=== PATIENT | male | born 1960 | race Caucasian/White ===

== ENCOUNTER 2021-02-18 12:40 | Observation (INO) | payer MEDICARE, SELFPAY ==
[2021-02-18 12:43] VITALS: BP 150/108; PULSE 126; RESP 20; TEMP 36.8; O2SAT 96; BMI 40.7
[2021-02-18 12:48] VITALS: PULSE 90
--- NOTE | 2021-02-18 12:51 | ECG_ITS ---
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 Measurements Intervals [place] Rate: 107 P: 26 CA: 148 QRS: -30 QRSD: 86 T: 29 QT: 328 QTc: 439 Interpretive Statements SINUS TACHYCARDIA BORDERLINE LEFT AXIS DEVIATION [QRS AXIS < -20] No previous ECG available for comparison Electronically Signed On 02-19-2021 21:56:33 DRIVER MESSENGER by Arsenio Ware M.D. [email or web address] [email or web address] [email or web address] system west campus3DVista/store/[id number] f
--- NOTE | 2021-02-18 12:51 | XRR_ITS ---
PROCEDURE INFORMATION: Exam: XR Chest Exam date and time: 02/18/2021 12:51 PM Age: 60 years old Clinical indication: Dyspnea TECHNIQUE: Imaging protocol: XR of the chest. Views: 1 view. COMPARISON: No relevant prior studies available. FINDINGS: Lungs: No pulmonary consolidation. Pleural spaces: No pleural effusion.. No pneumothorax. Heart/Mediastinum: The cardiac silhouette appears prominent; this is likely exaggerated by AP technique. No gross evidence of pneumomediastinum. Bones/joints: No gross fracture. XR/XR chest 1V portable [id number] IMPRESSION: No acute cardiopulmonary abnormality identified. Radiation Dose CTDIVOL = (mGy): DLP = (mGy-cm)
[2021-02-18 13:06] LABS: Basophils # 0.1 10^3/uL (0.0-0.1); Basophils % 0.9 %; Eosinophils # 0.1 10^3/uL (0.0-0.8); Eosinophils % 1.2 %; Hematocrit 47.8 % (42.0-52.0); Hemoglobin 16.4 g/dL (11.7-16.6); Lymphocytes # 1.5 10^3/uL (0.8-4.8); Lymphocytes % 22.6 %; Mean Corpuscular HGB Conc 34.3 g/dL (30.0-36.0); Mean Corpuscular Hemoglobin 31.7 pg (28.0-34.0); Mean Corpuscular Volume 92.5 fl (80-94); Monocytes # 0.8 10^3/uL (0.2-0.9); Monocytes % 11.5 %; Neutrophils # 4.15 10^3/uL (1.8-7.7); Neutrophils % 63.5 %; Nucleated Red Blood Cells % 0 %; Platelet Count 217 10^3/cmm (130-400); Red Blood Count 5.17 10^6/uL (4.1-5.3); Red Cell Distribution Width 12.5 % (12.1-15.1); White Blood Count 6.5 10^3/uL (4.0-10.0)
[2021-02-18 13:13] VITALS: BP 132/94; PULSE 108; RESP 24; TEMP 36.7; O2SAT 95
--- NOTE | 2021-02-18 13:13 | ED_ITS ---
HPI - General Adult General: Chief complaint: Weakness Stated complaint: WEAKNESS; TACHYCARDIA Time Seen by Provider: 02/18/21 12:45 History of Present Illness: HPI narrative: Patient is a 60-year-old male with history of hypertension, diabetes, recent right knee replacement in October who presents emergency room for persistence of tachycardia since the surgery. Patient tells me that he has never had fast heart rate, however after the surgery, has had shortness of breath and fast heart rate. Patient tells me that in November, went to the emergency room for an evaluation at that point time had a CT study that was negative for pulmonary embolism. Patient was told to follow- up with a lock stitch channeler, however has not been able to schedule appointment until now. This morning, patient reports palpitation, lightheadedness, and shortness of breath. Patient denies any lower extremity swelling or associated chest pain, fever/chills, nausea/vomiting, dehydration, diarrhea, melena/hematochezia, or other complaints at this time. He has no exertional chest pain, pleuritic chest pain, hemoptysis, or prolonged immoblization. Patient denies any sympathomimetic use, is not a heavy alcohol user and denies any history of alcohol withdrawal. Patient denies any thyroid issues or family history of thyroid issues. Onset: chronic x 3 months, acutely this AM Duration:ongoing Location:home Severity:moderate Review of Systems Narrative: Constitutional: No fever, no chills. HEENT: No vision changes CV: No chest pain, +palpitations PULM: no cough, +dyspnea. GI: No abdominal pain, no N/V/D. : No dysuria MSKEL: No muscle pain SKIN: No new rashes, no lesions. NEURO: No headache, no focal weakness. +1 episode of light-headedness HEME: No visible bruises PSYCH: Normal mood PFSH ED PFSH: Medical History Diabetes Shortness of breath Tachycardia Surgical History History of total knee arthroplasty Family History (Updated 02/18/21 @ 17:10 by Ray Hopper MD) Mother Cancer colon cancer Other Diabetes Social History Smoking and tobacco status: never smoked Physical Exam Narrative: EXAM NARRATIVE: Head: Atraumatic Eyes: PERRL, conjunctiva without injection ENT: Mucous membrane moist NECK: Supple, ROM intact LUNGS: LCTAB, no crackles/rhonchi CV: Sinus tachycardia ABDOMEN: Soft, nontender in all quadrants EXTREMITY: Normal ROM SKIN: No rash or erythema NEURO: Awake and alert, no focal motor deficits PSYCH: Normal mood and affect Course Vital Signs: Vital signs: Vital Signs Temperature 97.8 F 02/19/21 13:00 Pulse Rate 93 02/19/21 13:48 Respiratory Rate 18 02/19/21 13:00 Blood Pressure 114/79 02/19/21 13:48 Pulse Oximetry 96 02/19/21 13:00 MDM - General Adult MDM Narrative: Medical decision making narrative: 60-year-old male with history of diabetes, hypertension, recent right knee surgery in October presented to the emergency room with persistence of potation and new onset of shortness of breath and fast heart rate since this morning. Exam, patient is notably tachycardic to the 127 mildly tachypneic to 20. Rest of vitals within normal limit. No signs of lower extremity swelling. EKG showing regular sinus rhythm at HT of [107]. Normal axis. No ST elevations/depressions to suggest coronary occlusion. Normal MD, QRS, QT intervals. Poor R wave progression. Work-up: CBC, BMP, troponin x2, BMP, chest x-ray, EKG x2, Covid, influenza, TSH/T4, dimer Intervention: IVF, observation, ASA Cardiac today include troponin x2 within normal limit. D-dimer is within normal limit. TSH/T4 wnl. X-ray did not show any signs of focal finding. She has no longer tachycardic after 1 L fluid. At the present time, he still has shortness of breath. Given risk factors of HTN, HLN and possible cardiac dyspnea, I have offered patient decision for admission versus going home today. Patient likes to be admitted at this time. S/p aspirin in the ED Disposition: Admission for further workup Lab Data: Labs: Lab Results 02/18/21 02/18/21 02/18/21 12:50 12:50 12:50 WBC 6.5 10^3/uL 10^3/ uL (4.0-10.0) RBC 5.17 10^6/uL 10^6 /uL (4.1-5.3) Hgb 16.4 g/dL g/dL (11.7-16.6) Hct 47.8 % % (42.0-52.0) MCV 92.5 fl fl (80-94) MCH 31.7 pg pg (28.0-34.0) MCHC 34.3 g/dL g/dL (30.0-36.0) RDW 12.5 % % (12.1-15.1) Plt Count 217 10^3/cmm 10^3 /cmm (130-400) MPV 12.0 fL H fL (7.4-10.4) Neut % (Auto) 63.5 % % Lymph % (Auto) 22.6 % % [place] % (Auto) 11.5 % % Eos % (Auto) 1.2 % % Baso % (Auto) 0.9 % % Neut # (Auto) 4.15 10^3/uL 10^3 /uL (1.8-7.7) Lymph # (Auto) 1.5 10^3/uL 10^3/ uL (0.8-4.8) [place] # (Auto) 0.8 10^3/uL 10^3/ uL (0.2-0.9) Eos # (Auto) 0.1 10^3/uL 10^3/ uL (0.0-0.8) Baso # (Auto) 0.1 10^3/uL 10^3/ uL (0.0-0.1) Nucleated RBC % (a uto) 0 % % Nucleated RBCs # 0.0 /100WBC /100W BC D-Dimer Sodium 138 mmol/L mmol/L (136-145) Potassium 4.4 mmol/L mmol/L (3.5-5.1) Chloride 100 mmol/L mmol/L (98-107) Carbon Dioxide 25 mmol/L mmol/L (22-29) Anion Gap 17.4 (5-19) BUN 13 mg/dL mg/dL (8-23) Creatinine 0.7 mg/dL mg/dL (0.7-1.2) GFR Calculation 114.6 mL/min mL/m in (90-130) Glucose 159 mg/dL H mg/dL (65-115) Calculated Osmolal ity 289 mOsm/kg mOsm/ kg (285-295) Calcium 9.9 mg/dL mg/dL (8.5-10.5) Troponin T Baselin e 10 ng/L ng/L (0-15) Troponin T 120 Min [place] Troponin T NT-Pro-B Natriuret Pep 6 pg/mL pg/mL (0-125) Procalcitonin TSH Free T4 Influenza Type A A g Influenza Type B A g SARS-CoV-2 RNA (RT -PCR) SARS-CoV-2 Ag (Rap id) 02/18/21 02/18/21 02/18/21 12:50 12:50 12:50 WBC RBC Hgb Hct MCV MCH MCHC RDW Plt Count MPV Neut % (Auto) Lymph % (Auto) [place] % (Auto) Eos % (Auto) Baso % (Auto) Neut # (Auto) Lymph # (Auto) [place] # (Auto) Eos # (Auto) Baso # (Auto) Nucleated RBC % (a uto) Nucleated RBCs # D-Dimer 0.45 ug/mIFEU ug/ mIFEU (0-0.59) Sodium Potassium Chloride Carbon Dioxide Anion Gap BUN Creatinine GFR Calculation Glucose Calculated Osmolal ity Calcium Troponin T Baselin e Troponin T 120 Min [place] Troponin T NT-Pro-B Natriuret Pep Procalcitonin 0.05 ng/mL ng/mL (0-0.5) TSH 1.75 uIU/mL uIU/m L (0.27-4.20) Free T4 1.04 ng/dL ng/dL (0.82-1.77) Influenza Type A A g Influenza Type B A g SARS-CoV-2 RNA (RT -PCR) SARS-CoV-2 Ag (Rap id) 02/18/21 02/18/21 02/18/21 12:55 12:55 13:02 WBC RBC Hgb Hct MCV MCH MCHC RDW Plt Count MPV Neut % (Auto) Lymph % (Auto) [place] % (Auto) Eos % (Auto) Baso % (Auto) Neut # (Auto) Lymph # (Auto) [place] # (Auto) Eos # (Auto) Baso # (Auto) Nucleated RBC % (a uto) Nucleated RBCs # D-Dimer Sodium Potassium Chloride Carbon Dioxide Anion Gap BUN Creatinine GFR Calculation Glucose Calculated Osmolal ity Calcium Troponin T Baselin e Troponin T 120 Min [place] Troponin T NT-Pro-B Natriuret Pep Procalcitonin TSH Free T4 Influenza Type A A g Negative (Negative) Influenza Type B A g Negative (Negative) SARS-CoV-2 RNA (RT -PCR) Not detected (NOT DETECTED) SARS-CoV-2 Ag (Rap id) Negative (Negative) 02/18/21 15:30 WBC RBC Hgb Hct MCV MCH MCHC RDW Plt Count MPV Neut % (Auto) Lymph % (Auto) [place] % (Auto) Eos % (Auto) Baso % (Auto) Neut # (Auto) Lymph # (Auto) [place] # (Auto) Eos # (Auto) Baso # (Auto) Nucleated RBC % (a uto) Nucleated RBCs # D-Dimer Sodium Potassium Chloride Carbon Dioxide Anion Gap BUN Creatinine GFR Calculation Glucose Calculated Osmolal ity Calcium Troponin T Baselin e Troponin T 120 Min [place] 10.45 ng/L ng/L (0-15) [place] Troponin T 0.45 ABS# ABS# (0-10) NT-Pro-B Natriuret Pep Procalcitonin TSH Free T4 Influenza Type A A g Influenza Type B A g SARS-CoV-2 RNA (RT -PCR) SARS-CoV-2 Ag (Rap id) Discharge Plan Discharge Patient Disposition: Home Clinical Impression: Dyspnea, Sinus tachycardia Condition: Stable Discharge Orders: Discharge Order (Routine); Ordered 02/19/21 Ordered By: Ray Hopper Discharge Diet: Cardiac Discharge Activity: Resume usual activity Coding Level of Care Code ED Production Editor for Mo Souza
--- NOTE | 2021-02-18 13:17 | PC.NURSE ---
Addendum entered by Elida Durham RN 02/18/21 13:21: EMS gave pt 324mg baby Aspirin en ropute, pts blood glucose 198. Original Note: Pt arrived via EMS from home where he lives with his . Pt c/o intermittent SOB and general weakness since this past October. Pt states he had a knee replaced in October and has been working with HHC and PT, while working with both staff noted pts HR increase. Pt A/O, vs taken, pt placed on monitor. Pt denies chest pain, nausea, vomiting or diarrhea.
[2021-02-18 13:18] LABS: D Dimer 0.45 ug/mIFEU (0-0.59)
[2021-02-18 13:30] LABS: Influenza A by IFA Negative (Negative); Influenza B by IFA Negative (Negative); SARS Covid-2 Antigen Negative (Negative)
[2021-02-18 13:31] LABS: Troponin(5th) Baseline 10 ng/L (0-15)
[2021-02-18] MEDS: acetaminophen 500 mg Tablet 1000 MG PO (13:39)
[2021-02-18 13:40] LABS: Anion Gap 17.4 (5-19); Blood Urea Nitrogen 13 mg/dL (8-23); Calcium 9.9 mg/dL (8.5-10.5); Carbon Dioxide 25 mmol/L (22-29); Chloride 100 mmol/L (98-107); Glomerular Filtration Rate 114.6 mL/min (90-130); Glucose 159 mg/dL (65-115); NT Pro B Type Natriuretic Pept 6 pg/mL (0-125); Osmolality Calculated 289 mOsm/kg (285-295); Potassium 4.4 mmol/L (3.5-5.1); Sodium 138 mmol/L (136-145)
[2021-02-18] MEDS: sodium chloride 0.9% 1,000 ML 999 ML IV (13:40)
[2021-02-18 13:44] LABS: Free T4 Free Thyroxine 1.04 ng/dL (0.82-1.77); Thyroid Stimulating Hormone 1.75 uIU/mL (0.27-4.20)
--- NOTE | 2021-02-18 14:51 | ECG_ITS ---
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 Measurements Intervals [place] Rate: 96 P: 22 NM: 146 QRS: -11 QRSD: 81 T: 16 QT: 344 QTc: 436 Interpretive Statements SINUS RHYTHM Compared to ECG 02/18/2021 12:48:36 Sinus tachycardia no longer present Electronically Signed On 02-19-2021 21:59:56 RACING SECRETARY AND HANDICAPPER by Arsenio Ware M.D. [email or web address] [email or web address] health allen hospitalCurse/store/OM/[id number]
--- NOTE | 2021-02-18 15:36 | PM.HP ---
Providers/Chief Complaint Chief Complaint: WEAKNESS; TACHYCARDIA History of Present Illness Mikala Wright is a 60 year old male who has history of knee replacement in October at [facility] presented today with chief complaint of palpitation and shortness of breath. Patient is stating that since his surgery he has been experiencing palpitations which he would experience for most of his day, he has not experienced any falls, nausea, vomiting or chest pain. He does not carry any cardiac history. He does not drink caffeine or soda on daily basis. He does not drink alcohol. No syncopal events in the past. Since his surgery he has been noticing that heart rate consistently stays above 100 with exertion. Heart rate slightly improves at rest especially in the evening. He presented to the hospital for worsening of his shortness of breath and palpitation. Today he was working in his garage, stacking shelves when he started getting diaphoretic, he felt extremely lethargic and fatigued when he checked his heart rate was 167. Diagnostics in the ER revealed sinus tachycardia, D-dimer unremarkable, chest x-ray unremarkable EKG showing sinus rhythm. Patient is stating that in November he went to [facility] where CTA chest was done which was unremarkable. He was put on metoprolol by PCP for his tachycardia. He only carries history of diabetes and hypertension. Of note, patient is stating that he was diagnosed with rheumatic fever when he was 5 years old. His father of pulmonary complications, mother had colon cancer. Review of Systems Const: Denies: fever(s) Eyes: Denies: change in vision ENMT: Denies: throat pain Card: Reports: palpitations Resp: Reports: dyspnea GI: Denies: abdominal pain : Denies: flank pain Musc: Denies: neck pain Skin/Breast: Denies: rash Neuro: Denies: headache(s) Psych: Denies: anxiety Endo: Denies: polyuria Jhonathan/Lymph: Denies: easy bruising All/Imm: Denies: urticaria Medications/Allergies Home Medications Medication Instructions Recorded Confirmed Last Taken Type buspirone 10 mg tablet 10 mg PO BID 02/18/21 02/18/21 Unknown History celecoxib 200 mg capsule 200 mg PO BID 02/18/21 02/18/21 Unknown History clindamycin HCl 300 mg PO TID 02/18/21 02/18/21 02/18/21 History glipizide 10 mg tablet 10 mg PO BID 02/18/21 02/18/21 Unknown History lisinopril 10 mg tablet 10 mg PO DAILY 02/18/21 02/18/21 Unknown History metformin 500 mg tablet 500 mg PO BID 02/18/21 02/18/21 Unknown History metoprolol tartrate 25 mg tablet 25 mg PO BID 02/18/21 02/18/21 Unknown History pregabalin 75 mg capsule 75 mg PO BID 02/18/21 02/18/21 Unknown History Allergies Allergy/AdvReac Type Severity Reaction Status Date / Time No Known Allergies Allergy Verified 02/18/21 11:06 PFSH Acute PFSH: Medical History Diabetes Shortness of breath Tachycardia Surgical History History of total knee arthroplasty Family History (Updated 02/18/21 @ 17:10 by Ray Hopper MD) Mother Cancer colon cancer Other Diabetes Social History Smoking and tobacco status: never smoked Vitals/I&O/Wt Last Vital Signs Temp 98.1 F 02/18/21 13:13 Pulse 108 H 02/18/21 13:13 Resp 24 H 02/18/21 13:13 BP 132/94 02/18/21 13:13 Pulse Ox 95 02/18/21 13:13 Weight last 48 hrs Weight 111.13 kg Physical Exam Narrative: EXAM NARRATIVE: Is sitting comfortably in his bed Saturating well on room air Responding well to fluids heart rate improved to 90s sinus rhythm S1, S2 no murmur appreciated Abdomen soft distended with obesity Nonfocal neuro exam EOMI, PERRLA Appropriate mood and affect No sign of cellulitis Appears stated age Data : 02/18/21 12:50 02/18/21 12:50 A&P Assessment and plan (1) Dyspnea: Status: Acute (2) Sinus tachycardia: Status: Acute (3) Diabetes: Status: Acute Qualifiers: Diabetes mellitus type: type 2 Diabetes mellitus fdc insulin use: without termite control technician use Diabetes mellitus complication status: without complication Qualified Code(s): E11.9 - Type 2 diabetes mellitus without complications Additional A&P Information Symptomatic tachycardia EKG showing sinus tachycardia Patient is stating that tachycardia last roughly 8 to 10 hours gets worse with exertion, never experienced any chest pain he mostly gets fatigue lethargy and diaphoretic episodes with palpitations, he is denying diarrhea he has not noticed episodic hypotension or headaches, carcinoid less likely, Patient is stating that his heart rate was 167 at home In the ER he responded very well to fluid resuscitation, heart rate improved to 80s Hemodynamically stable No active chest pain Troponin without significant delta TSH normal Potassium normal D-dimer unremarkable Saturating well on room air We will request echo and monitoring overnight for telemetry, patient does get symptoms on exertion, might benefit from ischemic work-up Cardiac diet Full code DVT prophylaxis Lovenox Check magnesium level in the morning Attestations Medical Necessity Statement*: Will be discharged with event monitor most likely within 48 hours Time Spent in Patient Care: Greater than 35 minutes Coding Level of Care Code Acute Senior Hardware Engineer for g Fwd Diagnoses Dyspnea R06.00 Sinus tachycardia R00.0 Diabetes E11.9 Diabetes mellitus type: type 2 Diabetes mellitus termite control technician insulin use: without fdc use Diabetes mellitus complication status: without complication
[2021-02-18 15:55] LABS: Troponin 5 2HR 10.45 ng/L (0-15); Troponin 5 2HR Delta 0.45 ABS# (0-10)
--- NOTE | 2021-02-18 16:03 | PC.NURSE ---
Report called to floor, given to JOHNNY Mendoza
[2021-02-18] MEDS: aspirin 325 mg Tablet PO (16:08)
[2021-02-18 16:12] LABS: Procalcitonin 0.05 ng/mL (0-0.5)
[2021-02-18 16:42] VITALS: BMI 41.9
[2021-02-18 16:43] VITALS: BP 118/75; PULSE 78; RESP 16; TEMP 36.6; O2SAT 94
[2021-02-18 17:11] LABS: Glucose Point of Care 136 mg/dL (70-110)
[2021-02-18] MEDS: sodium chloride 0.9% 1,000 ML 75 ML IV (17:41)
[2021-02-18] MEDS: enoxaparin 40 mg/0.4 mL Syringe SUBCUT (17:41)
[2021-02-18 17:55] LABS: Amphetamines Screen Urine Negative (Negative); Barbiturates Screen Urine Negative (Negative); Benzodiazepines Screen Urine Negative (Negative); Cocaine Screen Urine Negative (Negative); Opiate Screen Urine Negative (Negative); PCP Screen Urine Negative (Negative); THC Screen Urine Negative (Negative)
[2021-02-18 20:00] VITALS: BP 118/75; PULSE 85; RESP 17; TEMP 36.8; O2SAT 91
[2021-02-18] MEDS: metoprolol tartrate 25 mg Tablet PO (20:15)
[2021-02-18 20:20] LABS: Troponin 5 6HR 9.27 ng/L (0-15)
[2021-02-18 20:30] LABS: Troponin 5 6HR Delta -0.73 ng/L (0-12)
[2021-02-18 20:40] LABS: Glucose Point of Care 161 mg/dL (70-110)
[2021-02-18 22:00] VITALS: PULSE 74
[2021-02-19] VITALS: BP 103/67; PULSE 73; RESP 15; TEMP 36.7; O2SAT 91
[2021-02-19 04:00] VITALS: BP 106/73; PULSE 67; RESP 16; TEMP 36.7; O2SAT 93
[2021-02-19] MEDS: sodium chloride 0.9% 1,000 ML 75 ML IV (05:12)
[2021-02-19 05:26] LABS: Basophils % 0.9 %; Eosinophils # 0.1 10^3/uL (0.0-0.8); Eosinophils % 2.3 %; Hematocrit 44.1 % (42.0-52.0); Hemoglobin 14.6 g/dL (11.7-16.6); Lymphocytes # 1.6 10^3/uL (0.8-4.8); Lymphocytes % 34.9 %; Mean Corpuscular HGB Conc 33.1 g/dL (30.0-36.0); Mean Corpuscular Hemoglobin 31.6 pg (28.0-34.0); Mean Corpuscular Volume 95.5 fl (80-94); Mean Platelet Volume 11.2 fL (7.4-10.4); Monocytes # 0.6 10^3/uL (0.2-0.9); Monocytes % 11.9 %; Neutrophils # 2.33 10^3/uL (1.8-7.7); Neutrophils % 49.6 %; Nucleated Red Blood Cells % 0 %; Platelet Count 156 10^3/cmm (130-400); Red Blood Count 4.62 10^6/uL (4.1-5.3); Red Cell Distribution Width 12.5 % (12.1-15.1); White Blood Count 4.7 10^3/uL (4.0-10.0)
[2021-02-19 05:47] LABS: Alanine Aminotransferase 44 U/L (0-41); Alkaline Phosphatase 42 IU/L (40-130); Anion Gap 13.4 (5-19); Aspartate Amino Transferase 35 U/L (0-40); Blood Urea Nitrogen 12 mg/dL (8-23); Calcium 8.9 mg/dL (8.5-10.5); Carbon Dioxide 26 mmol/L (22-29); Chloride 104 mmol/L (98-107); Creatinine Clr Calc Pharmacy 151.0912; Globulin 2.4 g/dL (1.3-4.6); Glucose 151 mg/dL (65-115); Magnesium 1.8 mg/dL (1.7-2.3); Osmolality Calculated 291 mOsm/kg (285-295); Potassium 4.4 mmol/L (3.5-5.1); Sodium 139 mmol/L (136-145); Total Bilirubin 0.7 mg/dL (0.15-1.2); Total Protein 6.4 g/dL (6.6-8.7)
[2021-02-19 06:36] LABS: Glucose Point of Care 144 mg/dL (70-110)
--- NOTE | 2021-02-19 07:33 | USCV_ITS ---
Mikala Wright Age: 60 Gender: M : 1960 Exam Date: 02/19/2021 09:42 Ordering Phys: Ray Hopper MD Technologist: Jordana Mauro [place] [facility] [place]: Palpitations BP: 106 / 73 HR: 74 Rhythm: Sinus Technical Quality: Fair MEASUREMENTS (Male / Female) Normal Values 2D ECHO LV Diastolic Diameter PLAX 4.7 cm 4.2 - 5.9 / 3.9 - 5.3 cm LV Systolic Diameter PLAX 2.9 cm LV Chamber Size 3.8 cm IVS Diastolic Thickness 1.0 cm 0.6 - 1.0 / 0.6 - 0.9 cm IVS Systolic Thickness 1.9 cm LVPW Diastolic Thickness 1.0 cm 0.6 - 1.0 / 0.6 - 0.9 cm LVPW Systolic Thickness 1.3 cm RV Chamber Size 1.8 cm LVOT Diameter 2.0 cm LV Ejection Fraction 2D Teich 69.0 % LV Ejection Fraction MOD 2C 56.8 % LV Ejection Fraction 2C AL 58.3 % LA Diameter 3.4 cm LA Width 2.8 cm LA Height 4.7 cm RA Width 1.8 cm RA Height 4.6 cm Aorta at Sinotubular Diameter 2.7 cm M-MODE LV Diastolic Diameter MM 4.7 cm 4.2 - 5.9 / 3.9 - 5.3 cm LV Systolic Diameter MM 3.2 cm LV Ejection Fraction MM Teich 60.3 % IVS Diastolic Thickness MM 1.4 cm 0.6 - 1.0 / 0.6 - 0.9 cm IVS Systolic Thickness MM 1.7 cm LVPW Diastolic Thickness MM 1.3 cm 0.6 - 1.0 / 0.6 - 0.9 cm LVPW Systolic Thickness MM 1.6 cm RV Diastolic Diameter MM 1.7 cm Aortic Annulus Diameter 3.6 cm LA Ao Ratio MM 1.1 MV E Point Septal Separation 0.6 cm DOPPLER AV Peak Velocity 137.0 cm/s LVOT Peak Velocity 103.0 cm/s AV Area Cont Eq vti 2.5 cm squared AV Area Cont Eq pk 2.2 cm squared MV Area PHT 4.8 cm squared Mitral E to A Ratio 0.9 MV E' Velocity 49.0 cm/s Mitral E to MV E' Ratio 9.3 Mitral E to LV E' Lateral Ratio 7.3 Mitral E to LV E' Septal Ratio 13.2 TV Peak E Velocity 44.0 cm/s PV Peak Velocity 60.0 cm/s RV Acceleration Time 0.1 s RV Ejection Time 0.3 s RV AcT/ET 0.3 FINDINGS Left Ventricle Normal left ventricular size,. LV systolic function is normal with EF of 55-60%. No regional wall motion abnormalities. Grade 1 diastolic dysfunction Right Ventricle The right ventricle is normal in size and function. Right Atrium The right atrium is normal in size. Left Atrium The left atrium is normal in size. Mitral Valve Mild mitral annular calcification is seen without significant stenosis or prolapse. There is trace mitral regurgitation. Aortic Valve Aortic valve is thickened without significant stenosis. There is no aortic regurgitation. Tricuspid Valve Structurally normal tricuspid valve without significant stenosis or regurgitation. Insufficient TR jet to calculate RVSP Pulmonic Valve Structurally normal pulmonic valve without significant stenosis. There is no pulmonic regurgitation. Pericardium Normal pericardium without effusion. Aorta Normal ascending aorta dimension. CONCLUSIONS LV systolic function is normal with EF of 55-60% Grade 1 diastolic dysfunction Trace mitral regurgitation Mitral annular calcification is seen. Aortic valve is thickened without significant stenosis. No comparison studies are available. Arsenio Ware MD (Electronically Signed) Final Date: 19 February 2021 11:52 S
[2021-02-19 07:54] VITALS: BP 117/73; PULSE 65; RESP 18; TEMP 36.7; O2SAT 91
[2021-02-19] MEDS: metoprolol tartrate 25 mg Tablet PO (08:08)
[2021-02-19] MEDS: lisinopril 10 mg Tablet PO (08:09)
[2021-02-19] MEDS: insulin lispro 100 unit/1 mL SUBCUT ×2 (08:09→11:33)
--- NOTE | 2021-02-19 09:30 | PM.DCS ---
Discharge Providers Date of Admission: 02/18/21 16:41 Date of Discharge: February 19, 2021 Attending Provider at Admission: Ray Hopper MD Attending Provider at Discharge: Ray Hopper MD Primary Care Provider: Ana Mercedes MD Diagnoses at Discharge Discharge Diagnosis (1) Dyspnea: Status: Acute (2) Sinus tachycardia: Status: Acute (3) Diabetes: Status: Acute Qualifiers: Diabetes mellitus complication status: without complication Diabetes mellitus human resources generalist insulin use: without human resources generalist use Diabetes mellitus type: type 2 Qualified Code(s): E11.9 - Type 2 diabetes mellitus without complications Reason for Visit Reason for Visit: WEAKNESS; TACHYCARDIA Hospital Course Hospital Course 60-year-old male without significant past medical history presented to the hospital with chief complaint of symptomatic palpitations. Patient is stating that since his knee surgery he was experiencing palpitations at home. In November he was seen in [facility] where CTA chest ruled out PE, he is not endorsing any chest pain, fever, shortness of breath, excessive caffeine intake, drug abuse, alcohol intake, he does not smoke. His palpitations would last 6 to 8 hours a day and gets worse with exertion, rest would improve his heart rate, he never experienced any chest pain or syncopal event. He was seen by his PCP who started him on metoprolol, he does not carry significant past medical history other than hypertension and diabetes. In the ER he was diagnosed with sinus tachycardia, D-dimer unremarkable, magnesium potassium normal. TSH normal. EKG showed sinus tachycardia. He was observed overnight on telemetry, he remained in sinus rhythm, heart rate improved on 02/19 he was staying between 60 to 70s. He will be discharged with event monitor, cardiology follow-up. Dr. Ware was notified. Physical Exam Narrative: EXAM NARRATIVE: Saturating well on room air Responding well to fluids heart rate improved to 60s sinus rhythm S1, S2 no murmur appreciated Abdomen soft distended with obesity Nonfocal neuro exam EOMI, PERRLA Appropriate mood and affect No sign of cellulitis Appears stated age Discharge Data Data Completed and Pending: Completed Studies During Hospitalization Category Date Time Status XR chest 1V deny ble [id number] Urgent Exams 02/18/21 12:51 Completed Pending at discharge Category Date Time Status [facility] SARS-CoV-2 RNA Routine Lab 02/18/21 13:02 Received CV. echo complete * [id number] Routine Ultrasound 02/19/21 07:33 Ordered Labs from last 24 hours 02/19/21 02/19/21 02/19/21 06:29 05:00 05:00 WBC 4.7 RBC 4.62 Hgb 14.6 Hct 44.1 MCV 95.5 H MCH 31.6 MCHC 33.1 RDW 12.5 Plt Count 156 MPV 11.2 H Neut % (Auto) 49.6 Lymph % (Auto) 34.9 [place] % (Auto) 11.9 Eos % (Auto) 2.3 Baso % (Auto) 0.9 Neut # (Auto) 2.33 Lymph # (Auto) 1.6 [place] # (Auto) 0.6 Eos # (Auto) 0.1 Baso # (Auto) 0.0 Nucleated RBC % (a uto) 0 Nucleated RBCs # 0.0 D-Dimer Sodium 139 Potassium 4.4 Chloride 104 Carbon Dioxide 26 Anion Gap 13.4 BUN 12 Creatinine 0.6 L GFR Calculation 137.0 H Glucose 151 H POC Glucose 144 H Calculated Osmolal ity 291 Calcium 8.9 Magnesium 1.8 Total Bilirubin 0.7 AST 35 ALT 44 H Alkaline Phosphata se 42 Troponin T Baselin e Troponin T 120 Min [place] Troponin T Troponin T Hi Sens 6Hr Troponin T Hi Sens 6Hr [place] NT-Pro-B Natriuret Pep Total Protein 6.4 L Albumin 4.0 Globulin 2.4 Procalcitonin TSH Free T4 Urine Opiates Scre en Ur Barbiturates Sc reen Ur Phencyclidine S crn Ur Amphetamines Sc reen U Benzodiazepines Scrn Urine Cocaine Scre en U Marijuana (THC) Screen Influenza Type A A g Influenza Type B A g SARS-CoV-2 RNA (RT -PCR) SARS-CoV-2 Ag (Rap id) 02/18/21 02/18/21 02/18/21 20:24 19:51 17:25 WBC RBC Hgb Hct MCV MCH MCHC RDW Plt Count MPV Neut % (Auto) Lymph % (Auto) [place] % (Auto) Eos % (Auto) Baso % (Auto) Neut # (Auto) Lymph # (Auto) [place] # (Auto) Eos # (Auto) Baso # (Auto) Nucleated RBC % (a uto) Nucleated RBCs # D-Dimer Sodium Potassium Chloride Carbon Dioxide Anion Gap BUN Creatinine GFR Calculation Glucose POC Glucose 161 H Calculated Osmolal ity Calcium Magnesium Total Bilirubin AST ALT Alkaline Phosphata se Troponin T Baselin e Troponin T 120 Min [place] Troponin T Troponin T Hi Sens 6Hr 9.27 Troponin T Hi Sens 6Hr Delta -0.73 L NT-Pro-B Natriuret Pep Total Protein Albumin Globulin Procalcitonin TSH Free T4 Urine Opiates Scre en Negative Ur Barbiturates Sc reen Negative Ur Phencyclidine S crn Negative Ur Amphetamines Sc reen Negative U Benzodiazepines Scrn Negative Urine Cocaine Scre en Negative U Marijuana (THC) Screen Negative Influenza Type A A g Influenza Type B A g SARS-CoV-2 RNA (RT -PCR) SARS-CoV-2 Ag (Rap id) 02/18/21 02/18/21 02/18/21 16:49 15:30 13:02 WBC RBC Hgb Hct MCV MCH MCHC RDW Plt Count MPV Neut % (Auto) Lymph % (Auto) [place] % (Auto) Eos % (Auto) Baso % (Auto) Neut # (Auto) Lymph # (Auto) [place] # (Auto) Eos # (Auto) Baso # (Auto) Nucleated RBC % (a uto) Nucleated RBCs # D-Dimer Sodium Potassium Chloride Carbon Dioxide Anion Gap BUN Creatinine GFR Calculation Glucose POC Glucose 136 H Calculated Osmolal ity Calcium Magnesium Total Bilirubin AST ALT Alkaline Phosphata se Troponin T Baselin e Troponin T 120 Min [place] 10.45 Delta Troponin T 0.45 Troponin T Hi Sens 6Hr Troponin T Hi Sens 6Hr [place] NT-Pro-B Natriuret Pep Total Protein Albumin Globulin Procalcitonin TSH Free T4 Urine Opiates Scre en Ur Barbiturates Sc reen Ur Phencyclidine S crn Ur Amphetamines Sc reen U Benzodiazepines Scrn Urine Cocaine Scre en U Marijuana (THC) Screen Influenza Type A A g Influenza Type B A g SARS-CoV-2 RNA (RT -PCR) Pending SARS-CoV-2 Ag (Rap id) 02/18/21 02/18/21 02/18/21 12:55 12:55 12:50 WBC RBC Hgb Hct MCV MCH MCHC RDW Plt Count MPV Neut % (Auto) Lymph % (Auto) [place] % (Auto) Eos % (Auto) Baso % (Auto) Neut # (Auto) Lymph # (Auto) [place] # (Auto) Eos # (Auto) Baso # (Auto) Nucleated RBC % (a uto) Nucleated RBCs # D-Dimer Sodium Potassium Chloride Carbon Dioxide Anion Gap BUN Creatinine GFR Calculation Glucose POC Glucose Calculated Osmolal ity Calcium Magnesium Total Bilirubin AST ALT Alkaline Phosphata se Troponin T Baselin e Troponin T 120 Min [place] Troponin T Troponin T Hi Sens 6Hr Troponin T Hi Sens 6Hr [place] NT-Pro-B Natriuret Pep Total Protein Albumin Globulin Procalcitonin 0.05 TSH Free T4 Urine Opiates Scre en Ur Barbiturates Sc reen Ur Phencyclidine S crn Ur Amphetamines Sc reen U Benzodiazepines Scrn Urine Cocaine Scre en U Marijuana (THC) Screen Influenza Type A A g Negative Influenza Type B A g Negative SARS-CoV-2 RNA (RT -PCR) SARS-CoV-2 Ag (Rap id) Negative 02/18/21 02/18/21 02/18/21 12:50 12:50 12:50 WBC RBC Hgb Hct MCV MCH MCHC RDW Plt Count MPV Neut % (Auto) Lymph % (Auto) [place] % (Auto) Eos % (Auto) Baso % (Auto) Neut # (Auto) Lymph # (Auto) [place] # (Auto) Eos # (Auto) Baso # (Auto) Nucleated RBC % (a uto) Nucleated RBCs # D-Dimer 0.45 Sodium Potassium Chloride Carbon Dioxide Anion Gap BUN Creatinine GFR Calculation Glucose POC Glucose Calculated Osmolal ity Calcium Magnesium Total Bilirubin AST ALT Alkaline Phosphata se Troponin T Baselin e 10 Troponin T 120 Min [place] Troponin T Troponin T Hi Sens 6Hr Troponin T Hi Sens 6Hr [place] NT-Pro-B Natriuret Pep Total Protein Albumin Globulin Procalcitonin TSH 1.75 Free T4 1.04 Urine Opiates Scre en Ur Barbiturates Sc reen Ur Phencyclidine S crn Ur Amphetamines Sc reen U Benzodiazepines Scrn Urine Cocaine Scre en U Marijuana (THC) Screen Influenza Type A A g Influenza Type B A g SARS-CoV-2 RNA (RT -PCR) SARS-CoV-2 Ag (Rap id) 02/18/21 02/18/21 12:50 12:50 WBC 6.5 RBC 5.17 Hgb 16.4 Hct 47.8 MCV 92.5 MCH 31.7 MCHC 34.3 RDW 12.5 Plt Count 217 MPV 12.0 H Neut % (Auto) 63.5 Lymph % (Auto) 22.6 [place] % (Auto) 11.5 Eos % (Auto) 1.2 Baso % (Auto) 0.9 Neut # (Auto) 4.15 Lymph # (Auto) 1.5 [place] # (Auto) 0.8 Eos # (Auto) 0.1 Baso # (Auto) 0.1 Nucleated RBC % (a uto) 0 Nucleated RBCs # 0.0 D-Dimer Sodium 138 Potassium 4.4 Chloride 100 Carbon Dioxide 25 Anion Gap 17.4 BUN 13 Creatinine 0.7 GFR Calculation 114.6 Glucose 159 H POC Glucose Calculated Osmolal ity 289 Calcium 9.9 Magnesium Total Bilirubin AST ALT Alkaline Phosphata se Troponin T Baselin e Troponin T 120 Min [place] Troponin T Troponin T Hi Sens 6Hr Troponin T Hi Sens 6Hr [place] NT-Pro-B Natriuret Pep 6 Total Protein Albumin Globulin Procalcitonin TSH Free T4 Urine Opiates Scre en Ur Barbiturates Sc reen Ur Phencyclidine S crn Ur Amphetamines Sc reen U Benzodiazepines Scrn Urine Cocaine Scre en U Marijuana (THC) Screen Influenza Type A A g Influenza Type B A g SARS-CoV-2 RNA (RT -PCR) SARS-CoV-2 Ag (Rap id) Vitals: Last Vital Signs Temp 98.0 F 02/19/21 07:54 Pulse 65 02/19/21 07:54 Resp 18 02/19/21 07:54 BP 117/73 02/19/21 07:54 Pulse Ox 91 02/19/21 07:54 Discharge Plan Discharge Patient Disposition: Home Condition: Stable Prescriptions: No Action glipizide 10 mg tablet 10 mg PO BID RF: 0 metformin 500 mg tablet 500 mg PO BID RF: 0 celecoxib 200 mg capsule 200 mg PO BID RF: 0 metoprolol tartrate 25 mg tablet 25 mg PO BID RF: 0 buspirone 10 mg tablet 10 mg PO BID RF: 0 lisinopril 10 mg tablet 10 mg PO DAILY RF: 0 pregabalin 75 mg capsule 75 mg PO BID RF: 0 clindamycin HCl 300 mg capsule 300 mg PO TID RF: 0 Discharge Orders: Discharge Order (Routine); Ordered 02/19/21 Ordered By: Ray Hopper Other Ambulatory Orders: [place] cardiac event monitor (Routine) Timeframe: 21 Days Facility: [facility] - Location: Cardiac Diagnostic Laboratory Ordered By: Ray Hopper Referrals: Arsenio Ware M.D [Physician] - 1-3 days (PLEASE CALL DR VARELA SATURDAY MORNING TO MAKE FOLLOW-UP APPOINTMENT.) Discharge Diet: Cardiac Discharge Activity: Resume usual activity Patient Instructions: Tachycardia (ED), Opioid Safety Activity Restrictions/Additional Instructions: Our case investigator will have you follow-up with Cardiology in the next few days. You would be expected to have a phone call with our case investigator who will put you on the schedule. Come back to the emergency room if your chest pain worsens, have any fever or chills, worsening shortness of breath, worsening exertional lightheadedness, or any new or concerning complaints. Discharge Attestations Time Spent in Discharge Care*: less than 30 min Quality Metrics Clinical Quality Measures During this hospital stay, did patient experience: None Coding Level of Care Code Acute g FW DC note Diagnoses Dyspnea R06.00 Sinus tachycardia R00.0 Diabetes E11.9 Diabetes mellitus complication status: without complication Diabetes mellitus human resources generalist insulin use: without human resources generalist use Diabetes mellitus type: type 2
[2021-02-19 11:03] LABS: Glucose Point of Care 183 mg/dL (70-110)
[2021-02-19 13:00] VITALS: BP 156/99; PULSE 78; RESP 18; TEMP 36.6; O2SAT 96
--- NOTE | 2021-02-19 13:09 | PC.NURSE ---
Vitals were taken after pt pull the emergency cord in bathroom where the nurse and I found the pt laying on the floor and stated he fell. He claimed that everything went black for a second then he was on the ground.
[2021-02-19 13:48] VITALS: BP 114/79; BP 120/82; BP 129/74; PULSE 80; PULSE 87; PULSE 93
[2021-02-19 16:57] LABS: Quest SARS-CoV-2 RNA NOT DETECTED (NOT DETECTED)
--- NOTE | 2021-02-20 11:52 | DCPLANNER ---
Addendum entered by Zohreh López 05/06/21 11:26: Patient had a follow up appointment scheduled with [facility] - patient did attend appointment. Original Note: sports team manager had message to schedule a follow up appointment for patient with [facility]. sports team manager called [facility], spoke with Ana, gave clinic patients information. A follow up appointment was scheduled for Saturday, March 07, 2021 at 1:[address] Acosta. sports team manager called and gave patient the appointment information.
== END 2021-02-19 14:44 | disposition home or self-care (01) ==
LOC: ER 15:48 → MEDSURG 15:56
PROVIDERS: Admitting Provider Internal Medicine; Emergency Provider Emergency Medicine; PCP Family Medicine; Visit Provider Internal Medicine
DX: R06.00 Dyspnea, unspecified (principal); R00.0 Tachycardia, unspecified; E11.9 Type 2 diabetes mellitus without complications; I10 Essential (primary) hypertension; Z96.651 Presence of right artificial knee joint; Z79.84 Long term (current) use of oral hypoglycemic drugs
CPT/HCPCS: 36415; 36416; 71045; 80048; 80053; 80306; 82962; 83735; 83880; 84145; 84439; 84443; 84484; 85025; 85378; 87426; 87635; 87804; 93005; 93306; 96360; 96361; 96372; 99285; 99291; G0378; J1650; J1815; J7030

== ENCOUNTER 2021-03-09 23:31 | Emergency (ER) | payer MEDICARE, SELFPAY ==
[2021-03-09 23:30] VITALS: BP 159/114; PULSE 82; RESP 18; TEMP 36.2; O2SAT 94; BMI 39.9
--- NOTE | 2021-03-09 23:35 | CTR_ITS ---
PROCEDURE INFORMATION: Exam: CT Head Without Contrast Exam date and time: 03/09/2021 11:35 PM Age: 60 years old Clinical indication: Pain; Headache; Patient HX: LINARES with dizziness. ; Additional info: Dizzy TECHNIQUE: Imaging protocol: Computed tomography of the head without contrast. Radiation optimization: All CT scans at this facility use at least one of these dose optimization techniques: automated exposure control; mA and/or kV adjustment per patient size (includes targeted exams where dose is matched to clinical indication); or iterative reconstruction. COMPARISON: No relevant prior studies available. RADIATION DOSE METRICS: Total DLP (mGy-cm): 893.16 FINDINGS: Brain: Normal. No hemorrhage. Unremarkable white matter. No mass effect. Cerebral ventricles: No ventriculomegaly. Paranasal sinuses: Visualized sinuses are unremarkable. No fluid levels. Mastoid air cells: Visualized mastoid air cells are well aerated. Bones/joints: Unremarkable. No acute fracture. Soft tissues: Unremarkable. CT/CT head wo con* [id number] IMPRESSION: No acute intracranial abnormality. Radiation Dose CTDIVOL = (mGy): DLP = 893.16 (mGy-cm)
--- NOTE | 2021-03-09 23:35 | XRR_ITS ---
PROCEDURE INFORMATION: Exam: XR Chest Exam date and time: 03/09/2021 11:35 PM Age: 60 years old Clinical indication: Shortness of breath; Patient HX: C/O dizziness and SOB. Wearing cardiac cath technologist on chest. ; Additional info: Dizzy TECHNIQUE: Imaging protocol: XR of the chest. Views: 1 view. COMPARISON: CR (CHEST, ) 02/18/2021 1:34 PM FINDINGS: Lungs: Unremarkable. No consolidation. Pleural spaces: Unremarkable. No pleural effusion. No pneumothorax. Heart/Mediastinum: Cardiomegaly. Bones/joints: Unremarkable. XR/XR chest 1V portable [id number] IMPRESSION: Cardiomegaly, negative for infiltrate Radiation Dose CTDIVOL = (mGy): DLP = (mGy-cm)
--- NOTE | 2021-03-09 23:35 | ECG_ITS ---
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
[2021-03-09 23:38] VITALS: O2SAT 93
[2021-03-09 23:40] VITALS: O2SAT 92
[2021-03-09] MEDS: meclizine 25 mg tablet 50 MG PO (23:40)
[2021-03-09] MEDS: sodium chloride 0.9% 1,000 ML 999 ML IV (23:40)
[2021-03-09 23:42] LABS: Basophils # 0.1 10^3/uL (0.0-0.1); Eosinophils # 0.2 10^3/uL (0.0-0.8); Eosinophils % 2.2 %; Hematocrit 48.7 % (42.0-52.0); Hemoglobin 16.2 g/dL (11.7-16.6); Lymphocytes # 2.4 10^3/uL (0.8-4.8); Mean Corpuscular HGB Conc 33.3 g/dL (30.0-36.0); Mean Corpuscular Hemoglobin 31.5 pg (28.0-34.0); Mean Corpuscular Volume 94.7 fl (80-94); Mean Platelet Volume 11.7 fL (7.4-10.4); Monocytes # 0.8 10^3/uL (0.2-0.9); Monocytes % 10.7 %; Neutrophils # 3.85 10^3/uL (1.8-7.7); Neutrophils % 52.8 %; Nucleated Red Blood Cells % 0 %; Platelet Count 185 10^3/cmm (130-400); Red Blood Count 5.14 10^6/uL (4.1-5.3); Red Cell Distribution Width 12.2 % (12.1-15.1); White Blood Count 7.3 10^3/uL (4.0-10.0)
[2021-03-09 23:45] VITALS: O2SAT 93
[2021-03-09 23:50] VITALS: O2SAT 92
[2021-03-09 23:55] VITALS: O2SAT 92
--- NOTE | 2021-03-09 23:58 | ED_ITS ---
HPI - Dizziness General: Chief Complaint: Dizziness Stated Complaint: sob/ dizziness Time Seen by Provider: 03/09/21 23:31 Source: patient and EMS Mode of arrival: EMS Limitations: no limitations History of Present Illness: HPI Narrative: 60-year-old male states that he has been having dizziness since 4 PM. He states that he gets dizzy with any sudden movements and he feels like the room is spinning. He states is improved with rest or sitting still he denies any difficulty walking denies any focal weakness denies any slurred speech denies any headache. Associated symptoms: Denies chest pain, chills, nausea or vomiting Review of Systems Const: Denies: fever(s), chills, body aches or change in appetite Eyes: Denies: blurry vision or eye discomfort ENMT: Denies: throat pain or dental pain Card: Denies: chest pain Resp: Denies: dyspnea GI: Denies: abdominal pain, nausea, vomiting or diarrhea : Denies: dysuria Musc: Denies: neck pain or back pain Skin/Breast: Denies: rash Neuro: Reports: dizziness Psych: Denies: depression Jhonathan/Lymph: Denies: easy bruising All/Imm: Denies: urticaria PFSH ED PFSH: Medical History Diabetes Shortness of breath Tachycardia Surgical History History of total knee arthroplasty Family History Mother Cancer colon cancer Other Diabetes Social History Smoking and tobacco status: former smoker Alcohol intake: never Physical Exam Const: COMMON NORMALS: no acute distress, patient oriented x3 and healthy appearing HENMT: COMMON NORMALS: normocephalic and atraumatic HEAD & SCALP: normocephalic and atraumatic Eye: COMMON NORMALS: Equal, round and reactive pupils present and EOMs intact bilaterally PUPIL: Yes Equal, round and reactive pupils present Neck/C-Spine: COMMON NORMALS: full ROM and supple Chest: COMMONS NORMALS: normal inspection of the chest and normal palpation of entire chest wall Resp: COMMON NORMALS: normal respiratory effort, No retractions, No use of accessory muscles and clear to auscultation bilaterally AUSCULTATION: clear to auscultation bilaterally Cardio: COMMON NORMALS: regular rate, regular rhythm and No murmurs present (Cardio) RATE: regular rate RHYTHM: regular rhythm GI: COMMON NORMALS: Normal to inspection, nondistended, normoactive bowel sounds present, Soft to palpation, non-tender and no masses PALPATION: Yes Soft to palpation Extremity: COMMON NORMALS: normal to inspection and full ROM Neuro: COMMON NORMALS: patient oriented x3, moves all extremities and no focal motor deficits Psych: COMMON NORMALS: mental status grossly normal, Normal thought process present and cooperative THOUGHT PROCESS: Normal thought process present Skin: COMMON NORMALS: no rashes or lesions noted and no wounds GENERAL SKIN EXAM: no rashes or lesions noted Course Vital Signs: Vital signs: Vital Signs Temperature 97.1 F L 03/09/21 23:30 Pulse Rate 80 03/10/21 00:55 Respiratory Rate 18 03/10/21 00:55 Blood Pressure 154/95 03/10/21 00:55 Pulse Oximetry 94 03/10/21 01:05 MDM - Dizziness MDM Narrative: Medical decision making narrative: Patient presents here with vertigo is likely peripheral in nature his symptoms are resolved with Antivert CT head was normal he has no signs of a stroke will prescribe him Antivert for home he is to follow-up with PCP in 3 to 4 days return if worsening she understands agrees to plan. Lab Data: Labs: Lab Results 03/09/21 03/09/21 03/09/21 22:45 22:45 22:45 WBC 7.3 10^3/uL 10^3/ uL (4.0-10.0) RBC 5.14 10^6/uL 10^6 /uL (4.1-5.3) Hgb 16.2 g/dL g/dL (11.7-16.6) Hct 48.7 % % (42.0-52.0) MCV 94.7 fl H fl (80-94) MCH 31.5 pg pg (28.0-34.0) MCHC 33.3 g/dL g/dL (30.0-36.0) RDW 12.2 % % (12.1-15.1) Plt Count 185 10^3/cmm 10^3 /cmm (130-400) MPV 11.7 fL H fL (7.4-10.4) Neut % (Auto) 52.8 % % Lymph % (Auto) 33.0 % % [place] % (Auto) 10.7 % % Eos % (Auto) 2.2 % % Baso % (Auto) 1.0 % % Neut # (Auto) 3.85 10^3/uL 10^3 /uL (1.8-7.7) Lymph # (Auto) 2.4 10^3/uL 10^3/ uL (0.8-4.8) [place] # (Auto) 0.8 10^3/uL 10^3/ uL (0.2-0.9) Eos # (Auto) 0.2 10^3/uL 10^3/ uL (0.0-0.8) Baso # (Auto) 0.1 10^3/uL 10^3/ uL (0.0-0.1) Nucleated RBC % (a uto) 0 % % Nucleated RBCs # 0.0 /100WBC /100W BC PT INR Sodium 139 mmol/L mmol/L (136-145) Potassium 4.2 mmol/L mmol/L (3.5-5.1) Chloride 100 mmol/L mmol/L (98-107) Carbon Dioxide 24 mmol/L mmol/L (22-29) Anion Gap 19.2 H (5-19) BUN 14 mg/dL mg/dL (8-23) Creatinine 0.7 mg/dL mg/dL (0.7-1.2) GFR Calculation 114.6 mL/min mL/m in (90-130) Glucose 186 mg/dL H mg/dL (65-115) Calculated Osmolal ity 293 mOsm/kg mOsm/ kg (285-295) Calcium 9.5 mg/dL mg/dL (8.5-10.5) Total Bilirubin 0.3 mg/dL mg/dL (0.15-1.2) AST 30 U/L U/L (0-40) ALT 45 U/L H U/L (0-41) Alkaline Phosphata se 55 IU/L IU/L (40-130) Troponin T Baselin e 6 ng/L ng/L (0-15) Troponin T 120 Min [place] Delta Troponin T NT-Pro-B Natriuret Pep 26 pg/mL pg/mL (0-125) Total Protein 6.8 g/dL g/dL (6.6-8.7) Albumin 4.8 g/dL g/dL (3.5-5.2) Globulin 2.0 g/dL g/dL (1.3-4.6) 03/10/21 03/10/21 00:33 01:08 WBC RBC Hgb Hct MCV MCH MCHC RDW Plt Count MPV Neut % (Auto) Lymph % (Auto) [place] % (Auto) Eos % (Auto) Baso % (Auto) Neut # (Auto) Lymph # (Auto) [place] # (Auto) Eos # (Auto) Baso # (Auto) Nucleated RBC % (a uto) Nucleated RBCs # PT 14.00 SECONDS SEC ONDS (12.1-14.9) INR 1.05 (0.8-1.2) Sodium Potassium Chloride Carbon Dioxide Anion Gap BUN Creatinine GFR Calculation Glucose Calculated Osmolal ity Calcium Total Bilirubin AST ALT Alkaline Phosphata se Troponin T Baselin e Troponin T 120 Min [place] 6.00 ng/L ng/L (0-15) Delta Troponin T 0 ABS# ABS# (0-10) NT-Pro-B Natriuret Pep Total Protein Albumin Globulin Imaging Data^: CXR: Attestation: I personally reviewed and interpreted this imaging study as follows: My impression: No acute normality CT Head: Radiologist's impression: [address] [address] [address] Scan Report Signed Patient: Mikala Wright Unit #: [id number] : 1960 Age/Sex: 60 / M ADM Date: 03/09/21 Loc: ER Room/Bed: Attending Dr: Ordering Provider/Ordering MD: Dayana Durand MD Date of Service: 03/09/21 Procedure(s): CT head wo con* [id number] Accession Number(s): [id number] Report Number: [id number] PROCEDURE INFORMATION: Exam: CT Head Without Contrast Exam date and time: 03/09/2021 11:35 PM Age: 60 years old Clinical indication: Pain; Headache; Patient HX: LINARES with dizziness. ; Additional info: Dizzy TECHNIQUE: Imaging protocol: Computed tomography of the head without contrast. Radiation optimization: All CT scans at this facility use at least one of these dose optimization techniques: automated exposure control; mA and/or kV adjustment per patient size (includes targeted exams where dose is matched to clinical indication); or iterative reconstruction. COMPARISON: No relevant prior studies available. RADIATION DOSE METRICS: Total DLP (mGy-cm): 893.16 FINDINGS: Brain: Normal. No hemorrhage. Unremarkable white matter. No mass effect. Cerebral ventricles: No ventriculomegaly. Paranasal sinuses: Visualized sinuses are unremarkable. No fluid levels. Mastoid air cells: Visualized mastoid air cells are well aerated. Bones/joints: Unremarkable. No acute fracture. Soft tissues: Unremarkable. CT/CT head wo con* [id number] IMPRESSION: No acute intracranial abnormality. Radiation Dose CTDIVOL = (mGy): DLP = 893.16 (mGy-cm) Dictated By: Pedro Wilson MD Signed By: Pedro Wilson MD Signed Date/Time: 03/10/21 0041 DD/ [id number] EKG Data^: EKG 1: Attestation: I personally reviewed and interpreted this EKG as follows: EKG interpretation date: 03/09/21 EKG interpretation time: 23:35 Interpretation: nsr hr [address] or t wave abnormalities qrs 88 qtc 393 EKG 2: Attestation: I personally reviewed and interpreted this EKG as follows: EKG interpretation date: 03/10/21 EKG interpretation time: 01:36 Interpretation: nsr hr [address] or t wave abnormalities qrs 92 qtc 420 Discharge Plan Discharge Patient Disposition: Home Clinical Impression: Vertigo Condition: Stable Prescriptions: New meclizine 50 mg tablet 50 mg PO BID PRN (Reason: dizziness) Qty: 20 RF: 0 No Action metformin 1,000 mg tablet 1,000 mg PO BID 90 Days Qty: 180 RF: 0 pregabalin 75 mg capsule 75 mg PO BID 30 Days Qty: 60 RF: 2 lisinopril 10 mg tablet 10 mg PO DAILY 90 Days Qty: 90 RF: 0 diclofenac sodium 1 % gel 4 g topical .at bedtime Qty: 100 RF: 0 glipizide 10 mg tablet 10 mg PO BID RF: 0 Hold Instructions: Home Medication placed on hold at Doctor's office metoprolol tartrate 50 mg tablet 50 mg PO BID Qty: 180 RF: 3 Discharge Orders: Discharge ED (Routine); Ordered 03/10/21 Ordered By: Dayana Durand Referrals: Ana Mercedes MD [Primary Care Provider] - 1-3 days Discharge Diet: Advance as tolerated Discharge Activity: Resume usual activity Patient Instructions: Vertigo (ED), Benign Paroxysmal Positional Vertigo (ED) Coding Level of Care Code ED Benefits Analyst for Chg Fwd Exam Comprehensive NIH stroke score NIHSS Level Of Consciousness - 1a: 0 Level Of Consciousness Questions - 1b: Both Correct Level Of Consciousness Commands - 1c: Both Correct Best Gaze - 2: Normal Visual [place] - 3: No Visual Loss Facial Palsy - 4: Normal Motor Arm Right - 5: No Drift Motor Arm Left - 5: No Drift Motor Leg Right - 6: No Drift Motor Leg Left - 6: No Drift Limb Ataxia - 7: Absent Sensory - 8: Normal Best Language - 9: No Aphasia Dysarthia - 10: Normal Extinction And Inattention - 11: 0 Score Total Score: 0
[2021-03-10] VITALS (13 sets, daily range): BP systolic 154; BP diastolic 95; PULSE 80; RESP 18; O2SAT 92–96
[2021-03-10 00:12] LABS: Troponin(5th) Baseline 6 ng/L (0-15)
[2021-03-10 00:19] LABS: Alanine Aminotransferase 45 U/L (0-41); Albumin Level 4.8 g/dL (3.5-5.2); Alkaline Phosphatase 55 IU/L (40-130); Aspartate Amino Transferase 30 U/L (0-40); Blood Urea Nitrogen 14 mg/dL (8-23); Calcium 9.5 mg/dL (8.5-10.5); Carbon Dioxide 24 mmol/L (22-29); Chloride 100 mmol/L (98-107); Glomerular Filtration Rate 114.6 mL/min (90-130); Glucose 186 mg/dL (65-115); NT Pro B Type Natriuretic Pept 26 pg/mL (0-125); Osmolality Calculated 293 mOsm/kg (285-295); Sodium 139 mmol/L (136-145); Total Bilirubin 0.3 mg/dL (0.15-1.2); Total Protein 6.8 g/dL (6.6-8.7)
[2021-03-10 00:21] LABS: Anion Gap 19.2 (5-19); Potassium 4.2 mmol/L (3.5-5.1)
[2021-03-10 00:58] LABS: INR 1.05 (0.8-1.2)
--- NOTE | 2021-03-10 01:35 | ECG_ITS ---
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
[2021-03-10 01:36] LABS: Troponin 5 2HR Delta 0 ABS# (0-10)
== END 2021-03-10 02:07 | disposition home or self-care (01) ==
PROVIDERS: Emergency Provider Emergency Medicine; PCP Family Medicine
DX: R42 Dizziness and giddiness (principal); E11.9 Type 2 diabetes mellitus without complications; Z79.84 Long term (current) use of oral hypoglycemic drugs; Z87.891 Personal history of nicotine dependence
CPT/HCPCS: 70450; 71045; 80053; 83880; 84484; 85025; 85610; 93005; 96360; 99284; J7030; J8597

== ENCOUNTER → 2021-03-16 18:10 | Outpatient (BNVA) | payer MEDICARE, SELFPAY | PROVIDERS: PCP Family Medicine; Visit Provider Emergency Medicine | DX: R39.198 Other difficulties with micturition (principal); R81 Glycosuria; R63.5 Abnormal weight gain | CPT/HCPCS: 80048; 81000; 83880; G0103 ==

== ENCOUNTER → 2021-03-21 08:25 | Outpatient (BNVA) | payer MEDICARE, SELFPAY | PROVIDERS: PCP Family Medicine; Visit Provider Family Medicine | DX: E11.9 Type 2 diabetes mellitus without complications (principal); I10 Essential (primary) hypertension | CPT/HCPCS: 80053; 80061; 83036 ==

== ENCOUNTER 2021-05-10 12:44 | Outpatient (CLI) | payer MEDICARE, SELFPAY ==
--- NOTE | 2021-05-10 15:00 | USCV_ITS ---
Mikala Wright Age: 61 Gender: M : 1960 Exam Date: 05/10/2021 13:25 Ordering Phys: Arsenio Ware M.D ([email or web address]) Technologist: Skyler Ibrahim Exam Location: [facility] [place] Indication: EVAL FOR DVT HISTORY: EVAL FOR DVT PROCEDURES: Venous duplex imaging was performed in bilateral lower extremities. The following venous structures were evaluated: common femoral vein, profunda vein, proximal portion of the greater saphenous vein, superficial femoral vein, and the popliteal vein. In addition, the posterior tibial and peroneal trunk were evaluated. Serial compression, augmentation maneuvers, and spectral Doppler flow evaluation were performed. FINDINGS: No evidence of DVT seen in any vessel visualized at this time. CONCLUSIONS No evidence of right lower extremity DVT. No evidence of left lower extremity DVT. Davion Avery MD (Electronically Signed) Final Date: 10 May 2021 17:17 S
== END 2021-05-10 12:45 | disposition home or self-care (01) ==
LOC: RAD 12:48
PROVIDERS: PCP Family Medicine; Visit Provider Internal Medicine
DX: I82.409 Acute embolism and thrombosis of unspecified deep veins of unspecified lower extremity (principal)
CPT/HCPCS: 93970

== ENCOUNTER → 2021-05-16 09:09 | Outpatient (BNVA) | payer MEDICARE, SELFPAY | PROVIDERS: PCP Family Medicine; Visit Provider Nurse Practitioner Family | DX: R00.0 Tachycardia, unspecified (principal) | CPT/HCPCS: 85025 ==

== ENCOUNTER 2021-06-13 07:10 | Outpatient (CLI) | payer MEDICARE, SELFPAY ==
[2021-06-13 07:17] VITALS: BMI 42.0
--- NOTE | 2021-06-13 07:23 | ECG_ITS ---
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 Interpretive Statements NAME OF STUDY: LEXISCAN SESTAMIBI STRESS TEST INDICATION: Shortness of Breath PROCEDURE: At the baseline, the blood pressure was 135/91 mmHg, oxygen saturation 98% with a heart rate of 70 beats per minute. The electrocardiogram showed normal sinus rhythm, normal axis. Nonspecific ST depression. The Lexiscan was infused over a period of 20 seconds. A total of 0.4 milligrams of Lexiscan was infused. The stress phase was continued for a total of 5 minutes. Heart rate at the end of the stress phase was 101 bpm, oxygen saturation 97% with a blood pressure of 141/102 mmHg. The EKG at the peak infusion revealed sinus tachycardia with no significant ST-T wave changes. The study was terminated due to protocol completion. Patient developed intraprocedural shortness of breath that resolved by discharge. Sestamibi was injected 20 seconds after the Lexiscan infusion. Blood pressure at the end of the recovery phase was 128/91 mmHg, oxygen saturation 96% with a heart rate of 93 beats per minute. CONCLUSION: 1. No significant EKG changes with the LexiScan infusion. 2. No LexiScan induced chest pain or cardiac arrhythmia. 3. Normal blood pressure and heart rate response. 4. Sestamibi/sestamibi perfusion scan pending; see separate report. RESULTS TO ALLISON QUIROZ CORE DRILL OPERATOR HELPER Electronically Signed On 06-13-2021 15:55:12 [employer]BORNE ELECTRON[employer] ANALYST by Yessy Galarza M.D. [id number]
--- NOTE | 2021-06-13 07:23 | NMCV_ITS ---
NM anila perf SPECT r/s* [id number] Mikala Wright Age: 61 Gender: M : 1960 Exam Date: 06/13/2021 08:36 Ordering Phys: Allyson Doll Technologist: SHIVANI Vizcarra Exam Location: [facility] Indications: SHORTNESS OF BREATH STRESS TEST Please see separate stress test report in [facility] for full findings IMAGE PROTOCOL Rest/Stress 1 Lexiscan Day Radiopharmaceutical Dose (mCi) Administration Site Administered by Rest: Tc-99m 11.0 IV SHIVANI Dumont Sestamibi Stress:Tc-99m 32.8 IV SHIVANI Dumont Sestamibi Rest: 13-Jun-2021 60 Discovery 630 Stress: 13-Jun-2021 30 Discovery 630 0.4mg Lexiscan. Images obtained in supine and prone position. SPECT RESULTS Technical Quality: Excellent Raw Data Analysis: Normal Image Corrections: No attenuation or motion correction applied Summed Stress Score: 0 Summed Rest Score: 0 Summed Difference Score: 0 PERFUSION FINDINGS Small size perfusion abnormality of mild severity of apical lateral wall on rest images with improved tracer uptake on stress images. This is suggestive of attenuation artifact. FUNCTIONAL RESULTS (calculated via Gated SPECT) Stress Image LV EF (%): 70 Stress EDV (mL):105 TID: 1 Stress ESV (mL):32 FUNCTIONAL FINDINGS: The left ventricle is normal in size. Transient Ischemia Dilatation of 1. There is normal left ventricular systolic function. The left ventricular ejection fraction is normal with a value of 70%. There is normal left ventricular wall thickening. Normal end-diastolic and end-systolic volumes. IMPRESSIONS 1. Myocardial perfusion imaging is normal. 2. Overall left ventricular systolic function is normal without regional wall motion abnormalities. 3. The left ventricular ejection fraction is normal with a value of 70%. 4. No significant EKG changes with Lexiscan infusion. 5. No prior similar studies to compare. Yessy Galarza MD (Electronically Signed) Final Date: 13 June 2021 16:02 S
[2021-06-13] MEDS: regadenoson 0.4 Mg/5 ml Syringe IVP (09:25)
[2021-06-13 09:47] VITALS: BP 138/92; PULSE 72
== END 2021-06-13 07:11 | disposition home or self-care (01) ==
LOC: CDL 07:11
PROVIDERS: PCP Family Medicine; Visit Provider Nurse Practitioner Family
DX: R06.02 Shortness of breath (principal)
CPT/HCPCS: 78452; 93017; A9500; J2785

== ENCOUNTER → 2021-06-20 09:03 | Outpatient (BNVA) | payer MEDICARE, SELFPAY | PROVIDERS: PCP Family Medicine; Visit Provider Family Medicine | DX: I10 Essential (primary) hypertension (principal); E11.9 Type 2 diabetes mellitus without complications | CPT/HCPCS: 80053; 83036 ==

== ENCOUNTER → 2021-06-21 12:44 | Outpatient (BNVA) | payer MEDICARE, SELFPAY | PROVIDERS: PCP Family Medicine; Visit Provider Internal Medicine | DX: I50.32 Chronic diastolic (congestive) heart failure (principal); R00.0 Tachycardia, unspecified; Z72.0 Tobacco use | CPT/HCPCS: 99214 ==

== ENCOUNTER 2021-07-15 11:58 | Observation (INO) | payer MEDICARE, SELFPAY ==
[2021-07-15] VITALS (9 sets, daily range): BP systolic 124–141; BP diastolic 79–87; PULSE 65–90; RESP 12–20; TEMP 36.4–36.6; O2SAT 94–100; BMI 39.1
--- NOTE | 2021-07-15 12:01 | CTR_ITS ---
PROCEDURE INFORMATION: Exam: CT Head Without Contrast Exam date and time: 07/15/2021 12:43 PM Age: 61 years old Clinical indication: Pain; Other: Facial droop; Headache; Additional info: Stroke symptoms, 07/14 1630, LINARES, speech, facial droop TECHNIQUE: Imaging protocol: Computed tomography of the head without contrast. Radiation optimization: All CT scans at this facility use at least one of these dose optimization techniques: automated exposure control; mA and/or kV adjustment per patient size (includes targeted exams where dose is matched to clinical indication); or iterative reconstruction. COMPARISON: CT head wo con* [id number] 03/10/2021 12:27 AM RADIATION DOSE METRICS: Total DLP (mGy-cm): 810.12 FINDINGS: Brain: There is mild diffuse cerebral atrophy present, consistent with this patient's age.No evidence for large acute ischemic infarction. Please note acute ischemia can be occult by head CT. No evidence for acute intracranial hemorrhage.Benign globus pallidus calcifications are present. Cerebral ventricles: No ventriculomegaly. Paranasal sinuses: Visualized sinuses are unremarkable. No fluid levels. Mastoid air cells: Visualized mastoid air cells are well aerated. Vasculature: Calcified plaque is present within the carotid siphons. Bones/joints: Unremarkable. No acute fracture. Soft tissues: Unremarkable. CT/CT head wo con* [id number] IMPRESSION: There are senescent changes of the brain as described above. No evidence for large acute ischemic infarction or acute intracranial injury.
--- NOTE | 2021-07-15 12:01 | W.ED.NEUROSD ---
HPI - Neuro Symptoms/Deficit General: Chief Complaint: Headache Stated Complaint: HEADACHE Time Seen by Provider: 07/15/21 12:00 History of Present Illness: Mr. Wright is a 61-year-old gentleman with hypertension, diabetes, tachycardia, diastolic heart failure who presents to the emergency department due to strokelike symptoms. Starting yesterday afternoon he noted increased blood pressure and elevated heart rate. He has had similar episodes in the past of somewhat unclear etiology however this persisted throughout the evening. At about 4:30 AM he noticed a headache which is generalized and moderate. He did not notice any associated neurologic symptoms. He denies frequent headaches. He went about his normal day and his had not noticed symptoms however he presented to clinic and was evaluated there with concern for dysarthric speech and mild facial droop at which point he was referred to the emergency department for stroke evaluation. Patient otherwise denies history of similar. No other specific changes in health, exacerbating, or alleviating factors identified. Last Observed Normal: 04:30 History of same: No Severity: moderate Quality: other On Anticoagulants: No Review of Systems General: Reports: 10 or more systems reviewed and unremarkable except in HPI and below PFSH ED PFSH: Medical History Diabetes Diabetic neuropathy Diastolic CHF, chronic Hypertension Shortness of breath Stroke-like symptom Tachycardia Surgical History History of total knee arthroplasty Family History Mother Cancer colon cancer Other Diabetes Social History Smoking and tobacco status: current every day smoker (SMOKELESS TOBACCO) smokeless tobacco Smokeless tobacco user: chewing tobacco Smokeless tobacco details: 2-3 times weekly Alcohol intake: never Physical Exam Const: COMMON NORMALS: patient oriented x3 and alert GENERAL APPEARANCE: cooperative and well developed HENMT: COMMON NORMALS: normocephalic and atraumatic HEAD & SCALP: normocephalic and atraumatic THROAT: posterior oropharynx normal Eye: COMMON NORMALS: conjunctivae normal CONJUNCTIVA: Yes conjunctivae normal SCLERA: sclerae normal Neck/C-Spine: COMMON NORMALS: supple GENERAL: Yes trachea midline Resp: COMMON NORMALS: normal respiratory effort EFFORT & INSPECTION: Yes able to speak in complete sentences Cardio: COMMON NORMALS: regular rate and regular rhythm RATE: regular rate RHYTHM: regular rhythm GI: COMMON NORMALS: Soft to palpation PALPATION: Yes Soft to palpation and No Tenderness to palpation present (GI) PERCUSSION: normal to percussion Extremity: GENERAL: Yes normal exam except as noted and No edema Neuro: COMMON NORMALS: patient oriented x3, moves all extremities, no focal motor deficits, no sensory deficits noted and gait normal; negative for CN's II-XII intact bilaterally (Subtle forehead sparing right lower facial droop) SENSORIUM/ORIENTATION: Yes alert and No Orientation impaired Psych: COMMON NORMALS: mental status grossly normal and Normal thought process present THOUGHT PROCESS: Normal thought process present Course ED course: - Patient was seen and evaluated by me at bedside - Patient placed on cardiac monitors, IV access obtained - Initial evaluation notable for exam as above. Patient outside TPA window. - Labs personally interpreted by me. EKGs from 1249 and 1505 personally interpreted by me. Sinus rhythm with nonspecific ST segment abnormalities. No STEMI. - Headache treatment ordered - Labs notable for no acute hematologic or metabolic abnormality to explain patient's symptoms. Urinalysis without evidence of infection. - Imaging notable for no acute hemorrhage or mass on head CT - Upon serial reexamination after treatment the patient was similar - Based on patient history, evaluation, and testing as interpreted the most likely cause of the patient's condition is stroke - The results of ED evaluation were discussed with the patient including plan for admission due to requirement for level of care not available if discharged to prevent significant worsening/deterioration. - Hospitalist service contacted and agreed to admit the patient - Patient was admitted without further deterioration or significant events. Note: Click bubbles or prepopulated toro in note writing are used for assistance with data collection and billing and are inherently more limited than narrative and other text portions of this note. Please use narrative for additional clinical history and defer to narrative/free test for any case of contradictory information. If information appears in only free text or click bubble it should be considered present or absent as reported. Please contact note newspaper writer for clarifications of clinical information or contradictory information. MDM is a brief summary, contradictory or erroneous seeming information should be clarified and full note should be reviewed. Vital Signs: Vital signs: Vital Signs Temperature 98.3 F 07/16/21 07:23 Pulse Rate 67 04/03/22 12:24 Respiratory Rate 18 07/16/21 12:24 Blood Pressure 124/73 07/16/21 12:24 Pulse Oximetry 94 07/16/21 12:24 MDM - Neuro Symptoms/Deficit Medical Decision Making 61-year-old gentleman with complex past medical history presenting with dysarthric speech and facial droop. Mild symptoms overall and patient outside TPA window. Admitted for further management and evaluation. Medical Records I reviewed the patient's medical records. Lab Data I reviewed the patient's lab results. : 07/15/21 12:07 07/16/21 06:[address] 07/15/21 12:01 IMPRESSION: There are senescent changes of the brain as described above. No evidence for large acute ischemic infarction or acute intracranial injury. Head/Neck CTA 07/15/21 18:18 IMPRESSION: No large vessel stenosis or occlusion. IMPRESSION: No stenosis or occlusion. REFERENCES: NASCET CRITERIA. The degree of internal carotid artery stenosis is based on NASCET criteria. Normal is no stenosis. Mild is less than 50% stenosis. Moderate is 50-69% stenosis. Severe is 70% to 99% stenosis. Total occlusion is no detectable patent lumen. Laboratory Results WBC 5.9 10^3/uL (4.0-10.0) 07/15/21 12:07 RBC 4.90 10^6/uL (4.1-5.3) 07/15/21 12:07 Hgb 15.9 g/dL (11.7-16.6) 07/15/21 12:07 Hct 46.2 % (42.0-52.0) 07/15/21 12:07 MCV 94.3 fl (80-94) H 07/15/21 12:07 MCH 32.4 pg (28.0-34.0) 07/15/21 12:07 MCHC 34.4 g/dL (30.0-36.0) 07/15/21 12:07 RDW 11.8 % (12.1-15.1) L 07/15/21 12:07 Plt Count 164 10^3/cmm (130-400) 07/15/21 12:07 MPV 11.5 fL (7.4-10.4) H 07/15/21 12:07 Neut % (Auto) 61.4 % 07/15/21 12:07 Lymph % (Auto) 24.6 % 07/15/21 12:07 Andrew % (Auto) 8.1 % 07/15/21 12:07 Eos % (Auto) 4.6 % 07/15/21 12:07 Baso % (Auto) 1.0 % 07/15/21 12:07 Neut # (Auto) 3.64 10^3/uL (1.8-7.7) 07/15/21 12:07 Lymph # (Auto) 1.5 10^3/uL (0.8-4.8) 07/15/21 12:07 Andrew # (Auto) 0.5 10^3/uL (0.2-0.9) 07/15/21 12:07 Eos # (Auto) 0.3 10^3/uL (0.0-0.8) 07/15/21 12:07 Baso # (Auto) 0.1 10^3/uL (0.0-0.1) 07/15/21 12:07 Nucleated RBC % (auto) 0 % 07/15/21 12:07 Nucleated RBCs # 0.0 /100WBC 07/15/21 12:07 Sodium 138 mmol/L (136-145) 07/15/21 12:07 Potassium 3.8 mmol/L (3.5-5.1) 07/15/21 12:07 Chloride 103 mmol/L (98-107) 07/15/21 12:07 Carbon Dioxide 21 mmol/L (22-29) L 07/15/21 12:07 Anion Gap 17.8 (5-19) 07/15/21 12:07 BUN 9 mg/dL (8-23) 07/15/21 12:07 Creatinine 0.7 mg/dL (0.7-1.2) 07/15/21 12:07 GFR Calculation 114.3 mL/min (90-130) 07/15/21 12:07 Glucose 305 mg/dL (65-115) H 07/15/21 12:07 POC Glucose 261 mg/dL (70-110) H 07/15/21 12:22 Estimat Average Glucose 235 07/15/21 12:07 Hemoglobin A1c 9.8 % (4.0-6.0) H 07/15/21 12:07 Calculated Osmolality 296 mOsm/kg (285-295) H 07/15/21 12:07 Calcium 8.9 mg/dL (8.5-10.5) 07/15/21 12:07 Total Bilirubin 0.6 mg/dL (0.15-1.2) 07/15/21 12:07 AST 40 U/L (0-40) 07/15/21 12:07 ALT 42 U/L (0-41) H 07/15/21 12:07 Alkaline Phosphatase 57 IU/L (40-130) 07/15/21 12:07 Troponin T Baseline 8 ng/L (0-15) 07/15/21 12:07 Troponin T 120 Minute 8.82 ng/L (0-15) 07/15/21 13:37 Delta Troponin T 0.82 ABS# (0-10) 07/15/21 13:37 Total Protein 6.3 g/dL (6.6-8.7) L 07/15/21 12:07 Albumin 4.4 g/dL (3.5-5.2) 07/15/21 12:07 Globulin 1.9 g/dL (1.3-4.6) 07/15/21 12:07 Triglycerides 307 mg/dL (0-150) H 07/15/21 13:37 Cholesterol 186 mg/dL (0-200) 07/15/21 13:37 LDL Cholesterol, Calc 84 mg/dL (50-129) 07/15/21 13:37 HDL Cholesterol 41 mg/dL (60-100) L 07/15/21 13:37 LDL/HDL Ratio 2.05 RATIO (0.00-3.22) 07/15/21 13:37 Cholesterol/HDL Ratio 4.54 mg/dL (1.0-5.00) 07/15/21 13:37 TSH 1.06 uIU/mL (0.27-4.20) 07/15/21 13:37 Urine Color Yellow (Yellow) 07/15/21 12:27 Urine Appearance Clear (CLEAR) 07/15/21 12:27 Urine pH 5 (5-7) 07/15/21 12:27 Ur Specific [place] 1.015 (1.005-1.030) 07/15/21 12:27 Urine Protein Neg (Negative) 07/15/21 12:27 Urine Glucose (UA) 4+ (Normal) H 07/15/21 12:27 Urine Ketones 1+ (Negative) H 07/15/21 12:27 Urine Blood Neg (Negative) 07/15/21 12:27 Urine Nitrate Negative (Negative) 07/15/21 12:27 Urine Bilirubin Neg (Negative) 07/15/21 12:27 Urine Urobilinogen Norm mg/dL (Negative) 07/15/21 12:27 Ur Leukocyte Esterase Negative (Negative) 07/15/21 12:27 Serum Ketones Negative (Negative) 07/15/21 12:07 Discharge Plan Discharge Patient Disposition: Placed in Observation Admit Provider: Ray Hopper Clinical Impression: Stroke-like symptom Discharge Diet: Diabetic Discharge Activity: Increase activity as tolerated Coding Level of Care Code ED Emergency Services Dispatcher for Mo Souza
[2021-07-15 12:20] LABS: Basophils # 0.1 10^3/uL (0.0-0.1); Eosinophils # 0.3 10^3/uL (0.0-0.8); Eosinophils % 4.6 %; Hematocrit 46.2 % (42.0-52.0); Hemoglobin 15.9 g/dL (11.7-16.6); Lymphocytes # 1.5 10^3/uL (0.8-4.8); Lymphocytes % 24.6 %; Mean Corpuscular HGB Conc 34.4 g/dL (30.0-36.0); Mean Corpuscular Hemoglobin 32.4 pg (28.0-34.0); Mean Corpuscular Volume 94.3 fl (80-94); Mean Platelet Volume 11.5 fL (7.4-10.4); Monocytes # 0.5 10^3/uL (0.2-0.9); Monocytes % 8.1 %; Neutrophils # 3.64 10^3/uL (1.8-7.7); Neutrophils % 61.4 %; Nucleated Red Blood Cells % 0 %; Platelet Count 164 10^3/cmm (130-400); Red Cell Distribution Width 11.8 % (12.1-15.1); White Blood Count 5.9 10^3/uL (4.0-10.0)
--- NOTE | 2021-07-15 12:21 | ECG_ITS ---
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 Measurements Intervals [place] Rate: 74 P: 26 AR: 140 QRS: -19 QRSD: 89 T: 30 QT: 366 QTc: 408 Interpretive Statements SINUS RHYTHM POSSIBLE RIGHT VENTRICULAR CONDUCTION DELAY [RSR (QR) IN V1/V2] Compared to ECG 03/10/2021 01:36:17 No significant changes Electronically Signed On 07-16-2021 9:35:11 CDT by Jaron Tobin M.D. [id number]
[2021-07-15 12:24] LABS: Glucose Point of Care 261 mg/dL (70-110)
[2021-07-15 12:44] LABS: Add Urine Microscopic? NO; Charge for UA Resulting for Rev
[2021-07-15 12:57] LABS: Urine Appearance Clear (CLEAR); Urine Color Yellow (Yellow); pH Urine 5 (5-7)
[2021-07-15 12:57] LABS: Alanine Aminotransferase 42 U/L (0-41); Albumin Level 4.4 g/dL (3.5-5.2); Alkaline Phosphatase 57 IU/L (40-130); Anion Gap 17.8 (5-19); Aspartate Amino Transferase 40 U/L (0-40); Blood Urea Nitrogen 9 mg/dL (8-23); Calcium 8.9 mg/dL (8.5-10.5); Carbon Dioxide 21 mmol/L (22-29); Chloride 103 mmol/L (98-107); Globulin 1.9 g/dL (1.3-4.6); Glomerular Filtration Rate 114.3 mL/min (90-130); Glucose 305 mg/dL (65-115); Osmolality Calculated 296 mOsm/kg (285-295); Potassium 3.8 mmol/L (3.5-5.1); Sodium 138 mmol/L (136-145); Total Bilirubin 0.6 mg/dL (0.15-1.2); Total Protein 6.3 g/dL (6.6-8.7)
[2021-07-15 12:58] LABS: Bilirubin Urine Neg (Negative); Blood Urine Neg (Negative); Glucose Urine UA 4+ (Normal); Ketones Urine 1+ (Negative); Leukocyte Esterase Urine Negative (Negative); Nitrate Urine Negative (Negative); Protein Urine Neg (Negative); Specific Gravity, Urine 1.015 (1.005-1.030); Urobilinogen Urine Norm (Negative)
[2021-07-15 13:10] LABS: Troponin(5th) Baseline 8 ng/L (0-15)
[2021-07-15] MEDS: sodium chloride 0.9% 1,000 ML 999 ML IV (13:24)
[2021-07-15] MEDS: acetaminophen 500 mg Tablet 1000 MG PO (13:49)
[2021-07-15] MEDS: ketorolac 30 mg/mL INJ 15 MG IVP (13:50)
[2021-07-15 13:58] LABS: Ketone (Acetest) Serum Negative (Negative)
--- NOTE | 2021-07-15 14:21 | ECG_ITS ---
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 Measurements Intervals [place] Rate: 66 P: 22 OK: 138 QRS: -22 QRSD: 89 T: 20 QT: 406 QTc: 428 Interpretive Statements SINUS RHYTHM BORDERLINE LEFT AXIS DEVIATION [QRS AXIS < -20] Compared to ECG 07/15/2021 12:49:16 No significant changes Electronically Signed On 07-16-2021 9:39:11 CDT by Jaron Tobin M.D. [id number]
[2021-07-15 14:22] LABS: Troponin 5 2HR 8.82 ng/L (0-15)
[2021-07-15 16:53] LABS: Troponin 5 2HR Delta 0.82 ABS# (0-10)
--- NOTE | 2021-07-15 18:18 | CTR_ITS ---
PROCEDURE INFORMATION: Exam: CT Angiography Head With Contrast, Arteriography Exam date and time: 07/16/2021 12:24 AM Age: 61 years old Clinical indication: Speech disturbance; Slurred speech TECHNIQUE: Imaging protocol: Computed tomography angiography of the head with contrast. Exam focused on the arteries. 3D rendering (Not supervised by radiologist): MIP and/or 3D reconstructed images were created by the technologist. Radiation optimization: All CT scans at this facility use at least one of these dose optimization techniques: automated exposure control; mA and/or kV adjustment per patient size (includes targeted exams where dose is matched to clinical indication); or iterative reconstruction. Contrast material: OMNI 350; Contrast volume: 95 ml; Contrast route: INTRAVENOUS (IV); COMPARISON: 1. CT head wo con* [id number] 07/15/2021 12:[address] head wo con* [id number] 03/10/2021 12:27 AM RADIATION DOSE METRICS: Total DLP (mGy-cm): 2250.07 FINDINGS: ANTERIOR CIRCULATION: Right internal carotid artery: Unremarkable. Intracranial segment is patent with no significant stenosis. No aneurysm. Right middle cerebral artery: Unremarkable. No occlusion or significant stenosis. No aneurysm. Right anterior cerebral artery: Unremarkable. No occlusion or significant stenosis. No aneurysm. Left internal carotid artery: Unremarkable. Intracranial segment is patent with no significant stenosis. No aneurysm. Left middle cerebral artery: Unremarkable. No occlusion or significant stenosis. No aneurysm. Left anterior cerebral artery: Unremarkable. No occlusion or significant stenosis. No aneurysm. POSTERIOR CIRCULATION: Right vertebral artery: Unremarkable. No occlusion or significant stenosis. No aneurysm. Left vertebral artery: Unremarkable. No occlusion or significant stenosis. No aneurysm. Basilar artery: Unremarkable. No occlusion or significant stenosis. No aneurysm. Right posterior cerebral artery: Unremarkable. No occlusion or significant stenosis. No aneurysm. Left posterior cerebral artery: Unremarkable. No occlusion or significant stenosis. No aneurysm. Brain: No definite mass, mass effect, or midline shift. Cerebral ventricles: No ventriculomegaly. Bones/joints: Unremarkable. No acute fracture. Soft tissues: Unremarkable. PROCEDURE INFORMATION: Exam: CT Angiography Neck With Contrast Exam date and time: 07/16/2021 12:24 AM Age: 61 years old Clinical indication: Speech disturbance; Slurred speech TECHNIQUE: Imaging protocol: Computed tomography angiography of the neck with contrast. 3D rendering (Not supervised by radiologist): MIP and/or 3D reconstructed images were created by the technologist. Radiation optimization: All CT scans at this facility use at least one of these dose optimization techniques: automated exposure control; mA and/or kV adjustment per patient size (includes targeted exams where dose is matched to clinical indication); or iterative reconstruction. Contrast material: OMNI 350; Contrast volume: 95 ml; Contrast route: INTRAVENOUS (IV); COMPARISON: 1. CT head wo con* [id number] 07/15/2021 12:[address] head wo con* [id number] 03/10/2021 12:27 AM RADIATION DOSE METRICS: Total DLP (mGy-cm): 2250.07 FINDINGS: Right common carotid artery: No stenosis. No dissection or occlusion. Right internal carotid artery: No stenosis of the extracranial segment. No dissection or occlusion. Right external carotid artery: No occlusion or stenosis of the origin. Left common carotid artery: No stenosis. No dissection or occlusion. Left internal carotid artery: No stenosis of the extracranial segment. No dissection or occlusion. Left external carotid artery: No occlusion or stenosis of the origin. Right vertebral artery: No stenosis. No dissection or occlusion. Left vertebral artery: No stenosis. No dissection or occlusion. Soft tissues: Normal. No significant soft tissue swelling. Bones/joints: No acute fracture. CT/CT angio headneck* [id number] IMPRESSION: No large vessel stenosis or occlusion. IMPRESSION: No stenosis or occlusion. REFERENCES: NASCET CRITERIA. The degree of internal carotid artery stenosis is based on NASCET criteria. Normal is no stenosis. Mild is less than 50% stenosis. Moderate is 50-69% stenosis. Severe is 70% to 99% stenosis. Total occlusion is no detectable patent lumen.
--- NOTE | 2021-07-15 18:18 | USCV_ITS ---
Transthoracic Echo Mikala Wright Age: 61 Gender: M : 1960 Exam Date: 07/15/2021 20:18 Ordering Phys: Ray Hopper MD Technologist: Rolan Ibrahim Exam Location: [facility] – [place] Indication: CVA BP: 124 / 80 HR: 74 Rhythm: Sinus Technical Quality: Suboptimal MEASUREMENTS (Male / Female) Normal Values 2D ECHO LV Diastolic Diameter PLAX 4.2 cm 4.2 - 5.9 / 3.9 - 5.3 cm LV Systolic Diameter PLAX 2.5 cm IVS Diastolic Thickness 1.5 cm 0.6 - 1.0 / 0.6 - 0.9 cm IVS Systolic Thickness 1.3 cm LVPW Diastolic Thickness 2.1 cm 0.6 - 1.0 / 0.6 - 0.9 cm LVPW Systolic Thickness 3.3 cm LVOT Diameter 2.0 cm LV Ejection Fraction 2D Teich 75.2 % LV Ejection Fraction MOD 2C 61.4 % LV Ejection Fraction 2C AL 63.7 % LA Diameter 3.1 cm LA Width 4.3 cm LA Height 4.5 cm Aorta at Sinotubular Diameter 2.5 cm M-MODE Aortic Annulus Diameter 3.4 cm LA Ao Ratio MM 0.9 MV E Point Septal Separation 1.6 cm DOPPLER AV Peak Velocity 136.0 cm/s LVOT Peak Velocity 86.0 cm/s AV Area Cont Eq vti 2.1 cm squared AV Area Cont Eq pk 2.1 cm squared MV Area PHT 2.8 cm squared Mitral E to A Ratio 0.8 MV E' Velocity 32.5 cm/s Mitral E to MV E' Ratio 5.6 Mitral E to LV E' Lateral Ratio 5.3 Mitral E to LV E' Septal Ratio 5.9 Right Atrial Pressure 13.0 mmHg PV Peak Velocity 105.0 cm/s RV Acceleration Time 0.1 s RV Ejection Time 0.2 s RV AcT/ET 0.4 FINDINGS Left Ventricle The left ventricle is not well seen. It is probably normal in size and function. Estimated ejection fraction 60%. Grade 1 diastolic dysfunction. Right Ventricle Normal right ventricular size and systolic function. Right Atrium The right atrium is poorly seen. Is probably mildly enlarged. There is also increased right atrial pressure 13 mmHg. Left Atrium Mildly increased left atrial size. Mitral Valve Mitral valve not well visualized. No mitral valve regurgitation. No mitral valve stenosis. Aortic Valve Aortic valve not well visualized. No aortic valve stenosis. No aortic valve regurgitation. Tricuspid Valve Structurally normal tricuspid valve. Trace tricuspid valve regurgitation. Pulmonic Valve Pulmonic valve not well visualized. Pericardium Normal pericardium without effusion. Aorta Normal ascending aorta dimension. CONCLUSIONS The left ventricle is not well seen. It is probably normal in size and function. Estimated ejection fraction 60%. Grade 1 diastolic dysfunction. The right atrium is poorly seen. Is probably mildly enlarged. There is also increased right atrial pressure [address] Jaron Tobin MD (Electronically Signed) Final Date: 16 July 2021 09:32 S
--- NOTE | 2021-07-15 18:18 | PM.HP ---
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 Patient is stating that normally he can tell when his blood pressure is high, yesterday after shopping start experiencing facial flushing and his diastolic pressure was high he is not sure about the numbers. He did not experience any numbness, weakness or slurring of speech however his headache(throbbing, mostly in crown of his head) which started around 4 AM was not getting better, he decided to go to PCP clinic where he was diagnosed with right-sided facial droop and slurring of speech. He was sent to the ER for further evaluation. In the ER NIH score was 0, CT head unremarkable other than chronic vascular changes. CBC BMP unremarkable blood pressure 141/79 mmHg Is requiring 2 L of oxygen which is at baseline At the time of my evaluation and nature Is sometimes stutters otherwise no active slurring of speech nonfocal neuro exam NIH 0 Very pleasant during my evaluation Is denying chest pain, shortness of breath, abdominal pain, recent diarrhea or fever. He stating that because of diastolic heart failure and underlying COPD he cannot walk much without getting short of breath. Will request echo, CTA head and neck, hemoglobin A1c and lipid profile, Review of Systems Const: Denies: fever(s) or chills Eyes: Denies: change in vision ENMT: Denies: throat pain Card: Denies: chest pain Resp: Denies: dyspnea GI: Denies: abdominal pain : Denies: flank pain Musc: Denies: neck pain Skin/Breast: Denies: rash Neuro: Reports: headache(s) Psych: Denies: anxiety Endo: Denies: polyuria Jhonathan/Lymph: Denies: easy bruising All/Imm: Denies: urticaria Medications/Allergies Home Medications Medication Instructions Recorded Confirmed Last Taken Type diclofenac sodium 1 % topical gel 4 g TOPICAL .at bedtime #100 g 03/07/21 07/15/21 Unknown Rx miscellaneous medical supply #1 ea 04/11/21 07/15/21 Unknown Rx metoprolol succinate 100 mg 100 mg PO DAILY #30 tab 05/16/21 07/15/21 07/15/21 Rx tablet,extended release 24 hr glipizide 10 mg tablet 10 mg PO BID 90 Days #180 tab 06/20/21 07/15/21 07/15/21 Rx lisinopril 10 mg tablet 10 mg PO DAILY 90 Days #90 tab 06/20/21 07/15/21 07/15/21 Rx metformin 1,000 mg tablet 1,000 mg PO BID 90 Days #180 tab 06/20/21 07/15/21 07/15/21 Rx pregabalin 75 mg capsule 75 mg PO BID 30 Days #60 cap 06/20/21 07/15/21 07/15/21 Rx dapagliflozin 5 mg tablet (Farxiga) 5 mg PO QAM 30 Days #30 tab 07/11/21 07/15/21 07/15/21 Rx Allergies Allergy/AdvReac Type Severity Reaction Status Date / Time No Known Allergies Allergy Verified 07/15/21 11:59 PFSH Acute PFSH: Medical History Diabetes Shortness of breath Stroke-like symptom Tachycardia Surgical History History of total knee arthroplasty Family History Mother Cancer colon cancer Other Diabetes Social History Smoking and tobacco status: current every day smoker (SMOKELESS TOBACCO) smokeless tobacco Smokeless tobacco user: chewing tobacco Smokeless tobacco details: 2-3 times weekly Alcohol intake: never Vitals/I&O/Wt Last Vital Signs Temp 98 F 07/15/21 16:30 Pulse 65 07/15/21 16:30 Resp 15 07/15/21 16:30 BP 141/79 07/15/21 16:30 Pulse Ox 94 07/15/21 16:30 07/15/21 07/15/21 07/15/21 06:59 14:59 22:59 Intake Total 1000 / 1000 Balance 1000 / 1000 Weight last 48 hrs Weight 106.594 kg Physical Exam Narrative: Very pleasant male NIH 0 Nonfocal neuro exam No carotid bruits S1, S2 Nonfocal neuro exam Saturating well on 2 L nasal cannula Abdomen soft Distribution No signs of edema Appears euvolemic Obesity No slurring of speech or facial droop Mild stuttering during conversation otherwise no significant dysarthria Data : 07/15/21 12:07 07/15/21 12:07 A&P Assessment and plan (1) TIA (transient ischemic attack): Status: Acute (2) Diastolic CHF, chronic: Status: Acute (3) Hypertension: Status: Acute Qualifiers: Hypertension type: primary hypertension Qualified Code(s): I10 - Essential (primary) hypertension (4) Diabetic neuropathy: Status: Acute Qualifiers: Diabetes mellitus type: type 2 Diabetes mellitus complication detail: diabetic polyneuropathy Qualified Code(s): E11.42 - Type 2 diabetes mellitus with diabetic polyneuropathy (5) Diabetes: Status: Acute Qualifiers: Diabetes mellitus type: type 2 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 mellitus 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 Qualified Code(s): E11.9 - Type 2 diabetes mellitus without complications Plan TIA ABCD 2 Patient is not hypertensive at the time of my evaluation Note continue his lisinopril NIH 0 We will do CTA head and neck Echo because he is endorsing shortness of breath on exertion He has history of sinus tachycardia, 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 director 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 in [place] Continue metoprolol I would let him have cardiac consistent carb diet Start sliding scale Check TSH as he is endorsing diastolic hypertension Check lipid profile, hemoglobin A1c, Risk factor modification Start aspirin and Plavix along atorvastatin Full code DVT prophylaxis Lovenox Attestations Medical Necessity Statement*: For stroke work-up and TIA he will need CTA head and neck and echo for shortness of breath on exertion, anticipating discharge in less than 48 hours Time Spent in Patient Care: 40mins Coding Level of Care Code Acute 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
--- NOTE | 2021-07-15 18:21 | ECG_ITS ---
[facility] Test Date: 2021-07-15 Pat Name: Mikala Wright Department: Room: 253 Gender: Male Program Scheduler: : 1960 Requested By: Willie Rolon Order Number: [id number] Yisel MD: Jaron Tobin M.D. Measurements Intervals [place] Rate: 73 P: 35 WI: 141 QRS: -21 QRSD: 89 T: 37 QT: 388 QTc: 430 Interpretive Statements SINUS RHYTHM WITH SINUS ARRHYTHMIA BORDERLINE LEFT AXIS DEVIATION [QRS AXIS < -20] Compared to ECG 07/15/2021 15:05:08 No significant changes Electronically Signed On 07-16-2021 9:40:50 CDT by Jaron Tobin M.D. [email or web address]/store/[id number]
[2021-07-15 18:40] LABS: Estmated Average Glucose 235; Hemoglobin A1C 9.8 % (4.0-6.0)
[2021-07-15] MEDS: enoxaparin 40 mg/0.4 mL Syringe SUBCUT (19:41)
[2021-07-15 19:46] LABS: Chol HDL Ratio 4.54 mg/dL (1.0-5.00); Cholesterol 186 mg/dL (0-200); HDL Cholesterol 41 mg/dL (60-100); LDL Cholesterol Calculated 84 mg/dL (50-129); LDL HDL Ratio 2.05 RATIO (0.00-3.22); Triglycerides 307 mg/dL (0-150)
[2021-07-15 19:56] LABS: Thyroid Stimulating Hormone 1.06 uIU/mL (0.27-4.20)
[2021-07-15] MEDS: atorvastatin 40 mg Tablet PO (20:21)
[2021-07-15 20:23] LABS: Glucose Point of Care 327 mg/dL (70-110)
[2021-07-15 20:29] LABS: Troponin 5 6HR 7.61 ng/L (0-15)
[2021-07-15] MEDS: insulin lispro 100 unit/1 mL SUBCUT (21:01)
[2021-07-16] VITALS: BP 111/76; PULSE 73; RESP 17; TEMP 36.4; O2SAT 97
[2021-07-16] MEDS: iohexol 350 mg/mL 100 mL Btl IV (00:28)
[2021-07-16 04:00] VITALS: BP 121/72; PULSE 84; RESP 17; TEMP 36.8; O2SAT 96
[2021-07-16 06:28] LABS: Glucose Point of Care 263 mg/dL (70-110)
[2021-07-16 07:08] LABS: Anion Gap 15.3 (5-19); Blood Urea Nitrogen 12 mg/dL (8-23); Calcium 9.1 mg/dL (8.5-10.5); Carbon Dioxide 23 mmol/L (22-29); Chloride 104 mmol/L (98-107); Glomerular Filtration Rate 114.3 mL/min (90-130); Glucose 264 mg/dL (65-115); Magnesium 1.9 mg/dL (1.7-2.3); Osmolality Calculated 295 mOsm/kg (285-295); Potassium 4.3 mmol/L (3.5-5.1); Sodium 138 mmol/L (136-145)
[2021-07-16 07:23] VITALS: BP 128/83; PULSE 64; RESP 18; TEMP 36.8; O2SAT 93
[2021-07-16 08:06] VITALS: PULSE 64; RESP 18; O2SAT 95
[2021-07-16] MEDS: insulin lispro 100 unit/1 mL SUBCUT (09:16)
[2021-07-16] MEDS: metoprolol succinate ER (24 HR) 100 mg Tablet PO (09:17)
[2021-07-16] MEDS: aspirin 81 mg EC Tablet PO (09:17)
[2021-07-16] MEDS: clopidogrel 75 mg Tablet PO (09:17)
[2021-07-16] MEDS: lisinopril 10 mg Tablet PO (09:17)
[2021-07-16 10:46] LABS: Glucose Point of Care 297 mg/dL (70-110)
--- NOTE | 2021-07-16 11:43 | PM.DCS ---
Discharge Providers Date of Admission: 07/15/21 16:27 Date of Discharge: July 16, 2021 Attending Provider at Admission: Ray Hopper MD Attending Provider at Discharge: Ray Hopper MD Primary Care Provider: Ana Mercedes MD Diagnoses at Discharge Discharge Diagnosis (1) TIA (transient ischemic attack): Status: Acute (2) Diastolic CHF, chronic: Status: Acute (3) Hypertension: Status: Acute Qualifiers: Hypertension type: primary hypertension Qualified Code(s): I10 - Essential (primary) hypertension (4) Diabetic neuropathy: Status: Acute Qualifiers: Diabetes mellitus complication detail: diabetic polyneuropathy Diabetes mellitus type: type 2 Qualified Code(s): E11.42 - Type 2 diabetes mellitus with diabetic polyneuropathy (5) Diabetes: Status: Acute Qualifiers: Diabetes mellitus complication status: without complication Diabetes mellitus fpc insulin use: without middle or intermediate school principal use Diabetes mellitus type: type 2 Qualified Code(s): E11.9 - Type 2 diabetes mellitus without complications Reason for Visit Reason for Visit: HEADACHE Hospital Course Hospital Course This is my admitting note Mikala Wright is a 61 year old male who has history of diabetes, dyslipidemia, 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 Patient is stating that normally he can tell when his blood pressure is high, yesterday after shopping start experiencing facial flushing and his diastolic pressure was high he is not sure about the numbers.? He did not experience any? numbness, weakness or slurring of speech however his headache(throbbing, mostly in crown of his head) which started around 4 AM was not getting better, he decided to go to PCP clinic where he was diagnosed with right-sided facial droop and slurring of speech.? He was sent to the ER for further evaluation.? In the ER NIH score was 0, CT head unremarkable other than chronic vascular changes. CBC BMP unremarkable blood pressure 141/79 mmHg Is requiring 2 L of oxygen which is at baseline At the time of my evaluation and nature Is sometimes stutters otherwise no active slurring of speech nonfocal neuro exam NIH 0 Very pleasant during my evaluation Is denying chest pain, shortness of breath, abdominal pain, recent diarrhea or fever.? He stating that because of diastolic heart failure and underlying COPD he cannot walk much without getting short of breath.? Will request echo, CTA head and neck, hemoglobin A1c and lipid profile Hospital course Patient was admitted for management evaluation of slurred speech. Patient symptoms improved during hospitalization. He was diagnosed with TIA. I started him on dual antiplatelet therapy. Lipid profile reviewed, hemoglobin A1c above 9, I started him on 10 units of Lantus and counseled him regarding checking fasting blood glucose to keep target glucose level below 130 mg/dL in the morning and check at least for 3 days before escalating Lantus by 2 units. He can follow-up with shopfitter but he is interested in following up with his primary care physician first. CTA head and neck unremarkable. EKG showed sinus rhythm. TSH normal. Troponin unremarkable. Hemoglobin A1c 9.8. I have discontinued his glipizide, he can continue Farxiga and Metformin with his Lantus. Physical Exam Narrative: NIH 0 Awake and alert Nonfocal neuro exam Abdomen soft S1, S2 Saturating well on room air Very pleasant and cooperative No slurring of speech EOMI, PERRLA Discharge Data Studies Completed and Pending Completed Studies During Hospitalization Category Date Time Status CT head wo con* [id number] Urgent Cat Scan 07/15/21 12:01 Completed CTA head neck [CT angio headneck* [id number]] Routine Cat Scan 07/15/21 18:18 Completed Pending at discharge Category Date Time Status MR head wo con* [id number] Routine MRI 07/15/21 18:22 Ordered CV. echo complete* [id number] Routine Ultrasound 07/15/21 18:18 Taken Radiology Impressions Head CT 07/15/21 12:01 IMPRESSION: There are senescent changes of the brain as described above. No evidence for large acute ischemic infarction or acute intracranial injury. Head/Neck CTA 07/15/21 18:18 IMPRESSION: No large vessel stenosis or occlusion. IMPRESSION: No stenosis or occlusion. REFERENCES: NASCET CRITERIA. The degree of internal carotid artery stenosis is based on NASCET criteria. Normal is no stenosis. Mild is less than 50% stenosis. Moderate is 50-69% stenosis. Severe is 70% to 99% stenosis. Total occlusion is no detectable patent lumen. Laboratory Results WBC 5.9 10^3/uL (4.0-10.0) 07/15/21 12:07 RBC 4.90 10^6/uL (4.1-5.3) 07/15/21 12:07 Hgb 15.9 g/dL (11.7-16.6) 07/15/21 12:07 Hct 46.2 % (42.0-52.0) 07/15/21 12:07 MCV 94.3 fl (80-94) H 07/15/21 12:07 MCH 32.4 pg (28.0-34.0) 07/15/21 12:07 MCHC 34.4 g/dL (30.0-36.0) 07/15/21 12:07 RDW 11.8 % (12.1-15.1) L 07/15/21 12:07 Plt Count 164 10^3/cmm (130-400) 07/15/21 12:07 MPV 11.5 fL (7.4-10.4) H 07/15/21 12:07 Neut % (Auto) 61.4 % 07/15/21 12:07 Lymph % (Auto) 24.6 % 07/15/21 12:07 Weld % (Auto) 8.1 % 07/15/21 12:07 Eos % (Auto) 4.6 % 07/15/21 12:07 Baso % (Auto) 1.0 % 07/15/21 12:07 Neut # (Auto) 3.64 10^3/uL (1.8-7.7) 07/15/21 12:07 Lymph # (Auto) 1.5 10^3/uL (0.8-4.8) 07/15/21 12:07 Weld # (Auto) 0.5 10^3/uL (0.2-0.9) 07/15/21 12:07 Eos # (Auto) 0.3 10^3/uL (0.0-0.8) 07/15/21 12:07 Baso # (Auto) 0.1 10^3/uL (0.0-0.1) 07/15/21 12:07 Nucleated RBC % (auto) 0 % 07/15/21 12:07 Nucleated RBCs # 0.0 /100WBC 07/15/21 12:07 Sodium 138 mmol/L (136-145) 07/16/21 06:10 Potassium 4.3 mmol/L (3.5-5.1) 07/16/21 06:10 Chloride 104 mmol/L (98-107) 07/16/21 06:10 Carbon Dioxide 23 mmol/L (22-29) 07/16/21 06:10 Anion Gap 15.3 (5-19) 07/16/21 06:10 BUN 12 mg/dL (8-23) 07/16/21 06:10 Creatinine 0.7 mg/dL (0.7-1.2) 07/16/21 06:10 GFR Calculation 114.3 mL/min (90-130) 07/16/21 06:10 Glucose 264 mg/dL (65-115) H 07/16/21 06:10 POC Glucose 297 mg/dL (70-110) H 07/16/21 10:36 Estimat Average Glucose 235 07/15/21 12:07 Hemoglobin A1c 9.8 % (4.0-6.0) H 07/15/21 12:07 Calculated Osmolality 295 mOsm/kg (285-295) 07/16/21 06:10 Calcium 9.1 mg/dL (8.5-10.5) 07/16/21 06:10 Magnesium 1.9 mg/dL (1.7-2.3) 07/16/21 06:10 Total Bilirubin 0.6 mg/dL (0.15-1.2) 07/15/21 12:07 AST 40 U/L (0-40) 07/15/21 12:07 ALT 42 U/L (0-41) H 07/15/21 12:07 Alkaline Phosphatase 57 IU/L (40-130) 07/15/21 12:07 Troponin T Baseline 8 ng/L (0-15) 07/15/21 12:07 Troponin T 120 Minute 8.82 ng/L (0-15) 07/15/21 13:37 Delta Troponin T 0.82 ABS# (0-10) 07/15/21 13:37 Troponin T Hi Sens 6Hr 7.61 ng/L (0-15) 07/15/21 19:40 Troponin T Hi Sens 6Hr Delta Not Reportable 07/15/21 19:40 Total Protein 6.3 g/dL (6.6-8.7) L 07/15/21 12:07 Albumin 4.4 g/dL (3.5-5.2) 07/15/21 12:07 Globulin 1.9 g/dL (1.3-4.6) 07/15/21 12:07 Triglycerides 307 mg/dL (0-150) H 07/15/21 13:37 Cholesterol 186 mg/dL (0-200) 07/15/21 13:37 LDL Cholesterol, Calc 84 mg/dL (50-129) 07/15/21 13:37 HDL Cholesterol 41 mg/dL (60-100) L 07/15/21 13:37 LDL/HDL Ratio 2.05 RATIO (0.00-3.22) 07/15/21 13:37 Cholesterol/HDL Ratio 4.54 mg/dL (1.0-5.00) 07/15/21 13:37 TSH 1.06 uIU/mL (0.27-4.20) 07/15/21 13:37 Urine Color Yellow (Yellow) 07/15/21 12:27 Urine Appearance Clear (CLEAR) 07/15/21 12:27 Urine pH 5 (5-7) 07/15/21 12:27 Ur Specific [place] 1.015 (1.005-1.030) 07/15/21 12:27 Urine Protein Neg (Negative) 07/15/21 12:27 Urine Glucose (UA) 4+ (Normal) H 07/15/21 12:27 Urine Ketones 1+ (Negative) H 07/15/21 12:27 Urine Blood Neg (Negative) 07/15/21 12:27 Urine Nitrate Negative (Negative) 07/15/21 12:27 Urine Bilirubin Neg (Negative) 07/15/21 12:27 Urine Urobilinogen Norm mg/dL (Negative) 07/15/21 12:27 Ur Leukocyte Esterase Negative (Negative) 07/15/21 12:27 Serum Ketones Negative (Negative) 07/15/21 12:07 Vitals Last Vital Signs Temp 98.3 F 07/16/21 07:23 Pulse 64 07/16/21 08:06 Resp 18 07/16/21 08:06 BP 128/83 07/16/21 07:23 Pulse Ox 95 07/16/21 08:06 Discharge Plan Discharge Patient Disposition: Home Condition: Stable Prescriptions: New atorvastatin 40 mg Tablet 40 mg PO BEDTIME Qty: 60 4RF clopidogrel 75 mg Tablet 75 mg PO DAILY Qty: 20 0RF aspirin 81 mg Tablet,Delayed Release (Dr/Ec) 81 mg PO DAILY Qty: 30 10RF Lantus Solostar U-100 Insulin 100 unit/mL (3 mL) insulin pen 10 unit SUBCUT BEDTIME Qty: 15 3RF (DME) Accu-Chek Guide test strips Strip See Rx Instructions .Route Qty: 100 2RF Rx Instructions: As directed (DME) Accu-Chek Fastclix Lancet Drum Misc See Rx Instructions .Route Qty: 200 3RF Rx Instructions: As directed Continued metoprolol succinate 100 mg tablet extended release 24 hr 100 mg PO DAILY Qty: 30 3RF diclofenac sodium 1 % gel 4 g topical .at bedtime Qty: 100 0RF Rx Instructions: to feet lisinopril 10 mg tablet 10 mg PO DAILY 90 Days Qty: 90 0RF metformin 1,000 mg tablet 1,000 mg PO BID 90 Days Qty: 180 1RF pregabalin 75 mg capsule 75 mg PO BID 30 Days Qty: 60 2RF (DME) miscellaneous medical supply [facility] See Rx Instructions .Route Qty: 1 0RF Rx Instructions: 2L portable O2 As directed Farxiga 5 mg tablet 5 mg PO QAM 30 Days Qty: 30 2RF Discontinued glipizide 10 mg tablet 10 mg PO BID 90 Days Qty: 180 1RF Hold Instructions: Home Medication placed on hold at Doctor's office Discharge Orders: Discharge Order (Routine); Ordered 07/16/21 Ordered By: Ray Hopper Referrals: Rafita Roy MD [Physician] - 1 month (Please call [facility] Endocr[facility]ology on Saturday and set up an appointment to be seen by Dr. Roy within one month.) Ana Mercedes MD [Primary Care Provider] - 1-3 days ([facility] [place] [facility] to be seen by Dr. Mercedes this week.) Discharge Diet: Diabetic Discharge Activity: Increase activity as tolerated Patient Instructions: Aspirin (By mouth), Atorvastatin (By mouth), Clopidogrel (By mouth), Insulin Glargine (By injection), Transient Ischemic Attack (GEN), Opioid Safety, Stroke Stoplight Discharge Attestations Time Spent in Discharge Care*: less than 30 min Quality Metrics Clinical Quality Measures [ No reported AMI, CVA or VTE this stay] Coding Level of Care Code Acute Chg FW DC note Diagnoses TIA (transient ischemic attack) G45.9 Diastolic CHF, chronic I50.32 Hypertension I10 Hypertension type: primary hypertension Diabetic neuropathy E11.42 Diabetes mellitus complication detail: diabetic polyneuropathy Diabetes mellitus type: type 2 Diabetes E11.9 Diabetes mellitus complication status: without complication Diabetes mellitus middle or intermediate school principal insulin use: without middle or intermediate school principal use Diabetes mellitus type: type 2
[2021-07-16 11:50] VITALS: BP 124/73; PULSE 67; RESP 18; O2SAT 94
--- NOTE | 2021-07-16 12:03 | PC.NURSE ---
Discussed discharge medications and follow up appointments. All questions answered for family. Verbalized understanding.
[2021-07-16 12:24] VITALS: BP 124/73; PULSE 67; RESP 18; O2SAT 94
== END 2021-07-16 10:10 | disposition home or self-care (01) ==
LOC: ER 15:41 → MEDSURG 18:33
PROVIDERS: Admitting Provider Internal Medicine; Emergency Provider Emergency Medicine; PCP Family Medicine; Visit Provider Internal Medicine
DX: G45.9 Transient cerebral ischemic attack, unspecified (principal); R29.700 NIHSS score 0; I11.0 Hypertensive heart disease with heart failure; I50.32 Chronic diastolic (congestive) heart failure; E11.42 Type 2 diabetes mellitus with diabetic polyneuropathy; E78.5 Hyperlipidemia, unspecified; Z79.84 Long term (current) use of oral hypoglycemic drugs; F17.220 Nicotine dependence, chewing tobacco, uncomplicated
CPT/HCPCS: 36415; 36416; 70450; 70496; 70498; 80048; 80053; 80061; 81003; 82009; 82962; 83036; 83735; 84443; 84484; 85025; 93005; 93306; 96361; 96372; 96374; 96375; 99285; G0378; J1650; J1815; J1885; J7030; Q9967

== ENCOUNTER → 2021-10-23 09:10 | Outpatient (BNVA) | payer MEDICARE, SELFPAY | PROVIDERS: PCP Family Medicine; Visit Provider Family Medicine | DX: M79.671 Pain in right foot (principal); E78.1 Pure hyperglyceridemia; E11.42 Type 2 diabetes mellitus with diabetic polyneuropathy; R00.0 Tachycardia, unspecified; I10 Essential (primary) hypertension; I63.89 Other cerebral infarction; F51.02 Adjustment insomnia; I63.9 Cerebral infarction, unspecified; M79.672 Pain in left foot; E11.9 Type 2 diabetes mellitus without complications | CPT/HCPCS: 80053; 83036 ==

== ENCOUNTER 2021-12-18 09:24 | Emergency (ER) | payer MEDICARE, SELFPAY ==
--- NOTE | 2021-12-18 09:32 | ECG_ITS ---
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 Measurements Intervals [place] Rate: 98 P: 33 FL: 149 QRS: -10 QRSD: 86 T: 49 QT: 340 QTc: 434 Interpretive Statements SINUS RHYTHM POSSIBLE RIGHT VENTRICULAR CONDUCTION DELAY [RSR (QR) IN V1/V2] Compared to ECG 07/15/2021 17:24:29 Sinus arrhythmia no longer present Electronically Signed On 12-18-2021 19:00:18 CDT by Yessy Galarza M.D. [id number]
[2021-12-18 09:34] VITALS: BP 138/91; PULSE 101; RESP 21; TEMP 36.6; O2SAT 94; BMI 34.7
[2021-12-18 09:37] VITALS: BP 131/97; PULSE 100; RESP 17; O2SAT 97
--- NOTE | 2021-12-18 09:44 | XRR_ITS ---
PROCEDURE INFORMATION: Exam: XR Chest Exam date and time: 12/18/2021 9:52 AM Age: 61 years old Clinical indication: Pain; Right-sided; Additional info: Chest pain TECHNIQUE: Imaging protocol: Radiologic exam of the chest. Views: 1 view. COMPARISON: CR XR chest 1V portable [id number] 02/18/2021 1:34 PM FINDINGS: Lungs: The lung parenchyma is clear. Pleural spaces: No pneumothorax. No pleural effusion. Heart/Mediastinum: The cardiomediastinal silhouette is within normal limits. Bones/joints: Unremarkable. XR/XR chest 1V portable [id number] IMPRESSION: No acute cardiopulmonary abnormality.
--- NOTE | 2021-12-18 09:49 | PC.NURSE ---
pt reports began having chest pain this morning around 0800, began while putting down luz elena. Pain was to left chest, was diaphoretic and vomited. reports dizziness. reports this morning chest pain was worth with exertion. denies OTC medications prior to arriva. Pt denies current chest pain, dyspnea, or nausea. 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 Reports he has an artery that is pumping too much blood to his heart. pt alert and oriented, skin pink/warm/dry. speech clear. speaking in complete sentences without difficulty. lung sounds clear bilat.
[2021-12-18 10:00] VITALS: BP 122/83; PULSE 88; RESP 18; O2SAT 93
[2021-12-18 10:00] LABS: Basophils # 0.1 10^3/uL (0.0-0.1); Basophils % 0.8 %; Eosinophils # 0.2 10^3/uL (0.0-0.8); Hematocrit 46.6 % (42.0-52.0); Hemoglobin 15.8 g/dL (11.7-16.6); Lymphocytes # 1.4 10^3/uL (0.8-4.8); Lymphocytes % 18.1 %; Mean Corpuscular HGB Conc 33.9 g/dL (30.0-36.0); Mean Corpuscular Hemoglobin 32.2 pg (28.0-34.0); Mean Corpuscular Volume 94.9 fl (80-94); Mean Platelet Volume 11.2 fL (7.4-10.4); Monocytes # 0.7 10^3/uL (0.2-0.9); Monocytes % 9.2 %; Neutrophils # 5.22 10^3/uL (1.8-7.7); Neutrophils % 69.6 %; Nucleated Red Blood Cells % 0 %; Platelet Count 171 10^3/cmm (130-400); Red Blood Count 4.91 10^6/uL (4.1-5.3); Red Cell Distribution Width 12.1 % (12.1-15.1); White Blood Count 7.5 10^3/uL (4.0-10.0)
[2021-12-18] MEDS: aspirin 81 mg Chew Tablet 324 MG PO (10:00)
--- NOTE | 2021-12-18 10:07 | PC.PHAR ---
Addendum entered by Maritza Omalley 12/18/21 10:14: pt states he is using ozempic 0.25mg q7d ext med history shows last filled 0.5mg q7d on 12/04/21 28d/s Original Note: pt states he takes care of his own medications-pt states his plavix 75mg,buspar 10mg,lisinopril 10mg,metoprolol er 100mg-farxiga 10mg,hctz 12.5mg were all dced states not taken for a few months-
[2021-12-18 10:19] LABS: Troponin(5th) Baseline 12 ng/L (0-15)
[2021-12-18 10:20] LABS: Alanine Aminotransferase 50 U/L (0-41); Albumin Level 4.6 g/dL (3.5-5.2); Alkaline Phosphatase 53 U/L (40-130); Anion Gap 18.1 (5-19); Aspartate Amino Transferase 41 U/L (0-40); Blood Urea Nitrogen 11 mg/dL (8-23); Calcium 9.4 mg/dL (8.5-10.5); Carbon Dioxide 22 mmol/L (22-29); Chloride 107 mmol/L (98-107); Globulin 2.1 g/dL (1.3-4.6); Glomerular Filtration Rate 114.3 mL/min (90-130); Glucose 132 mg/dL (65-115); Osmolality Calculated 297 mOsm/kg (285-295); Potassium 4.1 mmol/L (3.5-5.1); Sodium 143 mmol/L (136-145); Total Bilirubin 0.7 mg/dL (0.15-1.2); Total Protein 6.7 g/dL (6.6-8.7)
--- NOTE | 2021-12-18 10:22 | W.ED.CHESTPA ---
HPI - Chest Pain General: Chief Complaint: Chest Pain Stated Complaint: high hr, N/V Time Seen by Provider: 12/18/21 09:44 Source: patient Mode of arrival: ambulatory History of Present Illness: 61-year-old male presents to the room with chest pain that began 15 minutes prior. Patient was at rest began having chest discomfort that resolved prior to arrival. Patient has a history of diabetes mellitus. He states when he had a discomfort rating to his neck and his arm is completely resolved now he was diaphoretic and short of breath with it as well. Resolved spontaneously he did not take anything for it. He denies any cough recently. No orthopnea. MD complaint: chest pain Onset (ago): minute(s) Timing of current episode: episodic Prior episodes: No Onset: during rest Pain location: left chest Pain radiation: left arm and neck Severity: mild Quality: sharp Relieving factors: nothing Exacerbating factors: nothing Associated symptoms: Reports diaphoresis and dyspnea; Deny abdominal pain, fever(s), leg edema, nausea, palpitations, sense of impending doom, syncope or vomiting Treatment prior to arrival: none Review of Systems Const: Reports: diaphoresis; Denies: fever(s) or chills ENMT: Denies: throat pain, ear or mastoid pain, nasal discharge or nasal congestion Card: Denies: chest pain, palpitations or syncope Resp: Reports: dyspnea; Denies: productive cough or non-productive cough GI: Denies: abdominal pain, nausea or vomiting : Denies: flank pain, difficulty urinating, dysuria, urinary frequency or urinary urgency Skin/Breast: Denies: rash or pruritus PFSH ED PFSH: Medical History Diabetes Diabetic neuropathy Diastolic CHF, chronic Hypertension Shortness of breath Stroke-like symptom Tachycardia Surgical History History of total knee arthroplasty Family History Mother Cancer colon cancer Other Diabetes Social History Smoking and tobacco status: never smoked Alcohol intake: never Physical Exam Const: COMMON NORMALS: no acute distress GENERAL APPEARANCE: cooperative and comfortable ORIENTATION/CONSCIOUSNESS: Yes awake, Yes oriented to person, Yes oriented to place and Yes oriented to time HENMT: COMMON NORMALS: normocephalic, atraumatic and hearing grossly normal bilaterally HEAD & SCALP: normocephalic and atraumatic Lymph: LYMPHATIC: no lymphadenopathy noted and no lymphedema noted Resp: COMMON NORMALS: normal respiratory effort, No retractions, No use of accessory muscles and clear to auscultation bilaterally AUSCULTATION: clear to auscultation bilaterally Cardio: COMMON NORMALS: regular rate, regular rhythm and No murmurs present (Cardio) RATE: regular rate RHYTHM: regular rhythm GI: COMMON NORMALS: Soft to palpation and No hepatosplenomegaly present AUSCULTATION: Yes normoactive bowel sounds PALPATION: Yes Soft to palpation, No Tenderness to palpation present (GI), No Guarding due to palpation present (GI) and Yes No hepatosplenomegaly present Extremity: COMMON NORMALS: normal to inspection, capillary refill normal, no clubbing, cyanosis or edema, no calf tenderness and no pedal edema Neuro: SENSORIUM/ORIENTATION: Yes oriented to person, Yes oriented to place and Yes oriented to time Skin: COMMON NORMALS: no rashes or lesions noted GENERAL SKIN EXAM: no rashes or lesions noted Course Vital Signs: Vital signs: Vital Signs Temperature 97.9 F 12/18/21 09:34 Pulse Rate 96 12/18/21 14:26 Respiratory Rate 16 12/18/21 14:26 Blood Pressure 130/89 12/18/21 14:26 Pulse Oximetry 95 12/18/21 14:26 Oxygen Delivery Me thod 12/18/21 09:34 Oxygen Flow Rate 2 12/18/21 09:34 MDM - Chest Pain Medical Decision Making Labs imaging EKG reviewed on the chart no acute changes. Patient had a Lexiscan sestamibi stress test earlier this year that was resulted as normal. He does not wish to stay. Since he has had a stress test so recently I do not know that doing another stress test particularly be helpful. Asked patient to begin taking aspirin 81 mg daily return if he has any recurrent chest pain. We will go ahead and discharge him home for now and asked him to follow-up with cardiology who he has seen in the past. He should call the clinic and set up a follow-up. If he has any further symptoms at all should return to the emergency room. Medical Records I reviewed the patient's medical records. Lab Data I reviewed the patient's lab results. : 12/18/21 09:52 12/18/21 09:52 Radiology Impressions Chest X-Ray 12/18/21 09:44 IMPRESSION: No acute cardiopulmonary abnormality. Laboratory Results WBC 7.5 10^3/uL (4.0-10.0) 12/18/21 09:52 RBC 4.91 10^6/uL (4.1-5.3) 12/18/21 09:52 Hgb 15.8 g/dL (11.7-16.6) 12/18/21 09:52 Hct 46.6 % (42.0-52.0) 12/18/21 09:52 MCV 94.9 fl (80-94) H 12/18/21 09:52 MCH 32.2 pg (28.0-34.0) 12/18/21 09:52 MCHC 33.9 g/dL (30.0-36.0) 12/18/21 09:52 RDW 12.1 % (12.1-15.1) 12/18/21 09:52 Plt Count 171 10^3/cmm (130-400) 12/18/21 09:52 MPV 11.2 fL (7.4-10.4) H 12/18/21 09:52 Neut % (Auto) 69.6 % 12/18/21 09:52 Lymph % (Auto) 18.1 % 12/18/21 09:52 [place] % (Auto) 9.2 % 12/18/21 09:52 Eos % (Auto) 2.0 % 12/18/21 09:52 Baso % (Auto) 0.8 % 12/18/21 09:52 Neut # (Auto) 5.22 10^3/uL (1.8-7.7) 12/18/21 09:52 Lymph # (Auto) 1.4 10^3/uL (0.8-4.8) 12/18/21 09:52 [place] # (Auto) 0.7 10^3/uL (0.2-0.9) 12/18/21 09:52 Eos # (Auto) 0.2 10^3/uL (0.0-0.8) 12/18/21 09:52 Baso # (Auto) 0.1 10^3/uL (0.0-0.1) 12/18/21 09:52 Nucleated RBC % (auto) 0 % 12/18/21 09:52 Nucleated RBCs # 0.0 /100WBC 12/18/21 09:52 Sodium 143 mmol/L (136-145) 12/18/21 09:52 Potassium 4.1 mmol/L (3.5-5.1) 12/18/21 09:52 Chloride 107 mmol/L (98-107) 12/18/21 09:52 Carbon Dioxide 22 mmol/L (22-29) 12/18/21 09:52 Anion Gap 18.1 (5-19) 12/18/21 09:52 BUN 11 mg/dL (8-23) 12/18/21 09:52 Creatinine 0.7 mg/dL (0.7-1.2) 12/18/21 09:52 GFR Calculation 114.3 mL/min (90-130) 12/18/21 09:52 Glucose 132 mg/dL (65-115) H 12/18/21 09:52 Calculated Osmolality 297 mOsm/kg (285-295) H 12/18/21 09:52 Calcium 9.4 mg/dL (8.5-10.5) 12/18/21 09:52 Total Bilirubin 0.7 mg/dL (0.15-1.2) 12/18/21 09:52 AST 41 U/L (0-40) H 12/18/21 09:52 ALT 50 U/L (0-41) H 12/18/21 09:52 Alkaline Phosphatase 53 U/L (40-130) 12/18/21 09:52 Troponin T Baseline 12 ng/L (0-15) 12/18/21 09:52 Troponin T 120 Minute 6.00 ng/L (0-15) 12/18/21 11:51 Delta Troponin T -6.00 ABS# (0-10) L 12/18/21 11:51 Total Protein 6.7 g/dL (6.6-8.7) 12/18/21 09:52 Albumin 4.6 g/dL (3.5-5.2) 12/18/21 09:52 Globulin 2.1 g/dL (1.3-4.6) 12/18/21 09:52 Discharge Plan Discharge Patient Disposition: Home Clinical Impression: Atypical chest pain Condition: Stable Prescriptions: No Action (DME) miscellaneous medical supply Misc See Rx Instructions .Route Qty: 1 0RF Rx Instructions: 2L portable O2 As directed (DME) Comfort EZ Pen [place] 33 gauge x 1/4 needle See Rx Instructions .ROUTE .MEDSUPPLY Qty: 100 2RF Rx Instructions: As directed, for use with ozempic inj pen metformin 1,000 mg tablet 1,000 mg PO BID 90 Days Qty: 180 1RF atorvastatin 40 mg tablet 40 mg PO BEDTIME 90 Days Qty: 90 3RF nystatin 100,000 unit/gram cream 1 applic topical BID Qty: 15 1RF pregabalin 75 mg capsule 75 mg PO BID 30 Days Qty: 60 2RF Hold Instructions: Home Medication placed on hold at Doctor's office tizanidine 2 mg tablet 2 mg PO TID PRN (Reason: muscle spasticity) Qty: 60 0RF varenicline 1 mg tablet 1 mg PO BID Qty: 56 2RF Ozempic 0.25 mg or 0.5 mg(2 mg/1.5 mL) pen injector 0.25 mg SUBCUT Q7D Qty: 1.5 2RF Rx Instructions: on fri diltiazem HCl 180 mg capsule,extended release 24hr 180 mg PO DAILY@12 aspirin 81 mg tablet,delayed release (DR/EC) 81 mg PO DAILY@12 hydroxyzine HCl 25 mg tablet 25 mg PO BEDTIME PRN (Reason: insomnia) diclofenac sodium 1 % gel 4 g topical BEDTIME PRN (Reason: Pain) Rx Instructions: to feet or neck (DME) Accu-Chek Guide test strips Strip See Rx Instructions .Route Qty: 100 2RF Rx Instructions: As directed (DME) lancets [Accu-Chek Fastclix Lancet Drum] Misc See Rx Instructions .Route Qty: 200 3RF Rx Instructions: As directed Discharge Orders: Discharge ED (Routine); Ordered 12/18/21 Ordered By: Olivier Friedman Referrals: Ana Mercedes MD [Primary Care Provider] - Discharge Diet: Usual diet Discharge Activity: Limit activity as instructed Patient Instructions: Opioid Safety Activity Restrictions/Additional Instructions: Avoid strenuous activity. Call the cardiology office and schedule follow-up visit within the next week. If having worsening of chest pain return. Coding Level of Care Code ED Air Valve Mechanic for Mo Souaz
--- NOTE | 2021-12-18 10:31 | PC.NURSE ---
pt resting in bed, visitors at bedside. denies needs at this time.
[2021-12-18 10:37] VITALS: BP 107/79; PULSE 95; RESP 19; O2SAT 92
--- NOTE | 2021-12-18 11:32 | ECG_ITS ---
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 Measurements Intervals [place] Rate: 80 P: 25 RI: 153 QRS: -21 QRSD: 93 T: 33 QT: 348 QTc: 403 Interpretive Statements SINUS RHYTHM BORDERLINE LEFT AXIS DEVIATION [QRS AXIS < -20] S1-S2-S3 PATTERN, CONSISTENT WITH PULMONARY DISEASE, RVH, OR NORMAL VARIANT POSSIBLE RIGHT VENTRICULAR CONDUCTION DELAY [RSR (QR) IN V1/V2] Compared to ECG 07/15/2021 17:24:29 Right ventricular hypertrophy now present Sinus arrhythmia no longer present Electronically Signed On 12-18-2021 19:05:49 CDT by Yessy Galarza M.D. [id number]
[2021-12-18 14:26] VITALS: BP 130/89; PULSE 96; RESP 16; O2SAT 95
== END 2021-12-18 14:28 | disposition home or self-care (01) ==
PROVIDERS: Emergency Provider Family Medicine; PCP Family Medicine
DX: R07.89 Other chest pain (principal); Z79.84 Long term (current) use of oral hypoglycemic drugs; Z79.82 Long term (current) use of aspirin; E11.9 Type 2 diabetes mellitus without complications; I11.0 Hypertensive heart disease with heart failure; I50.32 Chronic diastolic (congestive) heart failure
CPT/HCPCS: 36415; 71045; 80053; 84484; 85025; 93005; 99285

== ENCOUNTER 2021-12-26 20:00 | Outpatient (CLI) | payer MEDICARE, SELFPAY | END 2021-12-26 20:01 | disposition home or self-care (01) | LOC: SLEEP 12-27 07:43 | PROVIDERS: PCP Family Medicine; Visit Provider Family Medicine | DX: G47.33 Obstructive sleep apnea (adult) (pediatric) | CPT/HCPCS: 95810 ==

== ENCOUNTER 2022-01-18 18:02 | Emergency (ER) | payer MEDICARE, SELFPAY ==
[2022-01-18 18:07] VITALS: BMI 37.1
--- NOTE | 2022-01-18 18:08 | ECG_ITS ---
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 Measurements Intervals [place] Rate: 86 P: 20 MA: 138 QRS: -28 QRSD: 86 T: 21 QT: 355 QTc: 427 Interpretive Statements SINUS RHYTHM BORDERLINE LEFT AXIS DEVIATION [QRS AXIS < -20] POSSIBLE RIGHT VENTRICULAR CONDUCTION DELAY [RSR (QR) IN V1/V2] Compared to ECG 12/18/2021 11:32:28 Right ventricular hypertrophy no longer present Electronically Signed On 01-19-2022 7:15:46 CDT by Yessy Galarza M.D. [email or web address]/[id number]
--- NOTE | 2022-01-18 18:08 | W.ED.GENADLT ---
HPI - General Adult General: Chief complaint: Chest Pain Stated complaint: cp Time Seen by Provider: 01/18/22 18:06 History of Present Illness: Patient is a 61-year-old male with a history of hyperlipidemia, diabetes who presents the emergency room with complaints of left-sided neck pain, arm pain and chest pain since yesterday. Patient has been that he began developing a sharp stabbing pain in the left neck and left arm that then radiated towards the anterior chest. Patient reports that each time these episode happened last for seconds at a time. Patient denies any associated dyspnea, exertional dyspnea, pleuritic chest pain, diaphoresis, nausea or vomiting.patient reports the chest pain is occasionally pressure-like. Of note, patient was recently seen on 12/18/2021 for concerns of chest pain. Patient has no fever/chills, cough, runny nose sore throat, history of VTE's, or history of aneurysm. Onset: yesterday afternoon Duration:intermittent ongoing Location:home Severity:moderate Associated symptoms: Reports chest pain; Deny dyspnea, nausea, rash, palpitations or vomiting Review of Systems Const: Denies: fever(s) or chills Eyes: Denies: change in vision ENMT: Denies: mouth pain Card: Reports: chest pain; Denies: palpitations Resp: Denies: dyspnea or non-productive cough GI: Denies: abdominal pain, nausea, vomiting or diarrhea : Denies: dysuria Musc: Reports: neck pain (+L neck pain) and extremity pain (+L arm pain) Skin/Breast: Denies: rash or new lesions Neuro: Denies: weakness in extremities Psych: Reports: other (Normal mood) Jhonathan/Lymph: Denies: easy bruising PFSH ED PFSH: Medical History Diabetes Diabetic neuropathy Diastolic CHF, chronic Hypertension Shortness of breath Stroke-like symptom Tachycardia Surgical History History of total knee arthroplasty Family History Mother Cancer colon cancer Other Diabetes Social History Smoking and tobacco status: never smoked Alcohol intake: never Physical Exam Const: COMMON NORMALS: alert HENMT: COMMON NORMALS: atraumatic HEAD & SCALP: atraumatic MOUTH: moist mucous membranes not abnormal Eye: COMMON NORMALS: EOMs intact bilaterally and conjunctivae normal CONJUNCTIVA: Yes conjunctivae normal Neck/C-Spine: COMMON NORMALS: full ROM and supple Resp: COMMON NORMALS: normal respiratory effort and clear to auscultation bilaterally AUSCULTATION: clear to auscultation bilaterally Cardio: COMMON NORMALS: regular rate RATE: regular rate OTHER: 2+ radial pulses b/l GI: COMMON NORMALS: Soft to palpation and non-tender PALPATION: Yes Soft to palpation OTHER: No focal TTP. NO guarding rebound, guarding, rigidity. No CVA tenderness to percussion. Neg Cobb/Neg McBurney's point tenderness, no suprabupic tenderness to palpation. Extremity: COMMON NORMALS: full ROM Neuro: SENSORIUM/ORIENTATION: Yes alert MOTOR EXAM: No Abnormal motor strength present and Other motor observations present (no focal motor deficits) Psych: COMMON NORMALS: speech normal SPEECH: Yes normal speech MOOD & AFFECT: Yes euthymic mood Course Vital Signs: Vital signs: Vital Signs Temperature 97.7 F 01/18/22 18:20 Pulse Rate 105 H 01/18/22 18:20 Respiratory Rate 18 01/18/22 18:20 Blood Pressure 112/75 01/18/22 18:47 Pulse Oximetry 94 01/18/22 18:20 Oxygen Delivery Me thod 01/18/22 18:20 MDM - General Adult Medical Decision Making 61-year-old male with history of hypertension, hyperlipidemia who presents emergency room with complaints of new onset of left neck pain arm pain and chest pain for the last 2 days. On exam, patient is hemodynamically stable. 2+ radial pulses bilaterally. There is no focal findings on physical exam. X-ray chest appears to be clear. Troponin x2 with delta less than 5. EKG does not appear to show any signs of ischemia. Patient has no complaints of chest pain in the ER. Given the fact the patient has a heart score 4, I have offered mission for further work-up. However, at 9:05 pm patient prefers to be discharged. I ahve discussed given patient's risk factors that he would better off admitted to the hospital. Upon hearing this, patient tells me that he has had 2 prior stress test at this time would like to follow with Dr. Smith. I explained the risks of leaving the hospital today including lethal arrhythmia, PA, and even . Patient verbalizes understanding of these discussed risk and elect for the alternative of following up outpatient stress test and to be seen by Dr. Smith in clinic. Patient verbalizes understanding to return for any worsening symptoms including chest pain, dyspnea, fatigue, arm pain/jaw pain/back pain or any new or concerning issues. No suspicion for aortic dissection given no widened mediastinum, 2+ upper extremity pulses, or tearing pain. No suspicion for PE given no pleuritic chest pain, recent immobilization or surgery hemoptysis, or other VTE risk factors. EKG is non-ischemic. XR normal. I have given patient follow up with our golf club manager to be seen by our outpatient by Dr. Smith at request of patient outpatient. Patient aware of a call from our golf club manager to schedule for appointment(s) and verbalizes understanding of the importance of following up. Patient will be scheduled for an outpatient stress test as well. Disposition: Discharge. Patient counseled regarding diagnostic impression, treatment plan. Patient given ED strict return precautions to return for continuation, worsening, or development of new symptoms. Instructed to f/u w/ PCP and Cardiology regarding symptoms today. Patient verbalized understanding. Lab Data : 01/18/22 18:01/18/22 18: Radiology Impressions Chest X-Ray 01/18/22 18:07 IMPRESSION: No acute findings. Laboratory Results WBC 7.9 10^3/uL (4.0-10.0) 01/18/22 18: RBC 4.67 10^6/uL (4.1-5.3) 01/18/22 18: Hgb 15.1 g/dL (11.7-16.6) 01/18/22 18: Hct 44.6 % (42.0-52.0) 01/18/22 18: MCV 95.5 fl (80-94) H 01/18/22 18: MCH 32.3 pg (28.0-34.0) 01/18/22 18: MCHC 33.9 g/dL (30.0-36.0) 01/18/22 18: RDW 12.5 % (12.1-15.1) 01/18/22 18: Plt Count 179 10^3/cmm (130-400) 01/18/22 18: MPV 11.6 fL (7.4-10.4) H 01/18/22 18: Neut % (Auto) 58.0 % 01/18/22 18: Lymph % (Auto) 25.8 % 01/18/22 18: [place] % (Auto) 7.7 % 01/18/22 18: Eos % (Auto) 7.1 % 01/18/22 18: Baso % (Auto) 1.0 % 01/18/22 18: Neut # (Auto) 4.60 10^3/uL (1.8-7.7) 01/18/22: Lymph # (Auto) 2.0 10^3/uL (0.8-4.8) 01/18/22 18: [place] # (Auto) 0.6 10^3/uL (0.2-0.9) 01/18/22 18: Eos # (Auto) 0.6 10^3/uL (0.0-0.8) 01/18/22 18: Baso # (Auto) 0.1 10^3/uL (0.0-0.1) 01/18/22: Nucleated RBC % (auto) 0 % 01/18/22: Nucleated RBCs # 0.0 /100WBC 01/18/22 18: D-Dimer 0.32 ug/mIFEU (0-0.59) 01/18/22 18: Sodium 138 mmol/L (136-145) 01/18/22 18: Potassium 4.0 mmol/L (3.5-5.1) 01/18/22 18: Chloride 101 mmol/L (98-107) 01/18/22 18: Carbon Dioxide 25 mmol/L (22-29) 01/18/22 18: Anion Gap 16.0 (5-19) 01/18/22 18: BUN 14 mg/dL (8-23) 01/18/22 18: Creatinine 0.7 mg/dL (0.7-1.2) 01/18/22 18: GFR Calculation 114.3 mL/min (90-130) 01/18/22 18:22 Glucose 223 mg/dL (65-115) H 01/18/22 18:22 Calculated Osmolality 293 mOsm/kg (285-295) 01/18/22 18:22 Calcium 9.2 mg/dL (8.5-10.5) 01/18/22 18:22 Troponin T Baseline 6 ng/L (0-15) 01/18/22 18:22 Troponin T 120 Minute 6.00 ng/L (0-15) 01/18/22 20:22 Delta Troponin T 0 ABS# (0-10) 01/18/22 20:22 Imaging Data Other Imaging: Radiologist's impression: [employer] [address] XRay Report Signed Patient: Mikala Wright Unit #: [id number] : 1960 Age/Sex: 61 / M ADM Date: 01/18/22 Loc: ER Room/Bed: Attending Dr: Ordering Provider/Ordering MD: Ant Bryson MD Date of Service: 01/18/22 Procedure(s): XR chest 1V portable [id number] Accession Number(s): [id number] Report Number: [id number] PROCEDURE INFORMATION: Exam: XR Chest Exam date and time: 01/18/2022 6:18 PM Age: 61 years old Clinical indication: Chest pressure and chest wall pain; Additional info: Chest pain TECHNIQUE: Imaging protocol: Radiologic exam of the chest. Views: 1 view. COMPARISON: CR (CHEST, ) 12/18/2021 9:52 AM FINDINGS: Lungs: Unremarkable. No consolidation. Pleural spaces: Unremarkable. No pleural effusion. No pneumothorax. Heart/Mediastinum: Unremarkable. No cardiomegaly. Bones/joints: Unremarkable. XR/XR chest 1V portable [id number] IMPRESSION: No acute findings. ? Dictated By: Pedro Wilson MD Signed By: Pedro Wilson MD Signed Date/Time: 01/18/221837 DD/ 17 Discharge Plan Discharge Patient Disposition: Home Clinical Impression: Chest pain Condition: Stable Prescriptions: No Action (DME) miscellaneous medical supply Misc See Rx Instructions .Route Qty: 1 0RF Rx Instructions: 2L portable O2 As directed (DME) Comfort EZ Pen [place] 33 gauge x 1/4 needle See Rx Instructions .ROUTE .MEDSUPPLY Qty: 100 2RF Rx Instructions: As directed, for use with ozempic inj pen metformin 1,000 mg tablet 1,000 mg PO BID 90 Days Qty: 180 1RF atorvastatin 40 mg tablet 40 mg PO BEDTIME 90 Days Qty: 90 3RF nystatin 100,000 unit/gram cream 1 applic topical BID Qty: 15 1RF pregabalin 75 mg capsule 75 mg PO BID 30 Days Qty: 60 2RF Hold Instructions: Home Medication placed on hold at Doctor's office tizanidine 2 mg tablet 2 mg PO TID PRN (Reason: muscle spasticity) Qty: 60 0RF varenicline 1 mg tablet 1 mg PO BID Qty: 56 2RF Ozempic 0.25 mg or 0.5 mg(2 mg/1.5 mL) pen injector 0.25 mg SUBCUT Q7D Qty: 1.5 2RF Rx Instructions: on sat diltiazem HCl 180 mg capsule,extended release 24hr 180 mg PO DAILY@12 aspirin 81 mg tablet,delayed release (DR/EC) 81 mg PO DAILY@12 hydroxyzine HCl 25 mg tablet 25 mg PO BEDTIME PRN (Reason: insomnia) diclofenac sodium 1 % gel 4 g topical BEDTIME PRN (Reason: Pain) Rx Instructions: to feet or neck (DME) Accu-Chek Guide test strips Strip See Rx Instructions .Route Qty: 100 2RF Rx Instructions: As directed (DME) lancets [Accu-Chek Fastclix Lancet Drum] Misc See Rx Instructions .Route Qty: 200 3RF Rx Instructions: As directed Discharge Orders: Discharge ED (Routine); Ordered 01/18/22 Ordered By: Ant Bryson Referrals: Ana Mercedes MD [Primary Care Provider] - Discharge Diet: Advance as tolerated Discharge Activity: Increase activity as tolerated Patient Instructions: Chest Pain (ED) Activity Restrictions/Additional Instructions: Our golf club manager will have you follow-up with Cardiology in the next few days for evaluation of chest pain. You would be expected to have a phone call with our golf club manager who will put you on the schedule. You can expect a call from us in the next 2-3 days. If you don't hear from us, call us back in the emergency room at [phone]. Come back to the emergency room if your chest pain worsens, have any fever or chills, worsening shortness of breath, worsening exertional lightheadedness, or any new or concerning complaints. Coding Level of Care Code ED Sql Data Analyst for Mo Souza Exam Comprehensive
[2022-01-18 18:20] VITALS: BP 117/78; PULSE 105; RESP 18; TEMP 36.5; O2SAT 94
[2022-01-18 18:47] VITALS: BP 112/75
[2022-01-18 18:56] LABS: Basophils # 0.1 10^3/uL (0.0-0.1); Eosinophils # 0.6 10^3/uL (0.0-0.8); Eosinophils % 7.1 %; Hematocrit 44.6 % (42.0-52.0); Hemoglobin 15.1 g/dL (11.7-16.6); Lymphocytes % 25.8 %; Mean Corpuscular HGB Conc 33.9 g/dL (30.0-36.0); Mean Corpuscular Hemoglobin 32.3 pg (28.0-34.0); Mean Corpuscular Volume 95.5 fl (80-94); Mean Platelet Volume 11.6 fL (7.4-10.4); Monocytes # 0.6 10^3/uL (0.2-0.9); Monocytes % 7.7 %; Nucleated Red Blood Cells % 0 %; Platelet Count 179 10^3/cmm (130-400); Red Blood Count 4.67 10^6/uL (4.1-5.3); Red Cell Distribution Width 12.5 % (12.1-15.1); White Blood Count 7.9 10^3/uL (4.0-10.0)
--- NOTE | 2022-01-18 19:07 | PC.NURSE ---
pt reports he received ASA at clinic @ approx 0817.
[2022-01-18 19:10] LABS: D Dimer 0.32 ug/mIFEU (0-0.59)
[2022-01-18 19:15] LABS: Troponin(5th) Baseline 6 ng/L (0-15)
[2022-01-18 19:17] LABS: Blood Urea Nitrogen 14 mg/dL (8-23); Calcium 9.2 mg/dL (8.5-10.5); Carbon Dioxide 25 mmol/L (22-29); Chloride 101 mmol/L (98-107); Creatinine Clr Calc Pharmacy 123.8256; Glomerular Filtration Rate 114.3 mL/min (90-130); Glucose 223 mg/dL (65-115); Osmolality Calculated 293 mOsm/kg (285-295); Sodium 138 mmol/L (136-145)
--- NOTE | 2022-01-18 20:31 | ECG_ITS ---
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 Measurements Intervals [place] Rate: 73 P: 28 [place]: 140 QRS: -19 QRSD: 88 T: 35 QT: 376 QTc: 416 Interpretive Statements SINUS RHYTHM POSSIBLE RIGHT VENTRICULAR CONDUCTION DELAY [RSR (QR) IN V1/V2] Compared to ECG 01/18/2022 18:42:32 No significant changes Electronically Signed On 01-19-2022 7:26:14 CDT by Yessy Galarza M.D. [id number]
[2022-01-18 21:04] LABS: Troponin 5 2HR Delta 0 ABS# (0-10)
[2022-01-18 22:23] VITALS: BP 141/95; PULSE 88; RESP 19; O2SAT 97
--- NOTE | 2022-01-19 10:15 | DCPLANNER ---
Addendum entered by Zohreh López 07/03/22 09:01: Patient had a stress test scheduled - patient did attend Original Note: retail operations manager had message to schedule an outpatient stress test for patient. retail operations manager faxed signed order to centralized scheduling, who will call patient with appointment information. retail operations manager also sent patients information to patients primary care physician, Dr. Ana Mercedes, to notify provider that ER physician ordered the test out of the ER.
--- NOTE | 2022-01-19 10:19 | DCPLANNER ---
Addendum entered by Zohreh López 02/01/22 14:11: Patient had an appointment scheduled with heart care - patient did attend appointment. Addendum entered by Zohreh López 01/19/22 14:52: Patient has a follow up appointment scheduled for Saturday, January 22, 2022 at 1:45 with CALI Doll at [facility]. Clinic will call patient with appointment information. Original Note: manager business management had message to schedule a follow up appointment for patient with cardiology. manager business management sent patients information to the front office staff at [facility]. Patients information will be printed and reviewed. Clinic will call patient with appointment information.
== END 2022-01-18 22:25 | disposition home or self-care (01) ==
PROVIDERS: Emergency Provider Emergency Medicine; PCP Family Medicine
DX: R07.9 Chest pain, unspecified (principal); I10 Essential (primary) hypertension; E78.5 Hyperlipidemia, unspecified; E11.40 Type 2 diabetes mellitus with diabetic neuropathy, unspecified; Z79.82 Long term (current) use of aspirin
CPT/HCPCS: 36415; 71045; 80048; 84484; 85025; 85378; 93005; 99285

== ENCOUNTER → 2022-01-22 13:11 | Outpatient (BNVA) | payer MEDICARE, SELFPAY | PROVIDERS: PCP Family Medicine; Visit Provider Nurse Practitioner Family | DX: R00.0 Tachycardia, unspecified (principal) | CPT/HCPCS: 99213; 99214 ==

== ENCOUNTER → 2022-01-23 08:41 | Outpatient (BNVA) | payer MEDICARE, SELFPAY | PROVIDERS: PCP Family Medicine; Visit Provider Family Medicine | DX: M54.2 Cervicalgia (principal); M62.838 Other muscle spasm; E11.9 Type 2 diabetes mellitus without complications; G47.33 Obstructive sleep apnea (adult) (pediatric) | CPT/HCPCS: 72040; 83036 ==

== ENCOUNTER → 2022-02-05 10:11 | Outpatient (BNVA) | payer MEDICARE, SELFPAY | PROVIDERS: PCP Family Medicine; Visit Provider Nurse Practitioner Family | DX: I20.0 Unstable angina (principal); R00.0 Tachycardia, unspecified; I11.0 Hypertensive heart disease with heart failure; I50.30 Unspecified diastolic (congestive) heart failure; F17.210 Nicotine dependence, cigarettes, uncomplicated | CPT/HCPCS: 99213 ==

== ENCOUNTER → 2022-02-06 14:23 | Outpatient (BNVA) | payer MEDICARE, SELFPAY | PROVIDERS: PCP Family Medicine; Visit Provider Internal Medicine Cardiovascular Disease | DX: R00.0 Tachycardia, unspecified (principal); G47.33 Obstructive sleep apnea (adult) (pediatric); R06.02 Shortness of breath; E11.9 Type 2 diabetes mellitus without complications; Z79.84 Long term (current) use of oral hypoglycemic drugs; I11.0 Hypertensive heart disease with heart failure; I50.32 Chronic diastolic (congestive) heart failure; F17.220 Nicotine dependence, chewing tobacco, uncomplicated; R07.89 Other chest pain | CPT/HCPCS: 93242; 99215 ==

== ENCOUNTER 2022-03-27 13:06 | Outpatient (CLI) | payer MEDICARE, SELFPAY ==
--- NOTE | 2022-03-27 14:30 | MR_ITS ---
WS: [id number] MRI CERVICAL SPINE NONCONTRAST HISTORY: Neck pain for 12 years. COMPARISON: Radiographs 01/23/2022 Technique: Multiplanar, multisequence noncontrast imaging of the cervical spine. Straightening of the normal cervical lordosis. No acute fracture or marrow edema. Signal within the cord is normal. There is mild disc space narrowing. Craniocervical junction, C1 and C2 relationship, odontoid process and soft tissues are normal. C2-C3: Normal. C3-C4: Small bilateral foraminal osteophytes and mild foraminal stenosis. C4-C5: Mild annular disc bulging and bilateral facet joint arthritis. Only mild foraminal stenosis. C5-C6: Diffuse osteophytic ridging and annular disc bulging. Bilateral facet joint arthritis is mild. Mild central and bilateral foraminal stenosis. C6-C7: Diffuse osteophytic ridging and annular disc bulging. Small LEFT paracentral disc osteophyte. Moderate central and bilateral foraminal stenosis. Slightly greater stenosis RIGHT foramen. Mild face t joint arthritis. C7-T1: Normal. Paraspinal soft tissue are normal. MR/MR cervical spin wo con* [id number] IMPRESSION: 1. Mild cervical spondylosis. No high-grade stenosis. 2. Moderate central and bilateral foraminal stenosis at C6-7 due to combinatio n of factors as above with a small LEFT paracentral disc osteophyte complex. 3. Mild central and bilateral foraminal stenosis at C5-6. 4. Mild foraminal stenosis at C3-4 and C4-5.
== END 2022-03-27 13:07 | disposition home or self-care (01) ==
LOC: RAD 13:09
PROVIDERS: PCP Family Medicine; Visit Provider Family Medicine
DX: M54.12 Radiculopathy, cervical region (principal); M47.892 Other spondylosis, cervical region; M48.02 Spinal stenosis, cervical region
CPT/HCPCS: 72141

== ENCOUNTER → 2022-04-18 09:35 | Outpatient (BNVA) | payer MEDICARE, SELFPAY | PROVIDERS: PCP Family Medicine; Visit Provider Family Medicine | DX: E11.9 Type 2 diabetes mellitus without complications (principal); E11.40 Type 2 diabetes mellitus with diabetic neuropathy, unspecified; M54.12 Radiculopathy, cervical region; L98.9 Disorder of the skin and subcutaneous tissue, unspecified; M54.2 Cervicalgia; E11.42 Type 2 diabetes mellitus with diabetic polyneuropathy; Z68.36 Body mass index [BMI] 36.0-36.9, adult | CPT/HCPCS: 80048; 83036 ==

== ENCOUNTER → 2022-05-05 14:23 | Outpatient (BNVA) | payer MEDICARE, SELFPAY | PROVIDERS: PCP Family Medicine; Visit Provider Emergency Medicine | DX: M79.674 Pain in right toe(s) (principal) | CPT/HCPCS: 73630 ==

== ENCOUNTER → 2022-06-04 09:07 | Outpatient (BNVA) | payer MEDICARE, SELFPAY | PROVIDERS: PCP Family Medicine; Referring Provider Family Medicine; Visit Provider Anesthesiology Pain Medicine | DX: M54.12 Radiculopathy, cervical region (principal); M47.816 Spondylosis without myelopathy or radiculopathy, lumbar region | CPT/HCPCS: 99204 ==

== ENCOUNTER 2022-06-08 08:31 | Outpatient (CLI) | payer MEDICARE, SELFPAY ==
[2022-06-08 08:37] VITALS: BMI 35.5
--- NOTE | 2022-06-08 08:45 | ECG_ITS ---
[facility] Test Date: 2022-06-08 Pat Name: Mikala Wright Department: Room: Gender: Male Senior Writer: : 1960 Requested By: Ant Bryson Order Number: [id number] Yisel MD: Ale Smith M.D. Interpretive Statements NAME OF STUDY: LEXISCAN SESTAMIBI STRESS TEST INDICATION: Chest Pain, PROCEDURE: At the baseline, the EKG revealed normal sinus rhythm with a poor R wave progression and some nonspecific T wave changes. The baseline heart rate was 75 bpm with a blood pressue of 133/92 mm of Hg Lexiscan was infused over a period of 20 seconds. A total of 0.4 milligrams of Lexiscan was infused. The stress phase was continued for a total of 5 minutes. Heart rate at the end of the stress phase was 88 bpm with a blood pressure 128/89 mm of Hg. The EKG at the peak infusion revealed no significant changes. Sestamibi was injected 20 seconds after the Lexiscan infusion. Heart rate at the end of the recovery phase was 92 bpm with a blood pressure of 130/84 mm of Hg. CONCLUSION: 1. No significant EKG changes with the LexiScan infusion 2. No LexiScan induced chest pain or cardiac arrhythmia 3. Normal blood pressure and heart rate response 4. Sestamibi/sestamibi perfusion scan pending; see separate report. Electronically Signed On 06-16-2022 15:41:56 MULTICULTURAL INTERNSHIP by Ale Smith M.D. [email or web address] [email or web address] Cressey/store/[id number]
--- NOTE | 2022-06-08 08:46 | NMCV_ITS ---
NM anila perf SPECT r/s* [id number] Mikala Wright Age: 62 Gender: M : 1960 Exam Date: 06/08/2022 10:08 Ordering Phys: Ant Bryson MD Technologist: SHIVANI Vizcarra Exam Location: [facility] Indications: CHEST PAIN STRESS TEST Please [facility] for [facility] IMAGE PROTOCOL Rest/Stress 1 Lexiscan Day Radiopharmaceutical Dose (mCi) Administration Site Administered by Rest: Tc-99m 10.7 IV Jose Carlos Fox, LOGGING SHOVEL OPERATOR Sestamibi Stress:Tc-99m 32.1 IV Jose Carlos Fox, LOGGING SHOVEL OPERATOR Sestamibi Rest: 08-Jun-2022 60 Discovery 630 Stress: 08-Jun-2022 30 Discovery 630 0.4mg Lexiscan. Images obtained in supine and prone position. SPECT RESULTS Technical Quality: Excellent Raw Data Analysis: Normal Image Corrections: No attenuation or motion correction applied Summed Stress Score: 0 Summed Rest Score: 2 Summed Difference Score: 0 PERFUSION FINDINGS SPECT images demonstrate homogeneous tracer distribution throughout the myocardium. FUNCTIONAL RESULTS (calculated via Gated SPECT) Stress Image LV EF (%): 58 Stress EDV (mL):107 TID: 1.09 Stress ESV (mL):45 FUNCTIONAL FINDINGS: There is normal left ventricular systolic function. IMPRESSIONS 1. Normal myocardial perfusion imaging with no evidence of ischemia 2. LV systolic function is normal Arsenio Ware MD (Electronically Signed) Final Date: 08 June 2022 14:14 S
[2022-06-08] MEDS: regadenoson 0.4 Mg/5 ml Syringe IVP (11:11)
[2022-06-08 11:22] VITALS: BP 130/84; PULSE 87
== END 2022-06-08 08:32 | disposition home or self-care (01) ==
PROVIDERS: Family Provider Family Medicine; PCP Internal Medicine Cardiovascular Disease; Visit Provider Emergency Medicine
DX: R07.9 Chest pain, unspecified (principal)
CPT/HCPCS: 36415; 78452; 93017; 96374; A9500; J2785

== ENCOUNTER → 2022-06-11 09:10 | Outpatient (BNVA) | payer MEDICARE, SELFPAY | PROVIDERS: Family Provider Family Medicine; PCP Internal Medicine Cardiovascular Disease; Visit Provider Internal Medicine Cardiovascular Disease | DX: R06.02 Shortness of breath (principal); G47.33 Obstructive sleep apnea (adult) (pediatric); I10 Essential (primary) hypertension; E11.9 Type 2 diabetes mellitus without complications; Z79.84 Long term (current) use of oral hypoglycemic drugs; R00.0 Tachycardia, unspecified; E78.1 Pure hyperglyceridemia; Z86.73 Personal history of transient ischemic attack (TIA), and cerebral infarction without residual deficits; Z79.82 Long term (current) use of aspirin; F17.220 Nicotine dependence, chewing tobacco, uncomplicated | CPT/HCPCS: 99214 ==

== ENCOUNTER 2022-06-13 10:01 | Emergency (ER) | payer MEDICARE, SELFPAY ==
[2022-06-13 10:08] VITALS: BP 142/91; PULSE 96; TEMP 36.6; O2SAT 95; BMI 35.5
--- NOTE | 2022-06-13 10:48 | XRR_ITS ---
PROCEDURE INFORMATION: Exam: XR Chest Exam date and time: 06/13/2022 10:58 PM Age: 62 years old Clinical indication: Pain; Angina pectoris; Additional info: Cp TECHNIQUE: Imaging protocol: Radiologic exam of the chest. Views: 1 view. COMPARISON: CR XR chest 1V portable [id number] 01/18/2022 6:18 PM FINDINGS: Lungs: The lung parenchyma is clear. Pleural spaces: No pneumothorax. No pleural effusion. Heart/Mediastinum: The cardiomediastinal silhouette is within normal limits. Bones/joints: Unremarkable. XR/XR chest 1V portable [id number] IMPRESSION: No acute cardiopulmonary abnormality.
--- NOTE | 2022-06-13 10:50 | ECG_ITS ---
[facility] Test Date: 2022-06-13 Pat Name: Mikala Wright Department: Room: Gender: Male Boarding Machine Operator: : 1960 Requested By: Alejandro Preciado Order Number: [id number] Yisel MD: Ale Smith M.D. Measurements Intervals [place] Rate: 88 P: 36 [place]: 144 QRS: -24 QRSD: 85 T: 31 QT: 325 QTc: 394 Interpretive Statements SINUS RHYTHM BORDERLINE LEFT AXIS DEVIATION [QRS AXIS < -20] LOW QRS VOLTAGE IN PRECORDIAL LEADS [QRS DEFLECTION < 1.0 mV IN CHEST LEADS] PATTERN CONSISTENT WITH PULMONARY DISEASE POSSIBLE RIGHT VENTRICULAR CONDUCTION DELAY [RSR (QR) IN V1/V2] Compared to ECG 01/18/2022 20:31:28 Low QRS voltage now present Electronically Signed On 06-13-2022 14:25:44 AUTOMOBILE CONTRACT CLERK by Ale Smith M.D. [email or web address].FarmBotAdvanced Materials Technology [facility].[employer]/store/OM/[id number]
--- NOTE | 2022-06-13 10:51 | W.ED.GENADLT ---
HPI - General Adult General: Chief complaint: General Medical Stated complaint: Daren sent for BP issues Time Seen by Provider: 06/13/22 10:04 Source: patient and family Mode of arrival: ambulatory Limitations: no limitations History of Present Illness: This gentleman was referred to the emergency department from his primary care office. He had a history of what sounds like palpitations or elevation in blood pressure in the past. Last night he states that his blood pressure was in the 160 170/110 range and he felt flushed. He did not have any concomitant chest pain or shortness of breath but felt hot and diaphoretic with his elevation in blood pressure. He is also had a history of sounds like rapid heart rate in the past and was sent to electrophysiology recently who evaluated him and at that time determined that no intervention other medications was indicated. Patient is seeing cardiology here locally recently and had a stress test last Saturday and was told that that stress test was unremarkable. Patient denies any recent illness, significant caffeine use, nicotine use, drug use, energy drinks etc. No history of thyroid dysfunction. Is not been recently ill. Again he reiterates that at no time during these episodes does he have chest pain or shortness of breath. Associated symptoms: Reports palpitations; Deny chest pain, headache(s), nausea, rash, syncope or vomiting Review of Systems Const: Denies: fever(s) or chills Eyes: Denies: change in vision ENMT: Denies: throat pain, odynophagia or nasal discharge Card: Reports: palpitations; Denies: chest pain, lightheadedness, syncope or pre-syncope Resp: Denies: productive cough, non-productive cough, wheezing or stridor GI: Denies: abdominal pain, nausea or vomiting : Denies: flank pain, difficulty urinating or dysuria Musc: Denies: neck pain, back pain, extremity pain or extremity swelling Skin/Breast: Denies: rash Neuro: Denies: headache(s), numbness in extremities or weakness in extremities Psych: Denies: anxiety Endo: Denies: polyuria, polydipsia, flushing or hot flashes [facility] ED PFSH: Medical History Diabetes Diabetic neuropathy Diastolic CHF, chronic Hypertension Shortness of breath Stroke-like symptom Tachycardia Surgical History History of total knee arthroplasty Family History Mother Cancer colon cancer Father Cancer Lung disease Sister Diabetes Stroke Denies family history of CAD (coronary artery disease) Clotting disorder Dementia Chronic kidney disease (CKD) Suicide Anesthesia complication Bleeding disorder Social History Smoking and tobacco status: current every day smoker (chew tabacco 1 can every other day ) smokeless tobacco Smokeless tobacco user: chewing tobacco Smokeless tobacco details: 2-3 times weekly Alcohol intake: never Physical Exam Narrative: EXAM NARRATIVE: He is alert no acute distress makes good eye contact speech is goal-directed. Appears to be comfortable. Const: COMMON NORMALS: no acute distress, patient oriented x3, healthy appearing and alert NUTRITIONAL APPEARANCE: overweight ORIENTATION/CONSCIOUSNESS: Yes awake HENMT: COMMON NORMALS: normocephalic, Normal nasal mucous membranes and turbinates present, moist oral mucous membranes and oropharynx normal HEAD & SCALP: normocephalic FACE & SINUS: normal facial exam NOSE: Normal nasal mucous membranes and turbinates present Eye: COMMON NORMALS: Equal, round and reactive pupils present, EOMs intact bilaterally and conjunctivae normal CONJUNCTIVA: Yes conjunctivae normal PUPIL: Yes Equal, round and reactive pupils present Neck/C-Spine: COMMON NORMALS: full ROM, supple, Thyroid normal and No carotid bruits THYROID: Thyroid normal Chest: COMMONS NORMALS: normal inspection of the chest Resp: COMMON NORMALS: normal respiratory effort, No retractions, No use of accessory muscles and clear to auscultation bilaterally AUSCULTATION: clear to auscultation bilaterally Cardio: COMMON NORMALS: regular rate, regular rhythm, No murmurs present (Cardio) and Peripheral pulses 2+ throughout RATE: regular rate RHYTHM: regular rhythm PERIPHERAL PULSES: Peripheral pulses 2+ throughout GI: COMMON NORMALS: Normal to inspection, nondistended, normoactive bowel sounds present, Soft to palpation and non-tender PALPATION: Yes Soft to palpation : COMMON NORMALS: Yes no CVA tenderness BLADDER/KIDNEY EXAM: Yes no CVA tenderness Back/Pelvis: COMMON NORMALS: no CVA tenderness, thoracic and lumbar spine normal to inspection and no thoracic nor lumbar tenderness Extremity: COMMON NORMALS: normal to inspection, full ROM, capillary refill normal, no calf tenderness and no pedal edema Neuro: COMMON NORMALS: patient oriented x3, moves all extremities, no focal motor deficits and no sensory deficits noted SENSORIUM/ORIENTATION: Yes alert CRANIAL NERVES: Yes CN normal except as noted SPEECH: speech normal Psych: COMMON NORMALS: mental status grossly normal Skin: COMMON NORMALS: no rashes or lesions noted, no wounds and turgor normal GENERAL SKIN EXAM: no rashes or lesions noted and turgor normal Course Vital Signs: Vital signs: Vital Signs Temperature 97.8 F 06/13/22 10:08 Pulse Rate 78 06/13/22 13:30 Respiratory Rate 22 H 06/13/22 13:30 Blood Pressure 128/86 06/13/22 13:30 Pulse Oximetry 95 06/13/22 13:30 Oxygen Delivery Me thod 06/13/22 10:08 [facility] - General Adult Medical Decision Making This patient made his way to the emergency department because he had concerns about blood pressure elevations last evening as well as symptoms of feeling flushed with those elevations. No concomitant chest pain or other concerning symptoms were associated with his presentation today. He had a reassuring physical examination and to include blood pressure measurements while in the emergency department. Screening laboratories were obtained to include biomarkers to evaluate for possible ACS etc. etc. Those as well as EKGs were reassuring. Exception being as elevation in his blood glucose but this was not felt to be emergent and could be monitored at home. He did not display any arrhythmia, tachycardia etc. while in the emergency department. No evidence of thyroid dysfunction etc. noted at this time. No evidence of an ongoing emergency medical condition. He has blood pressure can be monitored at home and he was advised to do so and follow-up with Dr. Smith for any additional adjustments or medication changes that need to occur. We also discussed return precautions for the emergency department as well as how to monitor his blood pressure in the home environment. Medical Records I reviewed the patient's medical records. Dr. Trejo record was reviewed which included his evaluation of the patient and medication changes. The patient's had a history of obstructive sleep apnea as well as inappropriate sinus tachycardia and hypertension and has had recent medication changes. Lab Data I reviewed the patient's lab results. 06/13/22 11:34 06/13/22 11:34 Radiology Impressions Chest X-Ray 06/13/22 10:48 IMPRESSION: No acute cardiopulmonary abnormality. Laboratory Results WBC 7.8 10^3/uL (4.0-10.0) 06/13/22 11:34 RBC 5.28 10^6/uL (4.1-5.3) 06/13/22 11:34 Hgb 16.7 g/dL (11.7-16.6) H 06/13/22 11:34 Hct 49.9 % (42.0-52.0) 06/13/22 11:34 MCV 94.5 fl (80-94) H 06/13/22 11:34 MCH 31.6 pg (28.0-34.0) 06/13/22 11:34 MCHC 33.5 g/dL (30.0-36.0) 06/13/22 11:34 RDW 12.3 % (12.1-15.1) 06/13/22 11:34 Plt Count 170 10^3/cmm (130-400) 06/13/22 11:34 MPV 11.3 fL (7.4-10.4) H 06/13/22 11:34 Neut % (Auto) 63.5 % 06/13/22 11:34 Lymph % (Auto) 24.0 % 06/13/22 11:34 Antelope % (Auto) 9.0 % 06/13/22 11:34 Eos % (Auto) 2.3 % 06/13/22 11:34 Baso % (Auto) 0.9 % 06/13/22 11:34 Neut # (Auto) 4.92 10^3/uL (1.8-7.7) 06/13/22 11:34 Lymph # (Auto) 1.9 10^3/uL (0.8-4.8) 06/13/22 11:34 Antelope # (Auto) 0.7 10^3/uL (0.2-0.9) 06/13/22 11:34 Eos # (Auto) 0.2 10^3/uL (0.0-0.8) 06/13/22 11:34 Baso # (Auto) 0.1 10^3/uL (0.0-0.1) 06/13/22 11:34 Nucleated RBC % (auto) 0 % 06/13/22 11:34 Nucleated RBCs # 0.0 /100WBC 06/13/22 11:34 Sodium 140 mmol/L (136-145) 06/13/22 11:34 Potassium 4.4 mmol/L (3.5-5.1) 06/13/22 11:34 Chloride 101 mmol/L (98-107) 06/13/22 11:34 Carbon Dioxide 26 mmol/L (22-29) 06/13/22 11:34 Anion Gap 17.4 (5-19) 06/13/22 11:34 BUN 12 mg/dL (8-23) 06/13/22 11:34 Creatinine 0.6 mg/dL (0.7-1.2) L 06/13/22 11:34 GFR Calculation 136.1 mL/min (90-130) H 06/13/22 11:34 Glucose 199 mg/dL (65-115) H 06/13/22 11:34 Calculated Osmolality 295 mOsm/kg (285-295) 06/13/22 11:34 Calcium 9.8 mg/dL (8.5-10.5) 06/13/22 11:34 Total Bilirubin 0.5 mg/dL (0.15-1.2) 06/13/22 11:34 AST 38 U/L (0-40) 06/13/22 11:34 ALT 41 U/L (0-41) 06/13/22 11:34 Alkaline Phosphatase 75 U/L (40-130) 06/13/22 11:34 Troponin T Baseline 6 ng/L (0-15) 06/13/22 11:34 Total Protein 7.3 g/dL (6.6-8.7) 06/13/22 11:34 Albumin 4.7 g/dL (3.5-5.2) 06/13/22 11:34 Globulin 2.6 g/dL (1.3-4.6) 06/13/22 11:34 TSH 1.08 uIU/mL (0.27-4.20) 06/13/22 11:34 Discharge Plan Discharge Patient Disposition: Home Clinical Impression: MATEO (obstructive sleep apnea) Hypertension Qualifiers: Hypertension type: unspecified Qualified Code(s): I10 - Essential (primary) hypertension Condition: Stable Prescriptions: No Action (DME) Comfort EZ Pen [place] 33 gauge x 1/4 needle See Rx Instructions .ROUTE .MEDSUPPLY Qty: 100 2RF Rx Instructions: As directed, for use with ozempic inj pen metformin 1,000 mg tablet 1,000 mg PO BID 90 Days Qty: 180 1RF (DME) blood-glucose meter [Blood Glucose Monitoring] Kit See Rx Instructions .ROUTE .MEDSUPPLY Qty: 1 0RF Rx Instructions: Brand/type per insurance coverage (DME) Blood Glucose Test Strip See Rx Instructions .ROUTE .MEDSUPPLY Qty: 50 11RF Rx Instructions: Brand/type to go with meter per insurance coverage (DME) lancets Misc See Rx Instructions .ROUTE .MEDSUPPLY Qty: 100 11RF Rx Instructions: For use with glucose meter, brand/type per insurance alcohol swabs Pads, Medicated 1 pad topical TID PRN (Reason: as needed to check blood sugar) 30 Days Qty: 100 11RF miscellaneous medical supply Misc See Rx Instructions miscellaneous .COMPLEX Qty: 1 0RF Rx Instructions: Auto-titrating CPAP as directed; pregabalin 75 mg capsule 75 mg PO BID 30 Days Qty: 60 2RF Hold Instructions: Home Medication placed on hold at Doctor's office diclofenac sodium 50 mg tablet,delayed release (DR/EC) 50 mg PO Q12H PRN (Reason: pain) 30 Days Qty: 60 2RF Rx Instructions: WITH FOOD, do not take other NSAIDS (IBU, Aleve, naproxen) Ozempic 0.25 mg or 0.5 mg(2 mg/1.5 mL) pen injector 0.5 mg SUBCUT Q7D Rx Instructions: on fri loperamide [Imodium A-D] 2 mg tablet 2 mg PO Q4H PRN (Reason: loose stool) Qty: 60 0RF Rx Instructions: do not exceed 16 mg per 24 hrs nitroglycerin 0.4 mg tablet, sublingual 0.4 mg sublingual Q5M PRN (Reason: chest pain) Qty: 20 1RF Rx Instructions: do not exceed [address] under tongue aspirin 81 mg tablet,delayed release (DR/EC) 81 mg PO DAILY@12 (DME) Accu-Chek Guide test strips Strip See Rx Instructions .Route Qty: 100 2RF Rx Instructions: As directed (DME) lancets [Accu-Chek Fastclix Lancet Drum] Misc See Rx Instructions .Route Qty: 200 3RF Rx Instructions: As directed metoprolol tartrate 50 mg tablet 50 mg PO BID losartan 25 mg tablet 25 mg PO QAM Discharge Orders: Discharge ED (Routine); Ordered 06/13/22 Ordered By: Alejandro Preciado Referrals: Ana Mercedes MD [Primary Care Provider] - Discharge Diet: Low Salt Discharge Activity: Resume usual activity Patient Instructions: Opioid Safety, Pain Management Activity Restrictions/Additional Instructions: As we discussed while you are in the emergency department your blood pressure and other findings were reassuring today. We do recommend continuing your prescribed medications, following a low-salt diet, returning to this or the nearest emergency department for any changing new or concerning symptoms. Otherwise you should follow-up with your testing consultant as directed. Coding Level of Care Code ED Migration Agent for Mo Souza
--- NOTE | 2022-06-13 11:21 | PC.PHAR ---
pt states he takes care of his own medications-pt states he cant verify all his meds states he cant remember all the names-ext med history shows metoprolol tartrate 50mg bid last filled 03/06/23 90d/s from [facility]-pt states he doesnt take any meds from mail order- wrote rx on 05/23/22 for succinate er 50mg daily [facility] pharmacy states they never got that script- wrote rx on 05/23/22 for pantoprazole 40mg daily [facility] pharmacy states never got rx-pt states he doesnt think he takes atorvastatin 40mg hs any more ext med history shows last filled 10/23/21 90d/s-notes are made in the pharmacy comments
[2022-06-13 11:42] LABS: Basophils # 0.1 10^3/uL (0.0-0.1); Basophils % 0.9 %; Eosinophils # 0.2 10^3/uL (0.0-0.8); Eosinophils % 2.3 %; Hematocrit 49.9 % (42.0-52.0); Hemoglobin 16.7 g/dL (11.7-16.6); Lymphocytes # 1.9 10^3/uL (0.8-4.8); Mean Corpuscular HGB Conc 33.5 g/dL (30.0-36.0); Mean Corpuscular Hemoglobin 31.6 pg (28.0-34.0); Mean Corpuscular Volume 94.5 fl (80-94); Mean Platelet Volume 11.3 fL (7.4-10.4); Monocytes # 0.7 10^3/uL (0.2-0.9); Neutrophils # 4.92 10^3/uL (1.8-7.7); Neutrophils % 63.5 %; Nucleated Red Blood Cells % 0 %; Platelet Count 170 10^3/cmm (130-400); Red Blood Count 5.28 10^6/uL (4.1-5.3); Red Cell Distribution Width 12.3 % (12.1-15.1); White Blood Count 7.8 10^3/uL (4.0-10.0)
[2022-06-13 11:52] VITALS: BP 142/80; PULSE 83; RESP 16; O2SAT 97
[2022-06-13 12:00] VITALS: BP 125/90; PULSE 83; RESP 20; O2SAT 94
[2022-06-13 12:15] LABS: Troponin(5th) Baseline 6 ng/L (0-15)
[2022-06-13 12:25] LABS: Alanine Aminotransferase 41 U/L (0-41); Albumin Level 4.7 g/dL (3.5-5.2); Alkaline Phosphatase 75 U/L (40-130); Anion Gap 17.4 (5-19); Aspartate Amino Transferase 38 U/L (0-40); Blood Urea Nitrogen 12 mg/dL (8-23); Calcium 9.8 mg/dL (8.5-10.5); Carbon Dioxide 26 mmol/L (22-29); Chloride 101 mmol/L (98-107); Creatinine Clr Calc Pharmacy 139.3771; Globulin 2.6 g/dL (1.3-4.6); Glomerular Filtration Rate 136.1 mL/min (90-130); Glucose 199 mg/dL (65-115); Osmolality Calculated 295 mOsm/kg (285-295); Potassium 4.4 mmol/L (3.5-5.1); Sodium 140 mmol/L (136-145); Thyroid Stimulating Hormone 1.08 uIU/mL (0.27-4.20); Total Bilirubin 0.5 mg/dL (0.15-1.2); Total Protein 7.3 g/dL (6.6-8.7)
--- NOTE | 2022-06-13 12:58 | ECG_ITS ---
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 Measurements Intervals [place] Rate: 80 P: 42 TN: 144 QRS: -18 QRSD: 85 T: 57 QT: 385 QTc: 445 Interpretive Statements SINUS RHYTHM POSSIBLE RIGHT VENTRICULAR CONDUCTION DELAY [RSR (QR) IN V1/V2] Compared to ECG 06/13/2022 11:16:30 No significant changes Electronically Signed On 06-13-2022 16:22:02 DRUM ATTENDANT by Ale Smith M.D. [email or web address].[email or web address]/store/OM/[id number]
[2022-06-13 13:30] VITALS: BP 128/86; PULSE 78; RESP 22; O2SAT 95
[2022-06-13 13:56] VITALS: BP 128/86; PULSE 81; RESP 18; O2SAT 96
== END 2022-06-13 13:57 | disposition home or self-care (01) ==
PROVIDERS: Emergency Provider Emergency Medicine; PCP Family Medicine
DX: I11.0 Hypertensive heart disease with heart failure (principal); I50.32 Chronic diastolic (congestive) heart failure; G47.33 Obstructive sleep apnea (adult) (pediatric); Z79.82 Long term (current) use of aspirin; Z79.84 Long term (current) use of oral hypoglycemic drugs; F17.220 Nicotine dependence, chewing tobacco, uncomplicated; E11.9 Type 2 diabetes mellitus without complications
CPT/HCPCS: 71045; 80053; 84443; 84484; 85025; 93005; 99285

== ENCOUNTER 2022-06-27 17:30 | Emergency (ER) | payer MEDICARE, SELFPAY ==
[2022-06-27 17:41] VITALS: BP 136/91; PULSE 107; RESP 18; TEMP 36.4; O2SAT 95; BMI 35.5
--- NOTE | 2022-06-27 18:14 | XRR_ITS ---
PROCEDURE INFORMATION: Exam: XR Chest Exam date and time: 06/27/2022 6:34 PM Age: 62 years old Clinical indication: Pain; Chest pressure; Additional info: Chest pain TECHNIQUE: Imaging protocol: Radiologic exam of the chest. Views: 1 view. COMPARISON: CR XR chest 1V portable [id number] 06/13/2022 10:58 PM FINDINGS: Lungs: Left lower lobe atelectasis. Pleural spaces: Unremarkable. No pleural effusion. No pneumothorax. Heart/Mediastinum: Unremarkable. No cardiomegaly. Bones/joints: Unremarkable. XR/XR chest 1V portable [id number] IMPRESSION: Left lower lobe atelectasis.
[2022-06-27 18:21] VITALS: BP 138/97; PULSE 102; RESP 18; O2SAT 97
--- NOTE | 2022-06-27 18:23 | ECG_ITS ---
[facility] Test Date: 2022-06-27 Pat Name: Mikala Wright Department: Room: Gender: Male Skein Winding Operator: : 1960 Requested By: Igor Verde Order Number: [id number] Reading MD: BECKI MYERS Measurements Intervals [place] Rate: 100 P: 46 MO: 135 QRS: 5 QRSD: 86 T: 64 QT: 341 QTc: 440 Interpretive Statements SINUS TACHYCARDIA POSSIBLE RIGHT VENTRICULAR CONDUCTION DELAY [RSR (QR) IN V1/V2] ABNORMAL RHYTHM ECG Compared to ECG 06/13/2022 12:58:19 Sinus rhythm no longer present Electronically Signed On 06-27-2022 20:30:06 CDT by BECKI MYERS [email or web address] [facility].[employer]/store/OM/[id number]
--- NOTE | 2022-06-27 18:33 | W.ED.CHESTPA ---
HPI - Chest Pain General: Chief Complaint: Chest Pain Stated Complaint: states high BP, sweats Time Seen by Provider: 06/27/22 18:14 History of Present Illness: Patient presents to the ER with complaints of headache and high blood pressure. Patient states his blood pressure was about 170/100 and the top of his head felt like he was going to explode. Patient states this was a couple hours ago and may lasted for an hour and by the time he arrived at the ER his blood pressures went back down to normal and his headache is gone away and he has no complaints currently. Patient states this is happened several times over the last [address] 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 MD complaint: other (High blood pressure and headache) Onset (ago): hour(s) Timing of current episode: constant and now resolved Prior episodes: Yes Onset: during rest Severity: mild Quality: aching Relieving factors: other Exacerbating factors: nothing Associated symptoms: Deny abdominal pain, dyspnea, fever(s), nausea, palpitations or vomiting Treatment prior to arrival: none Review of Systems General: Reports: 10 or more systems reviewed and unremarkable except in HPI and below Const: Denies: fever(s) or chills Eyes: Denies: change in vision ENMT: Denies: throat pain Card: Denies: chest pain or palpitations Resp: Denies: dyspnea, productive cough or non-productive cough GI: Denies: abdominal pain, nausea or vomiting : Denies: flank pain Musc: Denies: neck pain, back pain or extremity pain Skin/Breast: Denies: rash or pruritus Neuro: Reports: headache(s); Denies: numbness in extremities or weakness in extremities Psych: Denies: anxiety or depression Endo: Denies: polyuria Jhonathan/Lymph: Denies: easy bruising or easy bleeding All/Imm: Denies: urticaria or throat swelling PFSH ED PFSH: Medical History Diabetes Diabetic neuropathy Diastolic CHF, chronic Hypertension Shortness of breath Stroke-like symptom Tachycardia Surgical History History of total knee arthroplasty Family History Mother Cancer colon cancer Father Cancer Lung disease Sister Diabetes Stroke Denies family history of CAD (coronary artery disease) Clotting disorder Dementia Chronic kidney disease (CKD) Suicide Anesthesia complication Bleeding disorder Social History Smoking and tobacco status: current every day smoker (chew tabacco 1 can every other day ) smokeless tobacco Smokeless tobacco user: chewing tobacco Smokeless tobacco details: 2-3 times weekly Alcohol intake: never Physical Exam Const: COMMON NORMALS: no acute distress, average body habitus, patient oriented x3, no limitations, healthy appearing, alert and well nourished HENMT: COMMON NORMALS: normocephalic, atraumatic, hearing grossly normal bilaterally and moist oral mucous membranes HEAD & SCALP: normocephalic and atraumatic Neck/C-Spine: COMMON NORMALS: full ROM, no lymphadenopathy, supple, no JVD and Thyroid normal THYROID: Thyroid normal Chest: COMMONS NORMALS: normal inspection of the chest and normal palpation of entire chest wall Resp: COMMON NORMALS: normal respiratory effort, No retractions, No use of accessory muscles and clear to auscultation bilaterally AUSCULTATION: clear to auscultation bilaterally Cardio: COMMON NORMALS: no JVD, regular rate, regular rhythm, S1 normal heart sound present, S2 normal heart sound present and No gallops present (Cardio) RATE: regular rate RHYTHM: regular rhythm HEART SOUNDS: S1 normal heart sound present and S2 normal heart sound present GI: COMMON NORMALS: Normal to inspection, nondistended, normoactive bowel sounds present, Soft to palpation, non-tender, No hepatosplenomegaly present and no masses PALPATION: Yes Soft to palpation and Yes No hepatosplenomegaly present Neuro: COMMON NORMALS: patient oriented x3, CN's II-XII intact bilaterally, moves all extremities, no focal motor deficits and no sensory deficits noted SENSORIUM/ORIENTATION: Yes alert Psych: COMMON NORMALS: mental status grossly normal, Normal thought process present, cooperative, normal affect and speech normal SPEECH: Yes normal speech THOUGHT PROCESS: Normal thought process present Course Vital Signs: Vital signs: Vital Signs Temperature 97.5 F L 06/27/22 17:41 Pulse Rate 93 06/27/22 19:19 Respiratory Rate 23 H 06/27/22 19:19 Blood Pressure 129/79 06/27/22 19:19 Pulse Oximetry 96 06/27/22 19:19 Oxygen Delivery Me thod 06/27/22 18:21 MDM - Chest Pain Medical Decision Making Patient presents to with complaints of high blood pressure and headache. Patient states he has just multiple times in the past and has been worked up worked with negative results. Patient is even seen a machine applicator cementer and has a had a negative stress test recently. Patient's symptoms have resolved by time he reached the emergency room. Patient had no more symptoms during his emergency room stay. Serial lab work EKGs and chest x-ray were benign. Patient was informed of these results. Patient may need further adjustment of his blood pressure medicine. Patient should follow-up with his primary care provider and/or machine applicator cementer for further evaluation and management of this. Patient is understanding and agreeable to these recommendations. Differential Diagnosis Unlikely acute massive pulmonary embolism, acute respiratory failure, acute myocardial infarction, cardiac arrest or sudden cardiac Lab Data 06/27/22 18:32 06/27/22 18:32 Radiology Impressions Chest X-Ray 06/27/22 18:14 IMPRESSION: Left lower lobe atelectasis. Laboratory Results WBC 7.9 10^3/uL (4.0-10.0) 06/27/22 18: RBC 4.94 10^6/uL (4.1-5.3) 06/27/22 18:32 Hgb 16.0 g/dL (11.7-16.6) 06/27/22 18:32 Hct 46.3 % (42.0-52.0) 06/27/22 18: MCV 93.7 fl (80-94) 06/27/22 18: MCH 32.4 pg (28.0-34.0) 06/27/22 18: MCHC 34.6 g/dL (30.0-36.0) 06/27/22 18: RDW 12.1 % (12.1-15.1) 06/27/22 18: Plt Count 195 10^3/cmm (130-400) 06/27/22 18:32 MPV 10.8 fL (7.4-10.4) H 06/27/22 18:32 Neut % (Auto) 54.7 % 06/27/22 18:32 Lymph % (Auto) 29.1 % 06/27/22 18:32 [place] % (Auto) 8.3 % 06/27/22 18:32 Eos % (Auto) 6.2 % 06/27/22 18:32 Baso % (Auto) 1.4 % 06/27/22 18:32 Neut # (Auto) 4.33 10^3/uL (1.8-7.7) 06/27/22 18:32 Lymph # (Auto) 2.3 10^3/uL (0.8-4.8) 06/27/22 18:32 [place] # (Auto) 0.7 10^3/uL (0.2-0.9) 06/27/22 18:32 Eos # (Auto) 0.5 10^3/uL (0.0-0.8) 06/27/22 18:32 Baso # (Auto) 0.1 10^3/uL (0.0-0.1) 06/27/22 18:32 Nucleated RBC % (auto) 0 % 06/27/22 18:32 Nucleated RBCs # 0.0 /100WBC 06/27/22 18:32 Sodium 139 mmol/L (136-145) 06/27/22 18:32 Potassium 4.1 mmol/L (3.5-5.1) 06/27/22 18:32 Chloride 101 mmol/L (98-107) 06/27/22 18:32 Carbon Dioxide 24 mmol/L (22-29) 06/27/22 18:32 Anion Gap 18.1 (5-19) 06/27/22 18:32 BUN 10 mg/dL (8-23) 06/27/22 18:32 Creatinine 0.8 mg/dL (0.7-1.2) 06/27/22 18:32 GFR Calculation 97.6 mL/min (90-130) 06/27/22 18:32 Glucose 209 mg/dL (65-115) H 06/27/22 18:32 Calculated Osmolality 293 mOsm/kg (285-295) 06/27/22 18:32 Calcium 9.4 mg/dL (8.5-10.5) 06/27/22 18:32 Total Bilirubin 0.4 mg/dL (0.15-1.2) 06/27/22 18:32 AST 32 U/L (0-40) 06/27/22 18:32 ALT 39 U/L (0-41) 06/27/22 18:32 Alkaline Phosphatase 69 U/L (40-130) 06/27/22 18:32 Troponin T Baseline 6 ng/L (0-15) 06/27/22 18:32 Troponin T 120 Minute 6.00 ng/L (0-15) 06/27/22 20:02 Delta Troponin T 0 ABS# (0-10) 06/27/22 20:02 Total Protein 7.0 g/dL (6.6-8.7) 06/27/22 18:32 Albumin 4.5 g/dL (3.5-5.2) 06/27/22 18:32 Globulin 2.5 g/dL (1.3-4.6) 06/27/22 18:32 EKG Data EKG 1: I personally reviewed and interpreted this EKG as follows: EKG interpretation date: 06/27/22 EKG interpretation time: 18:23 Prior EKG tracings: not available for review Interpretation: EKG showed sinus tachycardia with a ventricular rate of 100 bpm, DC interval of 135, QRS duration 86, QTc of 398, possible right ventricular conduction delay RSR in V1/V2, no ST-T wave changes EKG 2: I personally reviewed and interpreted this EKG as follows: EKG interpretation date: 06/27/22 EKG interpretation time: 20:21 Prior EKG tracings: available for review Interpretation: EKG shows a normal sinus rhythm with a ventricular rate of 85 bpm, DC interval 156, QRS duration 82, QTc of 402, borderline left axis deviation possible right ventricular conduction delay, no ST-T wave changes Discharge Plan Discharge Patient Disposition: Home Clinical Impression: Hypertension, Headache Condition: Stable Prescriptions: No Action (DME) Comfort EZ Pen [place] 33 gauge x 1/4 needle See Rx Instructions .ROUTE .MEDSUPPLY Qty: 100 2RF Rx Instructions: As directed, for use with ozempic inj pen metformin 1,000 mg tablet 1,000 mg PO BID 90 Days Qty: 180 1RF (DME) blood-glucose meter [Blood Glucose Monitoring] Kit See Rx Instructions .ROUTE .MEDSUPPLY Qty: 1 0RF Rx Instructions: Brand/type per insurance coverage (DME) Blood Glucose Test Strip See Rx Instructions .ROUTE .MEDSUPPLY Qty: 50 11RF Rx Instructions: Brand/type to go with meter per insurance coverage (DME) lancets Misc See Rx Instructions .ROUTE .MEDSUPPLY Qty: 100 11RF Rx Instructions: For use with glucose meter, brand/type per insurance alcohol swabs Pads, Medicated 1 pad topical TID PRN (Reason: as needed to check blood sugar) 30 Days Qty: 100 11RF hydralazine 10 mg tablet 10 mg PO DAILY PRN (Reason: hypertension) 30 Days Qty: 30 1RF Rx Instructions: BP >160/>100 losartan 25 mg tablet 25 mg PO DAILY 30 Days Qty: 30 0RF miscellaneous medical supply Misc See Rx Instructions miscellaneous .COMPLEX Qty: 1 0RF Rx Instructions: Auto-titrating CPAP as directed; pregabalin 75 mg capsule 75 mg PO BID 30 Days Qty: 60 2RF Hold Instructions: Home Medication placed on hold at Doctor's office diclofenac sodium 50 mg tablet,delayed release (DR/EC) 50 mg PO Q12H PRN (Reason: pain) 30 Days Qty: 60 2RF Rx Instructions: WITH FOOD, do not take other NSAIDS (IBU, Aleve, naproxen) Ozempic 0.25 mg or 0.5 mg(2 mg/1.5 mL) pen injector 0.5 mg SUBCUT Q7D Rx Instructions: on sat loperamide [Imodium A-D] 2 mg tablet 2 mg PO Q4H PRN (Reason: loose stool) Qty: 60 0RF Rx Instructions: do not exceed 16 mg per 24 hrs nitroglycerin 0.4 mg tablet, sublingual 0.4 mg sublingual Q5M PRN (Reason: chest pain) Qty: 20 1RF Rx Instructions: do not exceed [address] under tongue aspirin 81 mg tablet,delayed release (DR/EC) 81 mg PO DAILY@12 (DME) Accu-Chek Guide test strips Strip See Rx Instructions .Route Qty: 100 2RF Rx Instructions: As directed (DME) lancets [Accu-Chek Fastclix Lancet Drum] Mis See Rx Instructions .Route Qty: 200 3RF Rx Instructions: As directed metoprolol tartrate 50 mg tablet 50 mg PO BID Discharge Orders: Discharge ED (Routine); Ordered 06/27/22 Ordered By: Igor Verde Referrals: Ana Mercedes MD [Primary Care Provider] - 1 week Patient Instructions: Hypertension (ED), Headache Coding Level of Care Code ED 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
[2022-06-27 18:45] LABS: Basophils # 0.1 10^3/uL (0.0-0.1); Basophils % 1.4 %; Eosinophils # 0.5 10^3/uL (0.0-0.8); Eosinophils % 6.2 %; Hematocrit 46.3 % (42.0-52.0); Lymphocytes # 2.3 10^3/uL (0.8-4.8); Lymphocytes % 29.1 %; Mean Corpuscular HGB Conc 34.6 g/dL (30.0-36.0); Mean Corpuscular Hemoglobin 32.4 pg (28.0-34.0); Mean Corpuscular Volume 93.7 fl (80-94); Mean Platelet Volume 10.8 fL (7.4-10.4); Monocytes # 0.7 10^3/uL (0.2-0.9); Monocytes % 8.3 %; Neutrophils # 4.33 10^3/uL (1.8-7.7); Neutrophils % 54.7 %; Nucleated Red Blood Cells % 0 %; Platelet Count 195 10^3/cmm (130-400); Red Blood Count 4.94 10^6/uL (4.1-5.3); Red Cell Distribution Width 12.1 % (12.1-15.1); White Blood Count 7.9 10^3/uL (4.0-10.0)
[2022-06-27 19:03] LABS: Troponin(5th) Baseline 6 ng/L (0-15)
[2022-06-27 19:04] LABS: Alanine Aminotransferase 39 U/L (0-41); Albumin Level 4.5 g/dL (3.5-5.2); Alkaline Phosphatase 69 U/L (40-130); Anion Gap 18.1 (5-19); Aspartate Amino Transferase 32 U/L (0-40); Blood Urea Nitrogen 10 mg/dL (8-23); Calcium 9.4 mg/dL (8.5-10.5); Carbon Dioxide 24 mmol/L (22-29); Chloride 101 mmol/L (98-107); Creatinine Clr Calc Pharmacy 104.5328; Globulin 2.5 g/dL (1.3-4.6); Glomerular Filtration Rate 97.6 mL/min (90-130); Glucose 209 mg/dL (65-115); Osmolality Calculated 293 mOsm/kg (285-295); Potassium 4.1 mmol/L (3.5-5.1); Sodium 139 mmol/L (136-145); Total Bilirubin 0.4 mg/dL (0.15-1.2)
[2022-06-27 19:19] VITALS: BP 129/79; PULSE 93; RESP 23; O2SAT 96
--- NOTE | 2022-06-27 20:14 | ECG_ITS ---
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
[2022-06-27 20:30] LABS: Troponin 5 2HR Delta 0 ABS# (0-10)
[2022-06-27 20:47] VITALS: BP 121/79; PULSE 103; RESP 18; O2SAT 95
== END 2022-06-27 20:49 | disposition home or self-care (01) ==
PROVIDERS: Emergency Provider Emergency Medicine; PCP Family Medicine
DX: R51.9 Headache, unspecified (principal); Z79.84 Long term (current) use of oral hypoglycemic drugs; Z79.82 Long term (current) use of aspirin; E11.9 Type 2 diabetes mellitus without complications; I11.0 Hypertensive heart disease with heart failure; I50.32 Chronic diastolic (congestive) heart failure; F17.210 Nicotine dependence, cigarettes, uncomplicated
CPT/HCPCS: 36415; 71045; 80053; 84484; 85025; 93005; 99285

== ENCOUNTER → 2022-07-03 08:54 | Outpatient (BNVA) | payer MEDICARE, SELFPAY | PROVIDERS: PCP Family Medicine; Visit Provider Nurse Practitioner Family | DX: I20.0 Unstable angina (principal); I11.0 Hypertensive heart disease with heart failure; I50.32 Chronic diastolic (congestive) heart failure; Z79.82 Long term (current) use of aspirin; F17.220 Nicotine dependence, chewing tobacco, uncomplicated | CPT/HCPCS: 99214 ==

== ENCOUNTER → 2022-07-16 08:55 | Outpatient (BNVA) | payer MEDICARE, SELFPAY | PROVIDERS: PCP Family Medicine; Visit Provider Family Medicine | DX: I10 Essential (primary) hypertension (principal); E11.40 Type 2 diabetes mellitus with diabetic neuropathy, unspecified; E78.1 Pure hyperglyceridemia; E11.9 Type 2 diabetes mellitus without complications; J40 Bronchitis, not specified as acute or chronic; E11.42 Type 2 diabetes mellitus with diabetic polyneuropathy; F32.0 Major depressive disorder, single episode, mild | CPT/HCPCS: 80048; 80061; 83036 ==

== ENCOUNTER 2022-07-30 07:12 | Outpatient (CLI) | payer MEDICARE, SELFPAY ==
[2022-07-27 08:48] VITALS: BMI 37.5
[2022-07-30] VITALS (14 sets, daily range): BP systolic 97–130; BP diastolic 68–90; PULSE 63–89; RESP 12–18; TEMP 36.7; O2SAT 92–97; BMI 37.5
--- NOTE | 2022-07-30 | XACV_ITS ---
Exam Room: 2 Ht: 168 cm Wt: 106 kg BSA: 2.27 m2 Gender: Male : 1960 Any Known Allergies: No known allergies Exam Priority: Routine Procedure(s): Procedure Description: Diagnostic procedure Procedure Description: Left Heart Catheterization Procedure Description: Left ventriculography Procedure Description: Coronary Angiography Diagnostic Cath Status: Elective Diagnostic Findings * The left main is a medium caliber vessel with no significant stenotic lesions. * The left anterior descending artery is a medium caliber vessel which appears to wrap around the LV apex minimally. The proximal LAD was found to have an area of small aneurysmal dilatation. The mid LAD was found to have diffuse irregular narrowing of 30 to 40%. Distal LAD was found to have minimal intimal irregularities. The first diagonal branch was found to have 70 to 80% proximal tubular narrowing involving the ostium. The artery appears to be a small to medium caliber vessel. * The left circumflex artery is a medium to large caliber vessel which appears to bifurcate distally giving off 2 obtuse marginal arteries. The second obtuse marginal artery was found to have a 40% segmental narrowing. No other significant lesions were noted. * The right coronary artery is a medium caliber dominant vessel which was found to have minimal intimal normalities in the distal segment. The PLV branch also was found to have minimal diffuse intimal regularities. No other significant stenotic lesions were noted. Conclusions 1. 62-year-old white male with a history of hypertension, type 2 diabetes, history of diastolic heart failure, presenting with a recurrent episodes of chest pain. He had an unremarkable Myocardial perfusion imaging. In view of his multiple risk factors and the ongoing symptoms, in order to further evaluate his coronary status, a cardiac catheterization was recommended. Patient underwent left heart catheterization with a left and right coronary angiogram and LV angiogram today. The findings are as follows. 2. 1. No significant disease in the left main. 2. 70 to 80% lesion in the proximal segment of the first diagonal branch involving the ostium 3. Mild diffuse disease in the other vessels. LV ejection fraction of 50%. LVEDP of 19 mmHg.. 3. I reviewed and discussed the cardiac catheterization findings with the Dr. Tobin. Intervening the lesion of the diagonal branch was found to be technically challenging. Is a relatively small caliber vessel. It was thought to be appropriate to continue the medical management at this point. Diagnostic RX Recommendation: medical therapy and/or counseling LV EDP: 19 mmHg Ventriculography Ejection Fraction: 50.0 % Left Ventriculography Findings: * The LV gram was performed in the RESTREPO projection. The LV cavity appears to be normal size. There was mild diffuse hypokinesia of the anteroapical region. No filling defects. No significant mitral valve prolapse or mitral regurgitation. LVEDP was 19 mmHg. LV ejection fraction around 50%.. Pressures Phase:Rest AO : 106 / 69 ( 86 ) @ 9:53:00 AM 114 / 77 ( 95 ) @ 9:59:00 AM 117 / 72 ( 93 ) @ 10:04:00 AM 118 / 70 ( 92 ) @ 10:04:00 AM LV : 120 / -2 / 19 @ 10:03:00 AM 118 / 1 / 22 @ 10:04:00 AM 118 / 2 / 22 @ 10:04:00 AM Valves Phase:DefaultPhase AV : 2.0 @ 9:17:43 AM 2.0 @ 9:17:43 AM AV Mean Gradient: 7.0 @ 9:17:43 AM 7.0 @ 9:17:43 AM Clinical Evaluation EBL: 5mL-10mL Procedural Details Procedure Consent Obtained. Admit Source: Out Patient. Pre-Procedure Time Out. Identified patient by full name and date of as verbalized by the patient/guarantor. Does the consent match the physician's order: Yes. Accurate & Complete Informed Consent: Yes. Inpatient/Outpatient History & Physical on Chart: Yes. If H&P is completed, is and addenduem needed: No; If yes, is the addendum complete: N/A. Visualize and Verify Site with Patient/Guarantor: N/A. Relevant Radiology Images available: Yes. The risks, benefits, and alternatives of sedation and/or procedure were discussed by physician. The patient agrees to continue. Procedure started. [facility] Clinical Fraility Score: 3: Managing Well. Videotape Recording Engineer Indications: Worsening Angina. Chest Pain Symptom Assessment: Typical Angina Symptoms. Correct patient, site and procedure confirmed by cath team. Current diagnosis: Suspected CAD. PERRLA. 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 Lungs clear x 5 lobes. IV Site on Arrival: 18 gauge in the right anticubital. IV Fluids: 0.9% NaCl at 75ml/hr. 0 mL infused prior to optical laboratory technician. Pre Procedural Pulses: bilateral radial was 3+. Pre Procedural Pulses: bilateral posterior tibial was 1+. Pre Procedural Pulses: right dorsalis pedis was 1+. Pre Procedural Pulses: left dorsalis pedis was 3+. Oxygen started at 2liters/min via nasal canula. right radial was prepped with chloroprep then draped in the usual sterile fashion. right groin was prepped with chloroprep then draped in the usual sterile fashion. Physician notified. Baseline sample Acquired. HR: 62 BPM. Physician arrived. Physician scrubbed in. Immediate Pre-Procedure Time Out. Correct Patient: Yes; Correct Procedure: Yes; Correct Site: Yes; Correct Patient Position: Yes; Correct Supplies: Yes; Dried Flammable Prep: Yes; Blood Products Available: No;. Lidocaine 1% infiltrated to the right radial. Arterial access obtained. A 5 [place] Alex catheter in over wire. Exchange wire out. Multiple views taken of left coronary artery. Catheter removed over the exchange wire. A 5 [place] JR4 catheter in over wire. Multiple views taken of right coronary artery. Catheter removed over the exchange wire. A 5 [place] Angled Pig catheter in over wire. EDP Sample taken: LV 120/-3,19; HR: 46 BPM; SpO2: 96%. LV gram performed in RESTREPO @ 10 mL/second for a total of 30 mL. EDP Sample taken: LV 118/1,22; HR: 62 BPM; SpO2: 96%. Pullback taken: LV 118/2,22; AO 117/72(93); Mean: 7mmHg, Peak to Peak: 2mmHg, SEP: 15sec/min; HR: 62 BPM; SpO2: 97%. Side port of sheath attached to Normal Saline flush at KVO to maintain patency. Physician review of cine films. Dr. Tobin arrived to lab to review cine films. Catheter removed over the exchange wire. Physician scrubbed out. A TR Band was successful obtaining hemostatsis at the Right Radial artery insertion site. Post Procedure: Pulses reassessed and unchanged. PERRLA. 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 No VTE prophylaxis required. Medication's Wasted: Lidocaine 1% = 2 mL. Medication's Wasted: Nitro = 49.8 mg. Medication's Wasted: Heparin = 1000 units. Medication's Wasted: Other = Versed 1mg, Fentanyl 50mcg. Total IV fluids: 269 mL. Post-op diagnosis: Non obstructive CAD. Complications: None. Estimated blood loss: 5mL-10mL. Responsiveness - Normal response to verbal stimuli; alert and oriented, PERRLA. Airway - Unaffected, no intervention required; spontaneous ventilation. Circulation: W/N/L, pulses unchanged. Nausea/Vomiting: N/A. Procedure completed. Patient transferred by wheelchair to CPRU. Vital chart was stopped. Access Site Site: Right Radial artery Sheath Size: 6 Fr Hemostasis Method: TR Band Hemostasis Success: Successful Procedure Medications Start: 8:45 AM Stop: 8:45 AM Medication: Versed Amount: 1 mg Route: I.V. Start: 8:45 AM Stop: 8:45 AM Medication: Fentanyl Amount: 50 mcg Route: I.V. Start: 8:50 AM Stop: 8:50 AM Medication: Verapamil Amount: 5 mg Route: I.A. Start: 8:51 AM Stop: 8:51 AM Medication: Nitrogylcerin Amount: 200 mcg Route: I.A. Start: 8:51 AM Stop: 8:51 AM Medication: 0.9% Saline Amount: 250 ml Route: I.V. bolus Start: 8:53 AM Stop: 8:53 AM Medication: Heparin Amount: 5000 units Route: I.V. I, the attending physician, have reviewed and verified all procedure medications. Yes, all medications given per verbal order History/Risk Factors Hypertension: Yes Dyslipidemia: Yes Peripheral Arterial Disease (PAD): Yes Myocardial Infarction (IL): No Obesity: No Renal Disease: No Tobacco Use: Former Prior Interventions PCI: Yes CABG: No Valve Surgery: No Report Signatures Finalized by Dr Ale Smith MD [facility] on 07/30/2022 08:38 PM
[2022-07-30 08:05] LABS: Basophils # 0.1 10^3/uL (0.0-0.1); Basophils % 0.8 %; Eosinophils # 0.3 10^3/uL (0.0-0.8); Hematocrit 47.1 % (42.0-52.0); Hemoglobin 15.5 g/dL (11.7-16.6); Lymphocytes # 1.4 10^3/uL (0.8-4.8); Mean Corpuscular HGB Conc 32.9 g/dL (30.0-36.0); Mean Corpuscular Hemoglobin 31.8 pg (28.0-34.0); Mean Corpuscular Volume 96.7 fl (80-94); Mean Platelet Volume 10.9 fL (7.4-10.4); Monocytes # 0.6 10^3/uL (0.2-0.9); Monocytes % 9.4 %; Neutrophils # 3.91 10^3/uL (1.8-7.7); Neutrophils % 62.6 %; Nucleated Red Blood Cells % 0 %; Platelet Count 172 10^3/cmm (130-400); Red Blood Count 4.87 10^6/uL (4.1-5.3); Red Cell Distribution Width 12.1 % (12.1-15.1); White Blood Count 6.3 10^3/uL (4.0-10.0)
[2022-07-30] MEDS: aspirin 325 mg Tablet PO (08:08)
[2022-07-30] MEDS: diphenhydrAMINE 50 mg Capsule PO (08:08)
--- NOTE | 2022-07-30 08:09 | W.PM.OPSUD ---
Surgery/Procedure H&P Update DATE OF PROCEDURE: July 30, 2022 DATE H&P PERFORMED: 07/03/22 PREOP DIAGNOSIS: Suspected ASHD PRIMARY INDICATION FOR PROCEDURE: Chest pain/shortness of breath/diastolic heart failure/type 2 diabetes/essential benign hypertension PLANNED PROCEDURE: Operation Date: 07/30/22 08:30 Proposed Procedures p [facility] w/w/o 04227,R07.9,120.0(Left) - Ale Smith MD PATIENT REASSESSED PRIOR TO SEDATION, WITH NO CHANGE NOTED: Yes PHYSICAL EXAM: alert, oriented x 3, clear to auscultation bilaterally and regular rate & rhythm AIRWAY EVAL/ANESTHESIA PLAN: normal airway, see other exam findings, ASA III, Monitored Anesthesia, Local Anesthesia, Risks, benefits & alternatives of sedation and/or procedure discussed and Patient agrees to continue as planned
[2022-07-30 08:25] LABS: Anion Gap 17.1 (5-19); Blood Urea Nitrogen 11 mg/dL (8-23); Calcium 9.1 mg/dL (8.5-10.5); Carbon Dioxide 23 mmol/L (22-29); Chloride 101 mmol/L (98-107); Glomerular Filtration Rate 113.9 mL/min (90-130); Glucose 128 mg/dL (65-115); Osmolality Calculated 285 mOsm/kg (285-295); Potassium 4.1 mmol/L (3.5-5.1); Sodium 137 mmol/L (136-145)
--- NOTE | 2022-07-30 09:15 | PC.NURSE ---
Received pt from central lab technician post diagnostic [facility]. Pt alert and oriented x3. Pt complains of no pain. TR band on right wrist with distal pulses palpable. No brusing or hematoma noted. Pt and family educated on restrictions of right wrist. All acknowledged understanding. Pt placed on vital monitor and will be monitored per protocol. Plan at this point is to recovery for 3 hours and then dc per doctors orders.
[2022-07-30 09:56] LABS: Glucose Point of Care 125 mg/dL (70-110)
== END 2022-07-30 12:28 | disposition home or self-care (01) ==
PROVIDERS: PCP Family Medicine; Visit Provider Internal Medicine Cardiovascular Disease
DX: I20.0 Unstable angina (principal); I11.0 Hypertensive heart disease with heart failure; I50.32 Chronic diastolic (congestive) heart failure; E78.5 Hyperlipidemia, unspecified; I73.9 Peripheral vascular disease, unspecified; Z79.82 Long term (current) use of aspirin; Z79.84 Long term (current) use of oral hypoglycemic drugs; Z79.85 Long-term (current) use of injectable non-insulin antidiabetic drugs; E11.42 Type 2 diabetes mellitus with diabetic polyneuropathy; F17.290 Nicotine dependence, other tobacco product, uncomplicated
CPT/HCPCS: 36415; 36416; 80048; 82962; 85025; 93458; 96361; 96365; 96367; 99152; 99153; C1769; C1887; C1894; J1644; J2250; J3010; J3490; J7030; Q0163; Q9967

== ENCOUNTER → 2022-08-02 07:47 | Outpatient (BNVA) | payer MEDICARE, SELFPAY | PROVIDERS: PCP Family Medicine; Visit Provider Dermatology | DX: Z48.02 Encounter for removal of sutures (principal) | CPT/HCPCS: 99024 ==

== ENCOUNTER 2022-08-05 16:36 | Emergency (ER) | payer MEDICARE, SELFPAY ==
[2022-08-05 16:38] VITALS: BP 138/94; PULSE 85; RESP 16; TEMP 36.8; O2SAT 97
--- NOTE | 2022-08-05 16:38 | ED_ITS ---
HPI - Dizziness General: Chief Complaint: Dizziness Stated Complaint: DIZZY Time Seen by Provider: 08/05/22 16:37 History of Present Illness: HPI Narrative: Mr. Wright is a 62-year-old gentleman presenting to the emergency department for dizziness. He underwent cardiac cath on 07/30 and reports that evening beginning to have dizziness. He describes a spinning sensation worse with position changes and ambulation. Since onset symptoms have persisted. Denies any other neuro symptoms or similar episodes in the past. No recent viral syndromes or ear pain. No other specific changes in health, exacerbating, or alleviating factors identified. Onset (ago): day(s) Severity: moderate Context: other History of similar symptoms: No Exacerbating factors: change in body position Associated symptoms: Reports no associated symptoms Associated neuro symptoms: Reports no associated symptoms Review of Systems General: Reports: 10 or more systems reviewed and unremarkable except in HPI and below PFSH ED PFSH: Medical History Atherosclerosis of coronary artery Diabetes Diabetic neuropathy Diastolic CHF, chronic Hypertension Shortness of breath Stroke-like symptom Tachycardia Surgical History History of total knee arthroplasty Family History Mother Cancer colon cancer Father Cancer Lung disease Sister Diabetes Stroke Denies family history of CAD (coronary artery disease) Clotting disorder Dementia Chronic kidney disease (CKD) Suicide Anesthesia complication Bleeding disorder Social History Smoking and tobacco status: current every day smoker (chew tabacco 1 can every other day ) smokeless tobacco Smokeless tobacco user: chewing tobacco Smokeless tobacco details: 2-3 times weekly Alcohol intake: never Substance/Drug Use: never Physical Exam Const: COMMON NORMALS: patient oriented x3 and alert GENERAL APPEARANCE: cooperative and well developed HENMT: COMMON NORMALS: normocephalic and atraumatic HEAD & SCALP: normocephalic and atraumatic THROAT: posterior oropharynx normal Eye: COMMON NORMALS: conjunctivae normal CONJUNCTIVA: Yes conjunctivae normal SCLERA: sclerae normal Neck/C-Spine: COMMON NORMALS: supple GENERAL: Yes trachea midline Resp: COMMON NORMALS: clear to auscultation bilaterally EFFORT & INSPECTION: Yes able to speak in complete sentences AUSCULTATION: clear to auscultation bilaterally Cardio: COMMON NORMALS: regular rate and regular rhythm RATE: regular rate RHYTHM: regular rhythm GI: COMMON NORMALS: Soft to palpation PALPATION: Yes Soft to palpation and No Tenderness to palpation present (GI) Extremity: NARRATIVE EXTREMITY EXAM: No evidence of complication at vascular access site. GENERAL: Yes normal exam except as noted and No edema Neuro: COMMON NORMALS: patient oriented x3, CN's II-XII intact bilaterally, moves all extremities, no focal motor deficits and no sensory deficits noted SENSORIUM/ORIENTATION: Yes alert and No Orientation impaired Psych: COMMON NORMALS: mental status grossly normal and Normal thought process present THOUGHT PROCESS: Normal thought process present Course Vital Signs: Vital signs: Vital Signs Temperature 98.3 F 08/05/22 16:38 Pulse Rate 75 08/05/22 18:30 Respiratory Rate 16 08/05/22 18:30 Blood Pressure 123/75 08/05/22 18:30 Pulse Oximetry 93 08/05/22 18:30 Oxygen Delivery Me thod Room Air 08/05/22 18:30 MDM - Dizziness Medical Decision Making 62-year-old gentleman presenting with dizziness after angiogram. Exam is not convincing for either central or peripheral causes of symptoms. No focal neur ologic deficits appreciated. I am unable to elicit nystagmus or other clear peripheral etiologies. EKG demonstrates sinus rhythm with normal axis and intervals, no STEMI. No significant hematologic abnormalities, metabolic panel with mild hyponatremia. CTA and CT imaging of the head demonstrates no significant abnormality to explain symptoms. I would expect if central cause was present given duration of symptoms that abnormality would be identified on imaging which is not at this time. Patient improved with IV fluids and meclizine. Near complete resolution of symptoms. Most likely etiology of symptoms is peripheral cause of dizziness. The results of ED evaluation were discussed with the patient including prescriptions and/or symptomatic cares (if applicable) including appropriate and responsible use, followup plan, and return precautions. The patient verbalized understanding and felt safe for discharge. Medical Records I reviewed the patient's medical records. Lab Data I reviewed the patient's lab results. 08/05/22 17:09 08/05/22 17:09 Radiology Impressions Head/Neck CTA 08/05/22 17:20 IMPRESSION: No large vessel stenosis or occlusion. IMPRESSION: No stenosis or occlusion. REFERENCES: NASCET CRITERIA. The degree of stenosis in the cervical segment of the internal carotid artery is based on NASCET criteria. Normal is no stenosis. Mild is less than 50% stenosis. Moderate is 50-69% stenosis. Severe is 70% to 99% stenosis. Total occlusion is no detectable patent lumen. Laboratory Results WBC 6.4 10^3/uL (4.0-10.0) 08/05/22 17:09 RBC 4.72 10^6/uL (4.1-5.3) 08/05/22 17:09 Hgb 15.0 g/dL (11.7-16.6) 08/05/22 17:09 Hct 44.8 % (42.0-52.0) 08/05/22 17:09 MCV 94.9 fl (80-94) H 08/05/22 17:09 MCH 31.8 pg (28.0-34.0) 08/05/22 17:09 MCHC 33.5 g/dL (30.0-36.0) 08/05/22 17:09 RDW 12.0 % (12.1-15.1) L 08/05/22 17:09 Plt Count 175 10^3/cmm (130-400) 08/05/22 17:09 MPV 11.3 fL (7.4-10.4) H 08/05/22 17:09 Neut % (Auto) 59.0 % 08/05/22 17:09 Lymph % (Auto) 27.2 % 08/05/22 17:09 [place] % (Auto) 8.8 % 08/05/22 17:09 Eos % (Auto) 4.1 % 08/05/22 17:09 Baso % (Auto) 0.6 % 08/05/22 17:09 Neut # (Auto) 3.77 10^3/uL (1.8-7.7) 08/05/22 17:09 Lymph # (Auto) 1.7 10^3/uL (0.8-4.8) 08/05/22 17:09 [place] # (Auto) 0.6 10^3/uL (0.2-0.9) 08/05/22 17:09 Eos # (Auto) 0.3 10^3/uL (0.0-0.8) 08/05/22 17:09 Baso # (Auto) 0.0 10^3/uL (0.0-0.1) 08/05/22 17:09 Nucleated RBC % (auto) 0 % 08/05/22 17:09 Nucleated RBCs # 0.0 /100WBC 08/05/22 17:09 Sodium 131 mmol/L (136-145) L 08/05/22 17:09 Potassium 3.9 mmol/L (3.5-5.1) 08/05/22 17:09 Chloride 96 mmol/L (98-107) L 08/05/22 17:09 Carbon Dioxide 24 mmol/L (22-29) 08/05/22 17:09 Anion Gap 14.9 (5-19) 08/05/22 17:09 BUN 13 mg/dL (8-23) 08/05/22 17:09 Creatinine 0.6 mg/dL (0.7-1.2) L 08/05/22 17:09 GFR Calculation 136.1 mL/min (90-130) H 08/05/22 17:09 Glucose 111 mg/dL (65-115) 08/05/22 17:09 Calculated Osmolality 273 mOsm/kg (285-295) L 08/05/22 17:09 Calcium 9.0 mg/dL (8.5-10.5) 08/05/22 17:09 Magnesium 2.0 mg/dL (1.7-2.3) 08/05/22 17:09 Total Bilirubin 0.5 mg/dL (0.15-1.2) 08/05/22 17:09 AST 32 U/L (0-40) 08/05/22 17:09 ALT 46 U/L (0-41) H 08/05/22 17:09 Alkaline Phosphatase 61 U/L (40-130) 08/05/22 17:09 Total Protein 7.0 g/dL (6.6-8.7) 08/05/22 17:09 Albumin 4.5 g/dL (3.5-5.2) 08/05/22 17:09 Globulin 2.5 g/dL (1.3-4.6) 08/05/22 17:09 TSH 2.41 uIU/mL (0.27-4.20) 08/05/22 17:09 Discharge Plan Discharge Patient Disposition: Home Clinical Impression: Dizziness, Mild dehydration Condition: Stable Prescriptions: No Action (DME) Comfort EZ Pen Robson 33 gauge x 1/4 needle See Rx Instructions .ROUTE .MEDSUPPLY Qty: 100 2RF Rx Instructions: As directed, for use with ozempic inj pen metformin 1,000 mg tablet 1,000 mg PO BID 90 Days Qty: 180 1RF (DME) blood-glucose meter [Blood Glucose Monitoring] Kit See Rx Instructions .ROUTE .MEDSUPPLY Qty: 1 0RF Rx Instructions: Brand/type per insurance coverage (DME) Blood Glucose Test Strip See Rx Instructions .ROUTE .MEDSUPPLY Qty: 50 11RF Rx Instructions: Brand/type to go with meter per insurance coverage (DME) lancets Misc See Rx Instructions .ROUTE .MEDSUPPLY Qty: 100 11RF Rx Instructions: For use with glucose meter, brand/type per insurance hydralazine 10 mg tablet 10 mg PO DAILY PRN (Reason: hypertension) 30 Days Qty: 30 1RF Rx Instructions: BP >160/>100 isosorbide mononitrate 30 mg tablet extended release 24 hr 30 mg PO BID losartan 50 mg tablet 25 mg PO DAILY miscellaneous medical supply Misc See Rx Instructions miscellaneous .COMPLEX Qty: 1 0RF Rx Instructions: Auto-titrating CPAP as directed; diclofenac sodium 50 mg tablet,delayed release (DR/EC) 50 mg PO Q12H PRN (Reason: pain) 30 Days Qty: 60 2RF Rx Instructions: WITH FOOD, do not take other NSAIDS (IBU, Aleve, naproxen) loperamide [Imodium A-D] 2 mg tablet 2 mg PO Q4H PRN (Reason: loose stool) Qty: 60 0RF Rx Instructions: do not exceed 16 mg per 24 hrs albuterol sulfate 90 mcg/actuation HFA aerosol inhaler 2 puff inhalation Q6H PRN (Reason: shortness of breath or wheezing) Qty: 8.5 0RF nitroglycerin 0.4 mg tablet, sublingual 0.4 mg sublingual Q5M PRN (Reason: chest pain) Qty: 20 1RF Rx Instructions: do not exceed [address] under tongue aspirin 81 mg tablet,delayed release (DR/EC) 81 mg PO DAILY@12 Ozempic 1 mg/dose (4 mg/3 mL) pen injector 1 mg SUBCUT Q7D Rx Instructions: on fri (DME) Accu-Chek Guide test strips Strip See Rx Instructions .Route Qty: 100 2RF Rx Instructions: As directed (DME) lancets [Accu-Chek Fastclix Lancet Drum] Misc See Rx Instructions .Route Qty: 200 3RF Rx Instructions: As directed metoprolol tartrate 50 mg tablet 75 mg PO BID Discharge Orders: Discharge ED (Routine); Ordered 08/05/22 Ordered By: Willie Rolon Referrals: Ana Mercedes MD [Primary Care Provider] - Discharge Diet: Usual diet Discharge Activity: Increase activity as tolerated Patient Instructions: Vertigo (ED), Dizziness (ED) Activity Restrictions/Additional Instructions: Thank you for visiting the emergency department. You were seen and evaluated for dizziness. The exact cause your symptoms is unclear though does not appear to need hospitalization at this time. I will prescribe meclizine. Please ensure that you are staying hydrated. Please follow-up with your primary care provider. Return to the emergency department for worsening symptoms, uncontrolled symptoms, any new neurologic symptoms, or anything else that you are concerned about and feel needs emergency department evaluation. Coding Level of Care Code ED Auto Transmission Technician for Mo Souza
--- NOTE | 2022-08-05 16:48 | ECG_ITS ---
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 Measurements Intervals [place] Rate: 75 P: 31 MI: 154 QRS: -12 QRSD: 82 T: 52 QT: 353 QTc: 396 Interpretive Statements SINUS RHYTHM POSSIBLE RIGHT VENTRICULAR CONDUCTION DELAY [RSR (QR) IN V1/V2] INTERPRETATION BASED ON A DEFAULT AGE OF 40 YEARS Compared to ECG 06/27/2022 20:21:39 No significant changes Electronically Signed On 08-06-2022 14:26:14 CDT by Jaron Tobin M.D. [email or web address] [email or web address] [email or web address] medical centerBabil [id number] f
[2022-08-05 17:17] LABS: Basophils % 0.6 %; Eosinophils # 0.3 10^3/uL (0.0-0.8); Eosinophils % 4.1 %; Hematocrit 44.8 % (42.0-52.0); Lymphocytes # 1.7 10^3/uL (0.8-4.8); Lymphocytes % 27.2 %; Mean Corpuscular HGB Conc 33.5 g/dL (30.0-36.0); Mean Corpuscular Hemoglobin 31.8 pg (28.0-34.0); Mean Corpuscular Volume 94.9 fl (80-94); Mean Platelet Volume 11.3 fL (7.4-10.4); Monocytes # 0.6 10^3/uL (0.2-0.9); Monocytes % 8.8 %; Neutrophils # 3.77 10^3/uL (1.8-7.7); Nucleated Red Blood Cells % 0 %; Platelet Count 175 10^3/cmm (130-400); Red Blood Count 4.72 10^6/uL (4.1-5.3); White Blood Count 6.4 10^3/uL (4.0-10.0)
--- NOTE | 2022-08-05 17:20 | CTR_ITS ---
PROCEDURE INFORMATION: Exam: CTA Head With Contrast, Arteriography Exam date and time: 08/05/2022 5:35 PM Age: 62 years old Clinical indication: Dizziness and giddiness; Additional info: Dizziness, HX recent coronary angio TECHNIQUE: Imaging protocol: Computed tomographic angiography of the head with contrast. Exam focused on the arteries. 3D rendering (Not supervised by radiologist): MIP and/or 3D reconstructed images were created by the technologist. Radiation optimization: All CT scans at this facility use at least one of these dose optimization techniques: automated exposure control; mA and/or kV adjustment per patient size (includes targeted exams where dose is matched to clinical indication); or iterative reconstruction. Contrast material: OMNI 350; Contrast volume: 100 ml; Contrast route: INTRAVENOUS (IV); REPORTING DATA: Count of CT and Cardiac NM exams in prior 12 months: This patient has received [address] and 0 known cardiac nuclear medicine studies in the 12 months prior to the current study. COMPARISON: CT angio [place]* [id number] 07/16/2021 12:24 AM RADIATION DOSE METRICS: Total DLP (mGy-cm): 1042.53 FINDINGS: ANTERIOR CIRCULATION: Right internal carotid artery: Intracranial segment is patent with no significant stenosis. No aneurysm. Right middle cerebral artery: No occlusion or significant stenosis. No aneurysm. Right anterior cerebral artery: No occlusion or significant stenosis. No aneurysm. Left internal carotid artery: Intracranial segment is patent with no significant stenosis. No aneurysm. Left middle cerebral artery: No occlusion or significant stenosis. No aneurysm. Left anterior cerebral artery: No occlusion or significant stenosis. No aneurysm. POSTERIOR CIRCULATION: Right vertebral artery: No occlusion or significant stenosis. No aneurysm. Left vertebral artery: No occlusion or significant stenosis. No aneurysm. Basilar artery: No occlusion or significant stenosis. No aneurysm. Right posterior cerebral artery: No occlusion or significant stenosis. No aneurysm. Left posterior cerebral artery: No occlusion or significant stenosis. No aneurysm. Brain: No definite mass, mass effect, or midline shift. Cerebral ventricles: No ventriculomegaly. Paranasal sinuses: Scattered paranasal sinus mucosal thickening, without air-fluid level present. Bones/joints: Unremarkable. No acute fracture. Soft tissues: Unremarkable. PROCEDURE INFORMATION: Exam: CTA Neck With Contrast Exam date and time: 08/05/2022 5:35 PM Age: 62 years old Clinical indication: Dizziness and giddiness; Additional info: Dizziness, HX recent coronary angio TECHNIQUE: Imaging protocol: Computed tomographic angiography of the neck with contrast. 3D rendering (Not supervised by radiologist): MIP and/or 3D reconstructed images were created by the technologist. Radiation optimization: All CT scans at this facility use at least one of these dose optimization techniques: automated exposure control; mA and/or kV adjustment per patient size (includes targeted exams where dose is matched to clinical indication); or iterative reconstruction. Contrast material: OMNI 350; Contrast volume: 100 ml; Contrast route: INTRAVENOUS (IV); REPORTING DATA: Count of CT and Cardiac NM exams in prior 12 months: This patient has received [address] and 0 known cardiac nuclear medicine studies in the 12 months prior to the current study. [facility] [id number] 07/16/2021 12:24 AM RADIATION DOSE METRICS: Total DLP (mGy-cm): 1042.53 FINDINGS: Right common carotid artery: No stenosis. No dissection or occlusion. Right internal carotid artery: No stenosis of the extracranial segment. No dissection or occlusion. Right external carotid artery: No occlusion or stenosis of the origin. Left common carotid artery: No stenosis. No dissection or occlusion. Left internal carotid artery: No stenosis of the extracranial segment. No dissection or occlusion. Left external carotid artery: No occlusion or stenosis of the origin. Right vertebral artery: No stenosis. No dissection or occlusion. Left vertebral artery: No stenosis. No dissection or occlusion. Dental: Dental disease. Soft tissues: Normal. No significant soft tissue swelling. Bones/joints: No acute fracture. CT/CT angio [facility]* [id number] IMPRESSION: No large vessel stenosis or occlusion. IMPRESSION: No stenosis or occlusion. REFERENCES: NASCET CRITERIA. The degree of stenosis in the cervical segment of the internal carotid artery is based on NASCET criteria. Normal is no stenosis. Mild is less than 50% stenosis. Moderate is 50-69% stenosis. Severe is 70% to 99% stenosis. Total occlusion is no detectable patent lumen.
[2022-08-05] MEDS: meclizine 25 mg tablet PO (17:54)
[2022-08-05] MEDS: sodium chloride 0.9% 500 ML 999 ML IV (17:55)
[2022-08-05 18:00] LABS: Alanine Aminotransferase 46 U/L (0-41); Albumin Level 4.5 g/dL (3.5-5.2); Alkaline Phosphatase 61 U/L (40-130); Anion Gap 14.9 (5-19); Aspartate Amino Transferase 32 U/L (0-40); Blood Urea Nitrogen 13 mg/dL (8-23); Carbon Dioxide 24 mmol/L (22-29); Chloride 96 mmol/L (98-107); Globulin 2.5 g/dL (1.3-4.6); Glomerular Filtration Rate 136.1 mL/min (90-130); Glucose 111 mg/dL (65-115); Osmolality Calculated 273 mOsm/kg (285-295); Potassium 3.9 mmol/L (3.5-5.1); Sodium 131 mmol/L (136-145); Thyroid Stimulating Hormone 2.41 uIU/mL (0.27-4.20); Total Bilirubin 0.5 mg/dL (0.15-1.2)
[2022-08-05 18:30] VITALS: BP 123/75; PULSE 75; RESP 16; O2SAT 93
--- NOTE | 2022-08-06 12:35 | DCPLANNER ---
project manager retail had message to schedule a follow up appointment for patient with physical therapy. project manager retail faxed an order for physical therapy to the [facility]. Patients information will be reviewed, clinic will call patient with appointment information.
== END 2022-08-05 18:55 | disposition home or self-care (01) ==
PROVIDERS: Emergency Provider Emergency Medicine; PCP Family Medicine
DX: R42 Dizziness and giddiness (principal); E86.0 Dehydration; Z79.84 Long term (current) use of oral hypoglycemic drugs; Z79.82 Long term (current) use of aspirin; E11.9 Type 2 diabetes mellitus without complications; I11.0 Hypertensive heart disease with heart failure; I50.30 Unspecified diastolic (congestive) heart failure; F17.220 Nicotine dependence, chewing tobacco, uncomplicated
CPT/HCPCS: 70496; 70498; 80053; 83735; 84443; 85025; 93005; 96360; 99285; J7040; J8597; Q9967

== ENCOUNTER → 2022-08-14 10:08 | Outpatient (BNVA) | payer MEDICARE, SELFPAY | PROVIDERS: PCP Family Medicine; Visit Provider Nurse Practitioner Family | DX: I25.10 Atherosclerotic heart disease of native coronary artery without angina pectoris (principal); I11.0 Hypertensive heart disease with heart failure; I50.32 Chronic diastolic (congestive) heart failure | CPT/HCPCS: 99213 ==

== ENCOUNTER → 2022-08-30 12:59 | Outpatient (BNVA) | payer MEDICARE, SELFPAY | PROVIDERS: PCP Family Medicine; Visit Provider Podiatrist Foot & Ankle Surgery | DX: M76.821 Posterior tibial tendinitis, right leg (principal); M19.071 Primary osteoarthritis, right ankle and foot; E11.9 Type 2 diabetes mellitus without complications; Z79.84 Long term (current) use of oral hypoglycemic drugs | CPT/HCPCS: 73630; 99203 ==

== ENCOUNTER 2022-10-04 15:09 | Outpatient (CLI) | payer MEDICARE, SELFPAY | END 2022-10-04 15:10 | disposition home or self-care (01) | LOC: SPT 15:10 | PROVIDERS: PCP Family Medicine; Visit Provider Podiatrist Foot & Ankle Surgery | DX: Z46.89 Encounter for fitting and adjustment of other specified devices (principal); M76.821 Posterior tibial tendinitis, right leg; M19.071 Primary osteoarthritis, right ankle and foot; E11.42 Type 2 diabetes mellitus with diabetic polyneuropathy; Z79.84 Long term (current) use of oral hypoglycemic drugs; F17.210 Nicotine dependence, cigarettes, uncomplicated | CPT/HCPCS: 97760; 99213; L4361 ==

== ENCOUNTER → 2022-11-08 09:19 | Outpatient (BNVA) | payer MEDICARE, SELFPAY | PROVIDERS: PCP Family Medicine; Visit Provider Podiatrist Foot & Ankle Surgery | DX: E11.9 Type 2 diabetes mellitus without complications; M76.821 Posterior tibial tendinitis, right leg; M19.071 Primary osteoarthritis, right ankle and foot; Z79.84 Long term (current) use of oral hypoglycemic drugs | CPT/HCPCS: 99213 ==

== ENCOUNTER → 2022-11-16 12:30 | Outpatient (BNVA) | payer MEDICARE, SELFPAY | PROVIDERS: PCP Family Medicine; Visit Provider Emergency Medicine | DX: Z96.651 Presence of right artificial knee joint (principal) | CPT/HCPCS: 73562 ==

== ENCOUNTER → 2022-11-22 10:55 | Outpatient (BNVA) | payer MEDICARE, SELFPAY | PROVIDERS: PCP Family Medicine; Visit Provider Emergency Medicine | DX: E11.9 Type 2 diabetes mellitus without complications (principal); R63.1 Polydipsia; R39.15 Urgency of urination; Z12.5 Encounter for screening for malignant neoplasm of prostate | CPT/HCPCS: 80048; 81000; 82962; 83036; 84443; 85025; G0103 ==

== ENCOUNTER 2022-12-02 17:41 | Emergency (ER) | payer MEDICARE, SELFPAY ==
[2022-12-02 17:47] VITALS: BP 145/94; PULSE 104; RESP 16; TEMP 36.6; O2SAT 94
[2022-12-02 17:53] VITALS: BP 140/87; PULSE 93; O2SAT 98
[2022-12-02 18:07] LABS: Basophils % 0.6 %; Eosinophils # 0.2 10^3/uL (0.0-0.8); Eosinophils % 2.6 %; Hematocrit 46.8 % (42.0-52.0); Lymphocytes # 1.8 10^3/uL (0.8-4.8); Lymphocytes % 26.1 %; Mean Corpuscular HGB Conc 34.2 g/dL (30.0-36.0); Mean Corpuscular Hemoglobin 32.1 pg (28.0-34.0); Mean Platelet Volume 10.9 fL (7.4-10.4); Monocytes # 0.6 10^3/uL (0.2-0.9); Monocytes % 8.4 %; Neutrophils # 4.31 10^3/uL (1.8-7.7); Nucleated Red Blood Cells % 0 %; Platelet Count 188 10^3/cmm (130-400); Red Blood Count 4.98 10^6/uL (4.1-5.3); Red Cell Distribution Width 12.3 % (12.1-15.1); White Blood Count 6.9 10^3/uL (4.0-10.0)
[2022-12-02] MEDS: ondansetron 2 mg/ML SDV 2 mL 4 MG IVP (18:08)
[2022-12-02] MEDS: sodium chloride 0.9% 1,000 ML 999 ML IV (18:08)
[2022-12-02 18:30] LABS: Alanine Aminotransferase 38 U/L (0-41); Albumin Level 4.6 g/dL (3.5-5.2); Alkaline Phosphatase 62 U/L (40-130); Anion Gap 16.5 (5-19); Aspartate Amino Transferase 30 U/L (0-40); Blood Urea Nitrogen 13 mg/dL (8-23); Calcium 9.2 mg/dL (8.5-10.5); Carbon Dioxide 22 mmol/L (22-29); Chloride 103 mmol/L (98-107); Globulin 2.8 g/dL (1.3-4.6); Glomerular Filtration Rate 97.6 mL/min (90-130); Glucose 194 mg/dL (65-115); Lipase 36 U/L (13-60); Osmolality Calculated 291 mOsm/kg (285-295); Potassium 3.5 mmol/L (3.5-5.1); Sodium 138 mmol/L (136-145); Total Bilirubin 0.5 mg/dL (0.15-1.2); Total Protein 7.4 g/dL (6.6-8.7)
--- NOTE | 2022-12-02 18:32 | XRR_ITS ---
PROCEDURE INFORMATION: Exam: XR Chest Exam date and time: 12/02/2022 6:41 PM Age: 62 years old Clinical indication: Pain; Chest pressure; Additional info: Chest discomfort TECHNIQUE: Imaging protocol: Radiologic exam of the chest. Views: 1 view. COMPARISON: CR XR chest 1V portable [id number] 06/27/2022 6:34 PM FINDINGS: Lungs: Unremarkable. No consolidation. Pleural spaces: Unremarkable. No pleural effusion. No pneumothorax. Heart/Mediastinum: Unremarkable. No cardiomegaly. Bones/joints: No acute findings. XR/XR chest 1V portable [id number] IMPRESSION: No acute findings.
--- NOTE | 2022-12-02 18:33 | CTR_ITS ---
PROCEDURE INFORMATION: Exam: CT Abdomen And Pelvis With Contrast Exam date and time: 12/02/2022 6:51 PM Age: 62 years old Clinical indication: Nausea and vomiting; Abdominal pain; Localized; Upper; Additional info: Nausea with intermittent vomiting TECHNIQUE: Imaging protocol: Computed tomography of the abdomen and pelvis with contrast. Radiation optimization: All CT scans at this facility use at least one of these dose optimization techniques: automated exposure control; mA and/or kV adjustment per patient size (includes targeted exams where dose is matched to clinical indication); or iterative reconstruction. Contrast material: OMNI 350; Contrast volume: 100 ml; Contrast route: INTRAVENOUS (IV); REPORTING DATA: Count of CT and Cardiac NM exams in prior 12 months: This patient has received 2 known CTs and 0 known cardiac nuclear medicine studies in the 12 months prior to the current study. COMPARISON: CR (CHEST, ) 12/02/2022 6:41 PM RADIATION DOSE METRICS: Total DLP (mGy-cm): 979.82 FINDINGS: Lungs: Calcified pulmonary granulomatous change. Pleural spaces: 6 mm nodular finding against pleura seen at the inferolateral aspect of right middle lobe series 3, image 6. Liver: Normal. No mass. Gallbladder and bile ducts: Normal. No calcified stones. No ductal dilation. Pancreas: Normal. No ductal dilation. Spleen: Spleen shows calcified granulomatous change. Normal size. Adrenal glands: Normal. No mass. Kidneys and ureters: Normal. No hydronephrosis. Stomach and bowel: Submucosal fatty changes seen predominantly in the proximal half of the colon but also at the distal ileum can be seen as a sequela of remote inflammatory change, relate to malabsorption, or can be idiopathic. No abnormal bowel distention to suggest obstruction. Fat density findings with thin intermediate density rims are noted within the pelvis in close proximity to, or associated with, sigmoid colon serosal surface. Appendix: No evidence of appendicitis. Intraperitoneal space: Unremarkable. No free air. No significant fluid collection. Vasculature: Left-sided inferior vena cava noted. No abdominal aortic aneurysm. Lymph nodes: Pulmonary hilar lymph node calcifications are noted. Urinary bladder: Unremarkable as visualized. Reproductive: Unremarkable as visualized. Bones/joints: No acute fracture. Soft tissues: Unremarkable. CT/CT abdomen pelvis w con* [id number] IMPRESSION: Small fatty densities described above within the pelvis are consistent with epiploic appendagitis or other fat necrosis. Otherwise, no acute findings. Submucosal fatty changes seen predominantly in the proximal half of the colon but also at the distal ileum can be seen as a sequela of remote inflammatory change, relate to malabsorption, or can be idiopathic. 6 mm pulmonary nodule right middle lobe; for patients at low risk (minimal or absent history of smoking and of other known risk factors), recommend CT Chest at 3-6 months, then consider CT Chest at 18-24 months. For patients at high risk (history of smoking or of other known risk factors), recommend CT Chest at 3-6 months, then CT Chest at 18-24 months. (Reference: Joycelyn) REFERENCES: Joycelyn H, et al. Guidelines for Management of Incidental Pulmonary Nodules Detected on CT Images: From the Fleischner Society 2017. Radiology. 2017;284(1):228-243.
--- NOTE | 2022-12-02 18:36 | W.ED.NAVMDI ---
HPI - Nausea/Vomiting/Diarrhea General: Chief complaint: Nausea/Vomiting/Diarrhea Stated complaint: nausea, for a week Time Seen by Provider: 12/02/22 18:01 History of Present Illness: This 52-year-old male presents to the ER with intermittent vomiting that started 2 weeks ago. He notes that when he eats it comes right back up. However, on further questioning, he notes that vomiting does not happen every day. He may go for a whole day or 2 with no vomiting and on the third day each time he eats, he will vomit. The vomiting is associated with chest discomfort. Patient denies shortness of breath, fever, diarrhea or any other pertinent symptoms. Associated nausea: Yes Associated symtoms: Reports chest pain (chest discomfort with vomiting) and nausea; Denies change in vision, dysuria or headache(s) Review of Systems Const: Denies: chills, body aches or change in appetite Eyes: Denies: change in vision or eye discharge ENMT: Denies: throat pain, dental pain or nasal discharge Card: Reports: chest pain (chest discomfort with vomiting); Denies: lightheadedness GI: Reports: nausea and vomiting : Denies: dysuria Musc: Denies: neck pain or back pain Neuro: Denies: headache(s) or weakness in extremities Psych: Denies: depression Jhonathan/Lymph: Denies: easy bruising All/Imm: Denies: urticaria, tongue swelling or facial swelling PFSH ED PFSH: Medical History Atherosclerosis of coronary artery Diabetes Diabetic neuropathy Diastolic CHF, chronic Hypertension Shortness of breath Stroke-like symptom Tachycardia Surgical History History of total knee arthroplasty Family History Mother Cancer colon cancer Father Cancer Lung disease Sister Diabetes Stroke Denies family history of CAD (coronary artery disease) Clotting disorder Dementia Chronic kidney disease (CKD) Suicide Anesthesia complication Bleeding disorder Social History Smoking and tobacco status: current every day smoker (chew tabacco 1 can every other day ) smokeless tobacco Smokeless tobacco user: chewing tobacco Smokeless tobacco details: 2-3 times weekly Alcohol intake: never Substance/Drug Use: never Physical Exam Const: COMMON NORMALS: no acute distress, patient oriented x3, no limitations and alert HENMT: COMMON NORMALS: normocephalic HEAD & SCALP: normocephalic Eye: COMMON NORMALS: EOMs intact bilaterally Neck/C-Spine: COMMON NORMALS: full ROM and supple Chest: COMMONS NORMALS: normal inspection of the chest OTHER: Tenderness on palpation of the left anterior chest wall. Resp: COMMON NORMALS: normal respiratory effort, No retractions, No use of accessory muscles and clear to auscultation bilaterally AUSCULTATION: clear to auscultation bilaterally Cardio: COMMON NORMALS: regular rate, regular rhythm and No murmurs present (Cardio) RATE: regular rate RHYTHM: regular rhythm GI: COMMON NORMALS: Normal to inspection, nondistended, normoactive bowel sounds present and non-tender : COMMON NORMALS: Yes no CVA tenderness BLADDER/KIDNEY EXAM: Yes no CVA tenderness Back/Pelvis: COMMON NORMALS: no CVA tenderness and no thoracic nor lumbar tenderness Extremity: GENERAL: Yes normal exam except as noted Neuro: COMMON NORMALS: patient oriented x3 and no focal motor deficits SENSORIUM/ORIENTATION: Yes alert Psych: COMMON NORMALS: mental status grossly normal and cooperative Course Vital Signs: Vital signs: Vital Signs Temperature 97.9 F 12/02/22 17:47 Pulse Rate 79 12/02/22 21:16 Respiratory Rate 16 12/02/22 21:16 Blood Pressure 127/88 12/02/22 21:16 Pulse Oximetry 93 12/02/22 21:16 Oxygen Delivery Me thod Room Air 12/02/22 17:53 MDM - Nausea/Vomiting/Diarrhea Medical Decision Making Medical decision making: History as above. Patient's chest pain is associated with the episodes of vomiting. In addition, pain is reproducible on palpation of the left anterior chest wall. Troponin level is 6 which technically rules out acute coronary syndrome given that the pain has been going on for the better part of [address] abdomen/pelvis reveals no acute intrathoracic process. CT abdomen/pelvis reveals a pulmonary nodule which will be followed up with a CT. Patient was made aware of this nodule and the need to follow-up with his primary care provider. He may benefit from upper GI endoscopy which I advised him to get. His primary care provider can arrange this. In the meantime, he will be treated symptomatically. Patient verbalized understanding and agrees with the plan. Lab Data 12/02/22 18:02 12/02/22 18:02 Radiology Impressions Chest X-Ray 12/02/22 18:32 IMPRESSION: No acute findings. Abdomen/Pelvis CT 12/02/22 18:33 IMPRESSION: Small fatty densities described above within the pelvis are consistent with epiploic appendagitis or other fat necrosis. Otherwise, no acute findings. Submucosal fatty changes seen predominantly in the proximal half of the colon but also at the distal ileum can be seen as a sequela of remote inflammatory change, relate to malabsorption, or can be idiopathic. 6 mm pulmonary nodule right middle lobe; for patients at low risk (minimal or absent history of smoking and of other known risk factors), recommend CT Chest at 3-6 months, then consider CT Chest at 18-24 months. For patients at high risk (history of smoking or of other known risk factors), recommend CT Chest at 3-6 months, then CT Chest at 18-24 months. (Reference: Joycelyn) REFERENCES: Joycelyn Banks, et al. Guidelines for Management of Incidental Pulmonary Nodules Detected on CT Images: From the Fleischner Society 2017. Radiology. 2017;284(1):228-243. Laboratory Results WBC 6.9 10^3/uL (4.0-10.0) 12/02/22 18: RBC 4.98 10^6/uL (4.1-5.3) 12/02/22 18:02 Hgb 16.0 g/dL (11.7-16.6) 12/02/22 18: Hct 46.8 % (42.0-52.0) 12/02/22 18: MCV 94.0 fl (80-94) 12/02/22 18: MCH 32.1 pg (28.0-34.0) 12/02/22 18: MCHC 34.2 g/dL (30.0-36.0) 12/02/22 18: RDW 12.3 % (12.1-15.1) 12/02/22 18:02 Plt Count 188 10^3/cmm (130-400) 12/02/22 18:02 MPV 10.9 fL (7.4-10.4) H 12/02/22 18:02 Neut % (Auto) 62.0 % 12/02/22 18:02 Lymph % (Auto) 26.1 % 12/02/22 18:02 Stark % (Auto) 8.4 % 12/02/22 18:02 Eos % (Auto) 2.6 % 12/02/22 18:02 Baso % (Auto) 0.6 % 12/02/22 18:02 Neut # (Auto) 4.31 10^3/uL (1.8-7.7) 12/02/22 18:02 Lymph # (Auto) 1.8 10^3/uL (0.8-4.8) 12/02/22 18:02 Stark # (Auto) 0.6 10^3/uL (0.2-0.9) 12/02/22 18:02 Eos # (Auto) 0.2 10^3/uL (0.0-0.8) 12/02/22 18:02 Baso # (Auto) 0.0 10^3/uL (0.0-0.1) 12/02/22 18:02 Nucleated RBC % (auto) 0 % 12/02/22 18:02 Nucleated RBCs # 0.0 /100WBC 12/02/22 18:02 Sodium 138 mmol/L (136-145) 12/02/22 18:02 Potassium 3.5 mmol/L (3.5-5.1) 12/02/22 18:02 Chloride 103 mmol/L (98-107) 12/02/22 18:02 Carbon Dioxide 22 mmol/L (22-29) 12/02/22 18:02 Anion Gap 16.5 (5-19) 12/02/22 18:02 BUN 13 mg/dL (8-23) 12/02/22 18:02 Creatinine 0.8 mg/dL (0.7-1.2) 12/02/22 18:02 GFR Calculation 97.6 mL/min (90-130) 12/02/22 18:02 Glucose 194 mg/dL (65-115) H 12/02/22 18:02 Calculated Osmolality 291 mOsm/kg (285-295) 12/02/22 18:02 Calcium 9.2 mg/dL (8.5-10.5) 12/02/22 18:02 Total Bilirubin 0.5 mg/dL (0.15-1.2) 12/02/22 18:02 AST 30 U/L (0-40) 12/02/22 18:02 ALT 38 U/L (0-41) 12/02/22 18:02 Alkaline Phosphatase 62 U/L (40-130) 12/02/22 18:02 Troponin T Baseline 6 ng/L (0-15) 12/02/22 18:02 Total Protein 7.4 g/dL (6.6-8.7) 12/02/22 18:02 Albumin 4.6 g/dL (3.5-5.2) 12/02/22 18:02 Globulin 2.8 g/dL (1.3-4.6) 12/02/22 18:02 Lipase 36 U/L (13-60) 12/02/22 18:02 Discharge Plan Discharge Patient Disposition: Home Clinical Impression: Nausea & vomiting, Incidental pulmonary nodule, > 3mm and < 8mm Condition: Stable Prescriptions: New ondansetron HCl 4 mg tablet 4 mg PO DAILY Qty: 20 0RF No Action (DME) Comfort EZ Pen [place] 33 gauge x 1/4 needle See Rx Instructions .ROUTE .MEDSUPPLY Qty: 100 2RF Rx Instructions: As directed, for use with ozempic inj pen metformin 1,000 mg tablet 1,000 mg PO BID 90 Days Qty: 180 1RF (DME) blood-glucose meter [Blood Glucose Monitoring] Kit See Rx Instructions .ROUTE .MEDSUPPLY Qty: 1 0RF Rx Instructions: Brand/type per insurance coverage (DME) Blood Glucose Test Strip See Rx Instructions .ROUTE .MEDSUPPLY Qty: 50 11RF Rx Instructions: Brand/type to go with meter per insurance coverage (DME) lancets Misc See Rx Instructions .ROUTE .MEDSUPPLY Qty: 100 11RF Rx Instructions: For use with glucose meter, brand/type per insurance Ozempic 2 mg/dose (8 mg/3 mL) pen injector 2 mg SUBCUT Q7D Qty: 3 2RF Rx Instructions: on fri Farxiga 5 mg tablet 5 mg PO QAM 30 Days Qty: 30 2RF diclofenac sodium [Voltaren Arthritis Pain] 1 % gel 4 g topical QID Qty: 100 0RF Rx Instructions: apply to affected knee as directed (DME) Diabetic shoes with 3 pairs of inserts See Rx Instructions .Route .MEDSUPPLY Qty: 1 0RF Rx Instructions: As directed HOME (DME) CAM Boot See Rx Instructions .Route .MEDSUPPLY Qty: 1 0RF Rx Instructions: As directed miscellaneous medical supply Misc See Rx Instructions miscellaneous .COMPLEX Qty: 1 0RF Rx Instructions: Auto-titrating CPAP as directed; loperamide [Imodium A-D] 2 mg tablet 2 mg PO Q4H PRN (Reason: loose stool) Qty: 60 0RF Rx Instructions: do not exceed 16 mg per 24 hrs nitroglycerin 0.4 mg tablet, sublingual 0.4 mg sublingual Q5M PRN (Reason: chest pain) Qty: 20 1RF Rx Instructions: do not exceed [address] under tongue aspirin 81 mg tablet,delayed release (DR/EC) 81 mg PO DAILY@12 (DME) Accu-Chek Guide test strips Strip See Rx Instructions .Route Qty: 100 2RF Rx Instructions: As directed (DME) lancets [Accu-Chek Fastclix Lancet Drum] [facility] [place]ructions .Route Qty: 200 3RF Rx Instructions: As directed Discharge Orders: Discharge ED (Routine); Ordered 12/02/22 Ordered By: Becky Lemus Referrals: Ana Mercedes MD [Primary Care Provider] - Discharge Diet: Usual diet Discharge Activity: Resume usual activity Patient Instructions: Opioid Safety, Pain Management Activity Restrictions/Additional Instructions: Take Zofran as needed for nausea/vomiting. Take Tylenol as needed for pain. Follow-up with your primary care physician for reevaluation and to possibly refer you to a glass blowing lathe operator to schedule an upper GI endoscopy. You have a nodule in your lung that will require further assessment. Plan on getting a CT chest in 3 to 6 months for further evaluation. Your primary care provider can arrange this. Return if you develop any new or worsening symptoms. Coding Level of Care Code ED Roof Shingler for Mo Souza
--- NOTE | 2022-12-02 18:37 | ECG_ITS ---
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 Measurements Intervals [place] Rate: 88 P: 28 CT: 144 QRS: -25 QRSD: 88 T: 33 QT: 354 QTc: 429 Interpretive Statements SINUS RHYTHM BORDERLINE LEFT AXIS DEVIATION [QRS AXIS < -20] Compared to ECG 08/05/2022 16:48:40 No significant changes Electronically Signed On 12-03-2022 11:08:56 CDT by Yessy Galarza M.D. [id number]
[2022-12-02] MEDS: iohexol 350 mg/mL 500 mL Btl (per mL) IV (18:51)
[2022-12-02 18:53] LABS: Troponin(5th) Baseline 6 ng/L (0-15)
[2022-12-02 19:03] VITALS: BP 111/70; PULSE 91; RESP 16; O2SAT 92
[2022-12-02 20:29] VITALS: BP 113/90; PULSE 80; RESP 16; O2SAT 94
[2022-12-02 21:16] VITALS: BP 127/88; PULSE 79; RESP 16; O2SAT 93
[2022-12-02 21:26] LABS: Add Urine Microscopic? YES; Bilirubin Urine Neg (Negative); Blood Urine Trace (Negative); Glucose Urine UA 1+ (Normal); Ketones Urine Negative (Negative); Leukocyte Esterase Urine Negative (Negative); Nitrate Urine Negative (Negative); Protein Urine 1+ (Negative); Specific Gravity, Urine 1.005 (1.005-1.030); Urine Appearance Clear (CLEAR); Urine Color Yellow (Yellow); Urobilinogen Urine Norm (Negative); pH Urine 6.5 (5-7)
[2022-12-02 21:27] LABS: Add Urine Culture? No; Bacteria Urine TRACE /hpf; RBC Urine 0-4 /hpf (0-2); Squamous Epithelial Cell Urine 0-4 /hpf (0-5); WBC Urine 0-4 /hpf (0-5)
[2022-12-02 21:43] VITALS: BP 127/88; PULSE 79; RESP 16; TEMP 36.6; O2SAT 93
== END 2022-12-02 21:43 | disposition home or self-care (01) ==
PROVIDERS: Emergency Medicine; Emergency Provider Family Medicine; PCP Family Medicine
DX: R11.2 Nausea with vomiting, unspecified (principal); R91.1 Solitary pulmonary nodule
CPT/HCPCS: 71045; 74177; 80053; 81001; 83690; 84484; 85025; 93005; 96361; 96374; 99285; J2405; J7030; Q9967

== ENCOUNTER → 2022-12-24 13:15 | Outpatient (BNVA) | payer MEDICARE, SELFPAY | PROVIDERS: PCP Family Medicine; Visit Provider Internal Medicine Cardiovascular Disease | DX: I25.118 Atherosclerotic heart disease of native coronary artery with other forms of angina pectoris (principal); G47.33 Obstructive sleep apnea (adult) (pediatric); E11.9 Type 2 diabetes mellitus without complications; F17.220 Nicotine dependence, chewing tobacco, uncomplicated; I11.0 Hypertensive heart disease with heart failure; I50.32 Chronic diastolic (congestive) heart failure; Z79.84 Long term (current) use of oral hypoglycemic drugs | CPT/HCPCS: 99214 ==

== ENCOUNTER → 2023-01-08 09:32 | Outpatient (BNVA) | payer MEDICARE, SELFPAY | PROVIDERS: PCP Family Medicine; Visit Provider Podiatrist Foot & Ankle Surgery | DX: M76.821 Posterior tibial tendinitis, right leg; M19.071 Primary osteoarthritis, right ankle and foot; E11.9 Type 2 diabetes mellitus without complications; G90.521 Complex regional pain syndrome I of right lower limb; Z79.84 Long term (current) use of oral hypoglycemic drugs | CPT/HCPCS: 73610; 73630; 99213 ==

== ENCOUNTER 2023-02-23 09:54 | Emergency (ER) | payer MEDICARE, SELFPAY ==
[2023-02-23 10:35] VITALS: BP 144/90; PULSE 84; RESP 16; TEMP 37.1; O2SAT 98; BMI 35.5
--- NOTE | 2023-02-23 10:59 | CTR_ITS ---
PROCEDURE INFORMATION: Exam: CT Neck With Contrast Exam date and time: 02/23/2023 12:29 PM Age: 62 years old Clinical indication: Other: Sore throat; Additional info: Difficulty swallowing TECHNIQUE: Imaging protocol: Computed tomography of the neck with contrast. Radiation optimization: All CT scans at this facility use at least one of these dose optimization techniques: automated exposure control; mA and/or kV adjustment per patient size (includes targeted exams where dose is matched to clinical indication); or iterative reconstruction. Contrast material: OMNI 350; Contrast volume: 80 ml; Contrast route: INTRAVENOUS (IV); REPORTING DATA: Count of CT and Cardiac NM exams in prior 12 months: This patient has received 3 known CTs and 0 known cardiac nuclear medicine studies in the 12 months prior to the current study. COMPARISON: CT angio headneck* [id number] 08/05/2022 5:35 PM RADIATION DOSE METRICS: Total DLP (mGy-cm): 316.83 FINDINGS: Pharynx: Heterogeneous density and thickening oropharynx and nasopharynx eccentric to the right. This extends inferiorly in the midline into the hypopharyngeal region with several areas of internal gas formation. There are additional punctate areas of gas the supraglottic region nearly extending to the level of the true cords with accompanying mild thickening of the aryepiglottic folds bilaterally. The epiglottis is not thickened. Larynx: See Pharynx finding. Prevertebral and retropharyngeal spaces: Unremarkable. Salivary glands: Normal. Glands are normal in size. Thyroid: Normal. No enlarged or calcified nodules. Lymph nodes: No lymphadenopathy. Trachea: Visualized trachea is unremarkable. Lungs: Unremarkable as visualized. Bones/joints: Degenerative changes in the cervical spine. No definite bony canal stenosis. Soft tissues: Unremarkable. No significant soft tissue swelling. Other findings: Coronary artery calcifications are noted. CT/CT neck w con* [id number] IMPRESSION: Pharyngeal abnormality centered in the supraglottic region with soft tissue thickening bubbly regions of soft tissue air. 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 There is additional soft tissue thickening involving oropharynx and nasopharynx without evidence of abscess.
[2023-02-23 11:01] VITALS: BP 150/105; PULSE 81; RESP 19; O2SAT 95
[2023-02-23 11:25] LABS: Rapid Strep A Test Negative (Negative)
[2023-02-23 11:35] LABS: Blood Urea Nitrogen 15 mg/dL (8-23); Calcium 8.9 mg/dL (8.5-10.5); Carbon Dioxide 22 mmol/L (22-29); Chloride 101 mmol/L (98-107); Creatinine Clr Calc Pharmacy 104.5328; Glomerular Filtration Rate 97.6 mL/min (90-130); Glucose 190 mg/dL (65-115); Osmolality Calculated 290 mOsm/kg (285-295); Sodium 137 mmol/L (136-145)
[2023-02-23 11:36] LABS: Anion Gap 17.7 (5-19); Potassium 3.7 mmol/L (3.5-5.1)
[2023-02-23] MEDS: iohexol 350 mg/mL 500 mL Btl (per mL) IV (12:32)
[2023-02-23 13:26] VITALS: PULSE 76; RESP 17; O2SAT 96
[2023-02-23] MEDS: cefTRIAXone 2,000 MG in sodium chloride 0.9% (plus) 50 ML 100 MG IV (14:01)
[2023-02-23] MEDS: metroNIDAZOLE IV 500 MG/100 ML PREMIX 100 MG IV (14:21)
--- NOTE | 2023-02-23 14:25 | ED_ITS ---
HPI - General Adult General: Chief complaint: General Medical Stated complaint: throat pain Time Seen by Provider: 02/23/23 10:49 History of Present Illness: This patient is a 62-year-old white male who presents to the emergency department with difficulty swallowing. This started around noon yesterday. Patient has had a sore throat and some mild congestion. He took some Mucinex yesterday afternoon. Review of Systems General: Reports: 10 or more systems reviewed and unremarkable except in HPI and below ENMT: Reports: throat pain, hoarseness and other (difficulty swallowing) PFSH ED PFSH: Medical History Atherosclerosis of coronary artery Diabetes Diabetic neuropathy Diastolic CHF, chronic Hypertension Shortness of breath Stroke-like symptom Tachycardia Surgical History History of total knee arthroplasty Family History Mother Cancer colon cancer Father Cancer Lung disease Sister Diabetes Stroke Denies family history of CAD (coronary artery disease) Clotting disorder Dementia Chronic kidney disease (CKD) Suicide Anesthesia complication Bleeding disorder Social History Smoking and tobacco/nicotine status: current every day tobacco/nicotine user (chew tabacco 1 can every other day ) smokeless tobacco Smokeless tobacco user: chewing tobacco Smokeless tobacco details: 2-3 times weekly Alcohol intake: never Substance/Drug Use: never Physical Exam Const: COMMON NORMALS: no acute distress, patient oriented x3 and no orozco itations GENERAL APPEARANCE: cooperative and comfortable HENMT: COMMON NORMALS: normocephalic, atraumatic, Normal nasal mucous membranes and turbinates present and moist oral mucous membranes HEAD & SCALP : normal to inspection, normocephalic and atraumatic FACE & SINUS: normal facial exam NOSE: Normal nasal mucous membranes and turbinates present OTHER: No tongue swelling. No erythema of post pharynx. Hoarse voice. Eye: COMMON NORMALS: Equal, round and reactive pupils present, EOMs intact bilaterally and conjunctivae normal GENERAL EYE: appearance normal, both eyes and all related structures CONJUNCTIVA: Yes conjunctivae normal PUPIL: Yes Equal, round and reactive pupils present Neck/C-Spine: COMMON NORMALS: supple and no JVD Chest: COMMONS NORMALS: normal inspection of the chest Resp: COMMON NORMALS: normal respiratory effort and clear to auscultation bilaterally AUSCULTATION: clear to auscultation bilaterally Cardio: COMMON NORMALS: no JVD, regular rate, regular rhythm, No gallops present (Cardio), No murmurs present (Cardio) and No rub (Cardio) RATE: regular rate RHYTHM: regular rhythm GI: COMMON NORMALS: Normal to inspection, nondistended, normoactive bowel sounds present, Soft to palpation and non-tender AUSCULTATION: Yes normoactive bowel sounds PALPATION: Yes Soft to palpation : COMMON NORMALS: Yes no CVA tenderness BLADDER/KIDNEY EXAM: Yes no CVA tenderness Back/Pelvis: COMMON NORMALS: no CVA tenderness and thoracic and lumbar spine normal to inspection Extremity: COMMON NORMALS: normal to inspection Neuro: COMMON NORMALS: patient oriented x3 and CN's II-XII intact bilaterally Psych: COMMON NORMALS: mental status grossly normal, Normal thought process present and cooperative THOUGHT PROCESS: Normal thought process present Skin: COMMON NORMALS: no rashes or lesions noted, turgor normal and no jaundice GENERAL SKIN EXAM: no rashes or lesions noted and turgor normal Course Vital Signs: Vital signs: Vital Signs Temperature 98.8 F 02/23/23 10:35 Pulse Rate 76 02/23/23 13:26 Respiratory Rate 17 02/23/23 13:26 Blood Pressure 150/105 02/23/23 11:01 Pulse Oximetry 96 02/23/23 13:26 Oxygen Delivery Me thod Room Air 02/23/23 13:26 MDM - General Adult Medical Decision Making With the patient's symptoms I was concerned about developing airway obstruction. CT scan of the neck was read by the radiologist. The radiologist did contact me and they do see emphysematous supraglottitis. Recommended ENT consultation. Patient tested negative for strep. BMP was normal. I did order Flagyl and Rocephin IV. I initially spoke to Dr. Negro, ENT physician here. He told me that he is not actually on-call today since he recently had surgery but he does recommend the patient be admitted to a facility that has ENT coverage. [facility] Elisabeth, nurse practitioner with the hospitalist service has accepted the patient on behalf of of Dr. Lema. Patient will be transferred as soon as the bed is available and we have transportation. He is stable. Lab Data 02/23/23 11:[address] 02/23/23 10:59 IMPRESSION: Pharyngeal abnormality centered in the supraglottic region with soft tissue thickening bubbly regions of soft tissue air. 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 There is additional soft tissue thickening involving oropharynx and nasopharynx without evidence of abscess. ADDENDUM: 02/23/[address] Mullins on 02/23/2023 at 1:02 p.m. central standard time. Laboratory Results Sodium 137 mmol/L (136-145) 02/23/23 11:13 Potassium 3.7 mmol/L (3.5-5.1) 02/23/23 11:13 Chloride 101 mmol/L (98-107) 02/23/23 11:13 Carbon Dioxide 22 mmol/L (22-29) 02/23/23 11:13 Anion Gap 17.7 (5-19) 02/23/23 11:13 BUN 15 mg/dL (8-23) 02/23/23 11:13 Creatinine 0.8 mg/dL (0.7-1.2) 02/23/23 11:13 GFR Calculation 97.6 mL/min (90-130) 02/23/23 11:13 Glucose 190 mg/dL (65-115) H 02/23/23 11:13 Calculated Osmolality 290 mOsm/kg (285-295) 02/23/23 11:13 Calcium 8.9 mg/dL (8.5-10.5) 02/23/23 11:13 Group A Strep Rapid Negative (Negative) 02/23/23 11:11 All radiology interpretation(s) finalized by discharge Discharge Plan Discharge Patient Disposition: Xfer Inpatient Rehab Fac Clinical Impression: Adult supraglottitis Condition: Stable Discharge Orders: Discharge ED (Routine); Ordered 02/23/23 Ordered By: Kameron Mullins Referrals: Ana Mercedes MD [Primary Care Provider] - Coding Level of Care Code ED Human Resources Safety Manager for Chg Libby
[2023-02-23 15:21] LABS: Basophils % 0.3 %; Hematocrit 46.3 % (37-53); Lymphocytes # 1.2 10^3/uL (0.8-4.8); Lymphocytes % 16.1 %; Mean Corpuscular HGB Conc 33.3 g/dL (30-55); Mean Corpuscular Hemoglobin 32.5 pg (27-33); Mean Corpuscular Volume 97.7 fl (82-101); Monocytes % 13.6 %; Neutrophils # 5.14 10^3/uL (1.8-7.7); Neutrophils % 69.7 %; Nucleated Red Blood Cells % 0 %; Platelet Count 113 10^3/cmm (157-399); Red Blood Count 4.74 10^6/uL (3.85-5.65); Red Cell Distribution Width 12.6 % (12.1-15.1); White Blood Count 7.37 10^3/uL (3.29-11.43)
[2023-02-23 15:25] VITALS: BP 122/77; PULSE 81; RESP 20; O2SAT 91
--- NOTE | 2023-02-23 15:26 | PC.NURSE ---
updated pt on transfer delay. pt denies pain at this time
--- NOTE | 2023-02-23 15:43 | PC.NURSE ---
report called to Kylah Currie @[id number], updated pt of transfer status
[2023-02-23 18:04] VITALS: BP 122/77; PULSE 81; RESP 20; O2SAT 91
== END 2023-02-23 18:05 ==
PROVIDERS: Emergency Provider Emergency Medicine; PCP Family Medicine
DX: J04.30 Supraglottitis, unspecified, without obstruction (principal); F17.220 Nicotine dependence, chewing tobacco, uncomplicated; I25.10 Atherosclerotic heart disease of native coronary artery without angina pectoris; E11.40 Type 2 diabetes mellitus with diabetic neuropathy, unspecified; I11.0 Hypertensive heart disease with heart failure; I50.9 Heart failure, unspecified
CPT/HCPCS: 36415; 70491; 80048; 85025; 87081; 87880; 96365; 96375; 99285; J0696; J3490; Q9967

== ENCOUNTER → 2023-03-06 08:56 | Outpatient (BNVA) | payer MEDICARE, SELFPAY | PROVIDERS: PCP Family Medicine; Visit Provider Family Medicine | DX: E11.9 Type 2 diabetes mellitus without complications (principal) | CPT/HCPCS: 80053; 83036 ==

== ENCOUNTER 2023-03-19 07:32 | Outpatient (CLI) | payer MEDICARE, SELFPAY ==
--- NOTE | 2023-03-19 08:00 | CT_ITS ---
WS: [id number] CT chest wo con [id number] HISTORY: R91.1 - Solitary pulmonary nodule TECHNIQUE: Axial imaging performed through the thorax. Coronal and sagittal reformats are submitted. All CT scans at [facility] use at least one of these dose optimization techniques: automated exposure control; mA and/or kV adjustment per patient size (includes targeted exams where dose is mat ched to clinical indication); or iterative reconstruction. CONTRAST: None DLP: 546.97 mGy.cm COMPARISON: 12/02/2022. Lungs and central airway: Slightly spiculated nodule RIGHT middle lobe is reidentified measuring 8 mm . No interval change since 12/02/2022. 5 mm pleural nodule in the RIGHT middle lobe. Benign granuloma at the RIGHT lung base. No pneumonia. Pleura: Normal. No pleural effusion. Heart and pericardium: Normal size heart with no pericardial effusion. Mediastinum and gloria: No mediastinum or hilar adenopathy. Vessels: Normal size aortic and pulmonary artery. No coronary artery calcifications. Chest wall and lower neck: No soft tissue masses. Upper abdomen: Scattered granulomata in the spleen. No adrenal mass. No destructive bone lesions. Osseous structures: No destructive process. IMPRESSION: 1. No change in the 8 mm slightly spiculated nodule in the RIGHT middle lobe as seen on 12/02/2022. Re commend follow-up chest CT in 1 year. There is an additional subpleural 5 mm RIGHT middle lobe nodule that can be reevaluated at that time also. 2. No adenopathy and no pneumonia.
== END 2023-03-19 07:33 | disposition home or self-care (01) ==
LOC: RAD 07:33
PROVIDERS: PCP Family Medicine; Visit Provider Family Medicine
DX: R91.1 Solitary pulmonary nodule (principal); R91.8 Other nonspecific abnormal finding of lung field
CPT/HCPCS: 71250

== ENCOUNTER → 2023-03-21 11:34 | Outpatient (BNVA) | payer MEDICARE, SELFPAY | PROVIDERS: PCP Family Medicine; Visit Provider Emergency Medicine | DX: J36 Peritonsillar abscess (principal); Z72.0 Tobacco use | CPT/HCPCS: 87070 ==

== ENCOUNTER 2023-03-27 07:05 | Outpatient (CLI) | payer MEDICARE, SELFPAY ==
--- NOTE | 2023-03-27 07:30 | CT_ITS ---
WS: [id number] CT NECK TECHNIQUE: Noncontrast CT of the neck with coronal and sagittal reformatted images. CLINICAL INFORMATION: J36 - Peritonsillar abscess COMPARISON: CT neck 02/23/2023 DLP: 232.[address] scans at [facility] use at least one of these dose optimization techniques: automated e xposure control; mA and/or kV adjustment per patient size (includes targeted exams where dose is matc hed to clinical indication); or iterative reconstruction. FINDINGS: Previously described emphysematous supraglottitis has resolved compared to previous. Normal parotid g lands. Normal submandibular glands. No evidence of supraglottic or glottic mass. Epiglottis has a mor e normal appearance today. No significant residual pharyngeal edema. No drainable abscess or fluid co llection. Lung apices are well aerated. Paranasal sinuses and mastoid air cells are well aerated where visualiz ed. No cervical lymphadenopathy. Normal parotid glands. Normal submandibular glands. Straightening normal cervical doses. Moderate spondylitic changes. IMPRESSION: 1. Previously described emphysematous supraglottitis has resolved. 2. No evidence of peritonsillar abscess or fluid collection. 3. No cervical lymphadenopathy. 4. No other suspicious findings.
== END 2023-03-27 07:06 | disposition home or self-care (01) ==
LOC: RAD 07:06
PROVIDERS: PCP Family Medicine; Visit Provider Emergency Medicine
DX: J36 Peritonsillar abscess (principal)
CPT/HCPCS: 70490

== ENCOUNTER → 2023-05-03 09:41 | Outpatient (BNVA) | payer MEDICARE, SELFPAY | PROVIDERS: PCP Family Medicine; Referring Provider Nurse Practitioner Family; Visit Provider Nurse Practitioner Family | DX: M54.2 Cervicalgia (principal); M47.812 Spondylosis without myelopathy or radiculopathy, cervical region | CPT/HCPCS: 72040 ==

== ENCOUNTER 2023-05-13 03:11 | Emergency (ER) | payer MEDICARE, SELFPAY ==
--- NOTE | 2023-05-13 | CTR_ITS ---
PROCEDURE INFORMATION: Exam: CT Abdomen And Pelvis Without Contrast Exam date and time: 05/13/2023 4:09 AM Age: 63 years old Clinical indication: Abdominal pain; Patient HX: C/O left flank and groin pain; Additional info: Flank pain TECHNIQUE: Imaging protocol: Computed tomography of the abdomen and pelvis without contrast. Radiation optimization: All CT scans at this facility use at least one of these dose optimization techniques: automated exposure control; mA and/or kV adjustment per patient size (includes targeted exams where dose is matched to clinical indication); or iterative reconstruction. COMPARISON: CT abdomen pelvis w con* [id number] 12/02/2022 6:51 PM RADIATION DOSE METRICS: Total DLP (mGy-cm): 942.81 FINDINGS: Liver: Normal. No mass. Gallbladder and bile ducts: Normal. No calcified stones. No ductal dilation. Pancreas: Normal. No ductal dilation. Spleen: Normal. No splenomegaly. Adrenal glands: Normal. No mass. Kidneys and ureters: Tiny nonobstructing left renal stone. Negative for hydroureteronephrosis. Stomach and bowel: No inflammatory bowel thickening. Negative for bowel obstruction or perforation. Appendix: Normal appendix. Intraperitoneal space: Unremarkable. No free air. No significant fluid collection. Vasculature: Incidental finding that the inferior vena cava is mostly spanning the left retroperitoneum and crosses to the right proximal to the renal veins. Small volume scattered plaques of abdominal aorta. Negative for aneurysm. Lymph nodes: Unremarkable. No enlarged lymph nodes. Urinary bladder: Bladder is relatively decompressed and grossly unremarkable. Reproductive: Unremarkable as visualized. Bones/joints: Unremarkable. No acute fracture. Soft tissues: Previous ring-like areas of fat necrosis within the left lower quadrant are identified. There is a new area of ring-like fat necrosis in the left lower abdominal area which is otherwise of unknown age. CT/CT kidney stone [id number] IMPRESSION: 1. There is a small new ring-like area fat necrosis in the left lower abdomen not present on 12/02/2022 which may represent epiploic appendagitis of unclear age. There is no significant associated acute stranding changes identified, so this may be subacute and unrelated to the patient presentation. 2. Otherwise, no distinct acute abdominopelvic pathology is identified.
[2023-05-13 03:17] VITALS: BP 132/86; PULSE 68; RESP 18; TEMP 36.7; O2SAT 96; BMI 29.0
[2023-05-13 03:34] VITALS: BP 127/81; PULSE 55; RESP 18; O2SAT 93
--- NOTE | 2023-05-13 03:58 | W.ED.MALEGU ---
HPI - Male Genitourinary General: Chief complaint: Urogenital-Male Stated complaint: groin pain Time Seen by Provider: 05/13/23 03:44 History of Present Illness: 63-year-old male gentleman with 2 days of left testicular pain that radiates from his left lower flank and low back into his left testicle. No testicular swelling. No urinary symptoms. No fever. No vomiting. He has been nauseated. He has been taking ibuprofen with little relief. Associated symptoms: Reports nausea; Deny vomiting Review of Systems Const: Denies: fever(s) ENMT: Denies: throat pain Card: Denies: chest pain Resp: Denies: dyspnea GI: Reports: abdominal pain and nausea; Denies: vomiting : Reports: flank pain and testicular pain Musc: Reports: back pain PFSH ED PFSH: Medical History Smokeless tobacco use Atherosclerosis of coronary artery Stroke-like symptom Diastolic CHF, chronic Hypertension Diabetic neuropathy Diabetes Tachycardia Shortness of breath Surgical History History of total knee arthroplasty Family History Mother Cancer colon cancer Father Cancer Lung disease Sister Diabetes Stroke Denies family history of CAD (coronary artery disease) Clotting disorder Dementia Chronic kidney disease (CKD) Suicide Anesthesia complication Bleeding disorder Social History Smoking and tobacco/nicotine status: current every day tobacco/nicotine user (chew tabacco 1 can every other day ) smokeless tobacco Smokeless tobacco user: chewing tobacco Smokeless tobacco details: 2-3 times weekly Alcohol intake: never Substance/Drug Use: never Physical Exam Const: COMMON NORMALS: no acute distress GENERAL APPEARANCE: cooperative; not ill appearing and not frail appearing HENMT: COMMON NORMALS: normocephalic, atraumatic and Normal external nose present HEAD & SCALP: normocephalic and atraumatic FACE & SINUS: normal facial exam and face symmetric NOSE: Normal external nose present Eye: COMMON NORMALS: Equal, round and reactive pupils present and EOMs intact bilaterally PUPIL: Yes Equal, round and reactive pupils present Neck/C-Spine: GENERAL: Yes trachea midline Chest: CHEST: Yes Symmetrical chest wall rise Resp: COMMON NORMALS: normal respiratory effort, No retractions, No use of accessory muscles and clear to auscultation bilaterally AUSCULTATION: clear to auscultation bilaterally Cardio: COMMON NORMALS: regular rate and regular rhythm RATE: regular rate RHYTHM: regular rhythm GI: COMMON NORMALS: Normal to inspection, nondistended, normoactive bowel sounds present : COMMON NORMALS: Yes no scrotal swelling BLADDER/KIDNEY EXAM: Yes CVA tenderness on the left PENIS: normal penis Back/Pelvis: GENERAL BACK: Yes CVA tenderness Extremity: COMMON NORMALS: no pedal edema Neuro: HITESH COMA SCALE: document GCS findings Hitesh coma scale eye opening: Spontaneous Hitesh coma scale verbal response: Orientated Hitesh coma scale motor response: [place] commands [place] coma scale total score: 15 SENSORY EXAM: Yes extremities (intact) Psych: COMMON NORMALS: speech normal SPEECH: Yes normal speech Skin: COMMON NORMALS: no rashes or lesions noted GENERAL SKIN EXAM: no rashes or lesions noted Course Vital Signs: Vital signs: Vital Signs Temperature 98.0 F 05/13/23 03:17 Pulse Rate 65 05/13/23 04:09 Respiratory Rate 18 05/13/23 04:27 Blood Pressure 127/81 05/13/23 03:34 Pulse Oximetry 91 05/13/23 04:27 Oxygen Delivery Me thod Room Air 05/13/23 04:09 MDM - Male Medical Decision Making 63-year-old male with left testicular, lower flank, and abdominal pain. CBC shows a platelet count of 137 is otherwise not remarkable. BMP is not remarkable. CRP is 6.8. Urinalysis is essentially not remarkable. CT scan shows epiploic appendagitis in the left lower abdomen. He will be given symptomatic control medication. Close outpatient follow-up. Return for concerns. Lab Data 05/13/23 04:20 05/13/23 04:20 Radiology Impressions Abdomen/Pelvis CT 05/13/23 00:00 IMPRESSION: 1. There is a small new ring-like area fat necrosis in the left lower abdomen not present on 12/02/2022 which may represent epiploic appendagitis of unclear age. There is no significant associated acute stranding changes identified, so this may be subacute and unrelated to the patient presentation. 2. Otherwise, no distinct acute abdominopelvic pathology is identified. Laboratory Results WBC 3.48 10^3/uL (3.29-11.43) 05/13/23 04:20 RBC 4.82 10^6/uL (3.85-5.65) 05/13/23 04:20 Hgb 15.80 g/dL (11.27-16.99) 05/13/23 04:20 Hct 46.3 % (37-53) 05/13/23 04:20 MCV 96.1 fl (82-101) 05/13/23 04:20 MCH 32.8 pg (27-33) 05/13/23 04:20 MCHC 34.1 g/dL (30-55) 05/13/23 04:20 RDW 12.4 % (12.1-15.1) 05/13/23 04:20 Plt Count 137 10^3/cmm (157-399) L 05/13/23 04:20 MPV 10.7 fL (7.4-10.4) H 05/13/23 04:20 Neut % (Auto) 53.1 % 05/13/23 04:20 Lymph % (Auto) 27.6 % 05/13/23 04:20 [place] % (Auto) 16.1 % 05/13/23 04:20 Eos % (Auto) 2.0 % 05/13/23 04:20 Baso % (Auto) 0.9 % 05/13/23 04:20 Neut # (Auto) 1.85 10^3/uL (1.8-7.7) 05/13/23 04:20 Lymph # (Auto) 1.0 10^3/uL (0.8-4.8) 05/13/23 04:20 [place] # (Auto) 0.6 10^3/uL (0.2-0.9) 05/13/23 04:20 Eos # (Auto) 0.1 10^3/uL (0.0-0.8) 05/13/23 04:20 Baso # (Auto) 0.0 10^3/uL (0.0-0.1) 05/13/23 04:20 Nucleated RBC % (auto) 0 % 05/13/23 04:20 Nucleated RBCs # 0.0 /100WBC 05/13/23 04:20 Sodium 138 mmol/L (136-145) 05/13/23 04:20 Potassium 3.8 mmol/L (3.5-5.1) 05/13/23 04:20 Chloride 99 mmol/L (98-107) 05/13/23 04:20 Carbon Dioxide 27 mmol/L (22-29) 05/13/23 04:20 Anion Gap 15.8 (5-19) 05/13/23 04:20 BUN 13 mg/dL (8-23) 05/13/23 04:20 Creatinine 0.8 mg/dL (0.7-1.2) 05/13/23 04:20 GFR Calculation 97.3 mL/min (90-130) 05/13/23 04:20 Glucose 197 mg/dL (65-115) H 05/13/23 04:20 Calculated Osmolality 292 mOsm/kg (285-295) 05/13/23 04:20 Calcium 9.3 mg/dL (8.5-10.5) 05/13/23 04:20 Total Bilirubin 0.6 mg/dL (0.15-1.2) 05/13/23 04:20 AST 58 U/L (0-40) H 05/13/23 04:20 ALT 50 U/L (0-41) H 05/13/23 04:20 Alkaline Phosphatase 57 U/L (40-130) 05/13/23 04:20 C-Reactive Protein 6.8 mg/L (0.0-4.9) H 05/13/23 04:20 Total Protein 7.2 g/dL (6.6-8.7) 05/13/23 04:20 Albumin 4.3 g/dL (3.5-5.2) 05/13/23 04:20 Globulin 2.9 g/dL (1.3-4.6) 05/13/23 04:20 Urine Color Yael (Yellow) 05/13/23 04:29 Urine Appearance Hazy (CLEAR) A 05/13/23 04:29 Urine pH 5 (5-7) 05/13/23 04:29 Ur Specific [place] 1.030 (1.005-1.030) 05/13/23 04:29 Urine Protein 1+ (Negative) H 05/13/23 04:29 Urine Glucose (UA) 2+ (Normal) H 05/13/23 04:29 Urine Ketones 1+ (Negative) H 05/13/23 04:29 Urine Blood 2+ (Negative) H 05/13/23 04:29 Urine Nitrate Negative (Negative) 05/13/23 04:29 Urine Bilirubin 1+ (Negative) H 05/13/23 04:29 Urine Urobilinogen Norm mg/dL (Negative) 05/13/23 04:29 Ur Leukocyte Esterase Trace (Negative) H 05/13/23 04:29 Urine RBC 5-10 /hpf (0-2) H 05/13/23 04:29 Urine WBC 5-10 /hpf (0-5) H 05/13/23 04:29 Ur Squamous Epith Cells 0-4 /hpf (0-5) H 05/13/23 04:29 Calcium Oxalate Crystal 0-4 /hpf H 05/13/23 04:29 Amorphous Sediment 2+ /hpf 05/13/23 04:29 Urine Bacteria 3+ /hpf (NONE) H 05/13/23 04:29 Urine Mucus 2+ /hpf 05/13/23 04:29 All radiology interpretation(s) finalized by discharge Discharge Plan Discharge Patient Disposition: Home Clinical Impression: Epiploic appendagitis Condition: Stable Prescriptions: New hydrocodone-acetaminophen 5-325 mg tablet 1 tab PO Q8H PRN (Reason: pain) Qty: 7 0RF ketorolac 10 mg tablet 10 mg PO TID PRN (Reason: pain) Qty: 10 0RF No Action (DME) Comfort EZ Pen [place] 33 gauge x 1/4 needle See Rx Instructions .ROUTE .MEDSUPPLY Qty: 100 2RF Rx Instructions: As directed, for use with ozempic inj pen ranolazine 500 mg tablet extended release 12 hr 500 mg PO BID 60 Days Qty: 120 5RF (DME) Diabetic shoes with 3 pairs of inserts See Rx Instructions .Route .MEDSUPPLY Qty: 1 0RF Rx Instructions: As directed HOME (DME) CAM Boot See Rx Instructions .Route .MEDSUPPLY Qty: 1 0RF Rx Instructions: As directed (DME) Blood Glucose Test Strip See Rx Instructions .ROUTE .MEDSUPPLY Qty: 50 11RF Rx Instructions: USe to test blood sugar 3 times daily (DME) lancets Misc See Rx Instructions .ROUTE .MEDSUPPLY Qty: 100 11RF Rx Instructions: Use to test blood sugar 3 times daily dapagliflozin propanediol 10 mg tablet 10 mg PO QAM 30 Days Qty: 30 6RF diclofenac sodium [Voltaren Arthritis Pain] 1 % gel 4 g topical QID Qty: 100 5RF Rx Instructions: apply to feet omeprazole 20 mg capsule,delayed release(DR/EC) 20 mg PO DAILY 90 Days Qty: 90 2RF dexamethasone 4 mg tablet 8 mg PO DAILY 1 Days Qty: 2 0RF levofloxacin 750 mg tablet 750 mg PO DAILY 7 Days Qty: 7 0RF triamcinolone acetonide 0.1 % ointment 1 applic topical BID Qty: 15 0RF (DME) AFO right ankle See Rx Instructions .Route .MEDSUPPLY Qty: 1 0RF Rx Instructions: As directed by Leroy Khan Digestive Probiotic as directed nitroglycerin 0.4 mg tablet, sublingual See Rx Instructions .ROUTE .COMPLEX Qty: 25 1RF Dose Instruction: 1 tablet sublingually every 5 minutes As Needed for chest pain; do not exceed [address] under tongue Rx Instructions: 1 tablet sublingually every 5 minutes As Needed for chest pain; do not exceed [address] under tongue (DME) blood-glucose meter [Blood Glucose Monitoring] Kit See Rx Instructions .ROUTE .MEDSUPPLY Qty: 1 0RF Rx Instructions: Use to test blood sugar three times daily aspirin 81 mg tablet,delayed release (DR/EC) 81 mg PO DAILY@12 ondansetron HCl 4 mg tablet 4 mg PO DAILY Qty: 20 0RF (DME) lancets [Accu-Chek Fastclix Lancet Drum] [facility] [place] See Rx Instructions .Route Qty: 200 3RF Rx Instructions: As directed Crestor 5 mg tablet 5 mg PO QPM Discharge Orders: Discharge ED (Routine); Ordered 05/13/23 Ordered By: Tanner Lei Referrals: Ana Mercedes MD [Primary Care Provider] - 4-7 days Patient Instructions: Epiploic Appendagitis (ED), Opioid Safety, Pain Management Activity Restrictions/Additional Instructions: Pain will likely go away on its own after a couple of days. Alternate pain medication that was prescribed to you for discomfort. Ice may help as well. Return for fever, vomiting liquids, blood in the urine or stool, increasing pain despite treatment, other concerning symptoms. Coding Level of Care Code ED Superintendent Nonselling for Mo Souza
[2023-05-13 04:09] VITALS: PULSE 65; RESP 18; O2SAT 90
[2023-05-13] MEDS: sodium chloride 0.9% 1,000 ML 999 ML IV (04:24)
[2023-05-13] MEDS: ondansetron 2 mg/ML SDV 2 mL 4 MG IVP (04:25)
[2023-05-13 04:27] VITALS: RESP 18; O2SAT 91
[2023-05-13] MEDS: morphine 4 mg/mL SDV 1 mL IVP (04:27)
[2023-05-13 04:37] LABS: Basophils % 0.9 %; Eosinophils # 0.1 10^3/uL (0.0-0.8); Hematocrit 46.3 % (37-53); Lymphocytes % 27.6 %; Mean Corpuscular HGB Conc 34.1 g/dL (30-55); Mean Corpuscular Hemoglobin 32.8 pg (27-33); Mean Corpuscular Volume 96.1 fl (82-101); Mean Platelet Volume 10.7 fL (7.4-10.4); Monocytes # 0.6 10^3/uL (0.2-0.9); Monocytes % 16.1 %; Neutrophils # 1.85 10^3/uL (1.8-7.7); Neutrophils % 53.1 %; Nucleated Red Blood Cells % 0 %; Platelet Count 137 10^3/cmm (157-399); Red Blood Count 4.82 10^6/uL (3.85-5.65); Red Cell Distribution Width 12.4 % (12.1-15.1); White Blood Count 3.48 10^3/uL (3.29-11.43)
[2023-05-13 04:49] LABS: Add Urine Microscopic? YES; Bilirubin Urine 1+ (Negative); Blood Urine 2+ (Negative); Glucose Urine UA 2+ (Normal); Ketones Urine 1+ (Negative); Leukocyte Esterase Urine Trace (Negative); Nitrate Urine Negative (Negative); Protein Urine 1+ (Negative); Urine Appearance Hazy (CLEAR); Urine Color Amber (Yellow); Urobilinogen Urine Norm (Negative); pH Urine 5 (5-7)
[2023-05-13 04:51] LABS: Add Urine Culture? Yes; Amorphous Sediment Urine 2+ /hpf; Bacteria Urine 3+ /hpf; Calcium Oxalate Crystals Urine 0-4 /hpf; Mucus Urine 2+ /hpf; Squamous Epithelial Cell Urine 0-4 /hpf (0-5)
[2023-05-13 04:58] LABS: Alanine Aminotransferase 50 U/L (0-41); Albumin Level 4.3 g/dL (3.5-5.2); Alkaline Phosphatase 57 U/L (40-130); Anion Gap 15.8 (5-19); Aspartate Amino Transferase 58 U/L (0-40); Blood Urea Nitrogen 13 mg/dL (8-23); C Reactive Protein 6.8 mg/L (0.0-4.9); Calcium 9.3 mg/dL (8.5-10.5); Carbon Dioxide 27 mmol/L (22-29); Chloride 99 mmol/L (98-107); Creatinine Clr Calc Pharmacy 93.5998; Globulin 2.9 g/dL (1.3-4.6); Glomerular Filtration Rate 97.3 mL/min (90-130); Glucose 197 mg/dL (65-115); Osmolality Calculated 292 mOsm/kg (285-295); Potassium 3.8 mmol/L (3.5-5.1); Sodium 138 mmol/L (136-145); Total Bilirubin 0.6 mg/dL (0.15-1.2); Total Protein 7.2 g/dL (6.6-8.7)
[2023-05-13 06:20] VITALS: BP 130/93; PULSE 63; O2SAT 92
[2023-05-13 06:32] VITALS: BP 130/93; PULSE 66; RESP 18; O2SAT 95
== END 2023-05-13 06:26 | disposition home or self-care (01) ==
PROVIDERS: Emergency Provider Emergency Medicine; PCP Family Medicine
DX: K63.89 Other specified diseases of intestine (principal); Z79.82 Long term (current) use of aspirin; F17.220 Nicotine dependence, chewing tobacco, uncomplicated; I25.10 Atherosclerotic heart disease of native coronary artery without angina pectoris; I11.0 Hypertensive heart disease with heart failure; I50.30 Unspecified diastolic (congestive) heart failure; E11.42 Type 2 diabetes mellitus with diabetic polyneuropathy
CPT/HCPCS: 74176; 80053; 81001; 85025; 86140; 87086; 96361; 96374; 96375; 99285; J2270; J2405; J7030

== ENCOUNTER 2023-05-15 10:09 | Emergency (ER) | payer MEDICARE, SELFPAY ==
[2023-05-15 10:25] VITALS: BP 131/82; PULSE 89; TEMP 36.7; O2SAT 96; BMI 29.2
[2023-05-15 11:02] LABS: Basophils % 0.7 %; Eosinophils # 0.1 10^3/uL (0.0-0.8); Eosinophils % 2.4 %; Hematocrit 48.1 % (37-53); Lymphocytes # 0.8 10^3/uL (0.8-4.8); Lymphocytes % 27.5 %; Mean Corpuscular HGB Conc 33.7 g/dL (30-55); Mean Corpuscular Hemoglobin 32.3 pg (27-33); Mean Corpuscular Volume 95.8 fl (82-101); Mean Platelet Volume 10.3 fL (7.4-10.4); Monocytes # 0.4 10^3/uL (0.2-0.9); Monocytes % 12.7 %; Neutrophils # 1.65 10^3/uL (1.8-7.7); Neutrophils % 56.7 %; Nucleated Red Blood Cells % 0 %; Platelet Count 115 10^3/cmm (157-399); Red Blood Count 5.02 10^6/uL (3.85-5.65); Red Cell Distribution Width 12.4 % (12.1-15.1); White Blood Count 2.91 10^3/uL (3.29-11.43)
[2023-05-15] MEDS: sodium chloride 0.9% 1,000 ML 999 ML IV (11:12)
--- NOTE | 2023-05-15 11:12 | ECG_ITS ---
[facility] Test Date: 2023-05-15 Pat Name: Mikala Wright Department: Room: Gender: Male Induction Brazer: : 1960 Requested By: Dayana Durand Order Number: [id number] Yisel MD: Arsenio Ware M.D. Measurements Intervals [place] Rate: 66 P: 35 HI: 146 QRS: -30 QRSD: 89 T: 28 QT: 379 QTc: 399 Interpretive Statements SINUS RHYTHM WITH SINUS ARRHYTHMIA BORDERLINE LEFT AXIS DEVIATION [QRS AXIS < -20] Compared to ECG 12/02/2022 18:37:33 No significant changes Electronically Signed On 05-15-2023 18:30:33 CAMPER ASSEMBLER by Arsenio Ware M.D. [id number]
--- NOTE | 2023-05-15 11:13 | ED_ITS ---
HPI - Nausea/Vomiting/Diarrhea 2 General: Chief complaint: Nausea/Vomiting/Diarrhea Stated complaint: N/V, cold sweats Time Seen by Provider: 05/15/23 11:01 Source: patient Mode of arrival: ambulatory Limitations: no limitations History of Present Illness: 63-year-old male states he has been havi ng abdominal and flank pain has been going on for 3 days he states he has had decreased appetite along with some cold sweats nausea vomiting. States his pain is seem to improve he still states he has no appetite he was seen here 2 days ago had a CT scan he thought that showed kidney stones I reviewed the scan showed no signs of stones he did have epiploic appendagitis. He denies any fevers denies any chest pain denies any worsening improving factors. Associated nausea: Yes Associated symtoms: Reports nausea; Denies chest pain, dysuria or headache(s) Review of Systems 2 Const: Reports: change in appetite; Denies: fever(s), chills or body aches ENMT: Denies: throat pain or dental pain Card: Denies: chest pain Resp: Denies: dyspnea GI: Reports: abdominal pain, nausea and vomiting; Denies: diarrhea : Denies: dysuria Musc: Denies: neck pain or back pain Skin/Breast: Denies: rash Neuro: Denies: headache(s) PFSH ED 2 PFSH: Medical History Smokeless tobacco use Atherosclerosis of coronary artery Stroke-like symptom Diastolic CHF, chronic Hypertension Diabetic neuropathy Diabetes Tachycardia Shortness of breath Surgical History History of total knee arthroplasty Family History Mother Cancer colon cancer Father Cancer Lung disease Sister Diabetes Stroke Denies family history of CAD (coronary artery disease) Clotting disorder Dementia Chronic kidney disease (CKD) Suicide Anesthesia complication Bleeding disorder Social History Smoking and tobacco/nicotine status: current every day tobacco/nicotine user (chew tabacco 1 can every other day ) smokeless tobacco Smokeless tobacco user: chewing tobacco Smokeless tobacco details: 2-3 times weekly Alcohol intake: never Substance/Drug Use: never Physical Exam 2 Const: COMMON NORMALS: no acute distress, patient oriented x3 and healthy appearing HENMT: COMMON NORMALS: normocephalic and atraumatic HEAD & SCALP: n ormocephalic and atraumatic Eye: COMMON NORMALS: conjunctivae normal CONJUNCTIVA: Yes conjunctivae normal Neck/C-Spine: COMMON NORMALS: full ROM and supple Chest: COMMONS NORMALS: normal inspection of the chest Resp: COMMON NORMALS: normal respiratory effort, No retractions, No use of accessory muscles and clear to auscultation bilaterally AUSCULTATION: clear to auscultation bilaterally Cardio: COMMON NORMALS: regular rate, regular rhythm and No murmurs present (Cardio) RATE: regular rate RHYTHM: regular rhythm GI: COMMON NORMALS: Normal to inspection, nondistended, normoactive bowel sounds present, Soft to palpation, non-tender and no masses PALPATION: Yes Soft to palpation Extremity: COMMON NORMALS: normal to inspection and full ROM Neuro: COMMON NORMALS: patient oriented x3, moves all extremities and no focal motor deficits Psych: COMMON NORMALS: mental status grossly normal, Normal thought process present and cooperative THOUGHT PROCESS: Normal thought process present Skin: COMMON NORMALS: no rashes or lesions noted and no wounds GENERAL SKIN EXAM: no rashes or lesions noted Course 2 Vital Signs: Vital signs: Vital Signs Temperature 98.1 F 05/15/23 10:25 Pulse Rate 78 05/15/23 11:34 Respiratory Rate 16 05/15/23 11:34 Blood Pressure 142/95 05/15/23 11:34 Pulse Oximetry 94 05/15/23 11:34 Oxygen Delivery Me thod Room Air 05/15/23 11:34 MDM - Nausea/Vomiting/Diarrhea Medical Decision Making Patient presents here with vomiting with mild abdominal pains blood work here is normal CT did show epiploic appendagitis likely causing his pain will prescribe nausea medicine he is to follow-up with PCP and return if worsening he understands agrees to plan. Medical Records I reviewed the patient's medical records. Lab Data I reviewed the patient's lab results. 05/15/23 10:52 05/15/23 10:52 Laboratory Results WBC 2.91 10^3/uL (3.29-11.43) L 05/15/23 10:52 RBC 5.02 10^6/uL (3.85-5.65) 05/15/23 10:52 Hgb 16.20 g/dL (11.27-16.99) 05/15/23 10:52 Hct 48.1 % (37-53) 05/15/23 10:52 MCV 95.8 fl (82-101) 05/15/23 10:52 MCH 32.3 pg (27-33) 05/15/23 10:52 MCHC 33.7 g/dL (30-55) 05/15/23 10:52 RDW 12.4 % (12.1-15.1) 05/15/23 10:52 Plt Count 115 10^3/cmm (157-399) L 05/15/23 10:52 MPV 10.3 fL (7.4-10.4) 05/15/23 10:52 Neut % (Auto) 56.7 % 05/15/23 10:52 Lymph % (Auto) 27.5 % 05/15/23 10:52 [place] % (Auto) 12.7 % 05/15/23 10:52 Eos % (Auto) 2.4 % 05/15/23 10:52 Baso % (Auto) 0.7 % 05/15/23 10:52 Neut # (Auto) 1.65 10^3/uL (1.8-7.7) L 05/15/23 10:52 Lymph # (Auto) 0.8 10^3/uL (0.8-4.8) 05/15/23 10:52 [place] # (Auto) 0.4 10^3/uL (0.2-0.9) 05/15/23 10:52 Eos # (Auto) 0.1 10^3/uL (0.0-0.8) 05/15/23 10:52 Baso # (Auto) 0.0 10^3/uL (0.0-0.1) 05/15/23 10:52 Nucleated RBC % (auto) 0 % 05/15/23 10:52 Nucleated RBCs # 0.0 /100WBC 05/15/23 10:52 Sodium 138 mmol/L (136-145) 05/15/23 10:52 Potassium 3.7 mmol/L (3.5-5.1) 05/15/23 10:52 Chloride 101 mmol/L (98-107) 05/15/23 10:52 Carbon Dioxide 26 mmol/L (22-29) 05/15/23 10:52 Anion Gap 14.7 (5-19) 05/15/23 10:52 BUN 11 mg/dL (8-23) 05/15/23 10:52 Creatinine 0.7 mg/dL (0.7-1.2) 05/15/23 10:52 GFR Calculation 113.5 mL/min (90-130) 05/15/23 10:52 Glucose 208 mg/dL (65-115) H 05/15/23 10:52 Calculated Osmolality 291 mOsm/kg (285-295) 05/15/23 10:52 Calcium 9.0 mg/dL (8.5-10.5) 05/15/23 10:52 Total Bilirubin 0.6 mg/dL (0.15-1.2) 05/15/23 10:52 AST 40 U/L (0-40) 05/15/23 10:52 ALT 44 U/L (0-41) H 05/15/23 10:52 Alkaline Phosphatase 57 U/L (40-130) 05/15/23 10:52 Total Protein 7.1 g/dL (6.6-8.7) 05/15/23 10:52 Albumin 4.2 g/dL (3.5-5.2) 05/15/23 10:52 Globulin 2.9 g/dL (1.3-4.6) 05/15/23 10:52 Lipase 36 U/L (13-60) 05/15/23 10:52 Urine Color Yellow (Yellow) 05/15/23 11:42 Urine Appearance Sl hazy (CLEAR) A 05/15/23 11:42 Urine pH 5 (5-7) 05/15/23 11:42 Ur Specific [place] 1.025 (1.005-1.030) 05/15/23 11:42 Urine Protein 1+ (Negative) H 05/15/23 11:42 Urine Glucose (UA) 4+ (Normal) H 05/15/23 11:42 Urine Ketones 1+ (Negative) H 05/15/23 11:42 Urine Blood Neg (Negative) 05/15/23 11:42 Urine Nitrate Negative (Negative) 05/15/23 11:42 Urine Bilirubin Neg (Negative) 05/15/23 11:42 Urine Urobilinogen 1 mg/dL (Negative) H 05/15/23 11:42 Ur Leukocyte Esterase Negative (Negative) 05/15/23 11:42 Urine RBC None /hpf (0-2) 05/15/23 11:42 Urine WBC 0-4 /hpf (0-5) H 05/15/23 11:42 Ur Squamous Epith Cells 0-4 /hpf (0-5) H 05/15/23 11:42 Ur Renal Epithelial Cell 1 /hpf 05/15/23 11:42 Amorphous Sediment Not Reportable 05/15/23 11:42 Urine Bacteria None /hpf (NONE) 05/15/23 11:42 Urine Mucus 2+ /hpf 05/15/23 11:42 No radiology studies performed this visit Discharge Plan Discharge Patient Disposition: Home Clinical Impression: Vomiting, Epiploic appendagitis Condition: Stable Prescriptions: New ondansetron 4 mg tablet,disintegrating 4 mg PO Q6H PRN (Reason: nausea and vomiting) Qty: 14 0RF No Action (DME) Comfort EZ Pen [place] 33 gauge x 1/4 needle See Rx Instructions .ROUTE .MEDSUPPLY Qty: 100 2RF Rx Instructions: As directed, for use with ozempic inj pen ranolazine 500 mg tablet extended release 12 hr 500 mg PO BID 60 Days Qty: 120 5RF (DME) Diabetic shoes with 3 pairs of inserts See Rx Instructions .Route .MEDSUPPLY Qty: 1 0RF Rx Instructions: As directed HOME (DME) CAM Boot See Rx Instructions .Route .MEDSUPPLY Qty: 1 0RF Rx Instructions: As directed (DME) Blood Glucose Test Strip See Rx Instructions .ROUTE .MEDSUPPLY Qty: 50 11RF Rx Instructions: USe to test blood sugar 3 times daily (DME) lancets Misc See Rx Instructions .ROUTE .MEDSUPPLY Qty: 100 11RF Rx Instructions: Use to test blood sugar 3 times daily omeprazole 20 mg capsule,delayed release(DR/EC) 20 mg PO DAILY 90 Days Qty: 90 2RF triamcinolone acetonide 0.1 % ointment 1 applic topical BID Qty: 15 0RF (DME) AFO right ankle See Rx Instructions .Route .MEDSUPPLY Qty: 1 0RF Rx Instructions: As directed by Leroy Khan nitroglycerin 0.4 mg tablet, sublingual See Rx Instructions .ROUTE .COMPLEX Qty: 25 1RF Dose Instruction: 1 tablet sublingually every 5 minutes As Needed for chest pain; do not exceed [address] under tongue Rx Instructions: 1 tablet sublingually every 5 minutes As Needed for chest pain; do not exceed [address] under tongue (DME) blood-glucose meter [Blood Glucose Monitoring] Kit See Rx Instructions .ROUTE .MEDSUPPLY Qty: 1 0RF Rx Instructions: Use to test blood sugar three times daily aspirin 81 mg tablet,delayed release (DR/EC) 81 mg PO DAILY@12 hydrocodone-acetaminophen 5-325 mg tablet 1 tab PO Q8H PRN (Reason: pain) Qty: 7 0RF ketorolac 10 mg tablet 10 mg PO TID PRN (Reason: pain) Qty: 10 0RF Probiotic 3 billion cell Capsule 3,000 mmu cells PO DAILY Farxiga 10 mg tablet 10 mg PO QAM losartan 50 mg tablet 75 mg PO DAILY metformin 1,000 mg tablet 1,000 mg PO BID (DME) lancets [Accu-Chek Fastclix Lancet Drum] Misc See Rx Instructions .Route Qty: 200 3RF Rx Instructions: As directed rosuvastatin [Crestor] 5 mg tablet 5 mg PO QPM Discharge Orders: Discharge ED (Routine); Ordered 05/15/23 Ordered By: Dayana Durand Referrals: Ana Mercedes MD [Primary Care Provider] - 1-3 days Discharge Diet: Advance as tolerated Discharge Activity: Resume usual activity Patient Instructions: Acute Nausea and Vomiting (ED), Epiploic Appendagitis (ED) Coding Level of Care Code ED Cotton Breeder for Mo Souza
[2023-05-15 11:23] LABS: Alanine Aminotransferase 44 U/L (0-41); Albumin Level 4.2 g/dL (3.5-5.2); Alkaline Phosphatase 57 U/L (40-130); Anion Gap 14.7 (5-19); Aspartate Amino Transferase 40 U/L (0-40); Blood Urea Nitrogen 11 mg/dL (8-23); Carbon Dioxide 26 mmol/L (22-29); Chloride 101 mmol/L (98-107); Globulin 2.9 g/dL (1.3-4.6); Glomerular Filtration Rate 113.5 mL/min (90-130); Glucose 208 mg/dL (65-115); Lipase 36 U/L (13-60); Osmolality Calculated 291 mOsm/kg (285-295); Potassium 3.7 mmol/L (3.5-5.1); Sodium 138 mmol/L (136-145); Total Bilirubin 0.6 mg/dL (0.15-1.2); Total Protein 7.1 g/dL (6.6-8.7)
--- NOTE | 2023-05-15 11:27 | PC.PHAR ---
PT STATES HE'S BEEN UNABLE TO TAKE ANY MEDICATIONS FOR 2 DAYS. 05/15/23
[2023-05-15 11:34] VITALS: BP 142/95; PULSE 78; RESP 16; O2SAT 94
[2023-05-15 12:10] LABS: Add Urine Microscopic? YES; Bilirubin Urine Neg (Negative); Blood Urine Neg (Negative); Glucose Urine UA 4+ (Normal); Ketones Urine 1+ (Negative); Leukocyte Esterase Urine Negative (Negative); Nitrate Urine Negative (Negative); Protein Urine 1+ (Negative); Specific Gravity, Urine 1.025 (1.005-1.030); Urine Appearance SL Hazy (CLEAR); Urine Color Yellow (Yellow); Urobilinogen Urine 1 mg/dL (Negative); pH Urine 5 (5-7)
[2023-05-15 12:15] LABS: Renal Epithelial Cells Urine 1 /hpf; Squamous Epithelial Cell Urine 0-4 /hpf (0-5); WBC Urine 0-4 /hpf (0-5)
[2023-05-15 12:16] LABS: Add Urine Culture? No; Mucus Urine 2+ /hpf
[2023-05-15 13:26] VITALS: BP 122/72; PULSE 82; O2SAT 98
== END 2023-05-15 13:28 | disposition home or self-care (01) ==
PROVIDERS: Emergency Provider Emergency Medicine; PCP Family Medicine
DX: K63.89 Other specified diseases of intestine (principal); R11.11 Vomiting without nausea; Z79.82 Long term (current) use of aspirin; Z79.84 Long term (current) use of oral hypoglycemic drugs; F17.220 Nicotine dependence, chewing tobacco, uncomplicated; I11.0 Hypertensive heart disease with heart failure; I50.30 Unspecified diastolic (congestive) heart failure; E11.42 Type 2 diabetes mellitus with diabetic polyneuropathy
CPT/HCPCS: 36415; 80053; 81001; 83690; 85025; 93005; 99284; J7030

== ENCOUNTER → 2023-07-09 11:16 | Outpatient (BNVA) | payer MEDICARE, SELFPAY | PROVIDERS: PCP Family Medicine; Visit Provider Internal Medicine Cardiovascular Disease | DX: R07.9 Chest pain, unspecified (principal); R00.0 Tachycardia, unspecified; I25.118 Atherosclerotic heart disease of native coronary artery with other forms of angina pectoris; E78.1 Pure hyperglyceridemia; I11.0 Hypertensive heart disease with heart failure; I50.32 Chronic diastolic (congestive) heart failure; E11.9 Type 2 diabetes mellitus without complications; Z72.0 Tobacco use; R94.31 Abnormal electrocardiogram [ECG] [EKG] | CPT/HCPCS: 93005; 99214 ==

== ENCOUNTER → 2023-07-11 12:57 | Outpatient (BNVA) | payer MEDICARE, SELFPAY | PROVIDERS: PCP Family Medicine; Visit Provider Emergency Medicine | DX: M25.562 Pain in left knee (principal); M17.12 Unilateral primary osteoarthritis, left knee | CPT/HCPCS: 73562 ==

== ENCOUNTER → 2023-07-12 08:53 | Outpatient (BNVA) | payer MEDICARE, SELFPAY | PROVIDERS: PCP Family Medicine; Visit Provider Nurse Practitioner Family | DX: L57.0 Actinic keratosis (principal); L82.0 Inflamed seborrheic keratosis; L57.8 Other skin changes due to chronic exposure to nonionizing radiation; L81.4 Other melanin hyperpigmentation; L82.1 Other seborrheic keratosis; Z85.828 Personal history of other malignant neoplasm of skin | CPT/HCPCS: 17000; 17110; 99213 ==

== ENCOUNTER → 2023-08-13 08:06 | Outpatient (BNVA) | payer MEDICARE, SELFPAY | PROVIDERS: PCP Family Medicine; Visit Provider Podiatrist Foot & Ankle Surgery | DX: E11.9 Type 2 diabetes mellitus without complications; M76.821 Posterior tibial tendinitis, right leg; M19.071 Primary osteoarthritis, right ankle and foot; Z79.84 Long term (current) use of oral hypoglycemic drugs | CPT/HCPCS: 99213 ==

== ENCOUNTER → 2023-08-20 08:48 | Outpatient (BNVA) | payer MEDICARE, SELFPAY | PROVIDERS: PCP Family Medicine; Referring Provider Emergency Medicine; Visit Provider Student in an Organized Health Care Education/Training Program | DX: M17.12 Unilateral primary osteoarthritis, left knee; Z46.89 Encounter for fitting and adjustment of other specified devices | CPT/HCPCS: 20610; 73560; 73565; 97760; 99204; L1851 ==

== ENCOUNTER 2023-08-20 14:42 | Outpatient (CLI) | payer MEDICARE, SELFPAY | END 2023-08-20 14:43 | disposition home or self-care (01) | LOC: SPT 14:43 | PROVIDERS: PCP Family Medicine; Visit Provider Student in an Organized Health Care Education/Training Program | DX: Z46.89 Encounter for fitting and adjustment of other specified devices (principal); M17.12 Unilateral primary osteoarthritis, left knee | CPT/HCPCS: 20610; 97760; 99204; L1851 ==

== ENCOUNTER → 2023-09-03 08:31 | Outpatient (BNVA) | payer MEDICARE, SELFPAY | PROVIDERS: PCP Family Medicine; Visit Provider Family Medicine | DX: E11.9 Type 2 diabetes mellitus without complications (principal); E78.1 Pure hyperglyceridemia; I10 Essential (primary) hypertension; E11.42 Type 2 diabetes mellitus with diabetic polyneuropathy; K29.30 Chronic superficial gastritis without bleeding; M17.12 Unilateral primary osteoarthritis, left knee | CPT/HCPCS: 80048; 80061; 83036 ==

== ENCOUNTER 2023-09-08 12:39 | Emergency (ER) | payer MEDICARE, SELFPAY ==
--- NOTE | 2023-09-08 12:46 | XRR_ITS ---
PROCEDURE INFORMATION: Exam: XR Left Knee Exam date and time: 09/08/2023 1:31 PM Age: 63 years old Clinical indication: Pain; Knee; Left; Additional info: Injury TECHNIQUE: Imaging protocol: Radiologic exam of the left knee. Views: 3 views. COMPARISON: CR XR knees AP WB w LT lmt ORTH 08/20/2023 8:49 AM FINDINGS: Bones/joints: Degenerative disease of the left knee joint. No knee joint effusion. No acute fracture or dislocation. Suspicion of a Washburn's cyst. Soft tissues: Normal. Vasculature: Vascular calcifications. XR/XR knee LT 3V* [id number] IMPRESSION: No acute fracture or dislocation.
[2023-09-08 13:02] VITALS: BP 158/93; PULSE 91; RESP 17; TEMP 36.7; O2SAT 94; BMI 38.4
[2023-09-08 13:24] VITALS: BP 141/101; PULSE 87; RESP 18; O2SAT 92
--- NOTE | 2023-09-08 13:26 | W.ED.FALL ---
HPI - Fall General: Chief Complaint: Fall Stated Complaint: Left knee buckling causing falls Time Seen by Provider: 09/08/23 13:25 History of Present Illness: 63-year-old male patient comes in today with for complaints of left knee buckling. Patient reports he had slipped and fell last night and then today while going down some steps. Patient is at this time being seen by Dr. Sandoval for evaluation of his knee and consideration of knee replacement. Patient was first given some corticosteroid injection with some relief. Patient was then offered some Synvisc injections but insurance would not cover it. Patient is awaiting knee replacement most likely. Patient has a history of diabetes and some high cholesterol. Review of Systems General: Reports: 10 or more systems reviewed and unremarkable except in HPI and below Musc: Reports: joint pain (Left knee) PFSH ED PFSH: Medical History Recurrent subluxation of patella, left knee Osteoarthritis of left knee Smokeless tobacco use Atherosclerosis of coronary artery Stroke-like symptom Diastolic CHF, chronic Hypertension Diabetic neuropathy Diabetes Tachycardia Shortness of breath Surgical History History of total knee arthroplasty Family History Mother Cancer colon cancer Father Cancer Lung disease Sister Diabetes Stroke Denies family history of CAD (coronary artery disease) Clotting disorder Dementia Chronic kidney disease (CKD) Suicide Anesthesia complication Bleeding disorder Social History Smoking and tobacco/nicotine status: current every day tobacco/nicotine user (chews tobacco) smokeless tobacco Smokeless tobacco user: chewing tobacco Smokeless tobacco details: 2-3 times weekly Alcohol intake: never Substance/Drug Use: never Physical Exam Const: COMMON NORMALS: alert HENMT: HEAD & SCALP: normal to inspection Neck/C-Spine: COMMON NORMALS: full ROM Resp: COMMON NORMALS: normal respiratory effort and clear to auscultation bilaterally AUSCULTATION: clear to auscultation bilaterally Cardio: COMMON NORMALS: regular rate RATE: regular rate Back/Pelvis: COMMON NORMALS: thoracic and lumbar spine normal to inspection Extremity: LEFT LOWER EXTREMITY: Yes knee joint (Joint line tenderness, minimal swelling no redness) Neuro: SENSORIUM/ORIENTATION: Yes alert Skin: COMMON NORMALS: turgor normal GENERAL SKIN EXAM: turgor normal Course Vital Signs: Vital signs: Vital Signs Temperature 98.1 F 09/08/23 13:02 Pulse Rate 87 09/08/23 13:24 Respiratory Rate 18 09/08/23 13:24 Blood Pressure 141/101 09/08/23 13:24 Pulse Oximetry 92 09/08/23 13:24 Oxygen Delivery Me thod Room Air 09/08/23 13:24 MDM - Fall Medical Decision Making Patient presents with knee giving out on him while going down some steps. Patient reports some knee discomfort. Joint line tenderness and no obvious swelling or redness. Differential diagnosis includes fracture, contusion, osteoarthritis, dislocation. X-ray noted no obvious fracture. Patient does have an old injury noted along the tibial spine but it had been noted in prior exams. Patient was recommended to use a cane or walker but he requested a crutch at this time to help with his ambulation. Patient was put in the crutches with weightbearing as tolerated. Patient will follow-up with Dr. Sandoval for further evaluation. XR interpretation done by ED provider, pending radiology final review Discharge Plan Discharge Patient Disposition: Home Clinical Impression: Osteoarthritis of left knee Qualifiers: Osteoarthritis type: primary Qualified Code(s): M17.12 - Unilateral primary osteoarthritis, left knee Condition: Stable Prescriptions: New tramadol 50 mg tablet 50 mg PO TID PRN (Reason: pain) Qty: 12 0RF No Action (DME) Comfort EZ Pen [place] 33 gauge x 1/4 needle See Rx Instructions .ROUTE .MEDSUPPLY Qty: 100 2RF Rx Instructions: As directed, for use with ozempic inj pen (DME) Diabetic shoes with 3 pairs of inserts See Rx Instructions .Route .MEDSUPPLY Qty: 1 0RF Rx Instructions: As directed HOME (DME) Blood Glucose Test Strip See Rx Instructions .ROUTE .MEDSUPPLY Qty: 50 11RF Rx Instructions: USe to test blood sugar 3 times daily (DME) lancets Misc See Rx Instructions .ROUTE .MEDSUPPLY Qty: 100 11RF Rx Instructions: Use to test blood sugar 3 times daily glipizide 10 mg tablet extended release 24hr 10 mg PO BID 30 Days Qty: 60 5RF Farxiga 10 mg tablet 10 mg PO QAM 30 Days Qty: 30 5RF rosuvastatin [Crestor] 5 mg tablet 5 mg PO QPM 30 Days Qty: 30 5RF metformin 1,000 mg tablet 1,000 mg PO BID 30 Days Qty: 60 5RF ranolazine 500 mg tablet extended release 12 hr 500 mg PO BID (DME) medial electrical research engineer 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ROUTE .MEDSUPPLY Qty: 1 0RF Rx Instructions: Use to test blood sugar three times daily (DME) lancets [Accu-Chek Fastclix Lancet Drum] Misc See Rx Instructions .Route Qty: 200 3RF Rx Instructions: As directed Discharge Orders: Discharge ED (Routine); Ordered 09/08/23 Ordered By: Mik Mascorro Referrals: Ana Mercedes MD [Primary Care Provider] - Discharge Diet: Usual diet Discharge Activity: Increase activity as tolerated Patient Instructions: Knee Pain (ED) Activity Restrictions/Additional Instructions: Activity as tolerated. Follow-up with orthopedist for recheck and further treatment. Due to more frequent falls often this is a need for further treatment and possible knee replacement surgery. Return to ER for new concerns. Use a cane or walker to assist with ambulation. Coding Level of Care Code ED Power Plant Technician for Mo Souza
[2023-09-08] MEDS: TRAMadol 50 mg Tablet PO (14:15)
== END 2023-09-08 14:21 | disposition home or self-care (01) ==
PROVIDERS: Emergency Provider Nurse Practitioner Family; PCP Family Medicine
DX: M17.12 Unilateral primary osteoarthritis, left knee (principal); Z79.84 Long term (current) use of oral hypoglycemic drugs; F17.220 Nicotine dependence, chewing tobacco, uncomplicated; I25.10 Atherosclerotic heart disease of native coronary artery without angina pectoris; I11.0 Hypertensive heart disease with heart failure; I50.32 Chronic diastolic (congestive) heart failure; E11.40 Type 2 diabetes mellitus with diabetic neuropathy, unspecified
CPT/HCPCS: 73562; 99283; E0114

== ENCOUNTER → 2023-10-15 07:24 | Outpatient (BNVA) | payer MEDICARE, SELFPAY | PROVIDERS: PCP Family Medicine; Visit Provider Podiatrist Foot & Ankle Surgery | DX: E11.9 Type 2 diabetes mellitus without complications; M76.821 Posterior tibial tendinitis, right leg; M19.071 Primary osteoarthritis, right ankle and foot; M19.072 Primary osteoarthritis, left ankle and foot; Z79.84 Long term (current) use of oral hypoglycemic drugs | CPT/HCPCS: 99213 ==

== ENCOUNTER → 2023-11-18 09:02 | Outpatient (BNVA) | payer MEDICARE, SELFPAY | PROVIDERS: PCP Family Medicine; Visit Provider Family Medicine | DX: E78.1 Pure hyperglyceridemia (principal); I10 Essential (primary) hypertension; E11.9 Type 2 diabetes mellitus without complications | CPT/HCPCS: 83036 ==

== ENCOUNTER → 2023-11-19 10:41 | Outpatient (BNVA) | payer MEDICARE, SELFPAY | PROVIDERS: PCP Family Medicine; Visit Provider Student in an Organized Health Care Education/Training Program | DX: M17.12 Unilateral primary osteoarthritis, left knee (principal) | CPT/HCPCS: 99213 ==

== ENCOUNTER → 2023-11-24 14:00 | Outpatient (BNVA) | payer MEDICARE, SELFPAY | PROVIDERS: PCP Family Medicine; Referring Provider Family Medicine; Visit Provider Family Medicine | DX: E11.9 Type 2 diabetes mellitus without complications (principal); I11.0 Hypertensive heart disease with heart failure; I50.32 Chronic diastolic (congestive) heart failure; E78.1 Pure hyperglyceridemia | CPT/HCPCS: 80053; 80061 ==

== ENCOUNTER → 2023-12-26 09:38 | Outpatient (BNVA) | payer MEDICARE, SELFPAY | PROVIDERS: PCP Family Medicine; Visit Provider Physician Assistant | DX: M17.12 Unilateral primary osteoarthritis, left knee (principal) | CPT/HCPCS: 20610; 99213; J7318 ==

== ENCOUNTER → 2024-01-09 09:03 | Outpatient (BNVA) | payer MEDICARE, SELFPAY | PROVIDERS: PCP Family Medicine; Visit Provider Nurse Practitioner Family | DX: I25.118 Atherosclerotic heart disease of native coronary artery with other forms of angina pectoris (principal); I11.0 Hypertensive heart disease with heart failure; I50.32 Chronic diastolic (congestive) heart failure | CPT/HCPCS: 99214 ==

== ENCOUNTER → 2024-01-28 06:58 | Outpatient (BNVA) | payer MEDICARE, SELFPAY | PROVIDERS: PCP Family Medicine; Visit Provider Podiatrist Foot & Ankle Surgery | DX: M25.571 Pain in right ankle and joints of right foot (principal); M79.671 Pain in right foot; M76.821 Posterior tibial tendinitis, right leg; M19.071 Primary osteoarthritis, right ankle and foot; E11.9 Type 2 diabetes mellitus without complications; Z79.84 Long term (current) use of oral hypoglycemic drugs | CPT/HCPCS: 73610; 99213 ==

== ENCOUNTER → 2024-03-11 06:43 | Outpatient (BNVA) | payer MEDICARE, SELFPAY | PROVIDERS: PCP Family Medicine; Visit Provider Podiatrist Foot & Ankle Surgery | DX: M76.821 Posterior tibial tendinitis, right leg; M19.071 Primary osteoarthritis, right ankle and foot; E11.9 Type 2 diabetes mellitus without complications; M20.11 Hallux valgus (acquired), right foot; M24.571 Contracture, right ankle; Z79.84 Long term (current) use of oral hypoglycemic drugs | CPT/HCPCS: 73630; 99214 ==

== ENCOUNTER 2024-04-27 06:53 | Day surgery (SDC) | payer MEDICARE, SELFPAY ==
[2024-04-27] VITALS (15 sets, daily range): BP systolic 111–136; BP diastolic 77–97; PULSE 61–74; RESP 12–20; TEMP 36.1–36.8; O2SAT 90–96; BMI 36.6
--- NOTE | 2024-04-27 | XR_ITS ---
WS: [id number] XR foot RT min 3V* [id number] REASON FOR EXAM: VINCENT PICS FINDINGS: Plate and screw and long screw arthrodesis of the tarsal metatarsal joint of the great toe. Large sta ple arthrodesis of the tarsometatarsal joints of the second and third toes. Long oblique screw and large staple arthrodesis of the subtalar joint. Surgical appliances are all intact and in proper position and alignment. XR/XR foot RT min 3V* [id number] IMPRESSION: Multiple arthrodeses of the foot as above.
[2024-04-27 08:19] LABS: Glucose Point of Care 129 mg/dL (70-110)
[2024-04-27] MEDS: acetaminophen 1,000 MG/100 ML PIGGYBACK 400 MG IV (08:26)
[2024-04-27] MEDS: gabapentin 300 mg Capsule PO (08:26)
[2024-04-27] MEDS: sodium chloride 0.9% 1,000 ML 30 ML IV (08:34)
--- NOTE | 2024-04-27 08:43 | W.PM.OPSFHP ---
Same Day Surgery H&P Indication for Procedure/HPI DATE OF PROCEDURE: April 27, 2024 CHIEF COMPLAINT/INDICATIONFOR SURGICAL PROCEDURE: Painful flatfoot formerly right foot, hallux valgus and midfoot arthritis PREOP DIAGNOSIS: Right painful flatfoot, hallux valgus, midfoot arthritis PLANNED PROCEDURE: Operation Date: 04/27/24 09:10 Proposed Procedures p Subtalar Joint Fusion(Right) - Camacho Vasquez DPM s Pradhan Calcaneal Osteotomy(Right) - DEEPIKA Barajas distal tibia autograft(Right) - DEEPIKA Barajas 2nd and 3rd tarsometatarsal joint arthrodesis(Right) - Camacho Vasquez DPM Medications/Allergies* Home Medications Medication Instructions Recorded Confirmed Type rosuvastatin 10 mg tablet 10 mg PO DAILY 04/23/24 04/23/24 History Allergies/Adverse Reactions Allergy/AdvReac Type Severity Reaction Status Date / Time atorvastatin [From Lipitor] AdvReac Intermediate myalgia Verified 04/16/24 08:07 Current Medications: Generic Name Dose Route Start Last Admin Trade Name Freq PRN Reason Stop Dose Admin Sodium Chloride 1,000 mls @ 30 mls/hr 04/27/24 07:30 04/27/24 08:34 Sodium Chloride 0.9% IV 04/28/24 07:29 30 mls/hr .Q24H GUME Administration Pertinent History/Comorbid Conditions* Medical History (Updated 03/15/24 @ 18:08 by Camacho Vasquez DPM) Recurrent subluxation of patella, left knee Osteoarthritis of left knee Smokeless tobacco use Atherosclerosis of coronary artery Stroke-like symptom Diastolic CHF, chronic Hypertension Diabetic neuropathy Diabetes Tachycardia Shortness of breath Surgical History (Updated 02/18/21 @ 11:36 by ROSIO Borrero) History of total knee arthroplasty Family History (Updated 02/06/22 @ 15:16 by Christen Mercedes RN) Diabetes Sister Lung disease Father Cancer Mother colon cancer Father Stroke Sister Denies family history of CAD (coronary artery disease) Clotting disorder Dementia Chronic kidney disease (CKD) Suicide Anesthesia complication Bleeding disorder Social History Smoking and tobacco/nicotine status: never used tobacco/nicotine Alcohol intake: never Substance/Drug Use: never Pertinent Exam Findings alert, oriented x 3, clear to auscultation bilaterally, regular rate & rhythm, operative site marked and procedure specific exam findings Pes planovalgus foot type right foot with painful second and third tarsometatarsal joint. Hallux valgus deformity. Recommendations Surgery/Procedure today Other Plans: Right foot gastrocnemius recession, distal tibial autograft, subtalar joint fusion, Pradhan calcaneal osteotomy bunionectomy, second and third tarsometatarsal joint arthrodesis Coding Level of Care Code Acute Code for Chg Fwd
[2024-04-27 08:47] LABS: Anion Gap 16.5 (5-19); Blood Urea Nitrogen 10 mg/dL (8-23); Calcium 9.6 mg/dL (8.5-10.5); Carbon Dioxide 25 mmol/L (22-29); Chloride 102 mmol/L (98-107); Creatinine Clr Calc Pharmacy 103.4714; Glomerular Filtration Rate 113.2 mL/min (90-130); Glucose 137 mg/dL (65-115); Osmolality Calculated 289 mOsm/kg (285-295); Potassium 4.5 mmol/L (3.5-5.1); Sodium 139 mmol/L (136-145)
[2024-04-27] MEDS: ceFAZolin 2,000 mg SDV 2000 MG IVP (09:30)
--- NOTE | 2024-04-27 10:08 | ANES.PREANE2 ---
Pre-Anesthetic Assessment Height/Weight: Height 5 ft 6 in Weight 227 lb O2 Del Method Room Air 04/27/24 07:58 Preop Diagnosis: Right painful flatfoot, hallux valgus, midfoot arthritis Operation Date: 04/27/24 09:10 Proposed Procedures p Subtalar Joint Fusion(Right) - Camacho Vasquez DPM s Pradhan Calcaneal Osteotomy(Right) - DEEPIKA Barajas distal tibia autograft(Right) - Camacho Vasquez DPM s 2nd and 3rd tarsometatarsal joint arthrodesis(Right) - Camacho Vasquez DPM Was Beta Edgard taken within 24 hours: N/A Was Clonidine taken within 24 hours: N/A Last intake: Intake Last Liquid Date 04/26/24 Last Liquid Time 20:30 Last Solid Date 04/26/24 Last Solid Time 19:30 Social Tobacco and No alcohol Chews tobacco Exam alert, oriented x 3, clear to auscultation bilaterally and regular rate & rhythm Airway Submandibular: within normal limits Cervical ROM: within normal limits Mallampati: Class II Comments: Comments: Multiple missing teeth Anesthetic Plan ASA status: 3 Anesthesia: General and Regional (specify below) Other: No prior issues with anesthesia in the past NPO since yesterday Type 2 diabetes, metformin, glipizide and dulaglutide. 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 METs greater than 4 Labs 04/27/2024 reviewed and assessable for procedure EKG showing sinus tachycardia Plan for general anesthesia with post induction nerve blocks Medications/Allergies Home Medications Medication Instructions Recorded Confirmed Last Taken Type lancets (Accu-Chek Fastclix Lancet #200 ea 07/16/21 04/16/24 Unknown Rx Drum) pen needle, diabetic 33 gauge x #100 ea 07/24/21 04/16/24 Unknown Rx 1/4 (Comfort EZ Pen [place]) Diabetic shoes with 3 pairs of #1 ea 10/04/22 04/16/24 Unknown Rx inserts lancets #100 ea 12/05/22 04/16/24 Unknown Rx nitroglycerin 0.4 mg sublingual See Rx Instructions .Route 04/09/23 04/27/24 03/16/24 Rx tablet .COMPLEX #25 tabs blood-glucose meter (Blood Glucose #1 ea 05/10/23 04/16/24 Unknown Rx Monitoring kit) medial transportation officer brace #1 ea 08/20/23 04/16/24 Unknown Rx fexofenadine 60 mg-pseudoephedrine 1 tab PO Q12H PRN sinus symptoms 10/30/23 04/27/24 04/26/24 Rx ER 120 mg tablet,ext.release,12 hr 14 days #30 tabs (Katelynn-D 12 Hour) amitriptyline 50 mg tablet 50 mg PO .at bedtime 30 days #30 11/18/23 04/16/24 04/26/24 Rx tabs blood sugar diagnostic (Accu-Chek #100 strips 01/02/24 04/16/24 Unknown Rx Guide test strips) hydrocodone 5 mg-acetaminophen 325 1 tab PO BID PRN pain 7 days #14 02/20/24 04/27/24 04/06/24 Rx mg tablet tabs ranolazine 500 mg tablet,extended 500 mg PO BID #180 tabs 03/05/24 04/23/24 04/26/24 Rx release,12 hr dapagliflozin propanediol 10 mg 10 mg PO QAM 30 days #30 tabs 04/06/24 04/23/24 04/26/24 Rx tablet (Farxiga) glipizide 10 mg tablet, extended 10 mg PO BID 30 days #60 tabs 04/06/24 04/23/24 04/26/24 Rx release 24 hr metformin 1,000 mg tablet 1,000 mg PO BID 30 days #60 tabs 04/06/24 04/23/24 04/26/24 Rx dulaglutide 0.75 mg/0.5 mL 0.75 mg (0.5 mL) SUBCUT .WEEKLY #2 04/16/24 04/23/24 04/01/24 Rx subcutaneous pen injector mL (Trulicity) rosuvastatin 10 mg tablet 10 mg PO DAILY 04/23/24 04/23/24 04/26/24 History hydrocodone 10 mg-acetaminophen 1 tab PO Q6H PRN pain #28 tabs 04/27/24 Unknown Rx 325 mg tablet Allergies Allergy/AdvReac Type Severity Reaction Status Date / Time atorvastatin [From Lipitor] AdvReac Intermediate myalgia Verified 04/16/24 08:07 Current Medications Generic Name Dose Route Start Last Admin Trade Name Freq PRN Reason Stop Dose Admin Sodium Chloride 1,000 mls @ 30 mls/hr 04/27/24 07:30 04/27/24 08:34 Sodium Chloride 0.9% IV 04/28/24 07:29 30 mls/hr .Q24H GUME Administration PFSH Anesthesia Medical History Recurrent subluxation of patella, left knee Osteoarthritis of left knee Smokeless tobacco use Atherosclerosis of coronary artery Stroke-like symptom Diastolic CHF, chronic Hypertension Diabetic neuropathy Diabetes Tachycardia Shortness of breath Surgical History History of total knee arthroplasty Family History Mother Cancer colon cancer Father Cancer Lung disease Sister Diabetes Stroke Denies family history of CAD (coronary artery disease) Clotting disorder Dementia Chronic kidney disease (CKD) Suicide Anesthesia complication Bleeding disorder Social History Smoking and tobacco/nicotine status: never used tobacco/nicotine Alcohol intake: never Substance/Drug Use: never Data Anesthesia 04/27/24 08:15 BMP 04/27/24 08:15 Sodium 139 Potassium 4.5 Chloride 102 Carbon Dioxide 25 BUN 10 Creatinine 0.7 Glucose 137 H Calcium 9.6 Cardiac Studies: Echocardiogram 07/15/21 Sestamibi Stress Test (Cardiology) 06/08/22 Cardiac Event Monitor 02/22/21 Holter Monitor 02/06/22
--- NOTE | 2024-04-27 10:12 | ANES.PROC ---
Anesthesia Procedures Procedure/Date: 04/27/24 Nerve Block ^: Nerve Block 1: Main Anesthesia: general anesthesia Time Out Performed: Yes Consent: requested by attending/covering physician and from patient Nerve block location: popliteal Anesthesia monitors applied: pulse oximetry, EKG, BP cuff and oxygen Nerve block position: supine Anesthetic Used: ropivicaine 0.5% Amount of anesthesia used (mL): 20 Ultrasound used to: recognize landmarks Nerve Stimulator Used?: Yes Interscalene/Femoral BLK: other needle (pjunk 4inch) Injection: neg aspiration of heme Patient Tolerated Procedure: well Complications: none Additional Comments: decadron 4mg added to block Nerve Block 2: Main Anesthesia: general anesthesia Time Out Performed: Yes Consent: requested by attending/covering physician and from patient Nerve block location: adductor canal Anesthesia monitors applied: pulse oximetry, EKG, BP cuff and oxygen Nerve block position: supine Anesthetic Used: ropivicaine 0.5% Amount of anesthesia used (mL): 15 Ultrasound used to: recognize landmarks Nerve Stimulator Used?: Yes Interscalene/Femoral BLK: other needle (pjunk 4inch) Injection: neg aspiration of heme Patient Tolerated Procedure: well Complications: none
--- NOTE | 2024-04-27 13:02 | W.PM.BPON ---
Date of procedure: 04/27/2024 Surgeon name: Dr. Camacho Vasquez D.P.M. Seconds Inspector(s) name(s): Timoteo Salazar Procedure(s) performed: 1. Right gastrocnemius recession 2. Right distal tibial autograft 3. Right subtalar joint arthrodesis 4. Right calcaneal Pradhan osteotomy 5. Right [place]us bunionectomy 6. Arthrodesis of right second and third tarsometatarsal joint Description of findings: Painful flatfoot, arthritis midfoot Estimated blood loss: 20 cc Tourniquet time: 120 minutes. Tourniquet was let down for 10 minutes. Reinflated for 43 minutes Specimen(s) removed: None Post-operative diagnosis: Painful flatfoot right foot. Midfoot arthritis. Hallux valgus right foot
--- NOTE | 2024-04-27 13:04 | P.OP_ITS ---
Operative Report Date of procedure: April 27, 2024 Surgeon: Camacho Vasquez DPM Procedure: Date of procedure: 04/27/2024 Pre-op diagnosis: Painful right flatfoot, midfoot arthritis, hallux valgus Post-op diagnosis: same Post-op findings: Severe arthritic changes of 2nd and 3rd tarsometatarsal joints Procedure done: 1. Right gastrocnemius recession CPT 87591 2. Right distal tibial autograft CPT 02043 3. Right subtalar joint arthrodesis CPT 22166 4. Right calcaneal Pradhan osteotomy CPT 21251 5. Right Lapidus bunionectomy CPT 87696 6. Arthrodesis of right second and third tarsometatarsal joint CPT 38570 Implants: 2x7.0 headless compression screws, Nitinol staple x 3, lapidus plate with 3.5 locking screws, 3.5 headless compression screw, allograft Pradhan wedge--[employer] Specimens removed: None Surgeon: Dr. Camacho Vasquez DPM [employer] Specialist: Timoteo Salazar Estimated blood loss: 20cc Tourniquet time: 163 minutes with 10 minute break at 120 minutes Complications: None Patient is a 64-year-old male that has a history of painful flatfoot right foot, severe midfoot arthritis and hallux valgus. The patient has had the aforementioned chief complaint for some time. Conservative treatment measures have been attempted and the patient has opted for surgical intervention at this time. A lengthy discussion regarding the procedure, including risks and complications has been had with the patient and is noted in the recent clinic note. Written and verbal consent have been obtained. All patient questions have been answered to the patient?s satisfaction. No written or verbal guarantees have been given or implied. The patient has been NPO since midnight. The history has been reviewed and the history and physical is current. The signed consent was confirmed and placed in the patient chart. Patient imaging has been reviewed and is consistent with the diagnosis. Under mild sedation, the patient was brought into the operating room and placed on the table in the supine position. IV antibiotics were given by the anesthesia team as preoperative surgical prophylaxis. General sedation was then performed by the anesthesiateam. A popliteal/adductor canal block was performed by the anesthesia department. A pneumatic tourniquet was then placed about the right ankle. The operative extremity was then prepped and draped in the usual fashion. The extremity was then elevated and exsanguinated before the tourniquet was inflated to 325 mmHg. After inflation, the following procedure was then performed. Attention was directed to the medial aspect of the right leg at the level of the gastrocnemius. A 4.5 cm incision was made using a #15 blade at this level. Dissection was carried down through subcutaneous superficial fascia to the level of the crural fascia which was incised with #15 blade. Dissection was carried out through the interval of the gastrocnemius and soleus muscles. Retractor was inserted into this interval to expose the gastrocnemius aponeurosis. A #15 blade was used to resect the gastrocnemius aponeurosis which provided increased dorsiflexion of the ankle joint in comparison to preoperatively. The site was irrigated with copious amounts of sterile saline before attention was directed to closure. Crural fascia was closed with 3-0 Vicryl followed by skin closure with 3-0 nylon. Attention was then directed to the distal medial right leg where a 2 cm incision was made overlying the medial aspect of the distal tibia. Blunt dissection was carried down to the level of tibia using a mosquito hemostat. Next, bone harvesting auger was used to remove tibial autograft from the distal tibia. This was passed from the operative field and placed in saline to be used later in the case. The site was irrigated with sterile saline before the incision was closed with 3-0 nylon in horizontal mattress fashion. Attention was then directed to the lateral aspect of the right foot where an 8 cm incision was made from the tip of the fibula to the base of the fourth metatarsal. This incision was made using a #15 blade. Dissection was carried down through subcutaneous and superficial fascia with care to cauterize any bleeders as necessary during dissection. Dissection was carried down to the level of the extensor digitorum brevis muscle belly which was reflected from its origin to expose the underlying sinus tarsi. Dissection was carried out further to expose the subtalar joint. Upon exposing the subtalar joint a combination of osteotome, curette, rongeur was used to remove the articular cartilage and subchondral bone from the posterior facet middle facet and anterior facet. Site was irrigated with sterile saline before being further prepped using fenestration and fish scaling technique. Attention was then directed to the anterior portion of the calcaneus. Sagittal bone saw was used to perform an osseous cut through the calcaneus in preparation for allograft wedge in standard Pradhan fashion. Pradhan trial sizer was then inserted into the osteotomy site to assess correction. A 10 mm allograft wedge was determined to be most appropriate size. With a trial sizer in place, 2 guidepins were driven in the posterior aspect of the calcaneus across the subtalar joint to maintain correction. Next, a #15 blade was used to make a stab incision overlying these wires before two 7.0 headless compression screws were inserted over the wires across the subtalar joint. Prior to insertion of the screws the distal tibial autograft was inserted into the subtalar joint in preparation for arthrodesis. Good positioning of the screws was visualized on C-arm imaging and good compression across the subtalar joint was noted. A 10 mm wedge was then inserted into the Pradhan osteotomy site before a nitinol staple was placed over the graft per the manufacture protocol to maintain positioning of the graft. Good correction of the hindfoot was noted. Attention was then directed to the medial aspect of the right foot overlying the first tarsometatarsal articulation. An obvious hallux valgus deformity was noted to the right foot. A #15 blade was used to make a 6 cm incision overlying the first tarsometatarsal joint. Dissection was carried down through subcutaneous and superficial fascia to the level of the first tarsometatarsal joint which was incised using a #15 blade to expose the entirety of the joint. With the joint exposed a sagittal bone saw was used to remove articular cartilage and to prep the subchondral bone in preparation for arthrodesis. Correction of the hallux valgus formerly was performed and temporary fixation across the first tarsometatarsal joint was achieved using provisional fixation. Next a 3.5 headless compression screw was inserted across the joint to provide compression. Good position of the screw was noted. A Lapidus plate from [employer] was then applied to the first tarsometatarsal articulation and fixated with a combination of locking and nonlocking screws. Good position of the plate and screws was noted on C-arm imaging. Next, attention was directed to the dorsum of the foot where a 5 cm incision was made overlying the interval in between the second and third tarsometatarsal bases. Care was taken to preserve adequate skin bridge between incisions. Dissection was carried down through subcutaneous and superficial fascia to the level of the second tarsometatarsal articulation. Bone spurring was noted to the dorsal aspect of the joint. This was removed with a rongeur. The joint was exposed and was noted to have severe arthritic changes and [id number] contact. Sagittal bone saw was used to resect the subchondral bone of the second tarsometatarsal articulation. Attention was also directed to the third tarsometatarsal articulation where similarly, osteophyte formation was present with significant arthritic changes. Sagittal bone saw was used to resect the third tarsometatarsal articulation in preparation for arthrodesis. The second and third tarsometatarsal's were positioned into the appropriate anatomic position before 2 nitinol nicholas were inserted spanning both the second and third tarsometatarsal joints. Good positioning of all orthopedic hardware was visualized on C-arm imaging. The tourniquet was let down good hemostasis was achieved to all incisions. All incisions were irrigated with sterile saline before attention was directed to closure. Deep tissue was closed with 2-0 Vicryl followed by subcuticular closure with 3-0 Vicryl and skin closure with 3-0 nylon in horizontal mattress fashion. All incisions were dressed with Xeroform, 4 x 4 gauze, Kerlix, Best. Patient was placed in a cam boot The patient tolerated the procedure and anesthesia well and without complication. The patient was transported from the operating room to the recovery room with vital signs stable and vascular status intact to all digits of the right foot. The patient was given both written and verbal instructions to remain nonweightbearing to the operative extremity, to keep dressings/splint clean, dry and intact and to take pain medication as directed. The patient will follow-up in the outpatient setting at their scheduled appointment. The patient was discharged with my personal number and was instructed to call if any questions or issues should arise. They were discharged home once anesthesia criteria was met.
--- NOTE | 2024-04-27 13:59 | PC.NURSE ---
Pt in PACU, slow to wake up, pt alert and able to verbalizes no pain, patient with some mild confusion while waking up from surgery, Vital Signs stable, on RA, pt blood sugar 198, Dr. Borja notified and Dr. Vasquez, at this time pt will go back to outpatients to see his and continue to recover.
[2024-04-27 14:14] LABS: Glucose Point of Care 198 mg/dL (70-110)
--- NOTE | 2024-04-27 14:24 | SUR.PHASEII ---
14:24 tolerating PO fluids. PT LETHARGIC BUT RESPONDS TO VERBAL COMMANDS.
--- NOTE | 2024-04-27 14:48 | SUR.PHASEII ---
14:30 WARM BLANKETS APPLIED.
[2024-04-27] MEDS: ondansetron 2 mg/ML SDV 2 mL 4 MG IVP (15:38)
== END 2024-04-27 16:35 | disposition home or self-care (01) ==
PROVIDERS: PCP Family Medicine; Visit Provider Podiatrist Foot & Ankle Surgery
PROC: (CPT 28725; principal; 2024-04-27 09:10)
PROC: (CPT 28300; 2024-04-27 09:10)
PROC: (CPT 20900; 2024-04-27 09:10)
PROC: (CPT 28740; 2024-04-27 09:10)
DX: M21.41 Flat foot [pes planus] (acquired), right foot (principal); M19.071 Primary osteoarthritis, right ankle and foot; M20.11 Hallux valgus (acquired), right foot; F17.220 Nicotine dependence, chewing tobacco, uncomplicated; E11.40 Type 2 diabetes mellitus with diabetic neuropathy, unspecified; Z79.84 Long term (current) use of oral hypoglycemic drugs; G47.33 Obstructive sleep apnea (adult) (pediatric); I11.0 Hypertensive heart disease with heart failure; I50.32 Chronic diastolic (congestive) heart failure
CPT/HCPCS: 20900; 27687; 28297; 28300; 28725; 28730; 36416; 73630; 76000; 80048; 82962; A4216; C1713 ×2; C1762; J0131; J0690; J1100; J2405; J2704; J3010; J7030

== ENCOUNTER → 2024-05-06 13:52 | Outpatient (BNVA) | payer MEDICARE, SELFPAY | PROVIDERS: PCP Family Medicine; Visit Provider Podiatrist Foot & Ankle Surgery | DX: M79.671 Pain in right foot (principal); M76.821 Posterior tibial tendinitis, right leg; M19.071 Primary osteoarthritis, right ankle and foot; E11.9 Type 2 diabetes mellitus without complications; M20.11 Hallux valgus (acquired), right foot; M24.571 Contracture, right ankle; Z79.84 Long term (current) use of oral hypoglycemic drugs; Z46.89 Encounter for fitting and adjustment of other specified devices | CPT/HCPCS: 73630 ==

== ENCOUNTER 2024-05-06 14:27 | Outpatient (CLI) | payer MEDICARE, SELFPAY | END 2024-05-06 14:28 | disposition home or self-care (01) | LOC: SPT 14:28 | PROVIDERS: PCP Family Medicine; Visit Provider Podiatrist Foot & Ankle Surgery | DX: Z46.89 Encounter for fitting and adjustment of other specified devices (principal); M24.571 Contracture, right ankle; M20.11 Hallux valgus (acquired), right foot | CPT/HCPCS: 99024; A6222; L4361 ==

== ENCOUNTER → 2024-05-13 13:34 | Outpatient (BNVA) | payer MEDICARE, SELFPAY | PROVIDERS: PCP Family Medicine; Visit Provider Podiatrist Foot & Ankle Surgery | DX: Z98.890 Other specified postprocedural states (principal); E11.9 Type 2 diabetes mellitus without complications; M20.11 Hallux valgus (acquired), right foot; M24.571 Contracture, right ankle; M25.571 Pain in right ankle and joints of right foot; M76.821 Posterior tibial tendinitis, right leg; M19.071 Primary osteoarthritis, right ankle and foot; Z79.84 Long term (current) use of oral hypoglycemic drugs | CPT/HCPCS: 99024 ==

== ENCOUNTER → 2024-05-20 09:31 | Outpatient (BNVA) | payer MEDICARE, SELFPAY | PROVIDERS: PCP Family Medicine; Visit Provider Family Medicine | DX: I10 Essential (primary) hypertension (principal); E78.1 Pure hyperglyceridemia; E11.9 Type 2 diabetes mellitus without complications; F51.02 Adjustment insomnia; Z12.5 Encounter for screening for malignant neoplasm of prostate; R91.1 Solitary pulmonary nodule; Z98.890 Other specified postprocedural states | CPT/HCPCS: 80053; 83036; 85025; G0103 ==

== ENCOUNTER → 2024-05-25 14:05 | Outpatient (BNVA) | payer MEDICARE, SELFPAY | PROVIDERS: PCP Family Medicine; Visit Provider Podiatrist Foot & Ankle Surgery | DX: M20.11 Hallux valgus (acquired), right foot (principal); M79.671 Pain in right foot; Z98.890 Other specified postprocedural states; M76.821 Posterior tibial tendinitis, right leg; M19.071 Primary osteoarthritis, right ankle and foot; E11.69 Type 2 diabetes mellitus with other specified complication; M24.571 Contracture, right ankle; Z79.84 Long term (current) use of oral hypoglycemic drugs | CPT/HCPCS: 73630; 99024 ==

== ENCOUNTER 2024-06-10 12:19 | Outpatient (CLI) | payer MEDICARE, SELFPAY ==
--- NOTE | 2024-06-10 13:00 | CT_ITS ---
WS: [id number] CT chest wo con [id number] HISTORY: R91.1 - Solitary pulmonary nodule TECHNIQUE: Axial imaging performed through the thorax. Coronal and sagittal reformats are submitted. All CT scans at [facility] use at least one of these dose optimization techniques: automated exposure control; mA and/or kV adjustment per patient size (includes targeted exams where dose is matched to clinical indication); or iterative reconstruction. CONTRAST: None DLP: 461.27 mGy.cm COMPARISON: 03/19/2023 Lungs and central airway: Mild pulmonary hyperexpansion. Reidentified is the linear 7 mm nodule previously described in the RIGHT middle lobe. This nodule is reidentified without increase in size. There is an additional nodule measuring 3 mm along the minor fissure which is also stable. No new pulmonary mass, nodule or pneumonia. Benign granuloma at the LEFT lung base. Pleura: Normal. No pleural effusion. Heart and pericardium: Mild cardiomegaly. No pericardial effusion. Mediastinum and gloria: No mediastinum or hilar adenopathy. Vessels: Normal size aortic and pulmonary artery. No coronary artery calcifications. Chest wall and lower neck: No soft tissue masses. Upper abdomen: Normal adrenal glands. Splenic granulomata. Visualized liver is negative. Osseous structures: No destructive process. CT/CT chest wo con [id number] IMPRESSION: 1. Stable RIGHT middle lobe slightly spiculated nodule measuring 7 mm. Recomme nd additional [address] follow-up to document long-term stability. 2. Benign appearing nodule along the RIGHT minor fissure. 3. No mediastinal or hilar adenopathy.
== END 2024-06-10 12:20 | disposition home or self-care (01) ==
LOC: RAD 12:21
PROVIDERS: PCP Family Medicine; Visit Provider Family Medicine
DX: R91.8 Other nonspecific abnormal finding of lung field (principal); J84.10 Pulmonary fibrosis, unspecified; I51.7 Cardiomegaly; D73.89 Other diseases of spleen
CPT/HCPCS: 71250

== ENCOUNTER → 2024-06-15 13:33 | Outpatient (BNVA) | payer MEDICARE, SELFPAY | PROVIDERS: PCP Family Medicine; Visit Provider Podiatrist Foot & Ankle Surgery | DX: M24.571 Contracture, right ankle (principal); M20.11 Hallux valgus (acquired), right foot; Z98.890 Other specified postprocedural states; M25.571 Pain in right ankle and joints of right foot; M76.821 Posterior tibial tendinitis, right leg; M19.071 Primary osteoarthritis, right ankle and foot; E11.9 Type 2 diabetes mellitus without complications; Z79.84 Long term (current) use of oral hypoglycemic drugs | CPT/HCPCS: 73630; 99024 ==

== ENCOUNTER → 2024-06-29 15:18 | Outpatient (BNVA) | payer MEDICARE, SELFPAY | PROVIDERS: PCP Family Medicine; Visit Provider Podiatrist Foot & Ankle Surgery | DX: M24.571 Contracture, right ankle (principal); M20.11 Hallux valgus (acquired), right foot; Z98.890 Other specified postprocedural states; M25.571 Pain in right ankle and joints of right foot; M76.821 Posterior tibial tendinitis, right leg; M19.071 Primary osteoarthritis, right ankle and foot; E11.69 Type 2 diabetes mellitus with other specified complication; Z79.84 Long term (current) use of oral hypoglycemic drugs | CPT/HCPCS: 73630; 99024 ==

== ENCOUNTER → 2024-07-13 14:16 | Outpatient (BNVA) | payer MEDICARE, SELFPAY | PROVIDERS: PCP Family Medicine; Visit Provider Podiatrist Foot & Ankle Surgery | DX: M20.11 Hallux valgus (acquired), right foot (principal); M72.2 Plantar fascial fibromatosis; Z98.890 Other specified postprocedural states; E11.42 Type 2 diabetes mellitus with diabetic polyneuropathy; G62.9 Polyneuropathy, unspecified; Z79.84 Long term (current) use of oral hypoglycemic drugs | CPT/HCPCS: 73630; 99214 ==

== ENCOUNTER 2024-07-14 05:00 | Outpatient (RCR) | payer MEDICARE, SELFPAY | END 2024-08-12 23:59 | disposition home or self-care (01) | LOC: MPT 05:00 | PROVIDERS: Visit Provider Podiatrist Foot & Ankle Surgery | DX: M72.2 Plantar fascial fibromatosis (principal) | CPT/HCPCS: 97110; 97140; 97162 ==

== ENCOUNTER 2024-08-13 05:00 | Outpatient (RCR) | payer MEDICARE, SELFPAY | END 2024-09-01 09:06 | disposition home or self-care (01) | LOC: MPT 05:00 | PROVIDERS: Visit Provider Podiatrist Foot & Ankle Surgery | DX: M72.2 Plantar fascial fibromatosis (principal) | CPT/HCPCS: 97110 ==

== ENCOUNTER → 2024-09-01 08:58 | Outpatient (BNVA) | payer MEDICARE, SELFPAY | PROVIDERS: PCP Family Medicine; Visit Provider Family Medicine | DX: E11.9 Type 2 diabetes mellitus without complications (principal) | CPT/HCPCS: 83036 ==

== ENCOUNTER 2024-09-14 13:12 | Emergency (ER) | payer MEDICARE, SELFPAY ==
--- NOTE | 2024-09-14 13:14 | XRR_ITS ---
PROCEDURE INFORMATION: Exam: XR Chest Exam date and time: 09/14/2024 1:47 PM Age: 64 years old Clinical indication: Other: Weakness TECHNIQUE: Imaging protocol: Radiologic exam of the chest. Views: 1 view. COMPARISON: CT chest con [id number] 06/10/2024 12:30 PM FINDINGS: Lungs: Unremarkable. No consolidation. Pleural spaces: Unremarkable. No pleural effusion. No pneumothorax. Heart/Mediastinum: Unremarkable. No cardiomegaly. Bones/joints: Unremarkable. XR/XR chest 1V portable [id number] IMPRESSION: No acute findings.
[2024-09-14 13:26] VITALS: BP 137/77; PULSE 105; RESP 18; TEMP 36.6; O2SAT 99; BMI 37.1
--- NOTE | 2024-09-14 13:30 | CT_ITS ---
WS: [id number] CT HEAD TECHNIQUE: Noncontrast CT of the head obtained from the skullbase to the vertex. CLINICAL INFORMATION: Symptoms of acute stroke COMPARISON: 2021 DLP: [id number] scans at [facility] use at least one of these dose optimization techniques: automated exposure control; mA and/or kV adjustment per patient size (includes targeted exams where dose is matched to clinical indication); or iterative reconstruction. FINDINGS: No evidence of intracranial hemorrhage or mass effect. Ventricular system and basal cisterns are patent. Mild small vessel changes with moderate parenchymal volume loss. No extra-axial fluid collections. No evidence of mass or mass effect. Vascular calcification Paranasal sinuses and mastoid air cells are well aerated. .Normal visualized soft tissues. CT/CT head thrombolytic [id number] IMPRESSION: 1. No evidence of intracranial hemorrhage or mass effect. 2. Vascular calcification 3. No acute intracranial findings. Notified Dayana Durand MD at 09/14/2024 1:46 PM.
[2024-09-14 13:38] LABS: Glucose Point of Care 139 mg/dL (70-110)
--- NOTE | 2024-09-14 13:40 | W.ED.DIZZY ---
HPI - Dizziness General: Chief Complaint: Dizziness Stated Complaint: not feeling well, blank starres, slow responding Time Seen by Provider: 09/14/24 13:29 Source: patient Mode of arrival: ambulatory Limitations: no limitations History of Present Illness: HPI Narrative: 64-year-old male who states that around 1230 had a moment where he seemed to black off staring space and states that since then he has been having dizziness he states he feels like the room is spinning he is also had a hard time walking. No focal weakness no slurred speech he denies headache or chest pain. Associated symptoms: Denies chest pain, chills, headache(s), nausea or vomiting Related Data Home Medications ?Medication ?Instructions ?Recorded ?Confirmed dulaglutide 0.75 mg/0.5 mL 0.75 mg SUBCUT Q7D 09/14/24 09/14/24 subcutaneous pen injector ([facility]) gabapentin 300 mg capsule 300 mg PO BID PRN nerve pain 09/14/24 09/14/24 rosuvastatin 10 mg tablet 10 mg PO QPM 09/14/24 09/14/24 Previous Rx's ?Medication ?Instructions ?Recorded lancets (Accu-Chek Fastclix Lancet #200 ea 07/16/21 Drum) pen needle, diabetic 33 gauge x #100 ea 07/24/2104/18 (Comfort EZ Pen [place]) Diabetic shoes with 3 pairs of #1 ea 10/04/22 inserts lancets #100 ea 12/05/22 blood-glucose meter (Blood Glucose #1 ea 05/10/23 Monitoring kit) medial electro mechanical engineer brace #1 ea 08/20/23 blood sugar diagnostic (Accu-Chek #100 strips 01/02/24 Guide test strips) CAM boot - non weight bearing #1 ea 05/06/24 nitroglycerin 0.4 mg sublingual See Rx Instructions .Route 05/15/24 tablet .COMPLEX #25 tabs dapagliflozin propanediol 10 mg 10 mg PO QAM 30 days #30 tabs 05/20/24 tablet (Farxiga) glipizide 10 mg tablet, extended 10 mg PO BID 30 days #60 tabs 05/20/24 release 24 hr metformin 1,000 mg tablet 1,000 mg PO BID 30 days #60 tabs 05/20/24 diabetic shoes and 3 inserts #1 ea 07/28/24 aspirin 81 mg tablet 81 mg PO DAILY #30 tabs 09/14/24 Allergies Allergy/AdvReac Type Severity Reaction Status Date / Time atorvastatin (From Lipitor) AdvReac Intermediate myalgia Verified 09/01/24 06:52 Review of Systems Const: Denies: fever(s), chills, body aches or change in appetite Eyes: Denies: blurry vision or eye discomfort ENMT: Denies: throat pain or dental pain Card: Denies: chest pain Resp: Denies: dyspnea GI: Denies: abdominal pain, nausea, vomiting or diarrhea Musc: Denies: neck pain or back pain Skin/Breast: Denies: rash Neuro: Reports: vertigo; Denies: headache(s) PFSH ED PFSH: Medical History Recurrent subluxation of patella, left knee Osteoarthritis of left knee Smokeless tobacco use Atherosclerosis of coronary artery Stroke-like symptom Diastolic CHF, chronic Hypertension Diabetic neuropathy Diabetes Tachycardia Shortness of breath Surgical History History of total knee arthroplasty Family History Mother Cancer colon cancer Father Cancer Lung disease Sister Diabetes Stroke Denies family history of CAD (coronary artery disease) Clotting disorder Dementia Chronic kidney disease (CKD) Suicide Anesthesia complication Bleeding disorder Social History Smoking and tobacco/nicotine status: never used tobacco/nicotine Alcohol intake: never Substance/Drug Use: never Physical Exam Const: COMMON NORMALS: no acute distress, patient oriented x3 and healthy appearing HENMT: COMMON NORMALS: normocephalic and atraumatic HEAD & SCALP: normocephalic and atraumatic Eye: COMMON NORMALS: Equal, round and reactive pupils present and EOMs intact bilaterally PUPIL: Yes Equal, round and reactive pupils present OTHER: Nystagmus noted when looking to the right Neck/C-Spine: COMMON NORMALS: full ROM and supple Chest: COMMONS NORMALS: normal inspection of the chest and normal palpation of entire chest wall Resp: COMMON NORMALS: normal respiratory effort, No retractions, No use of accessory muscles and clear to auscultation bilaterally AUSCULTATION: clear to auscultation bilaterally Cardio: COMMON NORMALS: regular rate, regular rhythm and No murmurs present (Cardio) RATE: regular rate RHYTHM: regular rhythm Extremity: COMMON NORMALS: normal to inspection and full ROM Neuro: COMMON NORMALS: patient oriented x3, moves all extremities and no focal motor deficits CRANIAL NERVES: Yes CN normal except as noted SPEECH: speech normal MOTOR EXAM: 5/5 motor strength present throughout Psych: COMMON NORMALS: mental status grossly normal, Normal thought process present and cooperative THOUGHT PROCESS: Normal thought process present Skin: COMMON NORMALS: no rashes or lesions noted and no wounds GENERAL SKIN EXAM: no rashes or lesions noted Course Vital Signs: Vital signs: Vital Signs Temperature 97.9 F 09/14/24 13:26 Pulse Rate 87 09/14/24 14:59 Respiratory Rate 13 09/14/24 14:59 Blood Pressure 119/70 09/14/24 14:59 Pulse Oximetry 93 09/14/24 14:59 Oxygen Delivery Me thod Room Air 09/14/24 13:26 MDM - Dizziness Medical Decision Making Patient presents here with dizziness is since resolved his ambulation is much improved was able ambulate the halls he was seen by neurology no signs of acute stroke he already takes a statin we will start him on a baby aspirin he is to follow-up with neurology and cardiology return if worsening he understands agrees to plan. Medical Records I reviewed the patient's medical records. Lab Data I reviewed the patient's lab results. 09/14/24 13:42 09/14/24 13:42 Radiology Impressions Chest X-Ray 09/14/24 13:14 IMPRESSION: No acute findings. Head CT 09/14/24 13:30 IMPRESSION: 1. No evidence of intracranial hemorrhage or mass effect. 2. Vascular calcification 3. No acute intracranial findings. Notified Dayana Durand MD at 09/14/2024 1:46 PM. Head/Neck CTA 09/14/24 14:11 IMPRESSION: No large vessel stenosis or occlusion. IMPRESSION: No stenosis or occlusion. REFERENCES: NASCET CRITERIA. The degree of stenosis in the cervical segment of the internal carotid artery is based on NASCET criteria. Normal is no stenosis. Mild is less than 50% stenosis. Moderate is 50-69% stenosis. Severe is 70% to 99% stenosis. Total occlusion is no detectable patent lumen. Laboratory Results WBC 5.96 10^3/uL (3.29-11.43) 09/14/24 13:42 RBC 4.79 10^6/uL (3.85-5.65) 09/14/24 13:42 Hgb 15.50 g/dL (11.27-16.99) 09/14/24 13:42 Hct 47.0 % (37-53) 09/14/24 13:42 MCV 98.1 fl (82-101) 09/14/24 13:42 MCH 32.4 pg (27-33) 09/14/24 13:42 MCHC 33.0 g/dL (30-55) 09/14/24 13:42 RDW 12.8 % (12.1-15.1) 09/14/24 13:42 Plt Count 181 10^3/cmm (157-399) 09/14/24 13:42 MPV 10.6 fL (7.4-10.4) H 09/14/24 13:42 Neut % (Auto) 62.6 % 09/14/24 13:42 Lymph % (Auto) 25.7 % 09/14/24 13:42 [place] % (Auto) 9.1 % 09/14/24 13:42 Eos % (Auto) 1.5 % 09/14/24 13:42 Baso % (Auto) 0.8 % 09/14/24 13:42 Neut # (Auto) 3.73 10^3/uL (1.8-7.7) 09/14/24 13:42 Lymph # (Auto) 1.5 10^3/uL (0.8-4.8) 09/14/24 13:42 [place] # (Auto) 0.5 10^3/uL (0.2-0.9) 09/14/24 13:42 Eos # (Auto) 0.1 10^3/uL (0.0-0.8) 09/14/24 13:42 Baso # (Auto) 0.1 10^3/uL (0.0-0.1) 09/14/24 13:42 Nucleated RBC % (auto) 0 % 09/14/24 13:42 Nucleated RBCs # 0.0 /100WBC 09/14/24 13:42 PT 13.50 SECONDS (12.1-14.9) 09/14/24 13:42 INR 0.96 (0.8-1.2) 09/14/24 13:42 Sodium 143 mmol/L (136-145) 09/14/24 13:42 Potassium 3.9 mmol/L (3.5-5.1) 09/14/24 13:42 Chloride 107 mmol/L (98-107) 09/14/24 13:42 Carbon Dioxide 20 mmol/L (22-29) L 09/14/24 13:42 Anion Gap 19.9 (5-19) H 09/14/24 13:42 BUN 10 mg/dL (8-23) 09/14/24 13:42 Creatinine 0.8 mg/dL (0.7-1.2) 09/14/24 13:42 GFR Calculation 97.0 mL/min (90-130) 09/14/24 13:42 Glucose 130 mg/dL (65-115) H 09/14/24 13:42 POC Glucose 139 mg/dL (70-110) H 09/14/24 13:35 Calculated Osmolality 297 mOsm/kg (285-295) H 09/14/24 13:42 Calcium 9.6 mg/dL (8.5-10.5) 09/14/24 13:42 Magnesium 1.9 mg/dL (1.7-2.3) 09/14/24 13:42 Total Bilirubin 0.7 mg/dL (0.15-1.2) 09/14/24 13:42 AST 28 U/L (0-40) 09/14/24 13:42 ALT 24 U/L (0-41) 09/14/24 13:42 Alkaline Phosphatase 63 U/L (40-130) 09/14/24 13:42 Total Protein 6.9 g/dL (6.6-8.7) 09/14/24 13:42 Albumin 4.4 g/dL (3.5-5.2) 09/14/24 13:42 Globulin 2.5 g/dL (1.3-4.6) 09/14/24 13:42 Lipase 34 U/L (13-60) 09/14/24 13:42 TSH 1.61 uIU/mL (0.27-4.20) 09/14/24 13:42 Urine Color Yellow (Yellow) 09/14/24 14:35 Urine Appearance Clear (CLEAR) 09/14/24 14:35 Urine pH 5.0 (5-7) 09/14/24 14:35 Ur Specific [place] 1.034 (1.005-1.030) H 09/14/24 14:35 Urine Protein Negative (Negative) 09/14/24 14:35 Urine Glucose (UA) 3+ (Normal) H 09/14/24 14:35 Urine Ketones Trace (Negative) 09/14/24 14:35 Urine Blood Negative (Negative) 09/14/24 14:35 Urine Nitrate Negative (Negative) 09/14/24 14:35 Urine Bilirubin Negative (Negative) 09/14/24 14:35 Urine Urobilinogen 0.2 mg/dL (Negative) 09/14/24 14:35 Ur Leukocyte Esterase Negative (Negative) 09/14/24 14:35 Urine RBC 0-2 /hpf (0-2) 09/14/24 14:35 Urine WBC 0-5 /hpf (0-5) 09/14/24 14:35 Ur Squamous Epith Cells 0-5 /hpf (0-5) 09/14/24 14:35 Amorphous Sediment Not Reportable 09/14/24 14:35 Urine Bacteria None seen /hpf (NONE) 09/14/24 14:35 Hyaline Casts 1.65 /lpf 09/14/24 14:35 Urine Opiates Screen Negative ng/mL (Negative) 09/14/24 14:35 Ur Barbiturates Screen Negative ng/mL (Negative) 09/14/24 14:35 Ur Phencyclidine Scrn Negative ng/mL (Negative) 09/14/24 14:35 Ur Amphetamines Screen Negative ng/mL (Negative) 09/14/24 14:35 U Benzodiazepines Scrn Negative ng/mL (Negative) 09/14/24 14:35 Urine Cocaine Screen Negative ng/mL (Negative) 09/14/24 14:35 U Marijuana (THC) Screen Negative ng/mL (Negative) 09/14/24 14:35 All radiology interpretation(s) finalized by discharge EKG Data EKG 1: I personally reviewed and interpreted this EKG as follows: EKG interpretation date: 09/14/24 EKG interpretation time: 13:47 Interpretation: sinus tach hr [address] elevation qrs 88 qtc 398 Discharge Plan Discharge Patient Disposition: Home Clinical Impression: Dizziness Condition: Stable Prescriptions: New aspirin 81 mg tablet 81 mg PO DAILY Qty: 30 0RF No Action ([facility] [place]) Comfort EZ Pen [place] 33 gauge x 1/4 needle See Rx Instructions .ROUTE .MEDSUPPLY Qty: 100 2RF Rx Instructions: As directed, for use with ozempic inj pen ([facility] [place]) Diabetic shoes with 3 pairs of inserts See Rx Instructions .Route .MEDSUPPLY Qty: 1 0RF Rx Instructions: As directed HOME ([facility] [place]) lancets [facility] [place] See Rx Instructions .ROUTE .MEDSUPPLY Qty: 100 11RF Rx Instructions: Use to test blood sugar 3 times daily ([facility] [place]) medial electro mechanical engineer brace See Rx Instructions .Route .MEDSUPPLY Qty: 1 0RF Rx Instructions: As directed Farxiga 10 mg tablet 10 mg PO QAM 30 Days Qty: 30 5RF glipizide 10 mg tablet extended release 24hr 10 mg PO BID 30 Days Qty: 60 5RF metformin 1,000 mg tablet 1,000 mg PO BID 30 Days Qty: 60 5RF (DME) CAM boot - non weight bearing See Rx Instructions .Route .MEDSUPPLY Qty: 1 0RF Rx Instructions: As directed ([facility] [place]) blood-glucose meter [Blood Glucose Monitoring] Kit See Rx Instructions .ROUTE .MEDSUPPLY Qty: 1 0RF Rx Instructions: Use to test blood sugar three times daily ([facility] [place]) Accu-Chek Guide test strips Strip See Rx Instructions .ROUTE .COMPLEX Qty: 100 0RF Dose Instruction: TO TEST BLOOD SUGAR 3 TIMES A DAY Rx Instructions: TO TEST BLOOD SUGAR 3 TIMES A DAY nitroglycerin 0.4 mg tablet, sublingual See Rx Instructions .ROUTE .COMPLEX Qty: 25 1RF Dose Instruction: 1 tablet sublingually every 5 minutes As Needed for chest pain; do not exceed [address] under tongue Rx Instructions: 1 tablet sublingually every 5 minutes As Needed for chest pain; do not exceed [address] under tongue ([facility] [place]) diabetic shoes and 3 inserts See Rx Instructions .Route .MEDSUPPLY Qty: 1 0RF Rx Instructions: As directed to [facility] (DME) lancets [Accu-Chek Fastclix Lancet Drum] Misc See Rx Instructions .Route Qty: 200 3RF Rx Instructions: As directed gabapentin 300 mg capsule 300 mg PO BID PRN (Reason: nerve pain) rosuvastatin 10 mg tablet 10 mg PO QPM Trulicity 0.75 mg/0.5 mL pen injector 0.75 mg SUBCUT Q7D Rx Instructions: Saturday Discharge Orders: Discharge ED (Routine); Ordered 09/14/24 Ordered By: Dayana Durand Referrals: Wallace Babin MD [Physician, Neurology] - 4-7 days Ana Mercedes MD [Primary Care Provider, Family Practice] Discharge Diet: Advance as tolerated Discharge Activity: Resume usual activity Patient Instructions: Dizziness (ED) Print Language: Slovenian Coding Level of Care Code ED Web Architect for Mo Souza
--- NOTE | 2024-09-14 13:47 | ECG_ITS ---
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 Measurements Intervals [place] Rate: 101 P: 28 NC: 145 QRS: -44 QRSD: 88 T: 34 QT: 340 QTc: 441 Interpretive Statements SINUS TACHYCARDIA LEFT AXIS DEVIATION [QRS AXIS < -30] PATTERN CONSISTENT WITH PULMONARY DISEASE Compared to ECG 07/09/2023 11:20:29 Left-axis deviation now present Electronically Signed On 09-15-2024 11:36:45 CDT by Arsenio Ware M.D. [email or web address]
[2024-09-14 13:53] LABS: Basophils # 0.1 10^3/uL (0.0-0.1); Basophils % 0.8 %; Eosinophils # 0.1 10^3/uL (0.0-0.8); Eosinophils % 1.5 %; Lymphocytes # 1.5 10^3/uL (0.8-4.8); Lymphocytes % 25.7 %; Mean Corpuscular Hemoglobin 32.4 pg (27-33); Mean Corpuscular Volume 98.1 fl (82-101); Mean Platelet Volume 10.6 fL (7.4-10.4); Monocytes # 0.5 10^3/uL (0.2-0.9); Monocytes % 9.1 %; Neutrophils # 3.73 10^3/uL (1.8-7.7); Neutrophils % 62.6 %; Nucleated Red Blood Cells % 0 %; Platelet Count 181 10^3/cmm (157-399); Red Blood Count 4.79 10^6/uL (3.85-5.65); Red Cell Distribution Width 12.8 % (12.1-15.1); White Blood Count 5.96 10^3/uL (3.29-11.43)
[2024-09-14] MEDS: meclizine 25 mg tablet 50 MG PO (14:03)
[2024-09-14 14:06] LABS: INR 0.96 (0.8-1.2)
--- NOTE | 2024-09-14 14:11 | CTR_ITS ---
PROCEDURE INFORMATION: Exam: CTA Head With Contrast, Arteriography Exam date and time: 09/14/2024 2:54 PM Age: 64 years old Clinical indication: Dizziness and giddiness; Additional info: Dizzy TECHNIQUE: Imaging protocol: Computed tomographic angiography of the head with contrast. Exam focused on the arteries. 3D rendering (Not supervised by radiologist): MIP and/or 3D reconstructed images were created by the technologist. Radiation optimization: All CT scans at this facility use at least one of these dose optimization techniques: automated exposure control; mA and/or kV adjustment per patient size (includes targeted exams where dose is matched to clinical indication); or iterative reconstruction. Contrast material: OMNIPAQUE 350; Contrast volume: 100 ml; Contrast route: INTRAVENOUS (IV); COMPARISON: CT angio headneck* [id number] 08/05/2022 5:35 PM RADIATION DOSE METRICS: Total DLP (mGy-cm): 465.25 FINDINGS: ANTERIOR CIRCULATION: Right internal carotid artery: Intracranial segment is patent with no significant stenosis. No aneurysm. Right middle cerebral artery: No occlusion or significant stenosis. No aneurysm. Right anterior cerebral artery: No occlusion or significant stenosis. No aneurysm. Left internal carotid artery: Intracranial segment is patent with no significant stenosis. No aneurysm. Left middle cerebral artery: No occlusion or significant stenosis. No aneurysm. Left anterior cerebral artery: No occlusion or significant stenosis. No aneurysm. POSTERIOR CIRCULATION: Right vertebral artery: No occlusion or significant stenosis. No aneurysm. Left vertebral artery: No occlusion or significant stenosis. No aneurysm. Basilar artery: No occlusion or significant stenosis. No aneurysm. Right posterior cerebral artery: No occlusion or significant stenosis. No aneurysm. Left posterior cerebral artery: No occlusion or significant stenosis. No aneurysm. Brain: No definite mass, mass effect, or midline shift. Cerebral ventricles: No ventriculomegaly. Bones/joints: Unremarkable. No acute fracture. Soft tissues: Unremarkable. PROCEDURE INFORMATION: Exam: CTA Neck With Contrast Exam date and time: 09/14/2024 2:54 PM Age: 64 years old Clinical indication: Dizziness and giddiness; Additional info: Dizzy TECHNIQUE: Imaging protocol: Computed tomographic angiography of the neck with contrast. Exam focused on the cervical segments of the vasculature. 3D rendering (Not supervised by radiologist): MIP and/or 3D reconstructed images were created by the technologist. Radiation optimization: All CT scans at this facility use at least one of these dose optimization techniques: automated exposure control; mA and/or kV adjustment per patient size (includes targeted exams where dose is matched to clinical indication); or iterative reconstruction. Contrast material: OMNIPAQUE 350; Contrast volume: 100 ml; Contrast route: INTRAVENOUS (IV); COMPARISON: CT neck [facility] [id number] 03/27/2023 7:11 AM RADIATION DOSE METRICS: Total DLP (mGy-cm): 465.25 FINDINGS: Right common carotid artery: No stenosis. No dissection or occlusion. Right internal carotid artery: No stenosis of the extracranial segment. No dissection or occlusion. Right external carotid artery: No occlusion or stenosis of the origin. Left common carotid artery: No stenosis. No dissection or occlusion. Left internal carotid artery: No stenosis of the extracranial segment. No dissection or occlusion. Left external carotid artery: No occlusion or stenosis of the origin. Right vertebral artery: No stenosis. No dissection or occlusion. Left vertebral artery: No stenosis. No dissection or occlusion. Soft tissues: Normal. No significant soft tissue swelling. Bones/joints: No acute fracture. CT/CT angio headneck* [id number] IMPRESSION: No large vessel stenosis or occlusion. IMPRESSION: No stenosis or occlusion. REFERENCES: NASCET CRITERIA. The degree of stenosis in the cervical segment of the internal carotid artery is based on NASCET criteria. Normal is no stenosis. Mild is less than 50% stenosis. Moderate is 50-69% stenosis. Severe is 70% to 99% stenosis. Total occlusion is no detectable patent lumen.
--- NOTE | 2024-09-14 14:13 | P.CONIM_ITS ---
Providers/Reason For Consult 2 Consulting Physician/Specialty*: Wallace Babin MD neurology and epilepsy Reason for Consult*: Acute care/code stroke emergency department #9 Primary Care Provider: Ana Mercedes MD History of Present Illness History of Present Illness Mikala Wright is a 64 year old male with a history of coronary atherosclerotic heart disease, type 2 diabetes mellitus, and reflex sympathetic dystrophy, diabetic neuropathy, hyperlipidemia, hypertension, and obstructive sleep apnea. 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 The patient's stated that she and her started working at a [employer] this morning and worked until lunchtime around 12 noon. The states that they were sitting after finishing eating lunch and the patient acutely started staring with a dazed look on his face and not responding for approximately 2 to 3 minutes followed by the patient reporting that he was feeling dizzy described as objective vertigo where things were spinning. The patient stated the patient went to the bathroom and when he returned from the bathroom he still complained of feeling dizzy described as objective vertigo. As a result the patient was brought to [facility] emergency department. Stroke alert was initiated at 1:28 PM. During neurological exam the patient was asymptomatic except for some complaining of mild lightheadedness when looking down on extraocular movements. There were no obvious nystagmus. Patient was able to sit on the side of the gurney and then stand and take steps without complaints of dizziness. Noncontrast head CT 09/14/2024 revealed no acute findings. Neurological NIH stroke score = 0 Point of contact glucose Accu-Chek 139 (normal equals 70-110) Note: Since the patient NIH stroke score =0. The patient was not a candidate for intravenous thrombolytics and no intravenous thrombolytics were administered. Drug allergies: Lipitor which resulted in myalgia Current medications: Dapagliflozin:propanediol 10 mg p.o. daily Dulaglutide 0.75 milligram subcutaneously every week Fexofenadine/pseudoephedrine ER 60 mg/120 mg 1 p.o. every 12 hours as needed for sinus symptoms Neurontin 300 mg p.o. twice daily Glipizide ER 10 mg p.o. daily Metformin 1000 mg p.o. twice daily Sublingual nitroglycerin 0.4 mg as needed asked instruct Eanolazine XR 500 mg p.o. twice daily Crestor 10 mg p.o. daily Past medical history: Type 2 diabetes mellitus Coronary atherosclerotic heart disease Diabetic peripheral neuropathy Diastolic congestive heart failure Reflex sympathetic dystrophy Obstructive sleep apnea Hyperlipidemia Hypertension Stroke Habits: None Family history: Remarkable for sister who experienced a stroke Social history: Patient lives with his Review of Systems 2 Neuro: Reports: vertigo (Objective) and seizure-like activity (Staring spells 09/14/2024) Medications/Allergies Home Medications ?Medication ?Instructions ?Recorded ?Confirmed ?Last Taken ?Type lancets (Accu-Chek Fastclix Lancet #200 ea 07/16/21 Unknown Rx Drum) pen needle, diabetic 33 gauge x #100 ea 07/24/2109/14 Unknown Rx 1/4 (Comfort EZ Pen [place]) Diabetic shoes with 3 pairs of #1 ea 10/04/22 09/14/24 Unknown Rx inserts lancets #100 ea 12/05/22 09/14/24 Un known Rx blood-glucose meter (Blood Glucose #1 ea 05/10/23 06/0 06/09 Unknown Rx Monitoring kit) medial 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 brace #1 ea 08/20/23 09/14/24 Unkn own Rx blood sugar diagnostic (Accu-Chek #100 strips 01/02/24 09/14/24 Unknown Rx Guide test strips) CAM boot - non weight bearing #1 ea 05/06/24 09/14/24 Unknown Rx nitroglycerin 0.4 mg sublingual See Rx Instructions .R oute 05/15/24 09/14/24 Unknown Rx tablet .COMPLEX #25 tabs dapagliflozin propanediol 10 mg 10 mg PO QAM 30 days # 30 tabs 05/20/24 09/14/24 09/14/24 Rx tablet (Farxiga) glipizide 10 mg tablet, extended 10 mg PO BID 30 days #60 tabs 05/20/24 09/14/24 09/14/24 Rx release 24 hr metformin 1,000 mg tablet 1,000 mg PO BID 30 days #60 tabs 05/20/24 09/14/24 09/14/24 Rx diabetic shoes and 3 inserts #1 ea 07/28/24 09/14/24 U nknown Rx dulaglutide 0.75 mg/0.5 mL 0.75 mg SUBCUT Q7D 09/14/24 09/14/24 09/12/24 History subcutaneous pen injector (Trulicity) gabapentin 300 mg capsule 300 mg PO BID PRN nerve pain 09/14/24 09/14/24 Unknown History rosuvastatin 10 mg tablet 10 mg PO QPM 09/14/2409/13/24 History Allergies Allergy/AdvReac Type Severity Reaction Status Date / Time atorvastatin (From Lipitor) AdvReac Intermediate myalgia Verified 09/01/24 06:52 PFSH Acute 2 PFSH: Medical History Recurrent subluxation of patella, left knee Osteoarthritis of left knee Smokeless tobacco use Atherosclerosis of coronary artery Stroke-like symptom Diastolic CHF, chronic Hypertension Diabetic neuropathy Diabetes Tachycardia Shortness of breath Surgical History History of total knee arthroplasty Family History Mother Cancer colon cancer Father Cancer Lung disease Sister Diabetes Stroke Denies family history of CAD (coronary artery disease) Clotting disorder Dementia Chronic kidney disease (CKD) Suicide Anesthesia complication Bleeding disorder Social History Smoking and tobacco/nicotine status: never used tobacco/nicotine Alcohol intake: never Substance/Drug Use: never Vitals/I&O/Wt Last Vital Signs Temp 97.9 F 09/14/24 13:26 Pulse 105 H 09/14/24 13:26 Resp 18 09/14/24 13:26 BP 137/77 09/14/24 13:26 Pulse Ox 99 09/14/24 13:26 O2 Del Method Room Air 09/14/24 13:26 Weight last 48 hrs Weight 230 lb Physical Exam 2 Narrative: Noncontrast head CT 09/14/2024 revealed no acute findings. Neurological NIH stroke score = 0 Point of contact glucose Accu-Chek 139 (normal equals 70-110) Note: Since the patient NIH stroke score =0. The patient was not a candidate for intravenous thrombolytics and no intravenous thrombolytics were administered. The patient is alert and oriented x 3. Speech fluent. Head normocephalic. Neck supple. Pupils 3 mm round reactive to light and accommodation. Extraocular movements intact. Patient did report lightheadedness with downward gaze but there were no obvious nystagmus. Visual toro full via confrontation. Motor testing 5/5 bilaterally. Bhxons-tfse-iipolh and obqr-qjmm-amlz maneuvers were negative for ataxia. Sensory examination intact to touch. Throat clear. Lungs clear. Heart regular rhythm and rate. Gait was back to baseline. Extremities were negative for cyanosis. Patient did have chronic swelling in the right ankle secondary to ankle surgery and ankle and foot issues. Data 09/14/24 13:42 09/14/24 13:42 A&P Assessment and plan (1) Episodes of staring: Impression: 1. Staring spell 09/14/2024 witnessed by the patient's when the patient and his was sitting having lunch 2. Objective vertigo preceded by staring spell Plan: 1. Recommend obtaining CT angiogram of the head and neck to assess for any posterior circulation stenosis 2. If CT angiogram of the head and neck is unrevealing okay to discharge patient from the emergency department 3. Please schedule patient for outpatient noncontrast head MRI to assess for posterior circulation stroke 4. Please schedule patient for outpatient sleep deprived surface EEG recording to assess for seizures 5. Recommend repeat 2D echocardiogram to rule out embolic source for TIA symptoms 6. Recommend patient follow-up with cardiology to assess for any embolic source for TIA 7. Agree with patient continuing Crestor at current dose 8. Agree with starting aspirin 325 mg p.o. every morning with food per NIH stroke protocol if no contraindications 9. Please schedule patient for follow-up in the [facility] neurology clinic after the above studies have been completed 10. Recommend patient be placed on seizure precautions per state law until further notice PDMP PDMP Reviewed: Not Reviewed Consult Attestations 2 Medical Necessity Statement: The patient was evaluated by neurology for acute care/stroke alert Coding Level of Care Code 60282 Diagnoses Episodes of staring R40.4
[2024-09-14 14:22] LABS: Alanine Aminotransferase 24 U/L (0-41); Albumin Level 4.4 g/dL (3.5-5.2); Alkaline Phosphatase 63 U/L (40-130); Anion Gap 19.9 (5-19); Aspartate Amino Transferase 28 U/L (0-40); Blood Urea Nitrogen 10 mg/dL (8-23); Calcium 9.6 mg/dL (8.5-10.5); Carbon Dioxide 20 mmol/L (22-29); Chloride 107 mmol/L (98-107); Creatinine Clr Calc Pharmacy 104.1802; Globulin 2.5 g/dL (1.3-4.6); Glucose 130 mg/dL (65-115); Lipase 34 U/L (13-60); Magnesium 1.9 mg/dL (1.7-2.3); Osmolality Calculated 297 mOsm/kg (285-295); Potassium 3.9 mmol/L (3.5-5.1); Sodium 143 mmol/L (136-145); Thyroid Stimulating Hormone 1.61 uIU/mL (0.27-4.20); Total Bilirubin 0.7 mg/dL (0.15-1.2); Total Protein 6.9 g/dL (6.6-8.7)
[2024-09-14] MEDS: iohexol 350 mg/mL 500 mL Btl (per mL) IV (14:57)
[2024-09-14 14:59] VITALS: BP 119/70; PULSE 87; RESP 13; O2SAT 93
[2024-09-14 15:06] LABS: Bilirubin Urine Negative (Negative); Blood Urine Negative (Negative); Glucose Urine UA 3+ (Normal); Ketones Urine Trace (Negative); Leukocyte Esterase Urine Negative (Negative); Nitrate Urine Negative (Negative); Protein Urine Negative (Negative); Urine Appearance Clear (CLEAR); Urine Color Yellow (Yellow); Urobilinogen Urine 0.2 mg/dL (Negative)
[2024-09-14 15:08] LABS: Add Urine Microscopic? YES; Bacteria Urine None Seen /hpf; Hyaline Casts Urine 1.65 /lpf; RBC Urine 0-2 /hpf (0-2); Squamous Epithelial Cell Urine 0-5 /hpf (0-5); WBC Urine 0-5 /hpf (0-5)
[2024-09-14 15:12] LABS: Add Urine Culture? No; Specific Gravity, Urine 1.034 (1.005-1.030)
[2024-09-14 15:15] LABS: Amphetamines Screen Urine Negative (Negative); Barbiturates Screen Urine Negative (Negative); Benzodiazepines Screen Urine Negative (Negative); Cocaine Screen Urine Negative (Negative); Opiate Screen Urine Negative (Negative); PCP Screen Urine Negative (Negative); THC Screen Urine Negative (Negative)
[2024-09-14 15:28] VITALS: BP 119/70; PULSE 84; O2SAT 94
--- NOTE | 2024-09-16 07:46 | DCPLANNER ---
messaged heart care for er f/u
== END 2024-09-14 15:29 | disposition home or self-care (01) ==
PROVIDERS: Emergency Provider Emergency Medicine; PCP Family Medicine
DX: R42 Dizziness and giddiness (principal); Z79.84 Long term (current) use of oral hypoglycemic drugs; E11.40 Type 2 diabetes mellitus with diabetic neuropathy, unspecified; I11.0 Hypertensive heart disease with heart failure; I50.30 Unspecified diastolic (congestive) heart failure
CPT/HCPCS: 36415; 36416; 70450; 70496; 70498; 71045; 80053; 80306; 81001; 82962; 83690; 83735; 84443; 85025; 85610; 93005; 99285; J8597

== ENCOUNTER → 2024-09-15 12:04 | Outpatient (BNVA) | payer MEDICARE, SELFPAY | PROVIDERS: PCP Family Medicine; Visit Provider Podiatrist Foot & Ankle Surgery | DX: G62.9 Polyneuropathy, unspecified (principal); Z98.890 Other specified postprocedural states; M72.2 Plantar fascial fibromatosis | CPT/HCPCS: 99214 ==

== ENCOUNTER → 2024-10-13 10:18 | Outpatient (BNVA) | payer MEDICARE, SELFPAY | PROVIDERS: PCP Family Medicine; Referring Provider Psychiatry & Neurology Neurology; Visit Provider Specialist | DX: R56.9 Unspecified convulsions (principal) | CPT/HCPCS: 95819 ==

== ENCOUNTER → 2024-10-14 12:56 | Outpatient (BNVA) | payer MEDICARE, SELFPAY | PROVIDERS: PCP Family Medicine; Visit Provider Nurse Practitioner Family | DX: L82.1 Other seborrheic keratosis (principal); L57.8 Other skin changes due to chronic exposure to nonionizing radiation; L81.4 Other melanin hyperpigmentation; Z08 Encounter for follow-up examination after completed treatment for malignant neoplasm; Z85.828 Personal history of other malignant neoplasm of skin; L82.0 Inflamed seborrheic keratosis; Z78.9 Other specified health status; R20.8 Other disturbances of skin sensation; L53.8 Other specified erythematous conditions; L57.0 Actinic keratosis | CPT/HCPCS: 17000; 17110; 99213 ==

== ENCOUNTER → 2024-10-27 12:48 | Outpatient (BNVA) | payer MEDICARE, SELFPAY | PROVIDERS: PCP Family Medicine; Visit Provider Internal Medicine Cardiovascular Disease | DX: I25.10 Atherosclerotic heart disease of native coronary artery without angina pectoris (principal); E78.5 Hyperlipidemia, unspecified; I11.0 Hypertensive heart disease with heart failure; I50.32 Chronic diastolic (congestive) heart failure; E11.9 Type 2 diabetes mellitus without complications; Z79.84 Long term (current) use of oral hypoglycemic drugs; Z87.891 Personal history of nicotine dependence; Z79.82 Long term (current) use of aspirin; G45.9 Transient cerebral ischemic attack, unspecified | CPT/HCPCS: 99214 ==

== ENCOUNTER 2024-11-12 11:32 | Outpatient (CLI) | payer MEDICARE, SELFPAY | END 2024-11-12 11:33 | disposition home or self-care (01) | LOC: SPT 11:32 | PROVIDERS: PCP Family Medicine; Visit Provider Podiatrist Foot & Ankle Surgery | DX: Z46.89 Encounter for fitting and adjustment of other specified devices (principal); M72.2 Plantar fascial fibromatosis; M24.571 Contracture, right ankle; M20.11 Hallux valgus (acquired), right foot | CPT/HCPCS: 97161 ==

== ENCOUNTER → 2024-11-17 08:53 | Outpatient (BNVA) | payer MEDICARE, SELFPAY | PROVIDERS: PCP Family Medicine; Visit Provider Family Medicine | DX: E11.9 Type 2 diabetes mellitus without complications (principal); I10 Essential (primary) hypertension; E78.1 Pure hyperglyceridemia; R53.82 Chronic fatigue, unspecified | CPT/HCPCS: 80053; 80061; 83036; 85025 ==

== ENCOUNTER 2024-11-20 06:25 | Outpatient (CLI) | payer MEDICARE, SELFPAY ==
--- NOTE | 2024-11-20 07:45 | USCV_ITS ---
Mikala Wright Age: 64 Gender: M : 1960 Exam Date: 11/20/2024 07:03 Ordering Phys: Wallace Babin MD Technologist: LASHAE Exam Location: [facility] [place] Indication: TIA BP: 125 / 85 HR: 75 Rhythm: Sinus Technical Quality: Adequate MEASUREMENTS (Male / Female) Normal Values 2D ECHO LV Diastolic Diameter PLAX 4.9 cm 4.2 - 5.9 / 3.9 - 5.3 cm IVS Diastolic Thickness 1.2 cm 0.6 - 1.0 / 0.6 - 0.9 cm IVS Systolic Thickness 1.6 cm LVPW Diastolic Thickness 1.1 cm 0.6 - 1.0 / 0.6 - 0.9 cm LVPW Systolic Thickness 1.6 cm LVOT Diameter 2.0 cm LV Ejection Fraction 2D Teich 55.3 % LV Ejection Fraction MOD 4C 53.7 % LV Ejection Fraction MOD 2C 63.9 % LV Ejection Fraction 2C AL 64.9 % LA Diameter 3.6 cm RA Systolic Volume 4C AL 30.6 ml RA Systolic Volume 4C MOD 31.1 ml LA Sys Volume AL 30.5 cm cubed LA Sys Volume Index AL 13.7 cm cubed/m squared Aorta at Sinotubular Diameter 2.8 cm IVC Diameter 2.6 cm M-MODE LA Ao Ratio MM 1.3 AV Cusp Separation MM 2.2 cm DOPPLER AV Peak Velocity 122.0 cm/s LVOT Peak Velocity 99.0 cm/s AV Area Cont Eq vti 2.7 cm squared AV Area Cont Eq pk 2.6 cm squared MV Peak Velocity 98.0 cm/s MV Area PHT 4.8 cm squared Mitral E to A Ratio 0.9 TR Peak Velocity 111.0 cm/s TR Peak Gradient 4.9 mmHg TV Peak E Velocity 66.0 cm/s PV Peak Velocity 114.0 cm/s FINDINGS Left Ventricle Normal left ventricular size, systolic function and wall thickness, with no regional wall motion abnormalities. Left ventricular ejection fraction is estimated at 60 %. Grade I/IV diastolic dysfunction (abnormal relaxation filling pattern), normal to mildly elevated filling pressures. Right Ventricle The right ventricle is normal in size and function. Right Atrium The right atrium is normal in size. Left Atrium The left atrium is normal in size. Mitral Valve Mildly thickened mitral valve. No mitral valve stenosis. Mild mitral valve regurgitation. Aortic Valve Moderate aortic valve calcification. No aortic valve stenosis. Trace aortic valve regurgitation. Tricuspid Valve Mild tricuspid valve regurgitation. Pulmonic Valve Mild pulmonary valve regurgitation. Pericardium Normal pericardium without effusion. Aorta Normal ascending aorta dimension. IVC The inferior vena cava appears normal. CONCLUSIONS Normal left ventricular size, systolic function and wall thickness, with no regional wall motion abnormalities. Left ventricular ejection fraction is estimated at 60 %. Grade I/IV diastolic dysfunction (abnormal relaxation filling pattern), normal to mildly elevated filling pressures. Moderate aortic valve calcification. No aortic valve stenosis. Trace aortic valve regurgitation. Mildly thickened mitral valve. No mitral valve stenosis. Mild mitral valve regurgitation. Mild tricuspid valve regurgitation. There is no pericardial effusion. Right atrial pressure is around 5 mm of mercury. Ray Muhammad MD (Electronically Signed) Final Date: 20 November 2024 20:12 S
== END 2024-11-20 06:26 | disposition home or self-care (01) ==
LOC: RAD 06:26
PROVIDERS: PCP Family Medicine; Visit Provider Psychiatry & Neurology Neurology
DX: G45.9 Transient cerebral ischemic attack, unspecified (principal); I08.3 Combined rheumatic disorders of mitral, aortic and tricuspid valves
CPT/HCPCS: 93306

== ENCOUNTER 2024-11-26 12:59 | Emergency (ER) | payer MEDICARE, SELFPAY ==
[2024-11-26 13:02] VITALS: BP 116/79; PULSE 104; RESP 16; TEMP 36.8; O2SAT 94; BMI 35.2
--- NOTE | 2024-11-26 13:06 | ECG_ITS ---
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
--- NOTE | 2024-11-26 13:06 | XR_ITS ---
WS: [id number] Portable AP upright chest, 11/26/2024 Clinical Data: cp Comparison: Portable chest, 09/14/2024 Findings: No nodules, masses or effusions are seen. The heart is normal. The pulmonary vascularity is not increased. No pneumonia or pneumothorax is seen. The aortic arch shows mild tortuosity. XR/XR chest 1V portable [id number] Impression: Atherosclerosis.
[2024-11-26 13:32] VITALS: BP 149/83; PULSE 103; RESP 16; O2SAT 94
--- NOTE | 2024-11-26 13:42 | ED_ITS ---
HPI - Chest Pain 2 General: Chief Complaint: Chest Pain Stated Complaint: Pressure in chest Little SOB Time Seen by Provider: 11/26/24 13:27 Source: patient and family Mode of arrival: ambulatory Limitations: no limitations History of Present Illness: This patient presented to the emergency department by private vehicle because of concerns about chest pain. He states that chest pain began at approximately 11 AM this morning. He states he was engaged in physical activity of removing a battery from his truck. He states he lifted the battery up and developed chest pain which was central in location with some subjective shortness of breath. There was no associated diaphoresis or nausea. He states he did not take nitroglycerin but completed his endeavor and then made his way to the emergency department. He states he has very minimal discomfort at this time in the same location. He states that he has been having episodes of chest pain which are not predictable sometimes with activity sometimes at rest. He states that he occasionally gets awakened at night by these episodes. He states they last as long as 10 minutes. He has taken nitroglycerin in the past for the symptoms with using as many as 2 before his symptoms abated. He has no known history of cardiac procedures to include angiogram etc. He he was seen by cardiology in October. He denies any fevers chills cough fever etc. He denies any other constitutional complaints at this time. He is not a tobacco smoker nor has ever smoked tobacco. He has not taken aspirin today. MD complaint: chest pain Onset: during exertion Severity: moderate Quality: tightness Associated symptoms: Reports no associated symptoms and dyspnea; Deny abdominal pain, fever(s), nausea, palpitations, syncope or vomiting Related Data Home Medications ?Medication ?Instructions ?Recorded ?Confirmed rosuvastatin 10 mg tablet 10 mg PO QPM 09/14/24 Previous Rx's ?Medication ?Instructions ?Recorded Diabetic shoes with 3 pairs of #1 ea 10/04/22 inserts lancets #100 ea 12/05/22 medial kitchen worker brace #1 ea 08/20/23 CAM boot - non weight bearing #1 ea 05/06/24 nitroglycerin 0.4 mg sublingual See Rx Instructions .R oute 05/15/24 tablet .COMPLEX #25 tabs diabetic shoes and 3 inserts #1 ea 07/28/24 custom insoles #1 ea 09/15/24 blood sugar diagnostic (Accu-Chek #100 strips 10/07/24 Guide test strips) lancets (Accu-Chek Softclix #200 ea 10/08/24 Lancets) pen needle, diabetic 33 gauge x #100 ea 10/08/2404/18 (Comfort EZ Pen Bon Wier) isosorbide mononitrate 30 mg 30 mg PO DAILY #90 tabs 0 10/27/24 tablet,extended release 24 hr dapagliflozin propanediol 10 mg 10 mg PO QAM 30 days # 30 tabs 11/17/24 tablet (Farxiga) dulaglutide 0.75 mg/0.5 mL 0.75 mg (0.5 mL) SUBCUT Q7D #2 mL 11/17/24 subcutaneous pen injector ([facility] glipizide 10 mg tablet, extended 10 mg PO BID 30 days #60 tabs 11/17/24 release 24 hr metformin 1,000 mg tablet 1,000 mg PO BID 30 days #60 tabs 11/17/24 pregabalin 25 mg capsule 25 mg PO DAILY #30 caps 11/13 08/07 Allergies Allergy/AdvReac Type Severity Reaction Status Date / Time atorvastatin (From Lipitor) AdvReac Intermediate myalgia Verified 11/26/24 13:08 Review of Systems 2 Const: Denies: fever(s) or chills Eyes: Denies: change in vision ENMT: Denies: throat pain, odynophagia, nasal discharge or nasal congestion Card: Reports: chest pain; Denies: palpitations, syncope or pre-syncope Resp: Reports: dyspnea; Denies: productive cough, non-productive cough or wheezing GI: Denies: abdominal pain, nausea, vomiting or diarrhea : Denies: flank pain, difficulty urinating or dysuria Musc: Denies: neck pain, back pain, extremity pain or extremity swelling Skin/Breast: Denies: rash Neuro: Denies: headache(s), numbness in extremities or weakness in extremities Psych: Denies: anxiety or depression Jhonathan/Lymph: Denies: easy bruising or easy bleeding PFSH ED 2 PFSH: Medical History Recurrent subluxation of patella, left knee Osteoarthritis of left knee Smokeless tobacco use Atherosclerosis of coronary artery Stroke-like symptom Diastolic CHF, chronic Hypertension Diabetic neuropathy Diabetes Tachycardia Shortness of breath Surgical History History of total knee arthroplasty Family History Mother Cancer colon cancer Father Cancer Lung disease Sister Diabetes Stroke Denies family history of CAD (coronary artery disease) Clotting disorder Dementia Chronic kidney disease (CKD) Suicide Anesthesia complication Bleeding disorder Social History Smoking and tobacco/nicotine status: former use of tobacco/nicotine Alcohol intake: never Substance/Drug Use: never Physical Exam 2 Narrative: EXAM NARRATIVE: He appears to be alert in no acute distress he is cooperative. He is oriented and answers questions in a goal-directed fashion. Const: COMMON NORMALS: no acute distress, average body habitus, patient oriented x3 and alert GENERAL APPEARANCE: cooperative and comfortable HENMT: COMMON NORMALS: atraumatic, Normal nasal mucous membranes and turbinates present, moist oral mucous membranes and oropharynx normal HEAD & SCALP: atraumatic NOSE: Normal nasal mucous membranes and turbinates present Eye: COMMON NORMALS: Equal, round and reactive pupils present PUPIL: Yes Equal, round and reactive pupils present Neck/C-Spine: COMMON NORMALS: full ROM, no JVD and No carotid bruits Chest: COMMONS NORMALS: normal inspection of the chest and normal palpation of entire chest wall Resp: COMMON NORMALS: normal respiratory effort, No retractions and No use of accessory muscles Cardio: COMMON NORMALS: no JVD, regular rate, regular rhythm, No murmurs present (Cardio) and Peripheral pulses 2+ throughout RATE: regular rate R HYTHM: regular rhythm PERIPHERAL PULSES: Peripheral pulses 2+ throughout GI: COMMON NORMALS: Normal to inspection, nondistended, normoactive bowel sounds present, Soft to palpation and non-tender PALPATION: Yes Soft to palpation : COMMON NORMALS: Yes no CVA tenderness BLADDER/KIDNEY EXAM: Yes no CVA tenderness Back/Pelvis: COMMON NORMALS: no CVA tenderness, thoracic and lumbar spine normal to inspection, no thoracic nor lumbar tenderness and thoraco-lumbar ROM normal Extremity: COMMON NORMALS: normal to inspection, full ROM, capillary refill normal and no calf tenderness Neuro: COMMON NORMALS: patient oriented x3, moves all extremities, no focal motor deficits, no sensory deficits noted and deep tendon reflexes 2+ bilaterally SENSORIUM/ORIENTATION: Yes alert Psych: COMMON NORMALS: mental status grossly normal Skin: COMMON NORMALS: no rashes or lesions noted, no wounds and turgor normal GENERAL SKIN EXAM: no rashes or lesions noted and turgor normal Course 2 Reevaluation(s): Reevaluation #1: Patient remained stable, chest pain-free. Laboratories are reassuring. Chest x-ray shows no evidence of heart failure with normal heart size. He has no dynamic EKG changes and no elevations in serial troponins. Discussed current findings or limitations and implications. Plan will be to place a cardiology consultation for a provocative testing to help delineate the source of his symptoms. No evidence of acute ACS etc. at this time. Time: 15:59 Vital Signs: Vital signs: Vital Signs Temperature 98.2 F 11/26/24 13:02 Pulse Rate 83 11/26/24 15:31 Respiratory Rate 16 11/26/24 15:31 Blood Pressure 115/71 11/26/24 15:31 Pulse Oximetry 91 11/26/24 15:31 Oxygen Delivery Me thod Room Air 11/26/24 15:31 MDM - Chest Pain Medical Decision Making Patient presented as noted in the HPI. Concern initially was established and that there was no evidence of ACS or ongoing ischemia. The patient's clinical examination was reassuring. Resting EKGs were reassuring and repeat EKGs revealed no dynamic changes. Chest x-ray revealed no evidence of cardiac enlargement infiltrates etc. digestive of heart failure or other acute process. Serial troponins were obtained which were also reassuring. Patient remained clinical David stable, pain-free throughout his emergency department stay without any evidence of ACS or other potential etiologies of his chest pain. No pneumonia. Low risk of thromboembolic disease given his current clinical picture and certainly no pneumonia etc. Recent echo was reassuring but he does need provocative testing. Will place a case management consultation to facilitate that process. Discussed return precautions in detail with the patient and spouse. Also reviewed his recent echo with this patient and his spouse to provide delineation of the findings further edification. They voiced understanding and were appreciative of care. Medical Records I reviewed the patient's medical records. Recent echocardiogram reviewed. Does have mild diastolic dysfunction with preserved ejection fraction and mild calcific aortic valve. Lab Data I reviewed the patient's lab results. 11/26/24 13:29 11/26/24 13:29 Radiology Impressions Chest X-Ray 11/26/24 13:06 Impression: Atherosclerosis. Laboratory Results WBC 6.49 10^3/uL (3.29-11.43) 11/26/24 13:29 RBC 4.80 10^6/uL (3.85-5.65) 11/26/24 13:29 Hgb 15.50 g/dL (11.27-16.99) 11/26/24 13:29 Hct 46.8 % (37-53) 11/26/24 13:29 MCV 97.5 fl (82-101) 11/26/24 13:29 MCH 32.3 pg (27-33) 11/26/24 13: MCHC 33.1 g/dL (30-55) 11/26/24 13:29 RDW 12.4 % (12.1-15.1) 11/26/24 13:29 Plt Count 154 10^3/cmm (157-399) L 11/26/24 13:29 MPV 10.8 fL (7.4-10.4) H 11/26/24 13:29 Neut % (Auto) 62.7 % 11/26/24 13:29 Lymph % (Auto) 25.6 % 11/26/24 13:29 [place] % (Auto) 9.2 % 11/26/24 13:29 Eos % (Auto) 1.7 % 11/26/24 13:29 Baso % (Auto) 0.5 % 11/26/24 13:29 Neut # (Auto) 4.07 10^3/uL (1.8-7.7) 11/26/24 13:29 Lymph # (Auto) 1.7 10^3/uL (0.8-4.8) 11/26/24 13:29 [place] # (Auto) 0.6 10^3/uL (0.2-0.9) 11/26/24 13:29 Eos # (Auto) 0.1 10^3/uL (0.0-0.8) 11/26/24 13:29 Baso # (Auto) 0.0 10^3/uL (0.0-0.1) 11/26/24 13:29 Nucleated RBC % (auto) 0 % 11/26/24 13:29 Nucleated RBCs # 0.0 /100WBC 11/26/24 13:29 Sodium 142 mmol/L (136-145) 11/26/24 13:29 Potassium 4.2 mmol/L (3.5-5.1) 11/26/24 13:29 Chloride 106 mmol/L (98-107) 11/26/24 13:29 Carbon Dioxide 22 mmol/L (22-29) 11/26/24 13:29 Anion Gap 18.2 (5-19) 11/26/24 13:29 BUN 13 mg/dL (8-23) 11/26/24 13:29 Creatinine 0.8 mg/dL (0.7-1.2) 11/26/24 13:29 GFR Calculation 97.0 mL/min (90-130) 11/26/24 13:29 Glucose 112 mg/dL (65-115) 11/26/24 13:29 Calculated Osmolality 295 mOsm/kg (285-295) 11/26/24 13:29 Calcium 9.1 mg/dL (8.5-10.5) 11/26/24 13:29 Total Bilirubin 0.7 mg/dL (0.15-1.2) 11/26/24 13:29 AST 34 U/L (0-40) 11/26/24 13:29 ALT 32 U/L (0-41) 11/26/24 13:29 Alkaline Phosphatase 57 U/L (40-130) 11/26/24 13:29 Troponin T Baseline < 6 ng/L (0-15) 11/26/24 13:29 Troponin T 120 Minute < 6.0 ng/L (0-15) 11/26/24 14:51 Delta Troponin T 0 ABS# (0-10) 11/26/24 14:51 NT-Pro-B Natriuret Pep < 36 pg/mL (0-125) 11/26/24 13:29 Total Protein 6.5 g/dL (6.6-8.7) L 11/26/24 13:29 Albumin 4.5 g/dL (3.5-5.2) 11/26/24 13:29 Globulin 2.0 g/dL (1.3-4.6) 11/26/24 13:29 All radiology interpretation(s) finalized by discharge EKG Data EKG 1: I personally reviewed and interpreted this EKG as follows: Interpretation: Contemporaneous review of initial EKG reveals a ventricular rate of 103 bpm consistent with sinus tachycardia. Normal MO interval, QRS duration, corrected QT interval. Borderline left roasdo axis. No acute ST-T wave changes noted at this time. EKG 2: I personally reviewed and interpreted this EKG as follows: Interpretation: EKG #2 this visit reveals ventricular rate of 80 bpm. Normal MO interval, QRS duration, corrected QT interval. Normal axis. No acute ST-T wave changes and no changes from prior tracing this visit. Discharge Plan Discharge Patient Disposition: Home Clinical Impression: Chest pain Condition: Stable Prescriptions: No Action (DME) Diabetic shoes with 3 pairs of inserts See Rx Instructions .Route .MEDSUPPLY Qty: 1 0RF Rx Instructions: As directed HOME (DME) lancets Misc See Rx Instructions .ROUTE .MEDSUPPLY Qty: 100 11RF Rx Instructions: Use to test blood sugar 3 times daily (DME) medial kitchen worker brace See Rx Instructions .Route .MEDSUPPLY Qty: 1 0RF Rx Instructions: As directed (DME) custom insoles See Rx Instructions .Route .MEDSUPPLY Qty: 1 0RF Rx Instructions: As directed through sole supports Farxiga 10 mg tablet 10 mg PO QAM 30 Days Qty: 30 5RF Trulicity 0.75 mg/0.5 mL pen injector 0.75 mg SUBCUT Q7D Qty: 2 5RF Rx Instructions: Saturday glipizide 10 mg tablet extended release 24hr 10 mg PO BID 30 Days Qty: 60 5RF metformin 1,000 mg tablet 1,000 mg PO BID 30 Days Qty: 60 5RF isosorbide mononitrate 30 mg tablet extended release 24 hr 30 mg PO DAILY Qty: 90 5RF (DME) CAM boot - non weight bearing See Rx Instructions .Route .MEDSUPPLY Qty: 1 0RF Rx Instructions: As directed nitroglycerin 0.4 mg tablet, sublingual See Rx Instructions .ROUTE .COMPLEX Qty: 25 1RF Dose Instruction: 1 tablet sublingually every 5 minutes As Needed for chest pain; do not exceed [address] under tongue Rx Instructions: 1 tablet sublingually every 5 minutes As Needed for chest pain; do not exceed [address] under tongue (DME) diabetic shoes and 3 inserts See Rx Instructions .Route .MEDSUPPLY Qty: 1 0RF Rx Instructions: As directed to [facility] ([facility] [place] [place]) Accu-Chek Guide test strips Strip See Rx Instructions .ROUTE .COMPLEX Qty: 100 0RF Dose Instruction: TO TEST BLOOD SUGAR 3 TIMES A DAY Rx Instructions: TO TEST BLOOD SUGAR 3 TIMES A DAY (DME) lancets [Accu-Chek Softclix Lancets] Misc See Rx Instructions .ROUTE .COMPLEX Qty: 200 0RF Dose Instruction: TO TEST BLOOD SUGAR 3 TIMES A DAY Rx Instructions: TO TEST BLOOD SUGAR 3 TIMES A DAY (DME) Comfort EZ Pen Bon [place]ier 33 gauge x 1/4 needle See Rx Instructions .ROUTE .MEDSUPPLY Qty: 100 2RF Rx Instructions: As directed, for use with ozempic inj pen pregabalin 25 mg capsule 25 mg PO DAILY Qty: 30 1RF Rx Instructions: From Dr. Vasquez rosuvastatin 10 mg tablet 10 mg PO QPM Discharge Orders: Discharge ED (Routine); Ordered 11/26/24 Ordered By: Alejandro Preciado Referrals: Ana Mercedes MD [Primary Care Provider, Family Practice] Discharge Diet: Usual diet and Low Salt Discharge Activity: Increase activity as tolerated Patient Instructions: Opioid Safety, Pain Management, Patient Portal & Eric Instructions Activity Restrictions/Additional Instructions: As we discussed your emergency department evaluation today did not reveal that you are having a heart attack or other serious condition at the time of your evaluation. There are limitations to this evaluation today and we have placed a consultation for further testing etc. by the cardiology service. You should continue with your usual medications. If you develop chest pain that is not relieved with nitroglycerin after 15 minutes you should promptly call 911 and/or proceed to the nearest emergency department. If you have any other concerning symptoms return to the emergency department at any time. Print Language: Mohawk Coding Level of Care Code ED Shredded Filler Cutter Operator for Mo Souza
[2024-11-26 13:48] LABS: Hematocrit 46.8 % (37-53); Hemoglobin 15.50 g/dL (11.27-16.99); Mean Corpuscular HGB Conc 33.1 g/dL (30-55); Mean Corpuscular Hemoglobin 32.3 pg (27-33); Mean Corpuscular Volume 97.5 fl (82-101); Nucleated Red Blood Cells % 0 %; Platelet Count 154 10^3/cmm (157-399); Red Blood Count 4.80 10^6/uL (3.85-5.65); White Blood Count 6.49 10^3/uL (3.29-11.43)
[2024-11-26 14:09] LABS: Troponin(5th) Baseline < 6 ng/L (0-15)
[2024-11-26 14:25] LABS: Alanine Aminotransferase 32 U/L (0-41); Albumin Level 4.5 g/dL (3.5-5.2); Alkaline Phosphatase 57 U/L (40-130); Anion Gap 18.2 (5-19); Aspartate Amino Transferase 34 U/L (0-40); Blood Urea Nitrogen 13 mg/dL (8-23); Calcium 9.1 mg/dL (8.5-10.5); Carbon Dioxide 22 mmol/L (22-29); Chloride 106 mmol/L (98-107); Creatinine Clr Calc Pharmacy 104.7958; Globulin 2.0 g/dL (1.3-4.6); Glucose 112 mg/dL (65-115); NT Pro B Type Natriuretic Pept < 36 pg/mL (0-125); Osmolality Calculated 295 mOsm/kg (285-295); Potassium 4.2 mmol/L (3.5-5.1); Sodium 142 mmol/L (136-145); Total Protein 6.5 g/dL (6.6-8.7)
[2024-11-26 15:19] LABS: Troponin 5 2HR < 6.0 ng/L (0-15); Troponin 5 2HR Delta 0 ABS# (0-10)
[2024-11-26 15:31] VITALS: BP 115/71; PULSE 83; RESP 16; O2SAT 91
--- NOTE | 2024-11-26 15:43 | ECG_ITS ---
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
[2024-11-26 16:00] VITALS: BP 132/89; PULSE 89; RESP 16; O2SAT 93
[2024-11-26 16:17] VITALS: BP 132/89; PULSE 84; RESP 16; O2SAT 91
--- NOTE | 2024-11-26 17:11 | DCPLANNER ---
messaged heart care for er f/u and faxed outpatient stress test to scheduling
== END 2024-11-26 16:16 | disposition home or self-care (01) ==
PROVIDERS: Emergency Provider Emergency Medicine; PCP Family Medicine
DX: R07.9 Chest pain, unspecified (principal); Z79.84 Long term (current) use of oral hypoglycemic drugs; Z79.85 Long-term (current) use of injectable non-insulin antidiabetic drugs; Z87.891 Personal history of nicotine dependence; E11.40 Type 2 diabetes mellitus with diabetic neuropathy, unspecified; I11.0 Hypertensive heart disease with heart failure; I50.32 Chronic diastolic (congestive) heart failure; I25.10 Atherosclerotic heart disease of native coronary artery without angina pectoris
CPT/HCPCS: 36415; 71045; 80053; 83880; 84484; 85025; 93005; 99285; J9999

== ENCOUNTER → 2024-12-08 12:33 | Outpatient (BNVA) | payer MEDICARE, SELFPAY | PROVIDERS: PCP Family Medicine; Referring Provider Psychiatry & Neurology Neurology; Visit Provider Internal Medicine Cardiovascular Disease | DX: R07.9 Chest pain, unspecified (principal) | CPT/HCPCS: 93005 ==

== ENCOUNTER 2024-12-09 09:16 | Outpatient (CLI) | payer MEDICARE, SELFPAY ==
--- NOTE | 2024-12-09 09:39 | ECG_ITS ---
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 Interpretive Statements Procedure: A total of 0.4 mg of Lexiscan was infused over 20 seconds. The stress phase was continued for a total of 5 minutes. Sestamibi was injected 20 seconds after the Lexiscan infusion. Vital signs and ECG findings: Resting EKG???normal sinus rhythm, heart rate 76, no ST-T wave abnormality Stress EKG???no ST-T wave changes At baseline, the patient's blood pressure was 122/88 with a heart rate of 76 bpm. At the end of Lexiscan stress, the patient's blood pressure was 124/83 with a heart rate of 89 bpm In recovery, the patient's blood pressure was 126/82 with a heart rate of 85 bpm Conclusion: 1. Normal EKG response to Lexiscan infusion 2. No Lexiscan induced chest pain or cardiac arrhythmia. 3. Normal blood pressure and heart rate response. 4. Nuclear myocardial perfusion scan pending; see separate report. Electronically Signed On 12-10-2024 09:00:19 CDT by Josemanuel Maldonado M.D. [email or web address]
--- NOTE | 2024-12-09 09:39 | NMCV_ITS ---
NM anila perf SPECT r/s* [id number] Mikala Wright Age: 64 Gender: M : 1960 Exam Date: 12/09/2024 10:36 Ordering Phys: Alejandro Preciado DO Technologist: SHIVANI Cota Exam Location: [facility] Indications: cp STRESS TEST Please see separate stress test report in [facility] for full findings IMAGE PROTOCOL Rest/Stress 1 Lexiscan Day Radiopharmaceutical Dose (mCi) Administration Site Administered by Rest: Tc-99m 10.7 IV Analisa Bower, REED DIPPER Sestamibi Stress:Tc-99m 32.6 IV Analisa Brisenoe, REED DIPPER Sestamibi Rest: 09-Dec-2024 60 Discovery 630 Stress: 09-Dec-2024 30 Discovery 630 0.4mg Lexiscan. Images obtained in supine and prone position. SPECT RESULTS Technical Quality: Good Raw Data Analysis: Normal Image Corrections: No attenuation or motion correction applied Summed Stress Score: 0 Summed Rest Score: 0 Summed Difference Score: 0 PERFUSION FINDINGS SPECT images demonstrate homogeneous tracer distribution throughout the myocardium. FUNCTIONAL RESULTS (calculated via Gated SPECT) Stress Image LV EF (%): 53 Stress EDV (mL):98 TID: 1.09 Stress ESV (mL):46 FUNCTIONAL FINDINGS: There is normal left ventricular systolic function. EF 53%. IMPRESSIONS Myocardial perfusion imaging is normal. Josemanuel Maldonado MD, FACC (Electronically Signed) Final Date: 09 December 2024 12:42 S
[2024-12-09 09:40] VITALS: BMI 35.5
[2024-12-09 13:02] VITALS: BP 135/42; PULSE 62
== END 2024-12-09 09:17 | disposition home or self-care (01) ==
LOC: CDL 09:19
PROVIDERS: PCP Family Medicine; Visit Provider Emergency Medicine
DX: R07.9 Chest pain, unspecified (principal); R06.02 Shortness of breath
CPT/HCPCS: 36415; 78452; 93017; 96374; A9500; J2785

== ENCOUNTER → 2024-12-22 11:53 | Outpatient (BNVA) | payer MEDICARE, SELFPAY | PROVIDERS: PCP Family Medicine; Visit Provider Podiatrist Foot & Ankle Surgery | DX: G62.9 Polyneuropathy, unspecified (principal); Z98.890 Other specified postprocedural states; M72.2 Plantar fascial fibromatosis; M25.571 Pain in right ankle and joints of right foot; E11.42 Type 2 diabetes mellitus with diabetic polyneuropathy; Z79.84 Long term (current) use of oral hypoglycemic drugs | CPT/HCPCS: 99213 ==

== ENCOUNTER → 2025-01-06 14:48 | Outpatient (BNVA) | payer MEDICARE, SELFPAY | PROVIDERS: PCP Family Medicine; Visit Provider Internal Medicine Cardiovascular Disease | DX: I25.118 Atherosclerotic heart disease of native coronary artery with other forms of angina pectoris (principal); I11.0 Hypertensive heart disease with heart failure; I50.32 Chronic diastolic (congestive) heart failure | CPT/HCPCS: 99204; 99214 ==